=== PATIENT | female | born 1965 | race Caucasian/White ===

== ENCOUNTER 2020-02-14 15:15 | Emergency (ER) | payer MEDICARE ==
--- NOTE | 2020-02-14 16:00 | ED Physician Documentation ---
History of Present Illness - Stated complaint Stated Complaint: HIGH BP,SWEATING,COLON - Chief complaint Chief Complaint: Neuro - History obtained from History obtained from: Patient - Additonal information Additional information: 54-year-old female is brought into the emergency department for evaluation of headache, elevated blood pressure and difficulty speaking. She reports to me that she had a CVA a number of months ago and was treated at [facility] (11/24/19). She reports that normally her speech is quite fluid however when she develops high blood pressures that she begins to stutter and have difficulty with word finding. She reports that her BP's were 185/100 this am. Here in the ED she initially presented as hypertensive, but was normotensive on second evaluation. She does report to me that at baseline she has some residual right-sided weakness from her stroke. Patient is here on [facility] babysitting for her grandchildren. She reports that when she woke up at about 6 this morning she was not feeling well and began having difficulty with her blood pressure and speech. She drove herself into the hospital this afternoon. She denies that she is having chest pain or shortness of breath. 1620: Patient's daughter has arrived at the bedside. Though the patient had reported to me that she was having high blood pressure and difficulty with word finding this morning. The patient reports that she spoke to her mom on the phone at around 2 PM and she was normal. The patient's daughter is quite upset and concerned that we are not acting urgently in the care of her mother. I have initiated tele-stroke consultation Review of Systems Constitutional: reports: Reviewed and negative Eyes: reports: Reviewed and negative Ears: reports: Reviewed and negative Nose: reports: Reviewed and negative Throat: reports: Reviewed and negative Cardiac: reports: Reviewed and negative Respiratory: reports: Reviewed and negative GI: reports: Reviewed and negative : reports: Reviewed and negative Skin: reports: Reviewed and negative Musculoskeletal: reports: Reviewed and negative Neurologic: reports: Focal weakness (right sided deficits), Difficulty speaking, Headache. denies: Syncope, Seizure, Confused, Altered mental status PD PAST MEDICAL HISTORY - Present Medications Home Medications: Ambulatory Orders Medication Instructions Recorded Confirmed Levothyroxine [Synthroid] 125 mcg PO QDAC 02/14/20 02/14/20 Pramipexole [Mirapex] 0.25 mg PO DAILY 02/14/20 02/14/20 amLODIPine [Norvasc] 5 mg PO DAILY 02/14/20 02/14/20 tiZANidine [Zanaflex] 4 mg PO BID 02/14/20 02/14/20 - Allergies Allergies/Adverse Reactions: Allergies Allergy/AdvReac Type Severity Reaction Status Date / Time amoxicillin Allergy Rash Verified 02/14/20 17:42 cephalexin Allergy Rash Verified 02/14/20 17:43 diphenhydramine Allergy Rash Verified 02/14/20 17:43 [From Benadryl] metaxalone [From Skelaxin] Allergy Anaphylaxis Verified 02/14/20 17:44 NSAIDS (Non-Steroidal Allergy Rash Verified 02/14/20 17:43 Anti-Inflamma PD ED PE EXPANDED - General General: Alert, Well developed/nourished, Anxious - HEENT HEENT: PERRL, EOMI - Eyes Eyes: PERRL, Normal accommodation - Cardiac Cardiac: Regular Rate, Regular Rhythm, Radial strong equal, Pedal strong equal, Cap refill < 2 sec - Respiratory Respiratory: Clear to ausultation celeste. No: Distress, Labored - Abdomen Abdomen: Normal Bowel sounds. No: Tender to palpation - Derm Derm: Normal color, Warm and dry. No: Rash - Neuro Neuro: Normal Sensation, CN deficit, PERRL, Normal finger nose. No: Normal motor (Mild right sided arm/leg weakness; normal left arm/leg motor), Normal Speech, Dyscongugate gaze, Nystagmus, Normal speech (Stuttered speech, difficulty with word finding.) - GCS Eye Opening: Spontaneous Motor: Obeys Commands Verbal: Oriented Total: 15 Results - Vitals Vitals: Vital Signs - 24 hr 02/14/20 02/14/20 02/14/20 15:23 16:00 16:01 Temperature 36.6 C Heart Rate 94 85 84 Respiratory 18 16 17 Rate Blood Pressure 174/104 H 130/99 H O2 Saturation 99 99 99 02/14/20 02/14/20 02/14/20 16:30 16:39 17:00 Temperature Heart Rate 124 H 84 83 Respiratory 20 13 20 Rate Blood Pressure 130/99 H 174/99 H 169/126 H O2 Saturation 99 98 100 02/14/20 02/14/20 02/14/20 17:30 17:47 17:51 Temperature Heart Rate 80 80 78 Respiratory 20 11 L 14 Rate Blood Pressure 159/99 H 152/91 H 143/84 H O2 Saturation 100 97 98 02/14/20 18:14 Temperature Heart Rate 76 Respiratory 16 Rate Blood Pressure 124/89 H O2 Saturation 96 Oxygen O2 Source Room air - EKG (time done) 1547 Rate: Rate (enter#) (87) Rhythm: NSR Eastman: RAD Intervals: Normal OH, Prolonged QT Ischemia: Non specific changes Compare to prior EKG: Old EKG unavailable Computer interpretation: Agree with computer - Labs Labs: Laboratory Tests 02/14/20 02/14/20 02/14/20 15:30 15:30 15:30 WBC 9.4 RBC 5.00 Hgb 14.9 Hct 45.5 MCV 91.0 MCH 29.8 MCHC 32.7 RDW 13.7 Plt Count 270 MPV 11.8 H Neut # (Auto) 5.5 Lymph # (Auto) 2.9 [place] # (Auto) 0.7 Eos # (Auto) 0.2 Baso # (Auto) 0.1 Absolute Nucleated RBC 0.00 Nucleated RBC % 0.0 PT INR Sodium 139 Potassium 3.9 Chloride 99 L Carbon Dioxide 25 Anion Gap 15.0 H BUN 16 Creatinine 0.8 Estimated GFR (MDRD) 75 L Glucose 89 Calcium 10.1 Total Bilirubin 0.5 AST 22 ALT 36 Alkaline Phosphatase 91 Troponin I High Sens 2.5 B-Natriuretic Peptide Total Protein 8.7 H Albumin 4.8 Globulin 3.9 Albumin/Globulin Ratio 1.2 Lipase 34 02/14/20 02/14/20 15:30 15:30 WBC RBC Hgb Hct MCV MCH MCHC RDW Plt Count MPV Neut # (Auto) Lymph # (Auto) [place] # (Auto) Eos # (Auto) Baso # (Auto) Absolute Nucleated RBC Nucleated RBC % PT 11.9 INR 1.1 Sodium Potassium Chloride Carbon Dioxide Anion Gap BUN Creatinine Estimated GFR (MDRD) Glucose Calcium Total Bilirubin AST ALT Alkaline Phosphatase Troponin I High Sens B-Natriuretic Peptide 10 Total Protein Albumin Globulin Albumin/Globulin Ratio Lipase - Rads (name of study) CT angio head Radiology: Final report received (No intracranial hemorrhage is seen. No significant intracranial abnormality is seen. No significant intracranial arterial abnormalities are seen. No masses or abnormal enhancement can be seen) CT angio neck Radiology: Final report received (No hemodynamically significant stenosis can be seen within the arteries of the neck.) PD MEDICAL DECISION MAKING - ED course Complexity details: reviewed results, re-evaluated patient, considered differential, d/w patient, d/w family ED course: 54-year-old female Presents to the emergency department with aphasia right-sided weakness and elevated blood pressure. The symptoms are consistent with previous CVA that she has had in the past. Patient initially reported to this provider that her symptoms began early this morning and I felt that she was outside of the stroke window. However when the patient's daughter presented to the emergency department she reported that the symptoms started after 2 PM. Once the daughter reported sooner symptoms telestroke was initiated. However the CT angio of the head and neck that was ordered on presentation was in progress. 1627: Telestroke consultation ordered. 1650: Dr. Barber neurologist through telestroke has evaluated the patient and recommended TPA administration. 1735: Patient is reevaluated. TPA bolus and administration has begun. At this time she continues to complain of headache however her speech is improving. 25 mcgs of fentanyl as a one-time dose will be given 1823: [facility] paperwork has been filled out. Patient will be flown to [facility] once [facility] is available. Dr. Powell the telestroke neurologist has spoken with an accepting hospitalist at [facility]. At this time patient continues with some mild stuttering and difficulty with word finding though it is improved. Her vital signs are stable and she continues with the persistent headache that she presented with Departure - Departure Disposition: 02 Transfer Acute Care Hosp Clinical Impression: tPA adm status 24 hr [employer] SUR[employer]OR Stroke Qualifiers: CVA mechanism: unspecified Qualified Code(s): I63.9 - Cerebral infarction, unspecified Condition: Serious Record reviewed to determine appropriate education?: Yes
[2020-02-14 16:17] LABS: BASOPHILS # (AUTO) 0.1 10^3/uL (0.0-0.1); BASOPHILS % (AUTO) 0.9 %; EOSINOPHILS # (AUTO) 0.2 10^3/uL (0.0-0.7); EOSINOPHILS % (AUTO) 2.6 %; HGB - HEMOGLOBIN 14.9 g/dL (12.0-16.0); LYMPHOCYTES # (AUTO) 2.9 10^3/uL (1.5-3.5); LYMPHOCYTES % (AUTO) 30.4 %; MEAN CORPUSCULAR HEMOGLOBIN 29.8 pg (27.0-31.0); MEAN CORPUSCULAR HGB CONC 32.7 g/dL (32.0-36.0); MEAN PLATELET VOLUME 11.8 fL (7.9-10.8); MONOCYTES # (AUTO) 0.7 10^3/uL (0.0-1.0); NEUTROPHILS # (AUTO) 5.5 10^3/uL (1.5-6.6); NEUTROPHILS % (AUTO) 58.7 %; PLT - PLATELET COUNT 270 10^3/uL (130-450); RED CELL DISTRIBUTION WIDTH 13.7 % (12.0-15.0); WHITE BLOOD COUNT 9.4 x10^3/uL (4.8-10.8)
--- NOTE | 2020-02-14 16:18 | XRAY Report ---
PROCEDURE: Chest 1 View X-Ray INDICATIONS: Chest Pain TECHNIQUE: One view of the chest was acquired. COMPARISON: None FINDINGS: Surgical changes and devices: None. Lungs and pleura: No pleural effusions or pneumothorax. Lungs are clear. Mediastinum: Mediastinal contours appear normal. Heart size is normal. Bones and chest wall: No suspicious bony lesions. Overlying soft tissues appear unremarkable. IMPRESSION: No acute cardiopulmonary pathology. Reviewed by: Almas Segal MD on 02/14/2020 3:17 PM [facility] Approved by: Almas Segal MD on 02/14/2020 3:17 PM [facility] Station ID: [id number]
[2020-02-14 16:24] LABS: INR 1.1 (0.8-1.2); PT - PROTHROMBIN TIME 11.9 secs (9.9-12.6)
[2020-02-14] MEDS ORDERED: IOVERSOL 320 100 ML VIAL IVP ONE ×2 (16:25→17:17)
[2020-02-14 16:32] LABS: ALBUMIN 4.8 g/dL (3.2-5.5); ALBUMIN/GLOBULIN RATIO 1.2 (1.0-2.2); BILIRUBIN,TOTAL 0.5 mg/dL (0.2-1.0); CALCIUM 10.1 mg/dL (8.5-10.3); CREATININE 0.8 mg/dL (0.4-1.0); TOTAL PROTEIN 8.7 g/dL (6.7-8.2)
--- NOTE | 2020-02-14 16:53 | CT Report ---
PROCEDURE: ANGIO HEAD W/WO INDICATIONS: aphasia; right sided weakness CONTRAST: IV CONTRAST: Optiray 320 ml: 80 PO CONTRAST: *NO PO CONTRAST TECHNIQUE: Precontrast 4.5 mm thick angled axial sections acquired from the foramen magnum to the vertex. Afte r the administration of intravenous contrast, 1 mm thick sections acquired through the [place] of [place] is. Postcontrast 4.5 mm thick sections then re-acquired from the foramen magnum to the vertex. 3-di mensional bvzjmab-ljlkitdbq-omipvsjbxz (MIP) and/or volume rendering reformats were acquired of the c entral intracranial vasculature. For radiation dose reduction, the following was used: automated ex posure control, adjustment of mA and/or kV according to patient size. COMPARISON: Correlation is made with the accompanying neck CT angiogram, 02/14/2020. FINDINGS: Image quality: Diagnostic, with note made of streak artifact through the skull base. This study is li mited by bolus timing, with venous contamination. Anterior circulation: Intracranial internal carotid arteries are normal in size and flow. The flow within the paired anterior cerebral arteries is normal and symmetric. The flow within the middle cer ebral arteries is normal and symmetric. The anterior communicating artery is seen. No aneurysms are seen. Posterior circulation: Visualized portions of the vertebral arteries demonstrate normal caliber, and join to form a normal appearing basilar artery. Incidental note is made of a prominent right duplicating machine mechanic ior communicating artery, with a diminutive right P1 segment. 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 Flow within the posterior cerebral arteries is normal and symmetric. No aneurysms are seen. CSF spaces: Ventricles are normal in size and shape. Basal cisterns are patent. No extra-axial flu id collections. Brain: No midline shift. No intracranial bleeds or masses. Ward-white matter interface appears int act. Skull and face: Calvarium and facial bones appear intact, without suspicious lesions. Sinuses: Visualized sinuses and mastoids are clear. IMPRESSION: No intracranial hemorrhage is seen. No significant intracranial abnormality is seen. No significant intracranial arterial abnormalities are seen. No masses or abnormal enhancement can be seen. Reviewed by: Estiven Keita MD on 02/14/2020 3:52 PM [facility] Approved by: Estiven Keita MD on 02/14/2020 3:52 PM [facility] Station ID: [id number]
--- NOTE | 2020-02-14 16:56 | CT Report ---
PROCEDURE: ANGIO NECK W INDICATIONS: aphasia; right sided weakness CONTRAST: IV CONTRAST: Optiray 320 ml: 80 PO CONTRAST: *NO PO CONTRAST TECHNIQUE: After the administration of intravenous contrast, 1.5 mm axial sections acquired from the aortic arch to the [place]. Coronal 3-D maximum intensity projection (MIP) and/or volume rendering ref ormats were then performed. For radiation dose reduction, the following was used: automated exposur e control, adjustment of mA and/or kV according to patient size. COMPARISON: Correlation is made with the accompanying head CT angiogram, 02/14/2020 FINDINGS: Image quality: Mildly limited by bolus timing, with venous contamination. Carotid system: The great vessels demonstrate a conventional anatomy as they arise from the aortic a rch. The origins of the common carotid arteries appear patent. The common carotid arteries demonstr ate normal calibers and courses. The bifurcation regions demonstrate atherosclerotic irregularity, y et without a hemodynamically significant stenosis. The internal carotid arteries demonstrate normal c aliber and course. Posterior circulation: The origins of the vertebral arteries appear patent. The more superior porti ons of the vertebral arteries demonstrate normal course and caliber. They join to form a normal appe aring basilar artery. Soft tissues: Visualized neck soft tissues demonstrate no suspicious abnormalities. The thyroid is not definitely seen. Bones: No suspicious bony lesions. Visualized cervical spine appears normally aligned. Cervical s pine degenerative changes are seen, with moderate disc space narrowing at C5-C6, with associated endp late irregularity and sclerosis. Mild posteriorly directed endplate osteophyte formation can be seen at this level. Milder degenerative changes are seen elsewhere. IMPRESSION: No hemodynamically significant stenosis can be seen within the arteries of the neck. Focal C5-C6 degenerative change noted. The estimate of stenosis included in the report of the imaging study was calculated using the NASCET method Reviewed by: Estiven Keita MD on 02/14/2020 3:54 PM [facility] Approved by: Estiven Keita MD on 02/14/2020 3:54 PM [facility] Station ID: [id number]
[2020-02-14] MEDS ORDERED: LABETALOL 20 MG/4 ML SYRINGE IVP STA (17:08)
[2020-02-14] MEDS ORDERED: fentaNYL 100 MCG/2 ML VIAL IVP STA (17:34)
[2020-02-14] MEDS ORDERED: ALTEPLASE IV ONE (18:00)
[2020-02-14] MEDS ORDERED: WATER FOR INJECTION STERILE IV ONE (18:00)
[2020-02-14] MEDS ORDERED: ALTEPLASE 100 MG VIAL IV ONE (18:00)
[2020-02-14 18:36] VITALS: BP 140/92
== END 2020-02-14 18:57 | disposition short-term general hospital (02) ==
LOC: ED 15:15
DX: I63.9 Cerebral infarction, unspecified (principal); R47.01 Aphasia; R51.9 Headache, unspecified; G81.91 Hemiplegia, unspecified affecting right dominant side; R03.0 Elevated blood-pressure reading, without diagnosis of hypertension; M47.812 Spondylosis without myelopathy or radiculopathy, cervical region
CPT/HCPCS: 36415; 37195; 70496; 70498; 71045; 80053; 83690; 83880; 84484; 85025; 85610; 93005; 96374; 96375; 99283; 99285; J2997; Q9967

== ENCOUNTER 2020-07-01 17:09 | Emergency (ER) | payer MEDICARE ==
[2020-07-01] MEDS ORDERED: HYDROmorphone 1 MG/ML CARPUJECT IM STA (17:25)
--- NOTE | 2020-07-01 17:26 | ED Physician Documentation ---
History of Present Illness - Stated complaint Stated Complaint: RT RIB PX - Chief complaint Chief Complaint: Trauma Ch/Bk - History obtained from History obtained from: Patient (She was at home gardening and using pruning adama on some large branches and as she was squeezing down on the adama she felt 3 pops on the right side and now has severe right rib pain. Pain with breathing. Denies cough or fever.) Review of Systems Constitutional: denies: Fever, Chills Ears: reports: Reviewed and negative Nose: reports: Reviewed and negative PD PAST MEDICAL HISTORY - Past Medical History Cardiovascular: Hypertension Neuro: CVA - Present Medications Home Medications: Ambulatory Orders Medication Instructions Recorded Confirmed Levothyroxine [Synthroid] 125 mcg PO QDAC 02/14/20 02/14/20 Pramipexole [Mirapex] 0.25 mg PO DAILY 02/14/20 02/14/20 amLODIPine [Norvasc] 5 mg PO DAILY 02/14/20 02/14/20 tiZANidine [Zanaflex] 4 mg PO BID 02/14/20 02/14/20 Lidocaine Patch 5% [Lidoderm Patch] 1 patch TOP DAILY PRN #10 patch 07/01/20 Oxycodone HCl/Acetaminophen 1 - 2 each PO Q6H PRN #14 tablet 07/01/20 [Percocet 5-325 mg Tablet] - Allergies Allergies/Adverse Reactions: Allergies Allergy/AdvReac Type Severity Reaction Status Date / Time amoxicillin Allergy Rash Verified 07/01/20 17:13 cephalexin Allergy Rash Verified 07/01/20 17:13 diphenhydramine Allergy Rash Verified 07/01/20 17:13 [From Benadryl] metaxalone [From Skelaxin] Allergy Anaphylaxis Verified 07/01/20 17:13 NSAIDS (Non-Steroidal Allergy Rash Verified 07/01/20 17:13 Anti-Inflamma - Social History Does the pt smoke?: No Smoking Status: Never smoker PD ED PE NORMAL - Vitals Vital signs reviewed: Yes - General General: Alert and oriented X 3, Other (She appears uncomfortable and is cl utching at the right side of her chest. She cannot sit up unassisted on initial evaluation to look at her back.) - Neck Neck: Supple, no meningeal sign, No bony TTP - Cardiac Cardiac: RRR, No murmur - Respiratory Respiratory: No respiratory distress, Clear bilaterally - Abdomen Abdomen: Non tender - Back Back: No spinal TTP - Neuro Neuro: Alert and oriented X 3, Normal speech Results - Vitals Vitals: Vital Signs - 24 hr 07/01/20 17:13 Temperature 36.5 C Heart Rate 99 Respiratory 22 Rate Blood Pressure 148/95 H O2 Saturation 99 Oxygen O2 Source Room air - Rads (name of study) R ribs and chest Radiology: EMP read contemporaneously (NAD, no vis frx) PD MEDICAL DECISION MAKING - ED course ED course: 54-year-old woman with severe muscular layer rib pain after using pruning adama. She is in a lot of pain and she was administered IM Dilaudid here. No NSAIDs noting allergy. Still a lot of pain so some Ativan and oral Tylenol as well. This was followed by a lidocaine patch. Departure - Departure Disposition: 01 Home, Self Care Clinical Impression: Intercostal muscle tear Qualifiers: Encounter type: initial encounter Qualified Code(s): S29.019A - Strain of muscle and tendon of unspecified wall of thorax, initial encounter Condition: Good Record reviewed to determine appropriate education?: Yes Instructions: ED Contusion Chest Wall Prescriptions: Lidocaine Patch 5% [Lidoderm Patch] 1 patch TOP DAILY PRN #10 patch PRN Reason: pain Oxycodone HCl/Acetaminophen [Percocet 5-325 mg Tablet] 1 - 2 each PO Q6H PRN #14 tablet PRN Reason: pain Comments: Call your doctor to arrange a follow-up appointment, make the next available appointment. In the interim, return anytime if worse or if new symptoms develop. Do not drink or drive while taking narcotic pain medication. Note that many narcotic pain relievers also contain Tylenol/acetaminophen. Please ensure that your total dose of acetaminophen from all sources does not exceed 3 g (3000 mg) per day. You may get constipated while on this medication. Take a stool softener such as Colace twice a day while you are on it. Also add an ivjn-czg-ijxjjci laxative such as senna or MiraLAX on any day that you do not have a bowel movement. If you received a narcotic pain medication or sedative while in the emergency department, do not drive for the next 24 hours.
--- NOTE | 2020-07-01 18:07 | XRAY Report ---
PROCEDURE: Ribs w/PA Chest RT INDICATIONS: rib pain TECHNIQUE: 2 views of the right ribs were acquired, along with a single view chest. 4 images total. COMPARISON: Lung apices on CT neck and CXR 02/14/2020. FINDINGS: Surgical changes and devices: None. Bones and chest wall: No fractures or dislocations. No suspicious bony lesions. Overlying soft tis sues appear unremarkable. Lungs and pleura: No pleural effusions or pneumothorax. Lungs appear clear. Mediastinum: Mediastinal contours appear normal. Heart size is normal. IMPRESSION: No displaced right-sided rib fracture. Reviewed by: Duarte Garcia MD on 07/01/2020 6:05 PM PDT Approved by: Duarte Garcia MD on 07/01/2020 6:05 PM PDT Station ID: [id number]
[2020-07-01] MEDS ORDERED: ACETAMINOPHEN 325 MG TABLET PO STA (18:08)
[2020-07-01] MEDS ORDERED: LORazepam 2 MG/ML VIAL IM STA (18:08)
[2020-07-01] MEDS ORDERED: oxyCODONE 5 MG TABLET PO STA (19:20)
[2020-07-01] MEDS ORDERED: LIDOCAINE PATCH 5% TOP STA (19:20)
[2020-07-01 20:07] VITALS: BP 135/85
--- OUTSIDE RECORDS SUMMARY | 2020-07-08 23:06 | EXTERNAL MEDICAL SUMMARY RPT | Continuity of Care Document ---
:1965 Demographics Phone Unavailable Preferred Language Unknown Marital Status Unknown Restorationist Affiliation Unknown Race Unknown Ethnic Group Unknown Author Organization [place] Address [address] [place] [address] Phone Social History date description facility [id number]
== END 2020-07-01 20:11 | disposition home or self-care (01) ==
LOC: ED 17:09
DX: S29.019A Strain of muscle and tendon of unspecified wall of thorax, initial encounter (principal); X58.XXXA Exposure to other specified factors, initial encounter; Y93.H2 Activity, gardening and landscaping; Y92.009 Unspecified place in unspecified non-institutional (private) residence as the place of occurrence of the external cause
CPT/HCPCS: 71101; 96372; 99283; 99284; A9270; J1170; J2060

== ENCOUNTER 2020-08-11 13:24 | Emergency (ER) | payer MEDICARE ==
[2020-08-11 13:46] LABS: BILIRUBIN,URINE NEGATIVE (NEGATIVE); GLUCOSE, URINE (UA) NEGATIVE (NEGATIVE); KETONES,URINE (UA) NEGATIVE (NEGATIVE); LEUKOCYTE ESTERASE, URINE NEGATIVE (NEGATIVE); NITRITE,URINE NEGATIVE (NEGATIVE); OCCULT BLOOD,URINE NEGATIVE (NEGATIVE); PROTEIN,URINE NEGATIVE (NEGATIVE); UROBILINOGEN,URINE 0.2 (NORMAL) E.U./dL (NORMAL)
[2020-08-11 13:47] LABS: CLARITY,URINE CLEAR (CLEAR)
[2020-08-11 13:48] LABS: HCG UR QUAL NEGATIVE
[2020-08-11 14:03] LABS: BASOPHILS # (AUTO) 0.1 10^3/uL (0.0-0.1); BASOPHILS % (AUTO) 0.9 %; EOSINOPHILS # (AUTO) 0.3 10^3/uL (0.0-0.7); EOSINOPHILS % (AUTO) 3.1 %; HCT - HEMATOCRIT 44.3 % (37.0-47.0); HGB - HEMOGLOBIN 14.6 g/dL (12.0-16.0); LYMPHOCYTES # (AUTO) 2.8 10^3/uL (1.5-3.5); LYMPHOCYTES % (AUTO) 29.8 %; MEAN CORPUSCULAR HEMOGLOBIN 30.1 pg (27.0-31.0); MEAN CORPUSCULAR VOLUME 91.3 fL (81.0-99.0); MEAN PLATELET VOLUME 11.6 fL (7.9-10.8); MONOCYTES # (AUTO) 0.5 10^3/uL (0.0-1.0); MONOCYTES % (AUTO) 5.6 %; NEUTROPHILS # (AUTO) 5.6 10^3/uL (1.5-6.6); NEUTROPHILS % (AUTO) 60.2 %; PLT - PLATELET COUNT 233 10^3/uL (130-450); RED BLOOD COUNT 4.85 10^6/uL (4.20-5.40); RED CELL DISTRIBUTION WIDTH 13.3 % (12.0-15.0); WHITE BLOOD COUNT 9.3 x10^3/uL (4.8-10.8)
[2020-08-11 14:16] LABS: ALBUMIN 5.1 g/dL (3.2-5.5); ALBUMIN/GLOBULIN RATIO 1.4 (1.0-2.2); BILIRUBIN,TOTAL 0.6 mg/dL (0.2-1.0); CALCIUM 9.7 mg/dL (8.5-10.3); CREATININE 0.8 mg/dL (0.4-1.0); POTASSIUM 3.8 mmol/L (3.5-5.0); TOTAL PROTEIN 8.8 g/dL (6.7-8.2)
[2020-08-11] MEDS ORDERED: HYDROmorphone 1 MG/ML CARPUJECT IVP STA (15:57)
[2020-08-11] MEDS ORDERED: ONDANSETRON 4 MG/2 ML VIAL IVP STA (15:57)
--- NOTE | 2020-08-11 16:01 | ED Physician Documentation ---
History of Present Illness - Stated complaint Stated Complaint: RT SIDE PX - Chief complaint Chief Complaint: Abd Pain - Additonal information Additional information: 54-year-old female presents emergency department for evaluation of right flank, right upper quadrant abdominal pain for the last 3 days as well as reported white stools with lopez flecks for the better part of the week. She has discussed this concern with her accounts payable coordinator at the [facility] and they requested she come to the ER for further evaluation. Patient reports that over the last week she has had temperatures as high as 101. Some nausea and very occasional vomiting. No diarrhea but she notices that her stools are often white. She has been seen by accounts payable coordinator for bloody stools that she has had in the past and possible irritable bowel versus i nflammatory bowel syndrome. No dysuria urgency or frequency. No hematuria. Denies any pertinent past surgical history. Retains her gallbladder and appendix. Review of Systems Constitutional: reports: Fever Eyes: reports: Reviewed and negative Ears: reports: Reviewed and negative Nose: reports: Reviewed and negative Throat: reports: Reviewed and negative Cardiac: reports: Reviewed and negative Respiratory: reports: Reviewed and negative GI: reports: Abdominal Pain, Nausea, Vomiting, Other (White stools) : denies: Dysuria, Frequency, Hematuria Skin: reports: Reviewed and negative Musculoskeletal: reports: Reviewed and negative PD PAST MEDICAL HISTORY - Past Medical History Cardiovascular: Hypertension Respiratory: None Neuro: CVA Endocrine/Autoimmune: None GI: None FACING GRINDER: None : None HEENT: None Psych: None Musculoskeletal: None Derm: None - Past Surgical History Past Surgical History: Yes /FACING GRINDER: section - Present Medications Home Medications: Ambulatory Orders Medication Instructions Recorded Confirmed Levothyroxine [Synthroid] 125 mcg PO QDAC 02/14/20 02/14/20 Pramipexole [Mirapex] 0.25 mg PO DAILY 02/14/20 02/14/20 amLODIPine [Norvasc] 5 mg PO DAILY 02/14/20 02/14/20 tiZANidine [Zanaflex] 4 mg PO BID 02/14/20 02/14/20 Lidocaine Patch 5% [Lidoderm Patch] 1 patch TOP DAILY PRN #10 patch 07/01/20 Oxycodone HCl/Acetaminophen 1 - 2 each PO Q6H PRN #14 tablet 07/01/20 [Percocet 5-325 mg Tablet] Pantoprazole Sodium [Protonix] 20 mg PO DAILY #30 08/11/20 - Allergies Allergies/Adverse Reactions: Allergies Allergy/AdvReac Type Severity Reaction Status Date / Time amoxicillin Allergy Rash Verified 08/11/20 13:26 cephalexin Allergy Rash Verified 08/11/20 13:26 diphenhydramine Allergy Rash Verified 08/11/20 13:26 [From Benadryl] metaxalone [From Skelaxin] Allergy Anaphylaxis Verified 08/11/20 13:26 NSAIDS (Non-Steroidal Allergy Rash Verified 08/11/20 13:26 Anti-Inflamma - Social History Does the pt smoke?: No Smoking Status: Never smoker Does the pt drink ETOH?: No Does the pt have substance abuse?: No - Immunizations Immunizations are current?: Yes - POLST Patient has POLST: No PD ED PE EXPANDED - General General: Alert, No acute distress - Cardiac Cardiac: Regular Rate, Radial strong equal, Pedal strong equal, Cap refill < 2 sec. No: Murmur Present - Respiratory Respiratory: Clear to ausultation celeste. No: Distress, Labored - Abdomen Abdomen: Normal Bowel sounds, Tender to palpation, Other (Tenderness to the right upper quadrant and right flank without guarding or rebound.). No: Rebound, Guarding - Back Back: Normal exam. No: CVA TTP right, CVA TTP left - Derm Derm: Normal color. No: Warm and dry, Pale, Jaundiced Results - Vitals Vitals: Vital Signs - 24 hr 08/11/20 13:28 Temperature 36.5 C Heart Rate 84 Respiratory 16 Rate Blood Pressure 167/98 H O2 Saturation 100 Oxygen O2 Source Room air - Labs Labs: Laboratory Tests 08/11/20 08/11/20 08/11/20 13:38 13:55 13:55 WBC 9.3 RBC 4.85 Hgb 14.6 Hct 44.3 MCV 91.3 MCH 30.1 MCHC 33.0 RDW 13.3 Plt Count 233 MPV 11.6 H Neut # (Auto) 5.6 Lymph # (Auto) 2.8 [place] # (Auto) 0.5 Eos # (Auto) 0.3 Baso # (Auto) 0.1 Absolute Nucleated RBC 0.00 Nucleated RBC % 0.0 Sodium 136 Potassium 3.8 Chloride 100 L Carbon Dioxide 26 Anion Gap 10.0 BUN 18 Creatinine 0.8 Estimated GFR (MDRD) 75 L Glucose 79 Calcium 9.7 Total Bilirubin 0.6 AST 26 ALT 41 Alkaline Phosphatase 87 Total Protein 8.8 H Albumin 5.1 Globulin 3.7 Albumin/Globulin Ratio 1.4 Lipase 22 Urine Color YELLOW Urine Clarity CLEAR Urine pH 5.0 Ur Specific [place] 1.020 Urine Protein NEGATIVE Urine Glucose (UA) NEGATIVE Urine Ketones NEGATIVE Urine Occult Blood NEGATIVE Urine Nitrite NEGATIVE Urine Bilirubin NEGATIVE Urine Urobilinogen 0.2 (NORMAL) Ur Leukocyte Esterase NEGATIVE Ur Microscopic Review NOT INDICATED Urine Culture Comments NOT INDICATED Urine HCG, Qual NEGATIVE - Rads (name of study) abd US Radiology: Final report received (Hepatic steatosis and hepatomegaly. No hepatic lesions. Normal-appearing gallbladder. No gross biliary ductal dilation. Common bile duct size is measuring at the upper limits of normal for patient's age.) CT abd/pelvis Radiology: Final report received (Hepatomegaly with generalized prominent fatty liver.) PD MEDICAL DECISION MAKING - ED course Complexity details: reviewed results, re-evaluated patient, d/w patient ED course: 54-year-old female presents to the emergency department for evaluation of right flank pain as well as white stools have been ongoing for about a week. Screening labs show no significant abnormality. Particularly her liver function tests and bilirubin are normal. No leukocytosis. Abdominal ultrasound and CAT scan show enlarged fatty liver without any worrisome findings otherwise. After reevaluating the patient we discussed her white stools and she reports to me that she has been eating a lot of Tums because her stomach has been upset recently the calcium carbonate is most likely the cause of the white stools. When I had asked her to at the presentation in the emergency department she declined taking any medication like that. I suspect that she has some gastritis contributing to her upper abdominal pain or even her flank pain therefore I will start her on Protonix. She is advised to follow closely with her accounts payable coordinator. She may benefit from EGD and/or H. pylori testing. Emergent return precautions were discussed. Departure - Departure Disposition: 01 Home, Self Care Clinical Impression: Hepatomegaly, Fatty liver Abdominal pain Qualifiers: Abdominal location: right upper quadrant Qualified Code(s): R10.11 - Right upper quadrant pain Condition: Stable Record reviewed to determine appropriate education?: Yes Instructions: NAFLD Follow-Up: RUT INIGUEZ MD [Primary Care Provider] - Prescriptions: Pantoprazole Sodium [Protonix] 20 mg PO DAILY #30 Comments: Please see you are seen in the emergency department today for right-sided abdominal pain and reported white stools. As we discussed the Tums that you are taking has calcium carbonate in it. This is the most likely cause of your white stools even if you are taking a small amount. I suspect however that most of your abdominal pain is coming from stomach upset or even gastritis. Therefore I would like you to fill the prescription for the Protonix and begin taking daily as prescribed. You may continue to take the Tums for occasional stomach upset. Please discuss this ED visit with your accounts payable coordinator. You may benefit from an EGD where and they look in your stomach for ulcer formation. You might also benefit from H. pylori testing. The abdominal ultrasound and CAT scan today showed only that you have an enlarged and fatty liver. This does put you at risk of developing cirrhosis in the long-term. Again this is something that you should discuss closely with your accounts payable coordinator.
[2020-08-11] MEDS ORDERED: IOPAMIDOL-300 100 ML VIAL ONE (16:07)
--- NOTE | 2020-08-11 17:04 | Ultrasound Report ---
PROCEDURE: Abdomen Limited INDICATIONS: RUQ abd pain TECHNIQUE: Real-time focused scanning was performed of the abdomen, with image documentation. COMPARISON: None. FINDINGS: Liver is enlarged in size and measures 20.7 cm in length. Diffusely increased liver parenchymal echot exture is seen suggestive of hepatic steatosis. No discrete hepatic lesion is seen. There is no gallstone. No gallbladder wall thickening or pericholecystic fluid. No sonographic Rodriguez 's sign. There is no intrahepatic biliary ductal dilatation. Common bile that measures up to 6.4 mm in diamete r and it is in the upper limits of normal. Pancreas is poorly visualized due to overlying bowel gas. Right kidney measures 11.5 cm in length. No hydronephrosis. No solid-appearing renal lesion or nephro lithiasis. IVC is patent. IMPRESSION: 1. Hepatic steatosis and hepatomegaly. No discrete hepatic lesion. 2. Normal-appearing gallbladder. 3. No gross biliary ductal dilatation. Common bile duct size is measuring at the upper limits of norm al for patient's age. Reviewed by: Almas Segal MD on 08/11/2020 5:03 PM PDT Approved by: Almas Segal MD on 08/11/2020 5:03 PM PDT Station ID: [id number]
[2020-08-11] MEDS ORDERED: IOPAMIDOL-300 100 ML VIAL IVP ONE (17:17)
--- NOTE | 2020-08-11 17:31 | CT Report ---
PROCEDURE: Abdomen/Pelvis W INDICATIONS: Right flank pain; white stools CONTRAST: IV CONTRAST: Isovue 300 ml: 100 PO CONTRAST: *NO PO CONTRAST TECHNIQUE: After the administration of contrast, 5 mm thick sections acquired from the diaphragms to the sym physis. 5 mm thick coronal and sagittal reformats were acquired. For radiation dose reduction, the following was used: automated exposure control, adjustment of mA and/or kV according to patient size . COMPARISON: Limited abdominal ultrasound same day reviewed.. FINDINGS: Image quality: Excellent. ABDOMEN: Lung bases: Lung bases are clear. Heart size is normal. Solid organs: Liver and spleen are normal in enhancement but the liver is enlarged and diffusely fat ty infiltrated. Its craniocaudad length is almost 22 cm, but the spleen is not enlarged.. Gallbladde r appears normal Biliary system is non dilated. Pancreas enhances normally. No adrenal nodules. K idneys demonstrate normal size and enhancement, without hydronephrosis. Peritoneum and bowel: Bowel loops demonstrate normal wall thickness and caliber. No free fluid or a ir. Nodes and vessels: No retroperitoneal or mesenteric adenopathy by size criteria. Aorta and inferior vena cava are normal in size. Miscellaneous: No ventral hernias. PELVIS: Genitourinary: Bladder wall thickness is normal. Miscellaneous: No inguinal hernias or adenopathy. Bones: No suspicious bony lesions. No vertebral body compression fractures. IMPRESSION: Hepatomegaly with generalized prominent fatty infiltration throughout, but the spleen is not enlarged and no ascites or varices are found. No biliary distention is seen and the pancreas visualized appears normal. Throughout the abdomen and pelvis elsewhere no pathology is found. Hepatic insufficiency may be present, acutely, as cause of cu rrent symptomatology and the enlarged fatty liver. Reviewed by: Niall Sheikh MD on 08/11/2020 5:29 PM PDT Approved by: Niall Sheikh MD on 08/11/2020 5:29 PM PDT Station ID: [id number]
[2020-08-11 17:56] VITALS: BP 131/82
== END 2020-08-11 18:02 | disposition home or self-care (01) ==
LOC: ED 13:24
DX: K76.0 Fatty (change of) liver, not elsewhere classified (principal); R16.0 Hepatomegaly, not elsewhere classified; I10 Essential (primary) hypertension
CPT/HCPCS: 36415; 74177; 76705; 80053; 81003; 81025; 83690; 85025; 96374; 99283; 99284; J1170; Q9967; 81001; 87086

== ENCOUNTER 2020-09-24 19:01 | Emergency (ER) | payer MEDICARE ==
--- NOTE | 2020-09-24 20:13 | ED Physician Documentation ---
PD HPI BACK PAIN - Stated complaint Stated Complaint: POST OP COMPLICATIONS - Chief complaint Chief Complaint: Back Pain - History obtained from History obtained from: Patient - History of Present Illness Timing - onset: Enter time (03:30), Today Timing - details: Gradual onset Pain level now: 8 Location: Lower, Left Quality: Pain Associated symptoms: No: Fever, Weakness, Numbness, Incontinent of urine, Incontinent of stool Improves with: Rest Worsened by: Movement, Palpation Recently seen: Surgery - Additional information Additional information: patient underwent a lumbar ablation eight days ago. She presents at this time due to worsening low back pain that radiates to her left buttock. she says her spouse noted some redness to the left buttock since earlier today. She denies fever. She says she has had inadequate pain relief despite taking Vicodin as prescribed. Review of Systems Constitutional: reports: Reviewed and negative : denies: Unable to Void, Incontinent Skin: reports: Rash Musculoskeletal: reports: Back pain Neurologic: denies: Generalized weakness, Focal weakness, Numbness PD PAST MEDICAL HISTORY - Past Medical History Past Medical History: Yes Cardiovascular: Hypertension Respiratory: None Neuro: CVA Endocrine/Autoimmune: None GI: None CLOTHING WORKER: None : None HEENT: None Psych: None Musculoskeletal: None Derm: None - Past Surgical History Past Surgical History: Yes /CLOTHING WORKER: section - Present Medications Home Medications: Ambulatory Orders Medication Instructions Recorded Confirmed Levothyroxine [Synthroid] 125 mcg PO QDAC 02/14/20 09/24/20 Pramipexole [Mirapex] 0.25 mg PO DAILY 02/14/20 09/24/20 amLODIPine [Norvasc] 5 mg PO DAILY 02/14/20 09/24/20 tiZANidine [Zanaflex] 4 mg PO BID 02/14/20 09/24/20 Lidocaine Patch 5% [Lidoderm Patch] 1 patch TOP DAILY PRN #10 patch 07/01/20 09/24/20 Pantoprazole Sodium [Protonix] 20 mg PO DAILY #30 08/11/20 09/24/20 Doxycycline Monohydrate 100 mg PO BID #14 09/24/20 HYDROcod/ACETAM 5/325 [[place] 5/325] 1 tablet PO Q6H PRN 09/24/20 09/24/20 oxyCODONE [Roxicodone] 5 - 10 mg PO Q4-6H PRN #14 tablet 09/24/20 - Allergies Allergies/Adverse Reactions: Allergies Allergy/AdvReac Type Severity Reaction Status Date / Time amoxicillin Allergy Rash Verified 09/24/20 19:08 cephalexin Allergy Rash Verified 09/24/20 19:08 diphenhydramine Allergy Rash Verified 09/24/20 19:08 [From Benadryl] metaxalone [From Skelaxin] Allergy Anaphylaxis Verified 09/24/20 19:08 NSAIDS (Non-Steroidal Allergy Rash Verified 09/24/20 19:08 Anti-Inflamma - Social History Does the pt smoke?: No Smoking Status: Never smoker Does the pt drink ETOH?: No Does the pt have substance abuse?: No - Immunizations Immunizations are current?: Yes - POLST Patient has POLST: No PD ED PE NORMAL - Vitals Vital signs reviewed: Yes - General General: Alert and oriented X 3, Well developed/nourished, Other (appears to be uncomfortable, mild-moderate painful distress) - Neck Neck: Supple, no meningeal sign - Abdomen Abdomen: Soft, Non tender - Back Back: No spinal TTP - Extremities Extremities: No edema - Neuro Neuro: No motor deficit, No sensory deficit PD ED PE EXPANDED - Derm SKin visual: 1 - rash 2 - rash (faint erythema within boundaries of 1 and 2 as diagrammed with poor margination, no fluctuance or edema, moderate TTP) Results - Vitals Vitals: Vital Signs - 24 hr 09/24/20 09/24/20 09/24/20 19:10 21:06 21:33 Temperature 36.9 C 36.2 C L 36.4 C L Heart Rate 84 72 72 Respiratory 18 20 16 Rate Blood Pressure 182/100 H 136/82 H 117/80 O2 Saturation 100 100 98 09/24/20 23:00 Temperature 36.3 C L Heart Rate 81 Respiratory 16 Rate Blood Pressure 132/83 H O2 Saturation 97 Oxygen O2 Source Room air PD MEDICAL DECISION MAKING - ED course Complexity details: considered differential, d/w patient ED course: presents due to left low back pain since early this morning. on exam, she has moderate TTP and faint erythema to the left of the sacral region continuing to the cranial aspect of left buttock. she is afebrile and there are no findings on exam nor aspects of HPI/ROS to suggest emergent process such as cauda equina, abscess, or deep tissue infection. the faint erythema could represent an early cellulitis and thus given doxycycline. adequate pain relief was eventually achieved with IM dilaudid, total of 3 mg. I am prescribing a short course of short-acting opioid pain medication for this patient. I have reviewed the patients BASEBALL SEWER HAND and no concerning findings were noted. I have discussed that the opioids are for short term therapy only, and will not be refilled from the ED. Departure - Departure Disposition: 01 Home, Self Care Clinical Impression: Back pain Qualifiers: Back pain location: low back pain Chronicity: acute Back pain laterality: left Sciatica presence: without sciatica Qualified Code(s): M54.5 - Low back pain Cellulitis Qualifiers: Site of cellulitis: buttock Qualified Code(s): L03.317 - Cellulitis of buttock Condition: Good Instructions: ED Infec Skin Cellulitis, ED Neck Back Pain General Follow-Up: RUT INIGUEZ MD [Primary Care Provider] - Within 3 Days Prescriptions: Doxycycline Monohydrate 100 mg PO BID #14 oxyCODONE [Roxicodone] 5 - 10 mg PO Q4-6H PRN #14 tablet PRN Reason: Pain Comments: You can take the oxycodone in place of the vicodin; do not take these medications within 6 hours of each other. I am prescribing a short course of narcotic pain medication for you. These are potentially dangerous and addictive medications that should be used carefully. These medications may constipate you. Take an mdaw-tzz-jqmfskl stool softener (docusate) twice daily with plenty of water while taking these medications. If you go 24 hours without a bowel movement, take lxoy-nlg-pjjfime miralax, per package instructions. Do not drink or drive while taking these medications. If you received narcotic or sedating medications while in the emergency department, do not drive for 24 hours. Store this medication in a safe, secure place and out of reach of children. It is a violation of federal law to give or sell this medication to another person or to use in a manner other than prescribed. The ED will not refill narcotic prescriptions, including prescriptions lost or stolen. To dispose of unwanted medications: 1. [facility] at [address] in [place] has a medication drop box. They accept prescription medications (in pill form) Tuesday through Tuesday 9:00 a.m. to 5:00 p.m. 2. The [facility] accepts prescription medications (in pill form only) for disposal year round. Call for more information. 3. Contact the [facility] for the next [facility] sponsored prescription drug collection event. , [phone], or [phone]; Note that many narcotic pain relievers also contain Tylenol/acetaminophen. Please ensure that your total dose of acetaminophen from all sources does not exceed 3 g (3000 mg) per day. Discharge Date/Time: 09/24/20 23:05
[2020-09-24] MEDS ORDERED: HYDROmorphone 1 MG/ML CARPUJECT IM STA ×2 (20:38→21:53)
[2020-09-24] MEDS ORDERED: DOXYCYCLINE 100 MG TABLET PO STA (20:39)
[2020-09-24 23:17] VITALS: BP 132/83
== END 2020-09-24 23:05 | disposition home or self-care (01) ==
LOC: ED 19:01
DX: G89.18 Other acute postprocedural pain (principal); M54.5 Low back pain; L03.317 Cellulitis of buttock; I10 Essential (primary) hypertension
CPT/HCPCS: 96372; 99283; 99284; A9270; J1170

== ENCOUNTER 2020-09-26 14:42 | Emergency (ER) | payer MEDICARE ==
--- NOTE | 2020-09-26 15:20 | ED Physician Documentation ---
History of Present Illness - Stated complaint Stated Complaint: BUTTOCK/BACK PX/IRRITATION - Chief complaint Chief Complaint: General - History obtained from History obtained from: Patient - History of Present Illness Timing: How many days ago (10) Pain level max: 10 Pain level now: 10 - Additonal information Additional information: Patient is a 54-year-old female who is status post radiofrequency ablation of her left side lumbar spine. Since that time she has had shooting pain down towards her left hip and down into the left posterior thigh. Worse with movement, better with rest. She is taking oxycodone without relief. She states she was recently put on doxycycline for possible infection. No fevers. No chills. Review of Systems Constitutional: denies: Fever, Chills Respiratory: denies: Cough GI: denies: Nausea, Vomiting, Diarrhea Skin: denies: Rash Musculoskeletal: denies: Neck pain, Back pain Neurologic: denies: Headache PD PAST MEDICAL HISTORY - Past Medical History Cardiovascular: Hypertension Respiratory: None Neuro: CVA Endocrine/Autoimmune: None GI: None SPEECH THERAPY TEACHER: None : None HEENT: None Psych: None Musculoskeletal: None Derm: None - Past Surgical History Past Surgical History: Yes /SPEECH THERAPY TEACHER: section - Present Medications Home Medications: Ambulatory Orders Medication Instructions Recorded Confirmed Levothyroxine [Synthroid] 125 mcg PO QDAC 02/14/20 09/26/20 Pramipexole [Mirapex] 0.25 mg PO DAILY 02/14/20 09/26/20 amLODIPine [Norvasc] 5 mg PO DAILY 02/14/20 09/26/20 tiZANidine [Zanaflex] 4 mg PO BID 02/14/20 09/26/20 Lidocaine Patch 5% [Lidoderm Patch] 1 patch TOP DAILY PRN #10 patch 07/01/20 09/26/20 Doxycycline Monohydrate 100 mg PO BID #14 09/24/20 09/26/20 HYDROcod/ACETAM 5/325 [[place] 5/325] 1 tablet PO Q6H PRN 09/24/20 09/26/20 oxyCODONE [Roxicodone] 5 - 10 mg PO Q4-6H PRN #14 tablet 09/24/20 09/26/20 - Allergies Allergies/Adverse Reactions: Allergies Allergy/AdvReac Type Severity Reaction Status Date / Time amoxicillin Allergy Rash Verified 09/26/20 14:45 cephalexin Allergy Rash Verified 09/26/20 14:45 diphenhydramine Allergy Rash Verified 09/26/20 14:45 [From Benadryl] metaxalone [From Skelaxin] Allergy Anaphylaxis Verified 09/26/20 14:45 NSAIDS (Non-Steroidal Allergy Rash Verified 09/26/20 14:45 Anti-Inflamma - Social History Does the pt smoke?: No Smoking Status: Never smoker Does the pt drink ETOH?: No Does the pt have substance abuse?: No - Immunizations Immunizations are current?: Yes - POLST Patient has POLST: No PD ED PE NORMAL - Vitals Vital signs reviewed: Yes - General General: Alert and oriented X 3, No acute distress, Well developed/nourished - HEENT HEENT: PERRL, Moist mucous membranes - Neck Neck: Supple, no meningeal sign - Cardiac Cardiac: RRR, Strong equal pulses - Respiratory Respiratory: No respiratory distress, Clear bilaterally - Abdomen Abdomen: Soft, Non tender, Non distended - Back Back: No spinal TTP, Other (Normal skin. No redness. No swelling. No rash.) - Derm Derm: Warm and dry - Extremities Extremities: No edema, No calf tenderness / cord - Neuro Neuro: Alert and oriented X 3, No motor deficit, No sensory deficit, Other (Normal bilateral lower extremity patellar and ankle jerk reflexes. Normal great toe extension bilaterally. no saddle anesthesia) - Psych Psych: Normal mood, Normal affect Results - Vitals Vitals: Vital Signs - 24 hr 09/26/20 14:45 Temperature 36.8 C Heart Rate 83 Respiratory 16 Rate Blood Pressure 155/89 H O2 Saturation 98 Oxygen O2 Source Room air PD MEDICAL DECISION MAKING - ED course Complexity details: reviewed results, re-evaluated patient, considered differential (No cauda equina, no spinal epidural abscess, no fracture, no aortic dissection or evidence of aneursym rupture), d/w patient, d/w client development consultant ED course: 54-year-old female with what appears to be post ablation pain. She has about 10 days out from the procedure. This was performed by Dr. Adrian Schaefer at [facility]. Case with Dr. Davila, on-call for Dr. Thornton. He recommends a CT of the L-spine and labs. If these are normal, can follow-up in the clinic on Tuesday or Tuesday. Patient signed out to Dr. Gatica. This document was made in part using voice recognition software. While efforts are made to proofread this document, sound alike and grammatical errors may occur. Departure - Departure Clinical Impression: Post-operative pain Condition: Stable Instructions: Radiofrequency Denervation Follow-Up: Adrian Schaefer MD [Physician No Access] - Comments: As we discussed, this pain can last for up to 3 weeks after the procedure. Follow up with Dr. Schaefer for further care.
[2020-09-26] MEDS ORDERED: oxyCODONE 5 MG TABLET PO STA (15:24)
[2020-09-26 16:13] LABS: BASOPHILS # (AUTO) 0.1 10^3/uL (0.0-0.1); BASOPHILS % (AUTO) 0.6 %; EOSINOPHILS # (AUTO) 0.3 10^3/uL (0.0-0.7); EOSINOPHILS % (AUTO) 3.1 %; HCT - HEMATOCRIT 43.1 % (37.0-47.0); HGB - HEMOGLOBIN 14.1 g/dL (12.0-16.0); LYMPHOCYTES # (AUTO) 2.7 10^3/uL (1.5-3.5); LYMPHOCYTES % (AUTO) 31.7 %; MEAN CORPUSCULAR HGB CONC 32.7 g/dL (32.0-36.0); MEAN CORPUSCULAR VOLUME 91.7 fL (81.0-99.0); MEAN PLATELET VOLUME 11.1 fL (7.9-10.8); MONOCYTES # (AUTO) 0.5 10^3/uL (0.0-1.0); MONOCYTES % (AUTO) 5.6 %; NEUTROPHILS # (AUTO) 4.9 10^3/uL (1.5-6.6); NEUTROPHILS % (AUTO) 58.8 %; PLT - PLATELET COUNT 228 10^3/uL (130-450); RED CELL DISTRIBUTION WIDTH 13.4 % (12.0-15.0); WHITE BLOOD COUNT 8.4 x10^3/uL (4.8-10.8)
[2020-09-26] MEDS ORDERED: HYDROmorphone 1 MG/ML CARPUJECT IVP STA ×2 (16:21→16:54)
[2020-09-26 16:31] LABS: ALBUMIN 4.7 g/dL (3.2-5.5); ALBUMIN/GLOBULIN RATIO 1.3 (1.0-2.2); ALKALINE PHOSPHATASE 72 IU/L (42-121); ALT ALANINE AMINOTRANSFERASE 36 IU/L (10-60); AST ASPARTATE AMINOTRANSFERASE 21 IU/L (10-42); BILIRUBIN,TOTAL 0.4 mg/dL (0.2-1.0); BUN - BLOOD UREA NITROGEN 17 mg/dL (6-20); CALCIUM 9.3 mg/dL (8.5-10.3); CARBON DIOXIDE - CO2 26 mmol/L (21-32); CHLORIDE 99 mmol/L (101-111); CREATININE 0.8 mg/dL (0.4-1.0); GFR - MDRD 75 (>89); GLUCOSE 85 mg/dL (70-100); LIPASE 22 U/L (22-51); POTASSIUM 3.7 mmol/L (3.5-5.0); SODIUM 135 mmol/L (135-145); TOTAL PROTEIN 8.3 g/dL (6.7-8.2)
--- NOTE | 2020-09-26 16:44 | CT Report ---
PROCEDURE: LUMBAR SPINE WO INDICATIONS: low back pain after ablation TECHNIQUE: Noncontrast 3 mm thick sections acquired from the T12 level to the sacrum. Sagittal and coronal refo rmats were constructed. For radiation dose reduction, the following was used: automated exposure co ntrol, adjustment of mA and/or kV according to patient size. COMPARISON: None. FINDINGS: Image quality: Excellent. Bones: There is normal bony alignment. No acute vertebral body compression fractures. No suspiciou s lytic or blastic bony lesions. Central spinal caliber is of normal overall caliber. No pars defec ts. Mild dextrocurvature. No paraspinal hematoma is seen. T12-L1: Normal in appearance. L1-L2: Normal in appearance. L2-L3: Normal in appearance. L3-L4: Mild canal narrowing. No foraminal stenosis. L4-L5: Mild canal narrowing. No left foraminal narrowing. Minimal right foraminal narrowing. L5-S1: No canal or left foraminal stenosis. Minimal right foraminal narrowing. Soft tissues: No retroperitoneal masses or hematomas. Visualized aorta is normal in caliber. IMPRESSION: Overall, no acute abnormality. If the patient's clinical symptoms warrant, further evaluation with MR I could be performed. Reviewed by: Peng August MD on 09/26/2020 4:43 PM PDT Approved by: Peng August MD on 09/26/2020 4:43 PM PDT Station ID: [id number]
[2020-09-26 16:52] LABS: CRP - C-REACTIVE PROTEIN < 1.0 mg/dL (0-1.0)
[2020-09-26 17:32] VITALS: BP 122/78
== END 2020-09-26 18:00 | disposition home or self-care (01) ==
LOC: ED 14:42
DX: G89.18 Other acute postprocedural pain (principal); I10 Essential (primary) hypertension
CPT/HCPCS: 36415; 72131; 80053; 83690; 85025; 85651; 86140; 96374; 96376; 99284; A9270; J1170

== ENCOUNTER 2020-10-03 08:36 | Outpatient (CLI) | payer MEDICARE | END 2020-10-03 08:37 | disposition critical access hospital (66) | LOC: EMS 08:36 | DX: R11.2 Nausea with vomiting, unspecified (principal); R53.1 Weakness | CPT/HCPCS: A0425; A0427 ==

== ENCOUNTER 2020-10-03 08:48 | Emergency (ER) | payer MEDICARE ==
[2020-10-03] MEDS ORDERED: SODIUM CHLORIDE 0.9% 1,000 ML IV STA ×2 (09:47→15:24)
[2020-10-03 10:17] LABS: BASOPHILS # (AUTO) 0.1 10^3/uL (0.0-0.1); BASOPHILS % (AUTO) 0.7 %; EOSINOPHILS # (AUTO) 0.2 10^3/uL (0.0-0.7); EOSINOPHILS % (AUTO) 1.9 %; HCT - HEMATOCRIT 44.4 % (37.0-47.0); HGB - HEMOGLOBIN 14.3 g/dL (12.0-16.0); LYMPHOCYTES # (AUTO) 1.4 10^3/uL (1.5-3.5); LYMPHOCYTES % (AUTO) 16.1 %; MEAN CORPUSCULAR HEMOGLOBIN 29.8 pg (27.0-31.0); MEAN CORPUSCULAR HGB CONC 32.2 g/dL (32.0-36.0); MEAN CORPUSCULAR VOLUME 92.5 fL (81.0-99.0); MEAN PLATELET VOLUME 11.8 fL (7.9-10.8); MONOCYTES # (AUTO) 0.5 10^3/uL (0.0-1.0); MONOCYTES % (AUTO) 5.9 %; NEUTROPHILS # (AUTO) 6.5 10^3/uL (1.5-6.6); NEUTROPHILS % (AUTO) 75.1 %; PLT - PLATELET COUNT 219 10^3/uL (130-450); RED CELL DISTRIBUTION WIDTH 13.6 % (12.0-15.0); WHITE BLOOD COUNT 8.6 x10^3/uL (4.8-10.8)
[2020-10-03 10:32] LABS: ACETAMINOPHEN < 10 ug/mL (10-30); ALBUMIN 4.6 g/dL (3.2-5.5); ALBUMIN/GLOBULIN RATIO 1.2 (1.0-2.2); ALKALINE PHOSPHATASE 79 IU/L (42-121); ALT ALANINE AMINOTRANSFERASE 41 IU/L (10-60); AST ASPARTATE AMINOTRANSFERASE 25 IU/L (10-42); BILIRUBIN,TOTAL 0.5 mg/dL (0.2-1.0); BUN - BLOOD UREA NITROGEN 19 mg/dL (6-20); CALCIUM 9.5 mg/dL (8.5-10.3); CARBON DIOXIDE - CO2 27 mmol/L (21-32); CHLORIDE 100 mmol/L (101-111); CREATININE 0.8 mg/dL (0.4-1.0); ETOH - ETHANOL < 5.0 mg/dL; GFR - MDRD 75 (>89); GLUCOSE 120 mg/dL (70-100); LIPASE 22 U/L (22-51); POTASSIUM 4.5 mmol/L (3.5-5.0); SALICYLATE < 6.0 mg/dL; SODIUM 137 mmol/L (135-145); TOTAL PROTEIN 8.3 g/dL (6.7-8.2)
--- NOTE | 2020-10-03 10:49 | CT Report ---
PROCEDURE: HEAD WO INDICATIONS: Altered LOC TECHNIQUE: Noncontrast 4.5 mm thick angled axial sections acquired from the foramen magnum to the vertex. For r adiation dose reduction, the following was used: automated exposure control, adjustment of mA and/or kV according to patient size. COMPARISON: 02/14/2020 FINDINGS: Image quality: Excellent. CSF spaces: Basal cisterns are patent. No extra-axial fluid collections. Ventricles are normal in size and shape. Brain: No midline shift. No intracranial masses or hemorrhage. Ward-white matter interface is norm al. Skull and face: Calvarium and visualized facial bones are intact, without suspicious lesions. Sinuses: Visualized sinuses and mastoids are clear. IMPRESSION: No acute intracranial abnormality demonstrated. Reviewed by: Joseph Del Real MD on 10/03/2020 10:48 AM PDT Approved by: Joseph Del Real MD on 10/03/2020 10:48 AM PDT Station ID: [id number]
--- NOTE | 2020-10-03 11:57 | ED Physician Documentation ---
PD HPI ALTERED MENTAL STATUS - Stated complaint Stated Complaint: AMS - Chief complaint Chief Complaint: Neuro - History obtained from History obtained from: Patient, Family - History of Present Illness Timing - onset: Today Timing - duration: Hours Timing - details: Gradual onset, Still present Quality / character: Less responsive, Disoriented Associated symptoms: General weakness. No: Fever, Headache, Stiff neck, Dyspnea, Cough, NVD, Urinary sx, Focal weakness, Seizure activity, Syncope Contributing factors: Other (has had procedure done on the back in September.). No: Anticoagulated, Diabetic, Cancer, COPD, New medication, Recent injury, Known psych illness Basline status: Alert and oriented X 3, Ambulatory, Independent Similar symptoms before: Diagnosis (CVA) Recently seen: Clinic - Additional information Additional information: 54-year-old female presents to the emergency department this morning less responsive than usual and feeling weak. She is having some difficult time talking with some dysarthria and she is slow to respond.She does admit that she took some THC gummies last night before going to bed and she is not used to taking these. She also has taken some pain medication and she does not usually take pain medication but she is having increased pain in her back. She has had increased pain since her procedure. She goes to a clinic in at [facility] for pain control and she does not usually use much in the way of narcotic. She is allowed 45 pills/month. Review of Systems Constitutional: denies: Fever Eyes: denies: Decreased vision Ears: denies: Ear pain Nose: denies: Congestion Throat: denies: Sore throat Cardiac: denies: Chest pain / pressure, Palpitations Respiratory: denies: Dyspnea, Cough GI: reports: Nausea, Constipation. denies: Abdominal Pain, Vomiting, Diarrhea : denies: Dysuria, Frequency Skin: denies: Rash Musculoskeletal: reports: Back pain. denies: Neck pain, Extremity pain Neurologic: reports: Generalized weakness, Difficulty speaking, Altered mental status, Headache. denies: Focal weakness, Numbness, Head injury, LOC PD PAST MEDICAL HISTORY - Past Medical History Cardiovascular: Hypertension Respiratory: None Neuro: CVA Endocrine/Autoimmune: None GI: None BAGMAN/WOMAN: None : None HEENT: None Psych: None Musculoskeletal: None Derm: None - Past Surgical History Past Surgical History: Yes /BAGMAN/WOMAN: section - Present Medications Home Medications: Ambulatory Orders Medication Instructions Recorded Confirmed Levothyroxine [Synthroid] 125 mcg PO QDAC 02/14/20 09/26/20 Pramipexole [Mirapex] 0.25 mg PO DAILY 02/14/20 09/26/20 amLODIPine [Norvasc] 5 mg PO DAILY 02/14/20 09/26/20 tiZANidine [Zanaflex] 4 mg PO BID 02/14/20 09/26/20 Lidocaine Patch 5% [Lidoderm Patch] 1 patch TOP DAILY PRN #10 patch 07/01/20 09/26/20 Doxycycline Monohydrate 100 mg PO BID #14 09/24/20 09/26/20 HYDROcod/ACETAM 5/325 [[place] 5/325] 1 tablet PO Q6H PRN 09/24/20 09/26/20 oxyCODONE [Roxicodone] 5 - 10 mg PO Q4-6H PRN #14 tablet 09/24/20 09/26/20 - Allergies Allergies/Adverse Reactions: Allergies Allergy/AdvReac Type Severity Reaction Status Date / Time amoxicillin Allergy Rash Verified 10/03/20 09:00 cephalexin Allergy Rash Verified 10/03/20 09:00 diphenhydramine Allergy Rash Verified 10/03/20 09:00 [From Benadryl] metaxalone [From Skelaxin] Allergy Anaphylaxis Verified 10/03/20 09:00 NSAIDS (Non-Steroidal Allergy Rash Verified 10/03/20 09:00 Anti-Inflamma - Social History Does the pt smoke?: No Smoking Status: Never smoker Does the pt drink ETOH?: No Does the pt have substance abuse?: No - Immunizations Immunizations are current?: Yes - POLST Patient has POLST: No PD ED PE NORMAL - Vitals Vital signs reviewed: Yes (hypertensive ) - General General: No acute distress, Well developed/nourished, Other (54-year-old female slow to respond with a delay in execution of motor commands and difficulty with speaking she does respond appropriately but very slowly.) - HEENT HEENT: Atraumatic, PERRL, EOMI - Neck Neck: Supple, no meningeal sign, No bony TTP - Cardiac Cardiac: RRR, No murmur - Respiratory Respiratory: No respiratory distress, Clear bilaterally - Abdomen Abdomen: Normal bowel sounds, Soft, Non tender, Non distended, No organomegaly - Back Back: No CVA TTP, No spinal TTP - Derm Derm: Normal color, Warm and dry, No rash - Extremities Extremities: No deformity, No edema - Neuro Neuro: Alert and oriented X 3, 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, No motor deficit, No sensory deficit, Normal speech Eye Opening: Spontaneous Motor: Obeys Commands Verbal: Oriented GCS Score: 15 - Psych Psych: Other (Mood is withdrawn and the affect is flat) Results - Vitals Vitals: Vital Signs - 24 hr 10/03/20 10/03/20 10/03/20 08:54 09:14 11:00 Temperature 37.1 C Heart Rate 77 75 74 Respiratory 16 14 13 Rate Blood Pressure 145/99 H 139/90 H 102/58 L O2 Saturation 99 100 96 10/03/20 10/03/20 10/03/20 12:00 13:00 14:30 Temperature Heart Rate 75 73 78 Respiratory 11 L 11 L 16 Rate Blood Pressure 131/88 H 112/72 131/86 H O2 Saturation 99 94 98 10/03/20 10/03/20 15:00 17:00 Temperature 36.6 C Heart Rate 70 74 Respiratory 16 12 Rate Blood Pressure 131/86 H 138/82 H O2 Saturation 95 97 Oxygen O2 Source Room air - Labs Labs: Laboratory Tests 10/03/20 10/03/20 10/03/20 10:13 10:13 10:13 WBC 8.6 RBC 4.80 Hgb 14.3 Hct 44.4 MCV 92.5 MCH 29.8 MCHC 32.2 RDW 13.6 Plt Count 219 MPV 11.8 H Neut # (Auto) 6.5 Lymph # (Auto) 1.4 L [place] # (Auto) 0.5 Eos # (Auto) 0.2 Baso # (Auto) 0.1 Absolute Nucleated RBC 0.00 Nucleated RBC % 0.0 Sodium 137 Potassium 4.5 Chloride 100 L Carbon Dioxide 27 Anion Gap 10.0 BUN 19 Creatinine 0.8 Estimated GFR (MDRD) 75 L Glucose 120 H Calcium 9.5 Total Bilirubin 0.5 AST 25 ALT 41 Alkaline Phosphatase 79 Total Protein 8.3 H Albumin 4.6 Globulin 3.7 Albumin/Globulin Ratio 1.2 Lipase 22 TSH 1.58 Urine Color Urine Clarity Urine pH Ur Specific [place] Urine Protein Urine Glucose (UA) Urine Ketones Urine Occult Blood Urine Nitrite Urine Bilirubin Urine Urobilinogen Ur Leukocyte Esterase Ur Microscopic Review Urine Culture Comments Urine HCG, Qual Salicylates < 6.0 Urine Opiates Screen Ur Oxycodone Screen Urine Methadone Screen Ur Propoxyphene Screen Acetaminophen < 10 L Ur Barbiturates Screen Ur Tricyclics Screen Ur Phencyclidine Scrn Ur Amphetamine Screen U Methamphetamines Scrn U Benzodiazepines Scrn Urine Cocaine Screen U Cannabinoids Screen Ethyl Alcohol < 5.0 10/03/20 10/03/20 11:57 11:57 WBC RBC Hgb Hct MCV MCH MCHC RDW Plt Count MPV Neut # (Auto) Lymph # (Auto) [place] # (Auto) Eos # (Auto) Baso # (Auto) Absolute Nucleated RBC Nucleated RBC % Sodium Potassium Chloride Carbon Dioxide Anion Gap BUN Creatinine Estimated GFR (MDRD) Glucose Calcium Total Bilirubin AST ALT Alkaline Phosphatase Total Protein Albumin Globulin Albumin/Globulin Ratio Lipase TSH Urine Color YELLOW Urine Clarity CLEAR Urine pH 6.5 Ur Specific [place] 1.020 Urine Protein NEGATIVE Urine Glucose (UA) NEGATIVE Urine Ketones NEGATIVE Urine Occult Blood NEGATIVE Urine Nitrite NEGATIVE Urine Bilirubin NEGATIVE Urine Urobilinogen 0.2 (NORMAL) Ur Leukocyte Esterase NEGATIVE Ur Microscopic Review NOT INDICATED Urine Culture Comments NOT INDICATED Urine HCG, Qual NEGATIVE Salicylates Urine Opiates Screen POSITIVE H Ur Oxycodone Screen NEGATIVE Urine Methadone Screen NEGATIVE Ur Propoxyphene Screen NEGATIVE Acetaminophen Ur Barbiturates Screen NEGATIVE Ur Tricyclics Screen NEGATIVE Ur Phencyclidine Scrn NEGATIVE Ur Amphetamine Screen NEGATIVE U Methamphetamines Scrn NEGATIVE U Benzodiazepines Scrn POSITIVE H Urine Cocaine Screen NEGATIVE U Cannabinoids Screen POSITIVE H Ethyl Alcohol - Rads (name of study) CT head Radiology: Prelim report reviewed (Impression: No acute intracranial abnormality demonstrated.), EMP read indepedently, See rad report PD MEDICAL DECISION MAKING - ED course Complexity details: reviewed old records, reviewed results, re-evaluated patient, considered differential, d/w patient, d/w family, d/w senior management consultant ED course: 54-year-old female on pain management for chronic back pain has had a recent procedure her pain is worse after that and today she presents to the emergency department with obtundation. She is observed in the emergency department for nearly 6 hours and following that she has improvement in her ability to speak she is now with less delay in execution of motor commands but she remains generally weak and has had a 1 person assist to get to the bathroom. The patient arrived to the emergency department I assume this was a toxidrome and expected resolution with metabolism. The patient was slow to resolve and did not completely resolve. I contacted her pain medication doctor and he indicated to me that she does not typically take much in the way of pain medication she has been a patient of his for multiple years has never had the chief complaint of generalized weakness. The patient was able to give history late in the visit that she had had a stroke at [facility] in [place] and had been given alteplase and following that had no abnormality on her MRI of her brain. She believes this was last November. Departure - Departure Disposition: Home, Self Care Clinical Impression: Weakness Altered mental status Qualifiers: Altered mental status type: stupor Qualified Code(s): R40.1 - Stupor Condition: Stable Instructions: ED Weakness UKO Follow-Up: Agusto De La Torre MD [Physician No Access] - [facility] [Provider Group] Comments: Roopa, today the cause of your weakness is not readily apparent. A follow-up with your neurologist and further imaging is indicated. Follow-up with Dr. Aleman. Discharge Date/Time: 10/03/20 17:10
[2020-10-03 12:00] LABS: MUDS CUTOFF CONCENTRATIONS CUTOFF CONC BELOW:
[2020-10-03 12:10] LABS: HCG UR QUAL NEGATIVE
[2020-10-03] MEDS ORDERED: ONDANSETRON 4 MG/2 ML VIAL IVP STA ×3 (12:14→16:45)
[2020-10-03 12:18] LABS: AMPHETAMINE SCREEN,URINE NEGATIVE (NEGATIVE); BENZODIAZEPINES SCREEN, URINE POSITIVE (NEGATIVE); COCAINE SCREEN URINE NEGATIVE (NEGATIVE); METHAMPHETAMINES SCREEN, URINE NEGATIVE (NEGATIVE); OPIATE SCREEN, URINE POSITIVE (NEGATIVE); THC CANNABINOID SCREEN, URINE POSITIVE (NEGATIVE)
[2020-10-03 12:19] LABS: BARBITURATE SCREEN,UR NEGATIVE (NEGATIVE); BILIRUBIN,URINE NEGATIVE (NEGATIVE); CLARITY,URINE CLEAR (CLEAR); GLUCOSE, URINE (UA) NEGATIVE (NEGATIVE); KETONES,URINE (UA) NEGATIVE (NEGATIVE); LEUKOCYTE ESTERASE, URINE NEGATIVE (NEGATIVE); METHADONE SCREEN, URINE NEGATIVE (NEGATIVE); NITRITE,URINE NEGATIVE (NEGATIVE); OCCULT BLOOD,URINE NEGATIVE (NEGATIVE); OXYCODONE SCREEN, URINE NEGATIVE (NEGATIVE); PH,URINE 6.5 PH (5.0-7.5); PROPOXYPHENE SCREEN, URINE NEGATIVE (NEGATIVE); PROTEIN,URINE NEGATIVE (NEGATIVE); TRICYCLIC ANTIDEPRESSANT,URINE NEGATIVE (NEGATIVE); UROBILINOGEN,URINE 0.2 (NORMAL) E.U./dL (NORMAL)
[2020-10-03] MEDS ORDERED: HYDROmorphone 1 MG/ML CARPUJECT IVP STA ×3 (12:34→16:45)
[2020-10-03] MEDS ORDERED: DEXAMETHASONE 10 MG/ML VIAL IVP STA (15:23)
[2020-10-03 17:05] VITALS: BP 138/82
== END 2020-10-03 17:10 | disposition home or self-care (01) ==
LOC: EDUNIT# → ED 08:48
DX: R53.1 Weakness (principal); R40.1 Stupor; I10 Essential (primary) hypertension; M54.9 Dorsalgia, unspecified; G89.29 Other chronic pain
CPT/HCPCS: 36415; 70450; 80053; 80306; 80307; 81003; 81025; 83690; 84443; 85025; 96374; 96375; 96376; 99284; G0480; J1170; 80320; 80329; 81001; 87086

== ENCOUNTER 2020-11-11 11:11 | Emergency (ER) | payer MEDICARE ==
[2020-11-11 11:59] VITALS: BP 152/86
[2020-11-11 12:40] LABS: BASOPHILS # (AUTO) 0.1 10^3/uL (0.0-0.1); BASOPHILS % (AUTO) 0.7 %; EOSINOPHILS # (AUTO) 0.2 10^3/uL (0.0-0.7); EOSINOPHILS % (AUTO) 2.8 %; HGB - HEMOGLOBIN 13.9 g/dL (12.0-16.0); LYMPHOCYTES # (AUTO) 2.1 10^3/uL (1.5-3.5); LYMPHOCYTES % (AUTO) 26.3 %; MEAN CORPUSCULAR HGB CONC 32.3 g/dL (32.0-36.0); MEAN CORPUSCULAR VOLUME 92.7 fL (81.0-99.0); MEAN PLATELET VOLUME 11.5 fL (7.9-10.8); MONOCYTES # (AUTO) 0.5 10^3/uL (0.0-1.0); MONOCYTES % (AUTO) 6.6 %; NEUTROPHILS # (AUTO) 5.1 10^3/uL (1.5-6.6); NEUTROPHILS % (AUTO) 63.2 %; PLT - PLATELET COUNT 236 10^3/uL (130-450); RED BLOOD COUNT 4.64 10^6/uL (4.20-5.40); RED CELL DISTRIBUTION WIDTH 13.5 % (12.0-15.0); WHITE BLOOD COUNT 8.1 x10^3/uL (4.8-10.8)
[2020-11-11 12:54] LABS: ALBUMIN 4.7 g/dL (3.2-5.5); ALBUMIN/GLOBULIN RATIO 1.3 (1.0-2.2); BILIRUBIN,TOTAL 0.6 mg/dL (0.2-1.0); CALCIUM 9.8 mg/dL (8.5-10.3); CREATININE 0.7 mg/dL (0.4-1.0); POTASSIUM 3.5 mmol/L (3.5-5.0); TOTAL PROTEIN 8.2 g/dL (6.7-8.2)
== END 2020-11-11 13:49 | disposition left against medical advice (07) ==
LOC: ED 11:11
DX: Z53.21 Procedure and treatment not carried out due to patient leaving prior to being seen by health care provider (principal)
CPT/HCPCS: 36415; 80053; 83690; 85025

== ENCOUNTER 2020-11-30 10:43 | Emergency (ER) | payer MEDICARE ==
--- NOTE | 2020-11-30 11:04 | ED Physician Documentation ---
PD HPI ABD PAIN - Stated complaint Stated Complaint: ABD PX - Chief complaint Chief Complaint: Abd Pain - History obtained from History obtained from: Patient - History of Present Illness Timing - onset: How many weeks ago (2-3) Timing - duration: Weeks (2-3) Timing - details: Gradual onset, Still present, Waxing and waning Quality: Aching, Pain. No: Cramping, Sharp Location: LLQ Radiation: Left flank Improved by: Position (worse lying flat and on left). No: Eating Worsened by: Position. No: Eating, Breathing, Palpation Associated symptoms: Nausea. No: Fever, Vomiting, Diarrhea, Constipation Similar symptoms before: Has not had sx before Recently seen: Clinic, Other (has referral to , and is to call office tomorrow for appt.) Review of Systems Constitutional: denies: Fever, Chills Nose: denies: Rhinorrhea / runny nose, Congestion Throat: denies: Sore throat Cardiac: denies: Chest pain / pressure Respiratory: denies: Cough GI: reports: Abdominal Pain, Nausea. denies: Vomiting, Constipation, Diarrhea : denies: Dysuria, Frequency Skin: denies: Rash, Lesions Musculoskeletal: denies: Extremity swelling Neurologic: reports: Generalized weakness. denies: Focal weakness, Near syncope PD PAST MEDICAL HISTORY - Past Medical History Cardiovascular: Hypertension Respiratory: None Neuro: CVA Endocrine/Autoimmune: None GI: None LIFT BUILDER WHOLE: None : None HEENT: None Psych: None Musculoskeletal: None Derm: None - Past Surgical History Past Surgical History: Yes /LIFT BUILDER WHOLE: section - Present Medications Home Medications: Ambulatory Orders Medication Instructions Recorded Confirmed Levothyroxine [Synthroid] 125 mcg PO QDAC 02/14/20 11/30/20 Pramipexole [Mirapex] 0.25 mg PO DAILY 02/14/20 11/30/20 amLODIPine [Norvasc] 5 mg PO DAILY 02/14/20 11/30/20 tiZANidine [Zanaflex] 4 mg PO BID 02/14/20 11/30/20 Lidocaine Patch 5% [Lidoderm Patch] 1 patch TOP DAILY PRN #10 patch 07/01/20 11/30/20 HYDROcod/ACETAM 5/325 [[place] 5/325] 1 tablet PO Q6H PRN 09/24/20 11/30/20 Ondansetron Odt [Zofran Odt] 4 mg TL Q6H PRN 11/30/20 11/30/20 dexAMETHasone [Decadron] 4 mg PO DAILY #5 tablet 11/30/20 metroNIDAZOLE [Flagyl] 500 mg PO BID #14 tablet 11/30/20 - Allergies Allergies/Adverse Reactions: Allergies Allergy/AdvReac Type Severity Reaction Status Date / Time amoxicillin Allergy Rash Verified 11/30/20 10:50 cephalexin Allergy Rash Verified 11/30/20 10:50 diphenhydramine Allergy Rash Verified 11/30/20 10:50 [From Benadryl] metaxalone [From Skelaxin] Allergy Anaphylaxis Verified 11/30/20 10:50 NSAIDS (Non-Steroidal Allergy Rash Verified 11/30/20 10:50 Anti-Inflamma - Social History Does the pt smoke?: No Smoking Status: Never smoker Does the pt drink ETOH?: No Does the pt have substance abuse?: No - Immunizations Immunizations are current?: Yes - POLST Patient has POLST: No PD ED PE NORMAL - Vitals Vital signs reviewed: Yes - General General: Alert and oriented X 3, Well developed/nourished, Other (appears uncomfortable) - HEENT HEENT: Pharynx benign - Neck Neck: Supple, no meningeal sign, No adenopathy - Cardiac Cardiac: RRR, No murmur - Respiratory Respiratory: Clear bilaterally - Abdomen Abdomen: Normal bowel sounds, Soft, Non distended, No organomegaly, Other (tender left sided abdomen and left flank without rash, guarding nor percussion tender. ) - Female Female : Deferred - Rectal Rectal: Deferred - Back Back: No spinal TTP - Derm Derm: Normal color, Warm and dry, No rash - Extremities Extremities: No tenderness to palpate, Normal ROM s pain, No edema, No calf tenderness / cord - Neuro Neuro: Alert and oriented X 3, No motor deficit, Normal speech Results - Vitals Vitals: Vital Signs - 24 hr 11/30/20 11/30/20 11/30/20 10:50 11:01 12:53 Temperature 36.5 C Heart Rate 82 84 71 Respiratory 18 18 18 Rate Blood Pressure 156/87 H 140/91 H 118/55 L O2 Saturation 100 99 100 11/30/20 11/30/20 13:35 14:50 Temperature 37.2 C Heart Rate 70 57 L Respiratory 20 16 Rate Blood Pressure 128/86 H 155/90 H O2 Saturation 96 100 Oxygen O2 Source Room air - Labs Labs: Laboratory Tests 11/30/20 11/30/20 11/30/20 11:00 11:00 11:00 WBC 9.3 RBC 4.74 Hgb 14.3 Hct 43.0 MCV 90.7 MCH 30.2 MCHC 33.3 RDW 13.4 Plt Count 214 MPV 11.2 H Neut # (Auto) 6.1 Lymph # (Auto) 2.3 [place] # (Auto) 0.6 Eos # (Auto) 0.2 Baso # (Auto) 0.1 Absolute Nucleated RBC 0.00 Nucleated RBC % 0.0 Sodium 138 Potassium 3.9 Chloride 103 Carbon Dioxide 25 Anion Gap 10.0 BUN 14 Creatinine 0.8 Estimated GFR (MDRD) 75 L Glucose 110 H Calcium 9.7 Total Bilirubin 0.7 AST 29 ALT 53 Alkaline Phosphatase 83 C-Reactive Protein < 1.0 Total Protein 8.7 H Albumin 4.7 Globulin 4.0 Albumin/Globulin Ratio 1.2 Lipase 28 Urine Color Urine Clarity Urine pH Ur Specific [place] Urine Protein Urine Glucose (UA) Urine Ketones Urine Occult Blood Urine Nitrite Urine Bilirubin Urine Urobilinogen Ur Leukocyte Esterase Ur Microscopic Review Urine Culture Comments 11/30/20 11:30 WBC RBC Hgb Hct MCV MCH MCHC RDW Plt Count MPV Neut # (Auto) Lymph # (Auto) [place] # (Auto) Eos # (Auto) Baso # (Auto) Absolute Nucleated RBC Nucleated RBC % Sodium Potassium Chloride Carbon Dioxide Anion Gap BUN Creatinine Estimated GFR (MDRD) Glucose Calcium Total Bilirubin AST ALT Alkaline Phosphatase C-Reactive Protein Total Protein Albumin Globulin Albumin/Globulin Ratio Lipase Urine Color YELLOW Urine Clarity CLEAR Urine pH 5.5 Ur Specific [place] 1.020 Urine Protein NEGATIVE Urine Glucose (UA) NEGATIVE Urine Ketones NEGATIVE Urine Occult Blood NEGATIVE Urine Nitrite NEGATIVE Urine Bilirubin NEGATIVE Urine Urobilinogen 0.2 (NORMAL) Ur Leukocyte Esterase NEGATIVE Ur Microscopic Review NOT INDICATED Urine Culture Comments NOT INDICATED - Rads (name of study) abd CT Radiology: Prelim report reviewed (some wall thickening of colon descending c/w colitis. Some diverticula, no -itis.), See rad report PD MEDICAL DECISION MAKING - ED course Complexity details: reviewed results (CT showing mild wall edema descending colon c/w colitis. Diverticula seen but no diverticulitis. NO kidney stones. ), considered differential, d/w patient Departure - Departure Disposition: 01 Home, Self Care Clinical Impression: Left sided abdominal pain, Colitis Condition: Stable Record reviewed to determine appropriate education?: Yes Instructions: ED Abdominal Pain Unkn Cause Follow-Up: Susan Flood MD [Primary Care Provider] - Prescriptions: dexAMETHasone [Decadron] 4 mg PO DAILY #5 tablet metroNIDAZOLE [Flagyl] 500 mg PO BID #14 tablet Comments: Your CT scan showed suggestion of wall thickening in the descending colon which could correlate with colitis and cause your pain and diarrhea. We commonly will test for infections that are unusual and so bring a stool sample to the lab when you are able to obtain 1 and will tested for unusual infections. Otherwise this may be some inflammation of the wall and the normal fecal bacteria getting into there causing inflammation. As such we would treat with both anti-inflammatories and antibiotics. Use the Decadron and metronidazole as prescribed. Also use Tylenol 500 mg 4 times a day for pain. To that use your pain medicines at home as needed. Follow-up with your primary care if not improved over the next several days to a week. Continue with calling the gastroenterology referral tomorrow for a follow-up appointment as already planned. Return to the ER if worsening or new symptoms such as fever, increased pain, bloody stool, other concerns. Discharge Date/Time: 11/30/20 14:52
[2020-11-30 11:06] LABS: BASOPHILS # (AUTO) 0.1 10^3/uL (0.0-0.1); BASOPHILS % (AUTO) 0.5 %; EOSINOPHILS # (AUTO) 0.2 10^3/uL (0.0-0.7); EOSINOPHILS % (AUTO) 2.3 %; HGB - HEMOGLOBIN 14.3 g/dL (12.0-16.0); LYMPHOCYTES # (AUTO) 2.3 10^3/uL (1.5-3.5); LYMPHOCYTES % (AUTO) 25.2 %; MEAN CORPUSCULAR HEMOGLOBIN 30.2 pg (27.0-31.0); MEAN CORPUSCULAR HGB CONC 33.3 g/dL (32.0-36.0); MEAN CORPUSCULAR VOLUME 90.7 fL (81.0-99.0); MEAN PLATELET VOLUME 11.2 fL (7.9-10.8); MONOCYTES # (AUTO) 0.6 10^3/uL (0.0-1.0); MONOCYTES % (AUTO) 6.3 %; NEUTROPHILS # (AUTO) 6.1 10^3/uL (1.5-6.6); NEUTROPHILS % (AUTO) 65.5 %; PLT - PLATELET COUNT 214 10^3/uL (130-450); RED BLOOD COUNT 4.74 10^6/uL (4.20-5.40); RED CELL DISTRIBUTION WIDTH 13.4 % (12.0-15.0); WHITE BLOOD COUNT 9.3 x10^3/uL (4.8-10.8)
[2020-11-30 11:17] LABS: ALBUMIN 4.7 g/dL (3.2-5.5); ALBUMIN/GLOBULIN RATIO 1.2 (1.0-2.2); BILIRUBIN,TOTAL 0.7 mg/dL (0.2-1.0); CALCIUM 9.7 mg/dL (8.5-10.3); CREATININE 0.8 mg/dL (0.4-1.0); POTASSIUM 3.9 mmol/L (3.5-5.0); TOTAL PROTEIN 8.7 g/dL (6.7-8.2)
[2020-11-30] MEDS ORDERED: ONDANSETRON 4 MG/2 ML VIAL IVP STA (11:17)
[2020-11-30] MEDS ORDERED: HYDROmorphone 1 MG/ML CARPUJECT IVP STA ×2 (11:17→12:43)
[2020-11-30] MEDS ORDERED: SODIUM CHLORIDE 0.9% 1,000 ML IV STA (11:17)
[2020-11-30] MEDS ORDERED: IOPAMIDOL-300 50 ML VIAL ONE (11:25)
[2020-11-30 11:37] LABS: BILIRUBIN,URINE NEGATIVE (NEGATIVE); GLUCOSE, URINE (UA) NEGATIVE (NEGATIVE); KETONES,URINE (UA) NEGATIVE (NEGATIVE); LEUKOCYTE ESTERASE, URINE NEGATIVE (NEGATIVE); NITRITE,URINE NEGATIVE (NEGATIVE); OCCULT BLOOD,URINE NEGATIVE (NEGATIVE); PH,URINE 5.5 PH (5.0-7.5); PROTEIN,URINE NEGATIVE (NEGATIVE); UROBILINOGEN,URINE 0.2 (NORMAL) E.U./dL (NORMAL)
[2020-11-30 11:40] LABS: CLARITY,URINE CLEAR (CLEAR)
[2020-11-30] MEDS ORDERED: IOPAMIDOL-300 50 ML VIAL IVP ONE (11:45)
--- NOTE | 2020-11-30 12:11 | CT Report ---
PROCEDURE: Abdomen/Pelvis W INDICATIONS: left abd/flank pain for 1-2 weeks CONTRAST: IV CONTRAST: Isovue 300 ml: 100 PO CONTRAST: *NO PO CONTRAST TECHNIQUE: After the administration of 100 mL Isovue 300 intravenous contrast, 5 mm thick sections acquired from the diaphragms to the symphysis. 5 mm thick coronal and sagittal reformats were acquired. For radi ation dose reduction, the following was used: automated exposure control, adjustment of mA and/or kV according to patient size. COMPARISON: None. FINDINGS: Image quality: Excellent. ABDOMEN: Lung bases: Lung bases are clear. Heart size is normal. Solid organs: Diffuse hypoattenuation of the liver. Normal appearance of the gallbladder, pancreas, s pleen, adrenal glands, and kidneys. Peritoneum and bowel: Small bowel structure. Entire colon is underdistended with mild accentuation of wall thickness. Scattered diverticula in the sigmoid colon. No free fluid or air. Nodes and vessels: No retroperitoneal or mesenteric adenopathy by size criteria. Aorta and inferior vena cava are normal in size. Miscellaneous: No ventral hernias. PELVIS: Genitourinary: Bladder wall thickness is normal. Uterus is surgically absent. Miscellaneous: No inguinal hernias or adenopathy. Bones: No suspicious bony lesions. No vertebral body compression fractures. IMPRESSION: 1. Mildly thickened appearance of the colon which may be from underdistention or mild colitis. 2. Sigmoid colonic diverticulosis. 3. Hepatic steatosis. Reviewed by: Satish Mayes on 11/30/2020 11:09 AM CARMEN Approved by: Satish Mayes on 11/30/2020 11:09 AM CARMEN Station ID: [id number]
[2020-11-30] MEDS ORDERED: DEXAMETHASONE 10 MG/ML VIAL IVP STA (12:43)
[2020-11-30] MEDS ORDERED: metroNIDAZOLE 250 MG TABLET PO STA (12:43)
[2020-11-30] MEDS ORDERED: PROMETHAZINE INJ 12.5 MG in SODIUM CHLORIDE 0.9% 50 ML IV STA (13:51)
[2020-11-30 14:50] VITALS: BP 155/90
== END 2020-11-30 14:52 | disposition home or self-care (01) ==
LOC: ED 10:43
DX: K52.9 Noninfective gastroenteritis and colitis, unspecified (principal)
CPT/HCPCS: 36415; 74177; 80053; 81003; 83690; 85025; 86140; 96361; 96365; 96375; 96376; 99284; A9270; J1170; J7040; Q9967; 81001; 87086

== ENCOUNTER 2020-12-01 09:50 | Emergency (ER) | payer MEDICARE ==
[2020-12-01] MEDS ORDERED: HYDROmorphone 1 MG/ML CARPUJECT IVP STA ×2 (10:33→12:20)
[2020-12-01] MEDS ORDERED: ONDANSETRON 4 MG/2 ML VIAL IVP STA (10:33)
[2020-12-01] MEDS ORDERED: SODIUM CHLORIDE 0.9% 1,000 ML IV STA (10:33)
[2020-12-01 11:13] LABS: BASOPHILS # (AUTO) 0.1 10^3/uL (0.0-0.1); BASOPHILS % (AUTO) 0.3 %; EOSINOPHILS % (AUTO) 0.1 %; HCT - HEMATOCRIT 41.2 % (37.0-47.0); HGB - HEMOGLOBIN 13.3 g/dL (12.0-16.0); LYMPHOCYTES # (AUTO) 2.3 10^3/uL (1.5-3.5); LYMPHOCYTES % (AUTO) 12.4 %; MEAN CORPUSCULAR HEMOGLOBIN 29.7 pg (27.0-31.0); MEAN CORPUSCULAR HGB CONC 32.3 g/dL (32.0-36.0); MEAN PLATELET VOLUME 12.3 fL (7.9-10.8); MONOCYTES # (AUTO) 0.9 10^3/uL (0.0-1.0); NEUTROPHILS # (AUTO) 15.1 10^3/uL (1.5-6.6); NEUTROPHILS % (AUTO) 81.4 %; PLT - PLATELET COUNT 226 10^3/uL (130-450); RED BLOOD COUNT 4.48 10^6/uL (4.20-5.40); RED CELL DISTRIBUTION WIDTH 13.5 % (12.0-15.0); WHITE BLOOD COUNT 18.5 x10^3/uL (4.8-10.8)
[2020-12-01 11:26] LABS: ALBUMIN 4.3 g/dL (3.2-5.5); ALBUMIN/GLOBULIN RATIO 1.1 (1.0-2.2); BILIRUBIN,TOTAL 0.7 mg/dL (0.2-1.0); CALCIUM 9.6 mg/dL (8.5-10.3); CREATININE 0.8 mg/dL (0.4-1.0); POTASSIUM 3.7 mmol/L (3.5-5.0); TOTAL PROTEIN 8.1 g/dL (6.7-8.2)
[2020-12-01] MEDS ORDERED: metroNIDAZOLE 500 MG/100 ML 500 MG/100 ML BAG IV STA (12:25)
--- NOTE | 2020-12-01 14:29 | ED Physician Documentation ---
PD HPI ABD PAIN - Stated complaint Stated Complaint: L SIDE PX - Chief complaint Chief Complaint: Abd Pain - History obtained from History obtained from: Patient - History of Present Illness Timing - onset: How many weeks ago (2-3) Timing - duration: Weeks (2-3) Timing - details: Gradual onset, Still present Quality: Cramping, Sharp, Pain Location: LLQ Improved by: Laying still Worsened by: Position, Palpation Associated symptoms: Nausea, Vomiting, Diarrhea Similar symptoms before: Diagnosis (colitis) Recently seen: Emergency Dept - Additional information Additional information: 55-year-old female presents to the emergency department after being seen in the emergency department yesterday for colitis. She has been having symptoms for 2 to 3 weeks of diarrhea and left-sided abdominal pain. She was sent home yesterday with a prescription for Flagyl and she has developed vomiting when she left the emergency department and she has been vomiting this morning as well after taking her Flagyl. She is reporting worsening pain. 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: section - Present Medications Home Medications: Ambulatory Orders Medication Instructions Recorded Confirmed Levothyroxine [Synthroid] 125 mcg PO QDAC 02/14/20 11/30/20 Pramipexole [Mirapex] 0.25 mg PO DAILY 02/14/20 11/30/20 amLODIPine [Norvasc] 5 mg PO DAILY 02/14/20 11/30/20 tiZANidine [Zanaflex] 4 mg PO BID 02/14/20 11/30/20 Lidocaine Patch 5% [Lidoderm Patch] 1 patch TOP DAILY PRN #10 patch 07/01/20 11/30/20 HYDROcod/ACETAM 5/325 [[place] 5/325] 1 tablet PO Q6H PRN 09/24/20 11/30/20 Ondansetron Odt [Zofran Odt] 4 mg TL Q6H PRN 11/30/20 11/30/20 dexAMETHasone [Decadron] 4 mg PO DAILY #5 tablet 11/30/20 metroNIDAZOLE [Flagyl] 500 mg PO BID #14 tablet 11/30/20 Amox/Clav 875/125 [Augmentin] 1 each PO Q12H #20 tablet 12/01/20 HYDROcod/ACETAM 5/325 [[place] 5/325] 1 - 2 tablet PO Q6H PRN #14 tablet 12/01/20 Ondansetron Odt [Zofran] 4 mg TL Q6H PRN #10 tablet 12/01/20 - Allergies Allergies/Adverse Reactions: Allergies Allergy/AdvReac Type Severity Reaction Status Date / Time amoxicillin Allergy Rash Verified 12/01/20 09:57 cephalexin Allergy Rash Verified 12/01/20 09:57 diphenhydramine Allergy Rash Verified 12/01/20 09:57 [From Benadryl] metaxalone [From Skelaxin] Allergy Anaphylaxis Verified 12/01/20 09:57 NSAIDS (Non-Steroidal Allergy Rash Verified 12/01/20 09:57 Anti-Inflamma - Social History Does the pt smoke?: No Smoking Status: Never smoker Does the pt drink ETOH?: No Does the pt have substance abuse?: No - Immunizations Immunizations are current?: Yes Immunizations: Other immun not current - POLST Patient has POLST: No PD ED PE NORMAL - General General: Alert and oriented X 3, Well developed/nourished, Other (Appears to be in pain with magnetic doctor tone and flattened affect) - HEENT HEENT: Atraumatic, PERRL, EOMI - Neck Neck: Supple, no meningeal sign - Cardiac Cardiac: RRR, No murmur - Respiratory Respiratory: No respiratory distress, Clear bilaterally - Abdomen Abdomen: Normal bowel sounds, Soft, Non distended, No organomegaly, Other (Mild generalized tenderness worse to the left.) - Back Back: No CVA TTP, No spinal TTP - Derm Derm: Normal color, Warm and dry, No rash - Extremities Extremities: No deformity, No edema - Neuro Neuro: Alert and oriented X 3, indexer 2-12 intact, No motor deficit, Normal speech Eye Opening: Spontaneous Motor: Obeys Commands Verbal: Oriented GCS Score: 15 - Psych Psych: Normal mood, Normal affect Results - Vitals Vitals: Vital Signs - 24 hr 12/01/20 12/01/20 12/01/20 09:54 11:57 13:00 Temperature 36.4 C L Heart Rate 99 76 91 Respiratory 16 16 16 Rate Blood Pressure 180/96 H 122/71 121/88 H O2 Saturation 100 98 100 Oxygen O2 Source Room air - Labs Labs: Laboratory Tests 12/01/20 12/01/20 10:46 10:46 WBC 18.5 H RBC 4.48 Hgb 13.3 Hct 41.2 MCV 92.0 MCH 29.7 MCHC 32.3 RDW 13.5 Plt Count 226 MPV 12.3 H Neut # (Auto) 15.1 H Lymph # (Auto) 2.3 [place] # (Auto) 0.9 Eos # (Auto) 0.0 Baso # (Auto) 0.1 Absolute Nucleated RBC 0.00 Nucleated RBC % 0.0 Sodium 141 Potassium 3.7 Chloride 106 Carbon Dioxide 24 Anion Gap 11.0 BUN 16 Creatinine 0.8 Estimated GFR (MDRD) 75 L Glucose 132 H Calcium 9.6 Total Bilirubin 0.7 AST 26 ALT 52 Alkaline Phosphatase 85 Total Protein 8.1 Albumin 4.3 Globulin 3.8 Albumin/Globulin Ratio 1.1 Lipase 33 PD MEDICAL DECISION MAKING - ED course Complexity details: reviewed results, re-evaluated patient, considered differential, d/w patient ED course: 55-year-old female recently diagnosed with colitis has been started on some Flagyl and she is vomiting following taking this and she is having worsening pain. She comes into the emergency department today and we have provided some intravenous saline and pain medication we have repeated her blood work and she is also given a dose of Flagyl intravenously. Following this dose she feels that she has an increase in anxiety and feels like she wants to leave the department. She states that she felt more nauseous after the administration. This was bad enough that she requested sedative medication. She is given a milligram of lorazepam intravenously. I suspect she will not tolerate the Flagyl and we will switch her antibiotic to Augmentin. Her chart indicates she is allergic to amoxicillin and the patient reassures me twice that she is not allergic to amoxicillin and she has taken Augmentin successfully previously. Departure - Departure Disposition: 01 Home, Self Care Clinical Impression: Colitis Condition: Stable Instructions: ED Gastroenteritis Bacterial Follow-Up: Susan Flood MD [Primary Care Provider] - Prescriptions: Amox/Clav 875/125 [Augmentin] 1 each PO Q12H #20 tablet HYDROcod/ACETAM 5/325 [[place] 5/325] 1 - 2 tablet PO Q6H PRN #14 tablet PRN Reason: Pain Ondansetron Odt [Zofran] 4 mg TL Q6H PRN #10 tablet PRN Reason: Nausea / Vomiting
[2020-12-01] MEDS ORDERED: LORazepam 2 MG/ML VIAL IVP STA (14:34)
[2020-12-01 14:49] VITALS: BP 123/79
== END 2020-12-01 14:49 | disposition home or self-care (01) ==
LOC: ED 09:50
DX: K52.9 Noninfective gastroenteritis and colitis, unspecified (principal); I10 Essential (primary) hypertension
CPT/HCPCS: 36415; 80053; 83690; 85025; 96361; 96365; 96375; 96376; 99284; J1170; J2060

== ENCOUNTER 2020-12-05 16:54 | Emergency (ER) | payer MEDICARE ==
[2020-12-05 17:56] LABS: MUDS CUTOFF CONCENTRATIONS CUTOFF CONC BELOW:
[2020-12-05 17:57] LABS: BASOPHILS # (AUTO) 0.1 10^3/uL (0.0-0.1); BASOPHILS % (AUTO) 0.6 %; EOSINOPHILS # (AUTO) 0.3 10^3/uL (0.0-0.7); EOSINOPHILS % (AUTO) 3.4 %; HCT - HEMATOCRIT 43.5 % (37.0-47.0); HGB - HEMOGLOBIN 14.2 g/dL (12.0-16.0); LYMPHOCYTES # (AUTO) 2.7 10^3/uL (1.5-3.5); MEAN CORPUSCULAR HEMOGLOBIN 30.1 pg (27.0-31.0); MEAN CORPUSCULAR HGB CONC 32.6 g/dL (32.0-36.0); MEAN CORPUSCULAR VOLUME 92.4 fL (81.0-99.0); MEAN PLATELET VOLUME 11.7 fL (7.9-10.8); MONOCYTES # (AUTO) 0.7 10^3/uL (0.0-1.0); MONOCYTES % (AUTO) 6.8 %; NEUTROPHILS # (AUTO) 5.9 10^3/uL (1.5-6.6); NEUTROPHILS % (AUTO) 60.9 %; PLT - PLATELET COUNT 232 10^3/uL (130-450); RED BLOOD COUNT 4.71 10^6/uL (4.20-5.40); RED CELL DISTRIBUTION WIDTH 13.4 % (12.0-15.0); WHITE BLOOD COUNT 9.7 x10^3/uL (4.8-10.8)
[2020-12-05] MEDS ORDERED: HYDROmorphone 1 MG/ML CARPUJECT IVP STA (17:58)
[2020-12-05] MEDS ORDERED: METOCLOPRAMIDE 10 MG/2 ML VIAL IVP STA (17:58)
[2020-12-05] MEDS ORDERED: KETOROLAC 15 MG/ML VIAL IVP STA (17:58)
--- NOTE | 2020-12-05 17:59 | ED Physician Documentation ---
PD HPI ABD PAIN - Stated complaint Stated Complaint: FEVER,LT ABD PX - Chief complaint Chief Complaint: Abd Pain - History obtained from History obtained from: Patient - Additional information Additional information: 55-year-old woman with history of appendectomy, but no other abdominal surgeries has had 3 months of diarrhea. She was seen here initially on 30 November, had a CT showing potential colitis. Subsequently was seen by Dr. Dixon, antibiotics changed from Flagyl to which she felt like she was having some side effects to Augmentin. That was 3 days ago. Since then she continues to worsen with more left lower quadrant pain radiating to the left low back associated with nausea and vomiting. The diarrhea has actually ceased now. She has been running "fevers" but all of her temperatures have been under 100. She turned in a stool sample today for culture. Results not done yet. Review of Systems Ten Systems: 10 systems reviewed and negative Constitutional: reports: Fever. 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: section - Present Medications Home Medications: Ambulatory Orders Medication Instructions Recorded Confirmed Levothyroxine [Synthroid] 125 mcg PO QDAC 02/14/20 11/30/20 Pramipexole [Mirapex] 0.25 mg PO DAILY 02/14/20 11/30/20 amLODIPine [Norvasc] 5 mg PO DAILY 02/14/20 11/30/20 tiZANidine [Zanaflex] 4 mg PO BID 02/14/20 11/30/20 Lidocaine Patch 5% [Lidoderm Patch] 1 patch TOP DAILY PRN #10 patch 07/01/20 11/30/20 HYDROcod/ACETAM 5/325 [[place] 5/325] 1 tablet PO Q6H PRN 09/24/20 11/30/20 Ondansetron Odt [Zofran Odt] 4 mg TL Q6H PRN 11/30/20 11/30/20 dexAMETHasone [Decadron] 4 mg PO DAILY #5 tablet 11/30/20 metroNIDAZOLE [Flagyl] 500 mg PO BID #14 tablet 11/30/20 Amox/Clav 875/125 [Augmentin] 1 each PO Q12H #20 tablet 12/01/20 HYDROcod/ACETAM 5/325 [[place] 5/325] 1 - 2 tablet PO Q6H PRN #14 tablet 12/01/20 Ondansetron Odt [Zofran] 4 mg TL Q6H PRN #10 tablet 12/01/20 Ketorolac [Toradol] 10 mg PO Q6H PRN #15 tablet 12/05/20 - Allergies Allergies/Adverse Reactions: Allergies Allergy/AdvReac Type Severity Reaction Status Date / Time amoxicillin Allergy Rash Verified 12/05/20 17:18 cephalexin Allergy Rash Verified 12/05/20 17:18 diphenhydramine Allergy Rash Verified 12/05/20 17:18 [From Benadryl] metaxalone [From Skelaxin] Allergy Anaphylaxis Verified 12/05/20 17:18 NSAIDS (Non-Steroidal Allergy Rash Verified 12/05/20 17:18 Anti-Inflamma - Social History Does the pt smoke?: No Smoking Status: Never smoker Does the pt drink ETOH?: No Does the pt have substance abuse?: No - Immunizations Immunizations are current?: Yes Immunizations: Other immun not current - POLST Patient has POLST: No PD ED PE NORMAL - Vitals Vital signs reviewed: Yes - General General: Alert and oriented X 3, No acute distress - HEENT HEENT: PERRL, EOMI - Neck Neck: Supple, no meningeal sign, No bony TTP - Cardiac Cardiac: RRR, No murmur - Respiratory Respiratory: No respiratory distress, Clear bilaterally - Abdomen Abdomen: Normal bowel sounds, Soft, Other (Mild tenderness to the left lower quadrant with minimal diffuse tenderness, no guarding or rebound) - Back Back: No CVA TTP, No spinal TTP - Derm Derm: Normal color, Warm and dry - Extremities Extremities: No edema, No calf tenderness / cord - Neuro Neuro: Alert and oriented X 3, Normal speech Results - Vitals Vitals: Vital Signs - 24 hr 12/05/20 12/05/20 17:14 19:33 Temperature 37.6 C 36.4 C L Heart Rate 87 75 Respiratory 18 18 Rate Blood Pressure 142/93 H 137/95 H O2 Saturation 97 99 Oxygen O2 Source Room air - Labs Labs: Laboratory Tests 12/05/20 12/05/20 12/05/20 17:38 17:51 17:51 WBC 9.7 RBC 4.71 Hgb 14.2 Hct 43.5 MCV 92.4 MCH 30.1 MCHC 32.6 RDW 13.4 Plt Count 232 MPV 11.7 H Neut # (Auto) 5.9 Lymph # (Auto) 2.7 [place] # (Auto) 0.7 Eos # (Auto) 0.3 Baso # (Auto) 0.1 Absolute Nucleated RBC 0.00 Nucleated RBC % 0.0 Sodium 137 Potassium 3.7 Chloride 102 Carbon Dioxide 25 Anion Gap 10.0 BUN 19 Creatinine 0.8 Estimated GFR (MDRD) 75 L Glucose 121 H Calcium 9.2 Total Bilirubin 0.5 AST 24 ALT 44 Alkaline Phosphatase 86 Total Protein 8.2 Albumin 4.5 Globulin 3.7 Albumin/Globulin Ratio 1.2 Lipase 26 Urine Color YELLOW Urine Clarity CLEAR Urine pH 7.0 Ur Specific [place] 1.020 Urine Protein NEGATIVE Urine Glucose (UA) NEGATIVE Urine Ketones NEGATIVE Urine Occult Blood NEGATIVE Urine Nitrite NEGATIVE Urine Bilirubin NEGATIVE Urine Urobilinogen 0.2 (NORMAL) Ur Leukocyte Esterase NEGATIVE Ur Microscopic Review NOT INDICATED Urine Culture Comments NOT INDICATED Urine HCG, Qual NEGATIVE Urine Opiates Screen POSITIVE H Ur Oxycodone Screen NEGATIVE Urine Methadone Screen NEGATIVE Ur Propoxyphene Screen NEGATIVE Ur Barbiturates Screen NEGATIVE Ur Tricyclics Screen NEGATIVE Ur Phencyclidine Scrn NEGATIVE Ur Amphetamine Screen NEGATIVE U Methamphetamines Scrn NEGATIVE U Benzodiazepines Scrn NEGATIVE Urine Cocaine Screen NEGATIVE U Cannabinoids Screen NEGATIVE PD MEDICAL DECISION MAKING - ED course ED course: 55-year-old woman presents with left-sided abdominal pain. Previously diagnosed with colitis, placed on Flagyl and then switched over to Augmentin but still with a lot of pain. Fairly benign examination at this time. White count has normalized, it was 18,[address] without pertinent positive findings. Previous feet finding of colitis has resolved. She does have incidental findings including steatosis of the liver and diverticula without evidence of diverticulitis. There is some concern for drug-seeking behavior, this is her 13th emergency department visit in the last 12 months, she has had a total of 14 schedule II narcotics filled in that 12 months with 6 unique prescribers in 478 individual doses. No NSAID allergy, she had no ill effects with Toradol here. She has a new care recommendation on DORI E from yesterday asking that her PCP be consulted when she is in the emergency department and she was called at approximately 7:55 PM. I discussed the case with Shayy Rodriguez by phone, on-call for her primary care physician, Dr. Flood. Agrees with no more narcotics from this emergency department, will write a note to Dr. Flood. Departure - Departure Disposition: 01 Home, Self Care Clinical Impression: Abdominal pain Qualifiers: Abdominal location: left lower quadrant Qualified Code(s): R10.32 - Left lower quadrant pain Condition: Good Record reviewed to determine appropriate education?: Yes Instructions: ED Abdominal Pain Unkn Cause Prescriptions: Ketorolac [Toradol] 10 mg PO Q6H PRN #15 tablet PRN Reason: Pain Comments: Continue Augmentin. Return for new or worsening symptoms. Follow-up with your doctor and also GI as scheduled later this week. The policy of this emergency department is to not give more than 3 prescriptions for narcotics or other controlled substances in any 1 year. You have already surpassed this benchmark and we cannot prescribe narcotics for you. I encourage you to follow up with your primary care physician or to establish care with a primary care physician for ongoing pain management. You are always welcome to seek emergency care here for this or new issues but there will likely be limitations in the prescription of narcotic pain medication.
[2020-12-05 18:01] LABS: BILIRUBIN,URINE NEGATIVE (NEGATIVE); GLUCOSE, URINE (UA) NEGATIVE (NEGATIVE); KETONES,URINE (UA) NEGATIVE (NEGATIVE); LEUKOCYTE ESTERASE, URINE NEGATIVE (NEGATIVE); NITRITE,URINE NEGATIVE (NEGATIVE); OCCULT BLOOD,URINE NEGATIVE (NEGATIVE); PROTEIN,URINE NEGATIVE (NEGATIVE); UROBILINOGEN,URINE 0.2 (NORMAL) E.U./dL (NORMAL)
[2020-12-05 18:03] LABS: CLARITY,URINE CLEAR (CLEAR); HCG UR QUAL NEGATIVE
[2020-12-05] MEDS ORDERED: IOVERSOL 320 50 ML VIAL ONE (18:06)
[2020-12-05] MEDS ORDERED: IOPAMIDOL-300 100 ML VIAL ONE (18:06)
[2020-12-05 18:10] LABS: AMPHETAMINE SCREEN,URINE NEGATIVE (NEGATIVE); BARBITURATE SCREEN,UR NEGATIVE (NEGATIVE); BENZODIAZEPINES SCREEN, URINE NEGATIVE (NEGATIVE); COCAINE SCREEN URINE NEGATIVE (NEGATIVE); METHADONE SCREEN, URINE NEGATIVE (NEGATIVE); METHAMPHETAMINES SCREEN, URINE NEGATIVE (NEGATIVE); OPIATE SCREEN, URINE POSITIVE (NEGATIVE); OXYCODONE SCREEN, URINE NEGATIVE (NEGATIVE); PROPOXYPHENE SCREEN, URINE NEGATIVE (NEGATIVE); THC CANNABINOID SCREEN, URINE NEGATIVE (NEGATIVE); TRICYCLIC ANTIDEPRESSANT,URINE NEGATIVE (NEGATIVE)
[2020-12-05 18:12] LABS: ALBUMIN 4.5 g/dL (3.2-5.5); ALBUMIN/GLOBULIN RATIO 1.2 (1.0-2.2); BILIRUBIN,TOTAL 0.5 mg/dL (0.2-1.0); CALCIUM 9.2 mg/dL (8.5-10.3); CREATININE 0.8 mg/dL (0.4-1.0); POTASSIUM 3.7 mmol/L (3.5-5.0); TOTAL PROTEIN 8.2 g/dL (6.7-8.2)
[2020-12-05] MEDS ORDERED: IOPAMIDOL-300 100 ML VIAL IVP ONE (19:30)
[2020-12-05] MEDS ORDERED: IOVERSOL 320 50 ML VIAL PO ONE (19:30)
[2020-12-05 19:34] VITALS: BP 137/95
[2020-12-05] MEDS ORDERED: MORPHINE 2 MG/ML CARPUJECT IVP STA (19:34)
--- NOTE | 2020-12-05 19:42 | CT Report ---
PROCEDURE: Abdomen/Pelvis W INDICATIONS: IV and PO, LLQ pain CONTRAST: IV CONTRAST: Isovue 300 ml: 100 PO CONTRAST: Optiray 320 ml50 TECHNIQUE: After the administration of weight appropriate dose of intravenous contrast, 5 mm thick sections acqu ired from the diaphragms to the symphysis. 5 mm thick coronal and sagittal reformats were acquired. For radiation dose reduction, the following was used: automated exposure control, adjustment of mA and/or kV according to patient size. Oral contrast was also given. COMPARISON: 11/30/2020 FINDINGS: Image quality: Excellent. ABDOMEN: Lung bases: Lung bases are clear. Heart size is normal. Solid organs: Hepatic steatosis. Liver and spleen are normal in size and enhancement. Gallbladder i s unremarkable. Biliary system is non dilated. Pancreas enhances normally. No adrenal nodules. Ki dneys demonstrate normal size and enhancement, without hydronephrosis. Redemonstration tiny subcenti meter left renal cortical hypodensity which is too small to accurately characterize but likely repres ents a cyst. Peritoneum and bowel: Bowel loops demonstrate normal wall thickness and caliber. No free fluid or a ir. Scattered sigmoid colonic diverticula without evidence for acute diverticulitis. Appendix is not visualized but no secondary findings for acute inflammatory changes in the right lower quadrant. Nodes and vessels: No retroperitoneal or mesenteric adenopathy by size criteria. Aorta and inferior vena cava are normal in size. Miscellaneous: No ventral hernias. There is a tiny punctate calcification noted in the left lower a bdomen seen on axial image 72, series 3. This is immediately adjacent but outside of the left ureter and is compatible with a phlebolith. This is unchanged. PELVIS: Genitourinary: Bladder wall thickness is unremarkable for degree of distention. Miscellaneous: No inguinal hernias or adenopathy. Bones: No suspicious bony lesions. No acute vertebral body compression fractures. IMPRESSION: 1. CT abdomen and pelvis without acute abnormalities to explain patient's persistent left lower quadr ant abdominal pain. 2. Sigmoid colonic diverticulosis without evidence for acute diverticulitis. 3. Hepatic steatosis. Reviewed by: Drew Nielsen MD on 12/05/2020 7:40 PM PDT Approved by: Drew Nielsen MD on 12/05/2020 7:40 PM PDT Station ID: [id number]
== END 2020-12-05 20:32 | disposition home or self-care (01) ==
LOC: ED 16:54
DX: R10.32 Left lower quadrant pain (principal)
CPT/HCPCS: 36415; 74177; 80053; 80306; 81003; 81025; 83690; 85025; 96374; 96375; 99284; J1170; J2765; Q9967; 81001; 87086

== ENCOUNTER 2021-01-08 16:46 | Emergency (ER) | payer MEDICARE ==
[2021-01-08 17:27] LABS: BASOPHILS # (AUTO) 0.1 10^3/uL (0.0-0.1); BASOPHILS % (AUTO) 0.7 %; EOSINOPHILS # (AUTO) 0.4 10^3/uL (0.0-0.7); EOSINOPHILS % (AUTO) 3.3 %; HCT - HEMATOCRIT 45.1 % (37.0-47.0); HGB - HEMOGLOBIN 14.7 g/dL (12.0-16.0); LYMPHOCYTES # (AUTO) 2.9 10^3/uL (1.5-3.5); LYMPHOCYTES % (AUTO) 26.2 %; MEAN CORPUSCULAR HEMOGLOBIN 29.9 pg (27.0-31.0); MEAN CORPUSCULAR HGB CONC 32.6 g/dL (32.0-36.0); MEAN CORPUSCULAR VOLUME 91.9 fL (81.0-99.0); MEAN PLATELET VOLUME 11.4 fL (7.9-10.8); MONOCYTES # (AUTO) 0.7 10^3/uL (0.0-1.0); MONOCYTES % (AUTO) 6.2 %; NEUTROPHILS % (AUTO) 63.2 %; PLT - PLATELET COUNT 248 10^3/uL (130-450); RED BLOOD COUNT 4.91 10^6/uL (4.20-5.40); RED CELL DISTRIBUTION WIDTH 13.8 % (12.0-15.0); WHITE BLOOD COUNT 11.1 x10^3/uL (4.8-10.8)
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
[2021-01-08 17:37] LABS: ALBUMIN/GLOBULIN RATIO 1.4 (1.0-2.2); BILIRUBIN,TOTAL 0.4 mg/dL (0.2-1.0); CALCIUM 9.6 mg/dL (8.5-10.3); CREATININE 0.9 mg/dL (0.4-1.0); POTASSIUM 3.5 mmol/L (3.5-5.0); TOTAL PROTEIN 8.6 g/dL (6.7-8.2)
--- NOTE | 2021-01-08 17:49 | XRAY Report ---
PROCEDURE: Chest 1 View X-Ray INDICATIONS: Chest pain TECHNIQUE: One view of the chest was acquired. COMPARISON: 07/01/2020 FINDINGS: Surgical changes and devices: None. Lungs and pleura: No pleural effusions or pneumothorax. Lungs are clear. Mediastinum: Mediastinal contours appear normal. Heart size is normal. Bones and chest wall: No suspicious bony lesions. Overlying soft tissues appear unremarkable. IMPRESSION: No evidence acute pulmonary process. Reviewed by: Zan Riggins MD on 01/08/2021 5:48 PM PDT Approved by: Zan Riggins MD on 01/08/2021 5:48 PM PDT Station ID: [id number]
[2021-01-08 18:52] VITALS: BP 145/94
== END 2021-01-08 18:59 | disposition home or self-care (01) ==
LOC: ED 16:46
DX: R07.89 Other chest pain (principal); F43.9 Reaction to severe stress, unspecified; I10 Essential (primary) hypertension
CPT/HCPCS: 36415; 80053; 83690; 84484; 85025; 93005; 99284

== ENCOUNTER 2021-01-15 08:00 | Outpatient (CLI) | payer MEDICARE ==
--- NOTE | 2021-01-15 13:19 | XRAY Report ---
PROCEDURE: Chest 2 View X-Ray INDICATIONS: COUGH TECHNIQUE: 2 view(s) of the chest. COMPARISON: January 08, 2021. FINDINGS: SUPPORT DEVICES: None. LUNG/PLEURA: No focal consolidation or pulmonary edema. No pleural effusion or space-occupying pneumo thorax. MEDIASTINUM: The cardiomediastinal silhouette is within normal limits. BONES/SOFT TISSUES: No acute abnormality. IMPRESSION: 1.No acute cardiopulmonary abnormality. Reviewed by: Dmitry Torrez MD on 01/15/2021 1:17 PM PDT Approved by: Dmitry Torrez MD on 01/15/2021 1:17 PM PDT Station ID: [id number]
== END 2021-01-15 23:59 | disposition home or self-care (01) ==
LOC: DI.N 08:00
PROVIDERS: ATTEND Family Medicine
DX: R05.9 Cough, unspecified (principal); R07.0 Pain in throat; Z20.822 Contact with and (suspected) exposure to COVID-19
CPT/HCPCS: 71046; 87070; U0004

== ENCOUNTER 2021-01-15 11:21 | Outpatient (CLI) | payer MEDICARE | END 2021-01-15 23:59 | disposition home or self-care (01) | LOC: LAB.N 11:21 | PROVIDERS: ATTEND Family Medicine | DX: R07.0 Pain in throat (principal); Z20.822 Contact with and (suspected) exposure to COVID-19 | CPT/HCPCS: 87070; U0004 ==

== ENCOUNTER 2021-01-25 13:11 | Outpatient (CLI) | payer MEDICARE ==
--- NOTE | 2021-01-25 14:11 | XRAY Report ---
PROCEDURE: Knee 3 View RT INDICATIONS: RIGHT KNEE PAIN TECHNIQUE: 3 views of the right knee(s) were acquired. COMPARISON: None. FINDINGS: Bones: No fractures or dislocations. No suspicious bony lesions. On the sunrise view, there is mild lateral patellofemoral joint space narrowing, with associated rem odeling changes, including spurs along the margins of the patella. There is mild medial and lateral f emorotibial joint space narrowing, with associated degenerative change with subchondral sclerosis and osteophyte formation. Soft tissues: There is a mild joint effusion. No suspicious soft tissue calcifications. IMPRESSION: Mild joint effusion and mild, age-appropriate degenerative changes, without an acute abn ormality seen. If it would be helpful for clinical management decision making, please consider a dedicated, schedule d knee MRI for further evaluation (assuming that there is no contraindication). Reviewed by: Estiven Keita MD on 01/25/2021 1:10 PM [facility] Approved by: Estiven Keita MD on 01/25/2021 1:10 PM [facility] Station ID: [id number]
== END 2021-01-25 23:59 ==
LOC: DI.N 13:11
PROVIDERS: ATTEND Family Medicine
DX: M17.11 Unilateral primary osteoarthritis, right knee (principal); M25.461 Effusion, right knee

== ENCOUNTER 2021-03-02 17:16 | Emergency (ER) | payer MEDICARE ==
[2021-03-02 17:24] VITALS: BP 160/87
--- NOTE | 2021-03-02 19:29 | ED Physician Documentation ---
PD HPI FOCAL NEURO - Stated complaint Stated Complaint: HEADACHE,DIZZY,H BP - Chief complaint Chief Complaint: Neuro - History obtained from History obtained from: Patient - Additional information Additional information: 55-year-old woman with history of ischemic stroke with mild residual right-sided deficits presents with elevated blood pressures over the last week associated with waxing and waning posterior and right-sided headaches. It is associated light sensitivity and nausea. No primary diagnosis of migraines. She has had similar headaches in the past, and she worries that this feels like headache she had before prior CVA. She denies any possibility of as she has had a complete hysterectomy in the past. She does not take aspirin routinely. She did note blood pressures that were quite high today, up to 200/100 but seeming to respond with an extra dose of her blood pressure medication. Review of Systems Ten Systems: 10 systems reviewed and negative Constitutional: denies: Fever, Chills Nose: reports: Reviewed and negative Throat: reports: Reviewed and negative Cardiac: reports: Reviewed and negative Respiratory: reports: Reviewed and negative PD PAST MEDICAL HISTORY - Past Medical History Cardiovascular: Hypertension Respiratory: None Neuro: CVA Endocrine/Autoimmune: None GI: None CAT AND DOG BATHER: None : None HEENT: None Psych: None Musculoskeletal: None Derm: None - Past Surgical History Past Surgical History: Yes General: Appendectomy Ortho: Spine surgery /CAT AND DOG BATHER: section - Present Medications Home Medications: Ambulatory Orders Medication Instructions Recorded Confirmed Levothyroxine [Synthroid] 125 mcg PO QDAC 02/14/20 11/30/20 Pramipexole [Mirapex] 0.25 mg PO DAILY 02/14/20 11/30/20 amLODIPine [Norvasc] 5 mg PO DAILY 02/14/20 11/30/20 tiZANidine [Zanaflex] 4 mg PO BID 02/14/20 11/30/20 Lidocaine Patch 5% [Lidoderm Patch] 1 patch TOP DAILY PRN #10 patch 07/01/20 11/30/20 HYDROcod/ACETAM 5/325 [[place] 5/325] 1 tablet PO Q6H PRN 09/24/20 11/30/20 Ondansetron Odt [Zofran Odt] 4 mg TL Q6H PRN 11/30/20 11/30/20 dexAMETHasone [Decadron] 4 mg PO DAILY #5 tablet 11/30/20 metroNIDAZOLE [Flagyl] 500 mg PO BID #14 tablet 11/30/20 Amox/Clav 875/125 [Augmentin] 1 each PO Q12H #20 tablet 12/01/20 HYDROcod/ACETAM 5/325 [[place] 5/325] 1 - 2 tablet PO Q6H PRN #14 tablet 12/01/20 Ondansetron Odt [Zofran] 4 mg TL Q6H PRN #10 tablet 12/01/20 Ketorolac [Toradol] 10 mg PO Q6H PRN #15 tablet 12/05/20 - Allergies Allergies/Adverse Reactions: Allergies Allergy/AdvReac Type Severity Reaction Status Date / Time amoxicillin Allergy Rash Verified 03/02/21 17:20 cephalexin Allergy Rash Verified 03/02/21 17:20 diphenhydramine Allergy Rash Verified 03/02/21 17:20 [From Benadryl] metaxalone [From Skelaxin] Allergy Anaphylaxis Verified 03/02/21 17:20 NSAIDS (Non-Steroidal Allergy Rash Verified 03/02/21 17:20 Anti-Inflamma - Social History Does the pt smoke?: No Smoking Status: Never smoker Does the pt drink ETOH?: No Does the pt have substance abuse?: No - Immunizations Immunizations are current?: Yes Immunizations: Other immun not current - POLST Patient has POLST: No PD ED PE NORMAL - Vitals Vital signs reviewed: Yes - General General: Alert and oriented X 3, No acute distress - HEENT HEENT: PERRL, EOMI - Neck Neck: Supple, no meningeal sign, No bony TTP - Cardiac Cardiac: RRR, No murmur - Respiratory Respiratory: No respiratory distress, Clear bilaterally - Abdomen Abdomen: Soft, Non tender - Derm Derm: Normal color, Warm and dry - Extremities Extremities: Other (NIH stroke scale done at 7:25 PM scoring zero) - Neuro Neuro: Alert and oriented X 3, Normal speech Results - Vitals Vitals: Vital Signs - 24 hr 03/02/21 17:20 Temperature 36.5 C Heart Rate 90 Respiratory 16 Rate Blood Pressure 160/87 H O2 Saturation 98 Oxygen O2 Source Room air - Labs Labs: Laboratory Tests 03/02/21 03/02/21 19:42 19:42 WBC 11.5 H RBC 5.14 Hgb 15.5 Hct 47.1 H MCV 91.6 MCH 30.2 MCHC 32.9 RDW 13.9 Plt Count 257 MPV 11.7 H Neut # (Auto) 7.4 H Lymph # (Auto) 2.9 [place] # (Auto) 0.9 Eos # (Auto) 0.2 Baso # (Auto) 0.1 Absolute Nucleated RBC 0.00 Nucleated RBC % 0.0 Sodium 135 Potassium 3.8 Chloride 100 L Carbon Dioxide 24 Anion Gap 11.0 BUN 19 Creatinine 0.7 Estimated GFR (MDRD) 88 L Glucose 105 H Calcium 9.4 PD MEDICAL DECISION MAKING - ED course ED course: She presents for headache in the etc. in the setting of higher blood pressures than usual for her. She has no physical findings concerning for stroke but she was sent in by her neurologist. Recommended cranial imaging and labs and we also gave her some Reglan for the headache. I was called into the room at approximately 7:45 PM. Patient states that there was a family emergency, her mother had fallen down the stairs and she needed to leave immediately. There does not seem to be an obvious acute emergency medical condition so she was discharged but discussed that we would be happy to see her again and complete the work-up when the current emergency was over. Departure - Departure Disposition: 01 Home, Self Care Clinical Impression: Hypertension, Headache Condition: Good Record reviewed to determine appropriate education?: Yes Instructions: ED Cephalgia Unspecified Comments: Return when you can to complete the work-up or follow-up with your neurologist. Discharge Date/Time: 03/02/21 19:56
[2021-03-02] MEDS ORDERED: METOCLOPRAMIDE 10 MG/2 ML VIAL IVP STA (19:38)
[2021-03-02 19:51] LABS: BASOPHILS # (AUTO) 0.1 10^3/uL (0.0-0.1); BASOPHILS % (AUTO) 0.6 %; EOSINOPHILS # (AUTO) 0.2 10^3/uL (0.0-0.7); EOSINOPHILS % (AUTO) 1.5 %; HCT - HEMATOCRIT 47.1 % (37.0-47.0); HGB - HEMOGLOBIN 15.5 g/dL (12.0-16.0); LYMPHOCYTES # (AUTO) 2.9 10^3/uL (1.5-3.5); LYMPHOCYTES % (AUTO) 25.5 %; MEAN CORPUSCULAR HEMOGLOBIN 30.2 pg (27.0-31.0); MEAN CORPUSCULAR HGB CONC 32.9 g/dL (32.0-36.0); MEAN CORPUSCULAR VOLUME 91.6 fL (81.0-99.0); MEAN PLATELET VOLUME 11.7 fL (7.9-10.8); MONOCYTES # (AUTO) 0.9 10^3/uL (0.0-1.0); MONOCYTES % (AUTO) 7.7 %; NEUTROPHILS # (AUTO) 7.4 10^3/uL (1.5-6.6); NEUTROPHILS % (AUTO) 64.2 %; PLT - PLATELET COUNT 257 10^3/uL (130-450); RED BLOOD COUNT 5.14 10^6/uL (4.20-5.40); RED CELL DISTRIBUTION WIDTH 13.9 % (12.0-15.0); WHITE BLOOD COUNT 11.5 x10^3/uL (4.8-10.8)
[2021-03-02 19:59] LABS: CALCIUM 9.4 mg/dL (8.5-10.3); CREATININE 0.7 mg/dL (0.4-1.0); POTASSIUM 3.8 mmol/L (3.5-5.0)
== END 2021-03-02 19:56 | disposition home or self-care (01) ==
LOC: ED 17:16
DX: I10 Essential (primary) hypertension (principal); R51.9 Headache, unspecified; R11.0 Nausea
CPT/HCPCS: 36415; 80048; 85025; 96374; 99284; J2765

== ENCOUNTER 2021-03-14 15:39 | Emergency (ER) | payer MEDICARE ==
[2021-03-14] MEDS ORDERED: HYDROcod/ACETAM 5/325 MG TABLET PO STA (15:59)
[2021-03-14] MEDS ORDERED: ONDANSETRON ODT 4 MG TABLET TL STA (15:59)
--- NOTE | 2021-03-14 16:01 | ED Physician Documentation ---
PD HPI HEAD INJURY - Stated complaint Stated Complaint: HEAD INJ,NAUSEA,DIZZY - Chief complaint Chief Complaint: Trauma Hd/Nk - History obtained from History obtained from: Patient - Additional information Additional information: She just come off ladder and a large stapler was on the top of the ladder and fell off and hit her on the top of the head. She had brief loss of consciousness and now a severe headache and nausea. She had a runny nose for 2 minutes afterwards, but no epistaxis. No other injuries. Review of Systems Constitutional: reports: Reviewed and negative Eyes: reports: Reviewed and negative Nose: reports: Rhinorrhea / runny nose Throat: denies: Sore throat Cardiac: denies: Chest pain / pressure, Palpitations PD PAST MEDICAL HISTORY - Past Medical History Cardiovascular: Hypertension Respiratory: None Neuro: CVA Endocrine/Autoimmune: None GI: None COTTON SAMPLER: None : None HEENT: None Psych: None Musculoskeletal: None Derm: None - Past Surgical History Past Surgical History: Yes General: Appendectomy Ortho: Spine surgery /COTTON SAMPLER: section - Present Medications Home Medications: Ambulatory Orders Medication Instructions Recorded Confirmed Levothyroxine [Synthroid] 125 mcg PO QDAC 02/14/20 11/30/20 Pramipexole [Mirapex] 0.25 mg PO DAILY 02/14/20 11/30/20 amLODIPine [Norvasc] 5 mg PO DAILY 02/14/20 11/30/20 tiZANidine [Zanaflex] 4 mg PO BID 02/14/20 11/30/20 Lidocaine Patch 5% [Lidoderm Patch] 1 patch TOP DAILY PRN #10 patch 07/01/20 11/30/20 HYDROcod/ACETAM 5/325 [[place] 5/325] 1 tablet PO Q6H PRN 09/24/20 11/30/20 Ondansetron Odt [Zofran Odt] 4 mg TL Q6H PRN 11/30/20 11/30/20 dexAMETHasone [Decadron] 4 mg PO DAILY #5 tablet 11/30/20 metroNIDAZOLE [Flagyl] 500 mg PO BID #14 tablet 11/30/20 Amox/Clav 875/125 [Augmentin] 1 each PO Q12H #20 tablet 12/01/20 HYDROcod/ACETAM 5/325 [[place] 5/325] 1 - 2 tablet PO Q6H PRN #14 tablet 12/01/20 Ondansetron Odt [Zofran] 4 mg TL Q6H PRN #10 tablet 12/01/20 Ketorolac [Toradol] 10 mg PO Q6H PRN #15 tablet 12/05/20 - Allergies Allergies/Adverse Reactions: Allergies Allergy/AdvReac Type Severity Reaction Status Date / Time amoxicillin Allergy Rash Verified 03/14/21 15:50 cephalexin Allergy Rash Verified 03/14/21 15:50 diphenhydramine Allergy Rash Verified 03/14/21 15:50 [From Benadryl] metaxalone [From Skelaxin] Allergy Anaphylaxis Verified 03/14/21 15:50 NSAIDS (Non-Steroidal Allergy Rash Verified 03/14/21 15:50 Anti-Inflamma - Social History Does the pt smoke?: No Smoking Status: Never smoker Does the pt drink ETOH?: No Does the pt have substance abuse?: No - Immunizations Immunizations are current?: Yes Immunizations: Other immun not current - POLST Patient has POLST: No PD ED PE NORMAL - Vitals Vital signs reviewed: Yes - General General: Alert and oriented X 3, No acute distress - HEENT HEENT: PERRL, EOMI, Ears normal, Moist mucous membranes, Pharynx benign - Neck Neck: Supple, no meningeal sign, No bony TTP - Neuro Neuro: Alert and oriented X 3, 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, No motor deficit, No sensory deficit, Normal speech Eye Opening: Spontaneous Motor: Obeys Commands Verbal: Oriented GCS Score: 15 - Psych Psych: Normal mood, Normal affect Results - Vitals Vitals: Vital Signs - 24 hr 03/14/21 03/14/21 15:42 17:06 Temperature 36.5 C 36.7 C Heart Rate 94 85 Respiratory 18 16 Rate Blood Pressure 144/85 H 132/90 H O2 Saturation 100 99 Oxygen O2 Source Room air - Rads (name of study) CT of the head without contrast is unremarkable Radiology: EMP read contemporaneously Departure - Departure Disposition: 01 Home, Self Care Clinical Impression: Concussion Condition: Good Record reviewed to determine appropriate education?: Yes Instructions: ED Head Injury Closed Comments: Tylenol and ibuprofen together per package instructions as needed for pain. Return for new or worsening symptoms. Follow-up with your doctor next week if not better. Discharge Date/Time: 03/14/21 17:09
--- NOTE | 2021-03-14 16:54 | CT Report ---
PROCEDURE: HEAD WO INDICATIONS: head inj TECHNIQUE: Noncontrast 4.5 mm thick angled axial sections acquired from the foramen magnum to the vertex. For r adiation dose reduction, the following was used: automated exposure control, adjustment of mA and/or kV according to patient size. COMPARISON: 10/03/[address] FINDINGS: Image quality: Excellent. CSF spaces: Basal cisterns are patent. No extra-axial fluid collections. Ventricles are normal in size and shape. Brain: No midline shift. No intracranial masses or hemorrhage. Ward-white matter interface is norm al. Skull and face: Calvarium and visualized facial bones are intact, without suspicious lesions. Sinuses: Visualized sinuses and mastoids are clear. IMPRESSION: No acute intracranial abnormality. Reviewed by: Hood Jensen MD on 03/14/2021 3:53 PM [place] Approved by: Hood Jensen MD on 03/14/2021 3:53 PM [facility] Station ID: [id number]
[2021-03-14 17:09] VITALS: BP 132/90
== END 2021-03-14 17:09 | disposition home or self-care (01) ==
LOC: ED 15:39
DX: S06.0X0A Concussion without loss of consciousness, initial encounter (principal); W20.8XXA Other cause of strike by thrown, projected or falling object, initial encounter; Y93.89 Activity, other specified; I10 Essential (primary) hypertension
CPT/HCPCS: 70450; 99283; 99284; A9270; Q0162

== ENCOUNTER 2021-03-22 08:00 | Outpatient (CLI) | payer MEDICARE | END 2021-03-22 23:59 | LOC: LAB 08:00 | PROVIDERS: ATTEND Physician Assistant Medical | DX: R05.9 Cough, unspecified (principal); Z20.822 Contact with and (suspected) exposure to COVID-19 ==

== ENCOUNTER 2021-03-31 11:29 | Outpatient (CLI) | payer MEDICARE ==
--- NOTE | 2021-03-31 11:46 | XRAY Report ---
PROCEDURE: Chest 2 View X-Ray INDICATIONS: COUGH, UNSPECIFIED TECHNIQUE: 2 view(s) of the chest. COMPARISON: January 15, 2021. FINDINGS: SUPPORT DEVICES: None. LUNGS/PLEURA: No focal consolidation, pleural effusion or space-occupying pneumothorax. MEDIASTINUM: The cardiomediastinal silhouette is within normal limits. BONES/SOFT TISSUES: No acute abnormality. IMPRESSION: 1.No acute cardiopulmonary abnormality. Reviewed by: Dmitry Torrez MD on 03/31/2021 11:44 AM [facility] Approved by: Dmitry Torrez MD on 03/31/2021 11:44 AM [facility] Station ID: [email or web address] [id number]
== END 2021-03-31 11:30 | disposition home or self-care (01) ==
LOC: DI 11:29
PROVIDERS: ATTEND Physician Assistant
DX: R05.9 Cough, unspecified (principal); R06.02 Shortness of breath

== ENCOUNTER 2021-04-06 12:20 | Emergency (ER) | payer MEDICARE ==
[2021-04-06] MEDS ORDERED: IPRATROPIUM/ALBUTEROL 3 ML NEB INH ONE (14:19)
[2021-04-06] MEDS ORDERED: IPRATROPIUM/ALBUTEROL 3 ML NEB INH STA (14:20)
[2021-04-06] MEDS ORDERED: predniSONE 20 MG TABLET ONE (14:45)
--- NOTE | 2021-04-06 15:31 | ED Physician Documentation ---
PD HPI URI - Stated complaint Stated Complaint: COUGH - History obtained from History obtained from: Patient - History of Present Illness Timing - onset: How many weeks ago (3) Timing duration: Weeks (3) Timing details: Gradual onset, Still present, Waxing and waning Associated symptoms: Nasal congestion, Rhinorrhea, Productive cough, Dyspnea. No: Fever, Chills Contributing factors: Unimmunized Improves by: Rest, Medication, MDI/nebulizer Worsened by: Activity Similar symptoms before: Diagnosis (asthma) Recently seen: Clinic - Additional information Additional information: 55-year-old female with a history of asthma has developed a cough for the past 3 weeks and this cough has been persistent she is coughing up a tiny bit of blood and she has not had adequate relief with the course of Zithromax. She has not done a course of prednisone. Review of Systems Constitutional: denies: Fever Eyes: denies: Decreased vision Ears: denies: Ear pain Nose: reports: Rhinorrhea / runny nose, Congestion Throat: denies: Sore throat Cardiac: denies: Chest pain / pressure, Palpitations Respiratory: reports: Dyspnea, Cough, Wheezing GI: denies: Abdominal Pain, Nausea, Vomiting : denies: Dysuria PD PAST MEDICAL HISTORY - Past Medical History Cardiovascular: Hypertension Respiratory: None Neuro: CVA Endocrine/Autoimmune: None GI: None DIRECTOR EMPLOYEE SAFETY AND HEALTH: None : None HEENT: None Psych: None Musculoskeletal: None Derm: None - Past Surgical History Past Surgical History: Yes General: Appendectomy Ortho: Spine surgery /DIRECTOR EMPLOYEE SAFETY AND HEALTH: section - Present Medications Home Medications: Ambulatory Orders Medication Instructions Recorded Confirmed Levothyroxine [Synthroid] 125 mcg PO QDAC 02/14/20 11/30/20 Pramipexole [Mirapex] 0.25 mg PO DAILY 02/14/20 11/30/20 amLODIPine [Norvasc] 5 mg PO DAILY 02/14/20 11/30/20 tiZANidine [Zanaflex] 4 mg PO BID 02/14/20 11/30/20 Lidocaine Patch 5% [Lidoderm Patch] 1 patch TOP DAILY PRN #10 patch 07/01/20 11/30/20 HYDROcod/ACETAM 5/325 [[place] 5/325] 1 tablet PO Q6H PRN 09/24/20 11/30/20 Ondansetron Odt [Zofran Odt] 4 mg TL Q6H PRN 11/30/20 11/30/20 dexAMETHasone [Decadron] 4 mg PO DAILY #5 tablet 11/30/20 metroNIDAZOLE [Flagyl] 500 mg PO BID #14 tablet 11/30/20 Amox/Clav 875/125 [Augmentin] 1 each PO Q12H #20 tablet 12/01/20 HYDROcod/ACETAM 5/325 [[place] 5/325] 1 - 2 tablet PO Q6H PRN #14 tablet 12/01/20 Ondansetron Odt [Zofran] 4 mg TL Q6H PRN #10 tablet 12/01/20 Ketorolac [Toradol] 10 mg PO Q6H PRN #15 tablet 12/05/20 Amox/Clav 875/125 [Augmentin] 1 each PO Q12H #20 tablet 04/06/21 Codeine Phosphate/Guaifenesin 5 - 10 ml PO Q6HR PRN #120 ml 04/06/21 [Guaifen-Codeine 100-10 mg/5 ml] predniSONE [Deltasone] 40 mg PO DAILY #20 tablet 04/06/21 - Allergies Allergies/Adverse Reactions: Allergies Allergy/AdvReac Type Severity Reaction Status Date / Time amoxicillin Allergy Rash Verified 03/14/21 15:50 cephalexin Allergy Rash Verified 03/14/21 15:50 diphenhydramine Allergy Rash Verified 03/14/21 15:50 [From Benadryl] metaxalone [From Skelaxin] Allergy Anaphylaxis Verified 03/14/21 15:50 NSAIDS (Non-Steroidal Allergy Rash Verified 03/14/21 15:50 Anti-Inflamma - Social History Does the pt smoke?: No Smoking Status: Never smoker Does the pt drink ETOH?: No Does the pt have substance abuse?: No - Immunizations Immunizations are current?: Yes Immunizations: Other immun not current - POLST Patient has POLST: No PD ED PE NORMAL - Vitals Vital signs reviewed: Yes - General General: Alert and oriented X 3, Well developed/nourished, Other (coughing paroxysms) - HEENT HEENT: Atraumatic, PERRL, EOMI, Other (both TM's are inflamed with distortion of the land heart on the left. ) - Neck Neck: Supple, no meningeal sign, No bony TTP - Cardiac Cardiac: RRR, No murmur - Respiratory Respiratory: No respiratory distress, Other (diminished breath sounds) - Abdomen Abdomen: Soft, Non tender - Back Back: No CVA TTP, No spinal TTP - Derm Derm: Normal color, Warm and dry, No rash - Extremities Extremities: No deformity, No edema - Neuro Neuro: Alert and oriented X 3, fraud representative 2-12 intact, No motor deficit, No sensory deficit, Normal speech Eye Opening: Spontaneous Motor: Obeys Commands Verbal: Oriented GCS Score: 15 - Psych Psych: Normal mood, Normal affect Results - Vitals Vitals: Vital Signs - 24 hr 04/06/21 04/06/21 14:20 16:01 Temperature 36.7 C Heart Rate 64 81 Respiratory 20 18 Rate Blood Pressure 124/78 O2 Saturation 100 Oxygen O2 Source Room air PD MEDICAL DECISION MAKING - ED course Complexity details: reviewed old records, reviewed results, re-evaluated patient ED course: 55-year-old female with a history of asthma has coughing paroxysms she assures me that she has taken Augmentin a number of times previously she has had issue previously with infection and she has had some trouble previously with steroid as well. Today here in the emergency department we have given her 10 mg of dexamethasone and a DuoNeb treatment with marked improvement. We will start the patient on Augmentin and we will reduce the prednisone to 40 mg daily for 5 days. Provide some cough suppression. Departure - Departure Disposition: 01 Home, Self Care Clinical Impression: Exacerbation of asthma Qualifiers: Asthma severity: mild Asthma persistence: intermittent Qualified Code(s): J45.21 - Mild intermittent asthma with (acute) exacerbation Otitis media Qualifiers: Otitis media type: suppurative Chronicity: acute Laterality: bilateral Recurrence: non-recurrent Spontaneous tympanic membrane rupture: without spontaneous rupture Qualified Code(s): H66.003 - Acute suppurative otitis media without spontaneous rupture of ear drum, bilateral Condition: Stable Instructions: ED Reactive Airway Disease, ED Otitis Media Acute Adult Follow-Up: Umang Cobos MD [Provider Admit Priv/Credential] - Prescriptions: Codeine Phosphate/Guaifenesin [Guaifen-Codeine 100-10 mg/5 ml] 5 - 10 ml PO Q6HR PRN #120 ml PRN Reason: Cough Amox/Clav 875/125 [Augmentin] 1 each PO Q12H #20 tablet predniSONE [Deltasone] 40 mg PO DAILY #20 tablet Comments: Roopa, today it looks like you are having an exacerbation of your asthma that is likely related to this middle ear infection. There is also a Covid test pending. I have written prescriptions for Augmentin prednisone and codeine cough syrup. These have been E scribed to [facility] in [place]. Discharge Date/Time: 04/06/21 16:01
[2021-04-06 16:03] VITALS: BP 124/78
--- NOTE | 2021-04-07 08:49 | XRAY Report ---
PROCEDURE: CHEST 1 View INDICATIONS: COUGH AND SOA TECHNIQUE: One view of the chest was acquired. COMPARISON: 03/31/2021 FINDINGS: Surgical changes and devices: None. Lungs and pleura: No pleural effusions or pneumothorax. Lungs are clear. Mediastinum: Mediastinal contours appear normal. Heart size is normal. Bones and chest wall: No suspicious bony lesions. Overlying soft tissues appear unremarkable. IMPRESSION: No acute cardiopulmonary process. Reviewed by: Almas Segal MD on 04/06/2021 2:26 PM PST Approved by: Almas Segal MD on 04/06/2021 2:26 PM PST Station ID: [id number]
== END 2021-04-06 16:01 | disposition home or self-care (01) ==
LOC: ED 12:20
DX: J45.21 Mild intermittent asthma with (acute) exacerbation (principal); H66.003 Acute suppurative otitis media without spontaneous rupture of ear drum, bilateral; Z20.822 Contact with and (suspected) exposure to COVID-19; I10 Essential (primary) hypertension
CPT/HCPCS: 71045; 94640; 94664; 99283; 99284; J7512; U0004

== ENCOUNTER 2021-07-03 10:59 | Emergency (ER) | payer MEDICARE ==
--- NOTE | 2021-07-03 11:33 | XRAY Report ---
PROCEDURE: Chest 1 View X-Ray INDICATIONS: Chest pain TECHNIQUE: One view of the chest was acquired. COMPARISON: None FINDINGS: Surgical changes and devices: None. Lungs and pleura: No pleural effusions or pneumothorax. Lungs are clear. Mediastinum: Mediastinal contours appear normal. Heart size is normal. Bones and chest wall: No suspicious bony lesions. Overlying soft tissues appear unremarkable. IMPRESSION: No acute pulmonary process. Reviewed by: Vivienne Armstrong MD on 07/03/2021 11:32 AM PDT Approved by: Vivienne Armstrong MD on 07/03/2021 11:32 AM PDT Station ID: [id number]
[2021-07-03 11:37] LABS: BASOPHILS # (AUTO) 0.1 10^3/uL (0.0-0.1); BASOPHILS % (AUTO) 0.7 %; EOSINOPHILS # (AUTO) 0.2 10^3/uL (0.0-0.7); EOSINOPHILS % (AUTO) 2.3 %; HCT - HEMATOCRIT 44.7 % (37.0-47.0); LYMPHOCYTES # (AUTO) 2.4 10^3/uL (1.5-3.5); MEAN CORPUSCULAR HEMOGLOBIN 30.2 pg (27.0-31.0); MEAN CORPUSCULAR HGB CONC 33.6 g/dL (32.0-36.0); MEAN CORPUSCULAR VOLUME 90.1 fL (81.0-99.0); MONOCYTES # (AUTO) 0.6 10^3/uL (0.0-1.0); NEUTROPHILS # (AUTO) 5.9 10^3/uL (1.5-6.6); NEUTROPHILS % (AUTO) 63.8 %; PLT - PLATELET COUNT 230 10^3/uL (130-450); RED BLOOD COUNT 4.96 10^6/uL (4.20-5.40); RED CELL DISTRIBUTION WIDTH 13.3 % (12.0-15.0); WHITE BLOOD COUNT 9.2 x10^3/uL (4.8-10.8)
[2021-07-03] MEDS ORDERED: PROCHLORPERAZINE 10 MG/2 ML VIAL IVP STA (11:54)
[2021-07-03 11:58] LABS: ALBUMIN 4.7 g/dL (3.2-5.5); ALBUMIN/GLOBULIN RATIO 1.1 (1.0-2.2); BILIRUBIN,TOTAL 0.4 mg/dL (0.2-1.0); CALCIUM 10.1 mg/dL (8.5-10.3); CREATININE 0.7 mg/dL (0.4-1.0); POTASSIUM 3.5 mmol/L (3.5-5.0); TOTAL PROTEIN 8.8 g/dL (6.7-8.2)
[2021-07-03] MEDS ORDERED: ACETAMINOPHEN 325 MG TABLET PO STA (11:58)
--- NOTE | 2021-07-03 11:58 | ED Physician Documentation ---
History of Present Illness - Stated complaint Stated Complaint: CHEST PRESSURE/NAUSEA - Chief complaint Chief Complaint: Cardiac - Additonal information Additional information: 55-year-old female presents the emergency department for evaluation of chest pain pressure as well as headache. 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 She also reports a history of hypertension. States that she had a coronary angiogram [address] Rosales through [facility] that was negative. She did see her actuarial director 48 hours ago and he started new blood pressure medications which she started yesterday. Patient states that yesterday about 10 AM she had chest pain and pressure with some associated nausea. It lasted a few hours then went away until about 6 this morning when she again had chest pain pressure as well as a headache. States that she vomited because her blood pressure was too high. She states that most of the chest pain has gone away but she continues to have a little residual pressure. No tobacco use. Meds: Levothyroxine, chlorthalidone, metoprolol, potassium chloride, tinazidine, amlodipine Review of Systems Eyes: reports: Reviewed and negative Ears: reports: Reviewed and negative Cardiac: reports: Chest pain / pressure, Palpitations. denies: Pedal edema, Ca lf pain Respiratory: reports: Reviewed and negative GI: reports: Nausea, Vomiting : reports: Reviewed and negative Skin: reports: Reviewed and negative Neurologic: reports: Headache Psychiatric: reports: Reviewed and negative Endocrine: reports: Reviewed and negative PD PAST MEDICAL HISTORY - Past Medical History Past Medical History: Yes Cardiovascular: Hypertension Respiratory: None Neuro: CVA Endocrine/Autoimmune: None GI: None LEAD GENERATOR: None : None HEENT: None Psych: None Musculoskeletal: None Derm: None - Past Surgical History Past Surgical History: Yes General: Appendectomy Ortho: Spine surgery /LEAD GENERATOR: section - Present Medications Home Medications: Ambulatory Orders Medication Instructions Recorded Confirmed Levothyroxine [Synthroid] 125 mcg PO QDAC 02/14/20 11/30/20 Pramipexole [Mirapex] 0.25 mg PO DAILY 02/14/20 11/30/20 amLODIPine [Norvasc] 5 mg PO DAILY 02/14/20 11/30/20 tiZANidine [Zanaflex] 4 mg PO BID 02/14/20 11/30/20 Lidocaine Patch 5% [Lidoderm Patch] 1 patch TOP DAILY PRN #10 patch 07/01/20 11/30/20 HYDROcod/ACETAM 5/325 [[place] 5/325] 1 tablet PO Q6H PRN 09/24/20 11/30/20 Ondansetron Odt [Zofran Odt] 4 mg TL Q6H PRN 11/30/20 11/30/20 dexAMETHasone [Decadron] 4 mg PO DAILY #5 tablet 11/30/20 metroNIDAZOLE [Flagyl] 500 mg PO BID #14 tablet 11/30/20 Amox/Clav 875/125 [Augmentin] 1 each PO Q12H #20 tablet 12/01/20 HYDROcod/ACETAM 5/325 [[place] 5/325] 1 - 2 tablet PO Q6H PRN #14 tablet 12/01/20 Ondansetron Odt [Zofran] 4 mg TL Q6H PRN #10 tablet 12/01/20 Ketorolac [Toradol] 10 mg PO Q6H PRN #15 tablet 12/05/20 Amox/Clav 875/125 [Augmentin] 1 each PO Q12H #20 tablet 04/06/21 Codeine Phosphate/Guaifenesin 5 - 10 ml PO Q6HR PRN #120 ml 04/06/21 [Guaifen-Codeine 100-10 mg/5 ml] predniSONE [Deltasone] 40 mg PO DAILY #20 tablet 04/06/21 Ondansetron Odt [Zofran] 4 mg TL Q6H PRN #10 tablet 07/03/21 - Allergies Allergies/Adverse Reactions: Allergies Allergy/AdvReac Type Severity Reaction Status Date / Time amoxicillin Allergy Rash Verified 07/03/21 11:05 cephalexin Allergy Rash Verified 07/03/21 11:05 diphenhydramine Allergy Rash Verified 07/03/21 11:05 [From Benadryl] metaxalone [From Skelaxin] Allergy Anaphylaxis Verified 07/03/21 11:05 NSAIDS (Non-Steroidal Allergy Rash Verified 07/03/21 11:05 Anti-Inflamma - Social History Does the pt smoke?: No Smoking Status: Never smoker Does the pt drink ETOH?: No Does the pt have substance abuse?: No - Immunizations Immunizations are current?: Yes Immunizations: Other immun not current - POLST Patient has POLST: No PD ED PE NORMAL - General General: Alert and oriented X 3, No acute distress, Well developed/nourished - HEENT HEENT: Atraumatic, Moist mucous membranes - Neck Neck: Supple, no meningeal sign, No adenopathy - Cardiac Cardiac: RRR, No murmur, No gallop - Respiratory Respiratory: No respiratory distress, Clear bilaterally - Abdomen Abdomen: Normal bowel sounds, Soft - Back Back: No CVA TTP, No spinal TTP - Derm Derm: Normal color, Warm and dry - Extremities Extremities: No deformity, No tenderness to palpate, Normal ROM s pain - Neuro Neuro: Alert and oriented X 3, manager imaging 2-12 intact, No sensory deficit, Normal speech, Other (Very slight weakness of the left upper arm and left leg. Normal gait without assistance. Cranial nerves II through XII grossly intact. Normal cerebellar exam including finger nose and heel-to-toe. Weakness is unchanged from baseline). No: No motor deficit Eye Opening: Spontaneous Motor: Obeys Commands Verbal: Oriented GCS Score: 15 Results - Vitals Vitals: Vital Signs - 24 hr 07/03/21 07/03/21 11:03 11:32 Temperature 36.0 C L Heart Rate 94 89 Respiratory 16 18 Rate Blood Pressure 176/94 H 140/100 H O2 Saturation 100 96 Oxygen O2 Source Room air - EKG (time done) 1107 Rate: Rate (enter#) (91) Rhythm: NSR [place]: RAD Intervals: Normal RI. No: Prolonged QT QRS: Poor R wave progression Ischemia: Non specific changes (T wave flattening V2 through V4) Compare to prior EKG: Unchanged from prior EKG Computer interpretation: Agree with computer - Labs Labs: Laboratory Tests 07/03/21 07/03/21 07/03/21 11:30 11:30 11:30 WBC 9.2 RBC 4.96 Hgb 15.0 Hct 44.7 MCV 90.1 MCH 30.2 MCHC 33.6 RDW 13.3 Plt Count 230 MPV 11.0 H Neut # (Auto) 5.9 Lymph # (Auto) 2.4 [place] # (Auto) 0.6 Eos # (Auto) 0.2 Baso # (Auto) 0.1 Absolute Nucleated RBC 0.00 Nucleated RBC % 0.0 Sodium 135 Potassium 3.5 Chloride 101 Carbon Dioxide 23 Anion Gap 11.0 BUN 16 Creatinine 0.7 Estimated GFR (MDRD) 88 L Glucose 124 H Calcium 10.1 Total Bilirubin 0.4 AST 33 ALT 58 Alkaline Phosphatase 95 Troponin I High Sens < 2.3 L Total Protein 8.8 H Albumin 4.7 Globulin 4.1 Albumin/Globulin Ratio 1.1 Lipase 33 - Rads (name of study) cxr Radiology: Final report received (No acute cardiopulmonary process) PD MEDICAL DECISION MAKING - ED course Complexity details: reviewed results, re-evaluated patient, considered differential, d/w patient, d/w family, d/w business intelligence consultant (Dr. Iverson on-call actuarial director for Dr. Rosales with [facility]) ED course: 55-year-old female who has a history of hypertension as well as previous stroke secondary to thromboembolism with mild residual left-sided deficits presents to the emergency department for evaluation of chest pain and pressure that began about 24 hours ago. She also has had some associated headache and vomiting. Seen by her actuarial director 48 hours ago with new blood pressure medication started. Patient does present to the ER appearing exceedingly anxious. Here in the emergency department her screening EKG is unchanged from recent. Her screening labs electrolytes and troponin are also negative. Here in the emergency department she was given Compazine and Tylenol with good control of the headache. On reevaluation she is normotensive. At baseline she does have some mild left-sided weakness which is not new and her neurological exam is otherwise nonfocal. I did briefly discussed this case with Dr. Iverson the on-call actuarial director for Dr. Rosales who had recommended she come to the ER for a troponin rule out. We briefly discussed this case given that she had a clean coronary angiography about 2 years ago he does not feel that this likely represents an acute ischemic or coronary event. She is stable for discharge home continue the previously prescribed medications. Emergent return precautions otherwise discussed. Departure - Departure Disposition: Home, Self Care Clinical Impression: Headache Qualifiers: Headache type: unspecified Headache chronicity pattern: acute headache Intractability: not intractable Qualified Code(s): R51.9 - Headache, unspecified Chest pain Qualifiers: Chest pain type: unspecified Qualified Code(s): R07.9 - Chest pain, unspecified Condition: Stable Record reviewed to determine appropriate education?: Yes Prescriptions: Ondansetron Odt [Zofran] 4 mg TL Q6H PRN #10 tablet PRN Reason: Nausea / Vomiting Comments: Roopa martino are seen today in the emergency department because you had a headache and had some chest pain over the last 24 hours. Your screening EKG is unchanged from previous. Your screening labs, electrolytes and troponin are also negative. Your chest x-ray is normal for age. I suspect that some of the headache was caused by blood pressure and vomiting. I have sent a prescription for Zofran to the [facility] in [place]. It is important that you continue to take the new medications prescribed by Dr. Rosales particularly the metoprolol and the chlorthalidone to help control your blood pressure moving forward. I did discuss this case with Dr. Iverson the on-call actuarial director for Dr. Rosales and he also feels that the cause of your symptoms is not likely cardiac. If at any point you find you have sudden severe headache, slurred speech, facial droop or new weakness in your arms or legs then you should return immediately to the ER for reevaluation.
[2021-07-03 12:47] VITALS: BP 134/78
== END 2021-07-03 13:00 | disposition home or self-care (01) ==
LOC: ED 10:59
DX: R07.89 Other chest pain (principal); R51.9 Headache, unspecified; I10 Essential (primary) hypertension; Z86.73 Personal history of transient ischemic attack (TIA), and cerebral infarction without residual deficits
CPT/HCPCS: 36415; 71045; 80053; 83690; 84484; 85025; 93005; 96374; 99284; A9270

== ENCOUNTER 2021-08-10 11:38 | Emergency (ER) | payer MEDICARE ==
--- OUTSIDE RECORDS SUMMARY | 2021-08-10 12:11 | EXTERNAL MEDICAL SUMMARY RPT | Continuity of Care Document ---
:1965 Author Organization [facility] Address [address] [place] [address] Phone Care Team Providers Name Role Phone Miscellaneous Unavailable Unavailable Allergies No information. Encounters No information. Medications date description facility 20210731 Acetaminophen 325 MG / Hydrocodone Sara rtrate [address] [facility] Tablet 20210731 Ondansetron [address] [facility] Problems date description facility 20210804 Unspecified abdominal pain [facility] 20210804 Noninfective gastroenteritis and [facility] colitis, unspecified 20210804 Chest pain, unspecified [facility] 20210804 Chest Pain [facility] 20210804 Abdominal Pain [facility] Procedures date description facility [id number] [facility] [id number] [facility] Results No information. Vital Signs date measurement value source 20210731 weight_standard 82.55 lb 20210731 weight_metric 37.45 kg 20210731 respiration_rate 18 /min 20210731 height_standard 63 in 20210731 height_metric 160.02 cm 20210731 heart_rate 86 /min 20210731 BP_systolic 174 mm[Hg] 20210731 BP_diastolic 105 mm[Hg] 20210731 BMI 32.2 kg/m2 20210803 weight_standard 82.55 lb 20210803 weight_metric 37.45 kg 20210803 temperature_standard 98.6 F 20210803 temperature_metric 37 C 20210803 respiration_rate 20 /min 20210803 heart_rate 74 /min 20210803 BP_systolic 163 mm[Hg] 20210803 BP_diastolic 93 mm[Hg]
[2021-08-10] MEDS ORDERED: SODIUM CHLORIDE 0.9% 1,000 ML IV STA ×2 (12:23)
[2021-08-10] MEDS ORDERED: DEXAMETHASONE 10 MG/ML VIAL IVP STA (12:24)
[2021-08-10] MEDS ORDERED: HYOSCYAMINE SL 0.125 MG TABLET SL STA (12:24)
[2021-08-10] MEDS ORDERED: DICYCLOMINE 10 MG CAPSULE PO STA (12:24)
[2021-08-10] MEDS ORDERED: SUCRALFATE 1 GM/10 ML UDC PO STA (12:39)
[2021-08-10] MEDS ORDERED: FAMOTIDINE 20 MG TABLET PO STA (12:39)
[2021-08-10 12:40] LABS: BASOPHILS % (AUTO) 0.4 %; EOSINOPHILS # (AUTO) 0.2 10^3/uL (0.0-0.7); EOSINOPHILS % (AUTO) 1.7 %; HCT - HEMATOCRIT 42.4 % (37.0-47.0); HGB - HEMOGLOBIN 13.8 g/dL (12.0-16.0); LYMPHOCYTES # (AUTO) 2.3 10^3/uL (1.5-3.5); LYMPHOCYTES % (AUTO) 25.2 %; MEAN CORPUSCULAR HEMOGLOBIN 29.2 pg (27.0-31.0); MEAN CORPUSCULAR HGB CONC 32.5 g/dL (32.0-36.0); MEAN CORPUSCULAR VOLUME 89.6 fL (81.0-99.0); MEAN PLATELET VOLUME 11.3 fL (7.9-10.8); MONOCYTES # (AUTO) 0.6 10^3/uL (0.0-1.0); NEUTROPHILS # (AUTO) 5.8 10^3/uL (1.5-6.6); NEUTROPHILS % (AUTO) 65.3 %; PLT - PLATELET COUNT 238 10^3/uL (130-450); RED BLOOD COUNT 4.73 10^6/uL (4.20-5.40); RED CELL DISTRIBUTION WIDTH 13.3 % (12.0-15.0); WHITE BLOOD COUNT 8.9 x10^3/uL (4.8-10.8)
--- NOTE | 2021-08-10 12:51 | ED Physician Documentation ---
History of Present Illness - Stated complaint Stated Complaint: STOMACH PX - Chief complaint Chief Complaint: Abd Pain - History obtained from History obtained from: Patient - History of Present Illness Timing: How many weeks ago (several) Pain level max: 8 Pain level now: 7 - Additonal information Additional information: Patient is a 55-year-old female who presents to the emergency department stating that she has had abdominal pain, diarrhea for the past several weeks. She states that she has been to [facility] several times, 2 CT scans, 1 was -1 showed mild colitis. She has an appoint with her GI doctor later this week. She states she is still having diarrhea and the pain is not relieved by her normal Vicodin. She states that her stool was dark today but not black. She had been prescribed antibiotics but did not feel that she was tolerating them well so she stopped them. The diarrhea is several times per day. No fevers. No chills. Review of Systems Constitutional: denies: Fever, Chills Nose: denies: Rhinorrhea / runny nose, Congestion Throat: denies: Sore throat Cardiac: denies: Chest pain / pressure Respiratory: denies: Dyspnea, Cough GI: reports: Abdominal Pain (LUQ and LLQ, crampy, painful), Diarrhea. denies: Nausea, Vomiting, Hematemesis, Bloody / black stool : denies: Dysuria, Frequency, Hesitancy Skin: denies: Rash Musculoskeletal: denies: Neck pain, Back pain Neurologic: denies: Headache PD PAST MEDICAL HISTORY - Past Medical History Past Medical History: Yes Cardiovascular: Hypertension Respiratory: None Neuro: CVA Endocrine/Autoimmune: None GI: None CONSTRUCTION CONSULTANT: None : None HEENT: None Psych: None Musculoskeletal: None Derm: None - Past Surgical History Past Surgical History: Yes General: Appendectomy Ortho: Spine surgery /CONSTRUCTION CONSULTANT: section - Present Medications Home Medications: Ambulatory Orders Medication Instructions Recorded Confirmed Levothyroxine [Synthroid] 125 mcg PO QDAC 02/14/20 08/10/21 Pramipexole [Mirapex] 0.25 mg PO DAILY 02/14/20 08/10/21 amLODIPine [Norvasc] 5 mg PO DAILY 02/14/20 08/10/21 tiZANidine [Zanaflex] 4 mg PO BID 02/14/20 08/10/21 HYDROcod/ACETAM 5/325 [[place] 5/325] 1 - 2 tablet PO Q6H PRN #14 tablet 12/01/20 08/10/21 Esomeprazole Magnesium [Nexium] 40 mg PO DAILY #30 cap.sr 08/10/21 Famotidine [Pepcid] 20 mg PO BID #60 tablet 08/10/21 Metoprolol Succinate [Toprol Xl] 25 mg PO HS 08/10/21 08/10/21 Oxycodone HCl/Acetaminophen 1 - 2 each PO Q6H PRN #14 tablet 08/10/21 [Percocet 5-325 mg Tablet] Sucralfate [Carafate] 1 gm PO ACHS #60 tablet 08/10/21 hydroCHLOROthiazide [Hydrodiuril] 12.5 mg PO DAILY 08/10/21 08/10/21 - Allergies Allergies/Adverse Reactions: Allergies Allergy/AdvReac Type Severity Reaction Status Date / Time amoxicillin Allergy Rash Verified 08/10/21 12:04 cephalexin Allergy Rash Verified 08/10/21 12:04 diphenhydramine Allergy Rash Verified 08/10/21 12:04 [From Benadryl] metaxalone [From Skelaxin] Allergy Anaphylaxis Verified 08/10/21 12:04 NSAIDS (Non-Steroidal Allergy Rash Verified 08/10/21 12:04 Anti-Inflamma - Social History Does the pt smoke?: No Smoking Status: Never smoker Does the pt drink ETOH?: No Does the pt have substance abuse?: No - Immunizations Immunizations are current?: Yes Immunizations: Other immun not current - POLST Patient has POLST: No PD ED PE NORMAL - Vitals Vital signs reviewed: Yes - General General: Alert and oriented X 3, No acute distress - HEENT HEENT: Moist mucous membranes - Neck Neck: Supple, no meningeal sign - Cardiac Cardiac: RRR, Strong equal pulses - Respiratory Respiratory: No respiratory distress, Clear bilaterally - Abdomen Abdomen: Normal bowel sounds, Soft, Non distended, Other (Tender to palpation left upper quadrant and left lower quadrant. No peritoneal signs.) - Back Back: No CVA TTP - Derm Derm: Warm and dry - Extremities Extremities: No edema - Neuro Neuro: Alert and oriented X 3 - Psych Psych: Normal mood, Normal affect Results - Vitals Vitals: Vital Signs - 24 hr 08/10/21 08/10/21 12:00 14:03 Temperature 37.1 C 36.9 C Heart Rate 87 79 Respiratory 16 16 Rate Blood Pressure 168/92 H 129/91 H O2 Saturation 100 99 Oxygen O2 Source Room air - Labs Labs: Laboratory Tests 08/10/21 08/10/21 08/10/21 12:32 12:32 13:25 WBC 8.9 RBC 4.73 Hgb 13.8 Hct 42.4 MCV 89.6 MCH 29.2 MCHC 32.5 RDW 13.3 Plt Count 238 MPV 11.3 H Neut # (Auto) 5.8 Lymph # (Auto) 2.3 [place] # (Auto) 0.6 Eos # (Auto) 0.2 Baso # (Auto) 0.0 Absolute Nucleated RBC 0.00 Nucleated RBC % 0.0 Sodium 136 Potassium 3.9 Chloride 103 Carbon Dioxide 23 Anion Gap 10.0 BUN 18 Creatinine 0.7 Estimated GFR (MDRD) 88 L Glucose 128 H Calcium 9.5 Total Bilirubin 0.3 AST 31 ALT 54 Alkaline Phosphatase 95 Total Protein 8.3 H Albumin 4.3 Globulin 4.0 Albumin/Globulin Ratio 1.1 Lipase 36 Stool Leukocytes, Qual NEGATIVE PD MEDICAL DECISION MAKING - ED course Complexity details: reviewed results, re-evaluated patient, considered differential, d/w patient ED course: Patient is a 55-year-old female with ongoing abdominal pain and diarrhea for the past several weeks to months. She has been to [facility] twice in the last week and had 2 CT scans, the first was read as normal, the second was possible mild colitis. No indication for repeat CT scan today. Laboratory testing does not show any acute abnormalities. I discussed the case with her GI office for DAMIAN Pollock. Patient was unable to give any stool samples here. Therefore the laboratory tests will be sent into the lab by her provider. We will trial the patient on medicine for possible gastritis versus ulcer as well as a small amount of pain medication until her appointment on Tuesday. Fecal leukocytes are negative. Patient counseled regarding signs and symptoms for which I believe and urgent re-evaluation would be necessary. Patient with good understanding of and agreement to plan and is comfortable going home at this time This document was made in part using voice recognition software. While efforts are made to proofread this document, sound alike and grammatical errors may occur. Departure - Departure Disposition: Home, Self Care Clinical Impression: Abdominal pain Qualifiers: Abdominal location: unspecified location Qualified Code(s): R10.9 - Unspecified abdominal pain Diarrhea Qualifiers: Diarrhea type: unspecified type Qualified Code(s): R19.7 - Diarrhea, unspecified Condition: Good Instructions: ED Abdominal Pain Female Non-Specific Abdominal Pain Follow-Up: RAÚL JOHNSON, RAMON, [employer] [Physician No Access] - Within 3 Days RUT INIGUEZ MD [Primary Care Provider] - Within 1 week Aditya Tong MD [Provider Admit Priv/Credential] - Isacc Alba MD [Provider Admit Priv/Credential] - Prescriptions: Sucralfate [Carafate] 1 gm PO ACHS #60 tablet Esomeprazole Magnesium [Nexium] 40 mg PO DAILY #30 cap.sr Famotidine [Pepcid] 20 mg PO BID #60 tablet Oxycodone HCl/Acetaminophen [Percocet 5-325 mg Tablet] 1 - 2 each PO Q6H PRN #14 tablet PRN Reason: pain Comments: Please follow-up with your GI doctor for further care on Tuesday as scheduled. It is recommended that you drop off a stool sample for further testing. Your GI doctor at the [facility] will send orders here for you. Your prescriptions were sent to [facility] in [place]. I am prescribing a short course of narcotic pain medication for you. These are potentially dangerous and addictive medications that should be used carefully. These medications may constipate you. Take an [id number] stool softener (docusate) twice daily with plenty of water while taking these medications. If you go 24 hours without a bowel movement, take [id number]-[id number] miralax, per package instructions. Do not drink or drive while taking these medications. If you received narcotic or sedating medications while in the emergency department, do not drive for 24 hours. Store this medication in a safe, secure place and out of reach of children. It is a violation of federal law to give or sell this medication to another person or to use in a manner other than prescribed. The ED will not refill narcotic prescriptions, including prescriptions lost or stolen. To dispose of unwanted medications: 1. [facility] at [address] in [place] has a medication drop box. They accept prescription medications (in pill form) Tuesday through Tuesday 9:00 a.m. to 5:00 p.m. 2. The [facility] [employer] accepts prescription medications (in pill form only) for disposal year round. Call for more information. 3. Contact the [facility] for the next [facility] sponsored prescription drug collection event. , [phone], or [phone];
[2021-08-10 13:02] LABS: ALBUMIN 4.3 g/dL (3.2-5.5); ALBUMIN/GLOBULIN RATIO 1.1 (1.0-2.2); BILIRUBIN,TOTAL 0.3 mg/dL (0.2-1.0); CALCIUM 9.5 mg/dL (8.5-10.3); CREATININE 0.7 mg/dL (0.4-1.0); POTASSIUM 3.9 mmol/L (3.5-5.0); TOTAL PROTEIN 8.3 g/dL (6.7-8.2)
[2021-08-10] MEDS ORDERED: MORPHINE 2 MG/ML CARPUJECT IVP STA ×2 (13:44→15:11)
[2021-08-10 15:36] VITALS: BP 148/67
== END 2021-08-10 15:39 | disposition home or self-care (01) ==
LOC: ED 11:38
DX: R10.32 Left lower quadrant pain (principal); R10.12 Left upper quadrant pain; R19.7 Diarrhea, unspecified
CPT/HCPCS: 36415; 80053; 83630; 83690; 85025; 96374; 96375; 96376; 99283; 99284; A9270

== ENCOUNTER 2021-12-05 11:13 | Emergency (ER) | payer MEDICARE ==
--- NOTE | 2021-12-05 11:37 | XRAY Report ---
PROCEDURE: Chest 1 View X-Ray INDICATIONS: Chest pain TECHNIQUE: One view of the chest was acquired. COMPARISON: Chest x-ray 07/03/2021 FINDINGS: Surgical changes and devices: None. Lungs and pleura: No pleural effusions or pneumothorax. Lungs are clear. Mediastinum: Mediastinal contours appear normal. Heart size is at the upper limits of normal. Bones and chest wall: No suspicious bony lesions. Overlying soft tissues appear unremarkable. IMPRESSION: No acute pulmonary process. Reviewed by: Vivienne Armstrong MD on 12/05/2021 11:36 AM PDT Approved by: Vivienne Armstrong MD on 12/05/2021 11:36 AM PDT Station ID: [id number]
--- NOTE | 2021-12-05 11:48 | ED Physician Documentation ---
History of Present Illness - Stated complaint Stated Complaint: CHEST PX/HIGH BP - Chief complaint Chief Complaint: Cardiac - Additonal information Additional information: 56-year-old female presents emergency department for evaluation of subcostal and left-sided chest pain that began last night while watching TV. Nonradiating. Reports it was a pressure and burning sensation lasting a few minutes. Symptoms began again this morning. She had some nausea associated lightheadedness. No vomiting. She checked her blood pressure at home and it was greater than 190. She does have a history of concerns with her gallbladder and liver. Underwent a HIDA scan through [facility] recently and is scheduled to follow-up with a surgeon and a employee's representative. Since her chest pain began she is also begun having increased right Upper quadrant abdominal pain. Patient does have a history of a previous thrombotic stroke. Reasons for this are unclear. She is not anticoagulated. She has no focal neurodeficits Review of Systems Constitutional: denies: Fever, Chills Eyes: reports: Reviewed and negative Throat: reports: Reviewed and negative Cardiac: reports: Chest pain / pressure Respiratory: reports: Reviewed and negative GI: reports: Abdominal Pain. denies: Nausea, Vomiting : reports: Reviewed and negative Skin: reports: Reviewed and negative PD PAST MEDICAL HISTORY - Past Medical History Cardiovascular: Hypertension Respiratory: None Neuro: CVA Endocrine/Autoimmune: None GI: None SURGICAL TERRITORY MANAGER: None : None HEENT: None Psych: Post traumatic stress disorder Musculoskeletal: None Derm: None - Past Surgical History Past Surgical History: Yes General: Appendectomy Ortho: Spine surgery /SURGICAL TERRITORY MANAGER: section, Other - Present Medications Home Medications: Ambulatory Orders Medication Instructions Recorded Confirmed Levothyroxine [Synthroid] 125 mcg PO QDAC 02/14/20 08/10/21 Pramipexole [Mirapex] 0.25 mg PO DAILY 02/14/20 08/10/21 amLODIPine [Norvasc] 5 mg PO DAILY 02/14/20 08/10/21 tiZANidine [Zanaflex] 4 mg PO BID 02/14/20 08/10/21 HYDROcod/ACETAM 5/325 [[place] 5/325] 1 - 2 tablet PO Q6H PRN #14 tablet 12/01/20 08/10/21 Esomeprazole Magnesium [Nexium] 40 mg PO DAILY #30 cap.sr 08/10/21 Famotidine [Pepcid] 20 mg PO BID #60 tablet 08/10/21 Metoprolol Succinate [Toprol Xl] 25 mg PO HS 08/10/21 08/10/21 Oxycodone HCl/Acetaminophen 1 - 2 each PO Q6H PRN #14 tablet 08/10/21 [Percocet 5-325 mg Tablet] Sucralfate [Carafate] 1 gm PO ACHS #60 tablet 08/10/21 hydroCHLOROthiazide [Hydrodiuril] 12.5 mg PO DAILY 08/10/21 08/10/21 EPINEPHrine [Epinephrine] 0.3 mg IJ ONCE PRN #2 11/13/21 - Allergies Allergies/Adverse Reactions: Allergies Allergy/AdvReac Type Severity Reaction Status Date / Time amoxicillin Allergy Rash Verified 11/13/21 20:55 cephalexin Allergy Rash Verified 11/13/21 20:55 diphenhydramine Allergy Rash Verified 11/13/21 20:55 [From Benadryl] hydroxychloroquine Allergy Anaphylaxis Verified 12/05/21 11:22 metaxalone [From Skelaxin] Allergy Anaphylaxis Verified 11/13/21 20:55 NSAIDS (Non-Steroidal Allergy Rash Verified 11/13/21 20:55 Anti-Inflamma - Social History Does the pt smoke?: No Smoking Status: Never smoker Does the pt drink ETOH?: No Does the pt have substance abuse?: No - Immunizations Immunizations are current?: Yes Immunizations: Other immun not current - POLST Patient has POLST: No PD ED PE NORMAL - General General: Alert and oriented X 3, No acute distress, Well developed/nourished - HEENT HEENT: Atraumatic, Moist mucous membranes - Neck Neck: Supple, no meningeal sign, No adenopathy - Cardiac Cardiac: RRR, No murmur, No gallop - Respiratory Respiratory: No respiratory distress, Clear bilaterally - Abdomen Abdomen: Normal bowel sounds, Soft. No: Non tender (Equivocal Rodriguez's right upper quadrant. Tenderness to the epigastrium. No tenderness of the left flank right lower left lower quadrants) - Back Back: No CVA TTP - Derm Derm: Normal color, Warm and dry - Extremities Extremities: No deformity, No tenderness to palpate, Normal ROM s pain - Neuro Neuro: Alert and oriented X 3, burlap man 2-12 intact Eye Opening: Spontaneous Motor: Obeys Commands Verbal: Oriented GCS Score: 15 Results - Vitals Vitals: Vital Signs - 24 hr 12/05/21 12/05/21 12/05/21 11:14 12:11 12:30 Temperature 36.2 C L Heart Rate 82 93 82 Respiratory 24 24 15 Rate Blood Pressure 178/97 H 155/93 H 154/82 H O2 Saturation 100 100 100 Oxygen O2 Source Room air - EKG (time done) 1116 Rate: Rate (enter#) (81) Rhythm: NSR [place]: Normal Intervals: Normal [place] QRS: Normal Ischemia: Normal ST segments Compare to prior EKG: Unchanged from prior EKG Computer interpretation: Agree with computer - Labs Labs: Laboratory Tests 12/05/21 12/05/21 12/05/21 11:58 11:58 11:58 WBC 7.7 RBC 4.61 Hgb 13.2 Hct 40.7 MCV 88.3 MCH 28.6 MCHC 32.4 RDW 13.0 Plt Count 216 MPV 11.7 H Neut # (Auto) 4.5 Lymph # (Auto) 2.3 [place] # (Auto) 0.7 Eos # (Auto) 0.2 Baso # (Auto) 0.0 Absolute Nucleated RBC 0.00 Nucleated RBC % 0.0 Sodium 141 Potassium 4.1 Chloride 106 Carbon Dioxide 24 Anion Gap 11.0 BUN 20 Creatinine 0.8 Estimated GFR (MDRD) 75 L Glucose 91 Calcium 10.0 Total Bilirubin 0.5 AST 43 H ALT 82 H Alkaline Phosphatase 98 Troponin I High Sens 2.7 Total Protein 8.4 H Albumin 4.6 Globulin 3.8 Albumin/Globulin Ratio 1.2 Lipase 31 - Rads (name of study) CT abd Radiology: Final report received (Hepatomegaly with diffuse steatosis. Gallbladder is unremarkable.) abd US Radiology: Final report received (Hepatomegaly and hepatic steatosis. Gallbladder normal without gallbladder wall thickening, pericholecystic fluid. Common bile duct upper limits of normal size.) PD MEDICAL DECISION MAKING - ED course Complexity details: reviewed results, re-evaluated patient, considered differential, d/w patient ED course: 56-year-old female presents emergency department for evaluation of right upper quadrant abdominal pain as well as left-sided chest pain and pressure. Screening EKG was nonischemic. Chest x-ray was without acute findings. Her high-sensitivity troponin is normal. Though she does have a history of hypertension at this time there is nothing to indicate acute coronary syndrome. Her heart score is 2. While here in the emergency department however the patient has continued to guard her right upper quadrant and is reporting increasing pain. She has a known history of hepatic steatosis as well as biliary hypokinesia. She underwent a gallbladder scan on 02 December through the [facility]. At that time it showed a gallbladder ejection fraction of 20% and findings consistent with biliary hypokinesia. She is scheduled to see a surgeon this upcoming Tuesday the . Today her electrolytes show some very mild transaminase but no bilirubin elevation. A CT scan shows hepatic steatosis but no acute gallbladder dysfunction. Abdominal ultrasound again shows hepatic steatosis but no secondary findings s uggest acute cholecystitis. On reevaluation after a dose of fentanyl the patient's symptoms are markedly improved. At this time she is stable for discharge home. I have encouraged her to have very very close follow-up with the surgeon that she is scheduled to see on 08 December. Emergent return precautions were discussed for worsening symptoms. Departure - Departure Disposition: , Self Care Clinical Impression: Abnormal liver function tests Chest pain Qualifiers: Chest pain type: unspecified Qualified Code(s): R07.9 - Chest pain, unspecified Condition: Stable Record reviewed to determine appropriate education?: Yes Comments: Roopa martino are seen today in the emergency department for chest pain as well as epigastric and right upper quadrant abdominal pain. Your screening EKG chest x- ray and heart labs are all normal. You do have a history of biliary hypokinesia. This is the medical term for a condition where the gallbladder empties slower than normal. Here in the emergency department we did do a CT of your abdomen that showed a fatty liver but the gallbladder looked normal. The ultrasound of your gallbladder today also was unremarkable. Please continue to follow very closely with the surgeon that you are scheduled to see on 08 December. They will determine if you would benefit from having your gallbladder removed. I also recommend that you have close follow-up with your primary care doctor to discuss this episode of chest pain. Given your age as well as a history of previous strokes they may want to make a referral to a supervisor erection shop for an echocardiogram and or a stress test
[2021-12-05] MEDS ORDERED: ONDANSETRON ODT 4 MG TABLET TL STA (11:56)
[2021-12-05 12:09] LABS: BASOPHILS % (AUTO) 0.5 %; EOSINOPHILS # (AUTO) 0.2 10^3/uL (0.0-0.7); EOSINOPHILS % (AUTO) 1.9 %; HCT - HEMATOCRIT 40.7 % (37.0-47.0); HGB - HEMOGLOBIN 13.2 g/dL (12.0-16.0); LYMPHOCYTES # (AUTO) 2.3 10^3/uL (1.5-3.5); LYMPHOCYTES % (AUTO) 30.2 %; MEAN CORPUSCULAR HEMOGLOBIN 28.6 pg (27.0-31.0); MEAN CORPUSCULAR HGB CONC 32.4 g/dL (32.0-36.0); MEAN CORPUSCULAR VOLUME 88.3 fL (81.0-99.0); MEAN PLATELET VOLUME 11.7 fL (7.9-10.8); MONOCYTES # (AUTO) 0.7 10^3/uL (0.0-1.0); MONOCYTES % (AUTO) 8.7 %; NEUTROPHILS # (AUTO) 4.5 10^3/uL (1.5-6.6); NEUTROPHILS % (AUTO) 58.4 %; PLT - PLATELET COUNT 216 10^3/uL (130-450); RED BLOOD COUNT 4.61 10^6/uL (4.20-5.40); WHITE BLOOD COUNT 7.7 x10^3/uL (4.8-10.8)
[2021-12-05 12:24] LABS: ALBUMIN 4.6 g/dL (3.2-5.5); ALBUMIN/GLOBULIN RATIO 1.2 (1.0-2.2); BILIRUBIN,TOTAL 0.5 mg/dL (0.2-1.0); CREATININE 0.8 mg/dL (0.4-1.0); POTASSIUM 4.1 mmol/L (3.5-5.0); TOTAL PROTEIN 8.4 g/dL (6.7-8.2)
[2021-12-05] MEDS ORDERED: fentaNYL 100 MCG/2 ML VIAL IVP STA (13:03)
[2021-12-05] MEDS ORDERED: fentaNYL 100 MCG/2 ML VIAL IM STA (13:31)
--- NOTE | 2021-12-05 13:33 | CT Report ---
PROCEDURE: Abdomen/Pelvis WO INDICATIONS: RUQ abd pain TECHNIQUE: Noncontrast 5 mm thick sections acquired from the diaphragms to the symphysis. 5 mm coronal and sagi ttal reformats were then performed. For radiation dose reduction, the following was used: automated exposure control, adjustment of mA and/or kV according to patient size. COMPARISON: CT abdomen pelvis 12/05/2020 FINDINGS: Image quality: Excellent. ABDOMEN: Lung bases: Lung bases are clear. Heart size is normal. Solid organs: Liver is diffusely enlarged with steatosis. It measures 22.3 cm.. Gallbladder is unre markable Pancreas is normal in contours. No adrenal nodules. Kidneys are normal in size, without h ydronephrosis or nephrolithiasis. Peritoneum and bowel: Unenhanced bowel loops demonstrate normal wall thickness and caliber. Appendix is normal. No free fluid or air. Colonic diverticula are present. Nodes and vessels: No retroperitoneal or mesenteric adenopathy by size criteria. Aorta and inferior vena cava are normal in caliber. Miscellaneous: No ventral hernias. PELVIS: Genitourinary: Bladder wall thickness is normal. Miscellaneous: No inguinal hernias or adenopathy. Bones: No suspicious bony lesions. No vertebral body compression fractures. IMPRESSION: Hepatomegaly with diffuse steatosis. Bilateral unremarkable. Reviewed by: Vivienne Armstrong MD on 12/05/2021 1:32 PM PDT Approved by: Vivienne Armstrong MD on 12/05/2021 1:32 PM PDT Station ID: [id number]
--- NOTE | 2021-12-05 15:06 | Ultrasound Report ---
PROCEDURE: Abdomen Limited INDICATIONS: RUQ abd pain; elevated LFT TECHNIQUE: Real-time scanning was performed of the abdominal and retroperitoneal organs, with image documentatio n. COMPARISON: None. FINDINGS: Liver: Liver is enlarged measuring 20.1 cm with steatosis. Gallbladder: No stones. Wall thickness is normal measuring 1.30 m per Biliary ducts: Intrahepatic bile ducts are non-dilated. Extrahepatic bile duct caliber measures 6.5 mm. Normal is 6-7 mm or less in diameter, or 10 mm or less post-cholecystectomy. Pancreas: Visualized portions of the pancreas are sonographically normal. Kidneys: Right kidney measures 12.2 cm long. No hydronephrosis or nephrolithiasis. No solid masses . 4 mm simple right renal cyst. Aorta: Visualized aorta is normal in caliber at less than 3 cm. Iliacs: Proximal common iliac arteries are normal in caliber at less than 2.5 cm. IVC: Intrahepatic inferior vena cava is patent. Miscellaneous: No free abdominal fluid. IMPRESSION: Hepatomegaly with steatosis. Reviewed by: Vivienne Armstrong MD on 12/05/2021 3:05 PM PDT Approved by: Vivienne Armstrong MD on 12/05/2021 3:05 PM PDT Station ID: [id number]
[2021-12-05 15:19] VITALS: BP 111/79
== END 2021-12-05 15:20 | disposition home or self-care (01) ==
LOC: ED 11:13
DX: R94.5 Abnormal results of liver function studies (principal); R07.9 Chest pain, unspecified; R10.13 Epigastric pain; R10.11 Right upper quadrant pain
CPT/HCPCS: 36415; 71045; 74176; 76705; 80053; 83690; 84484; 85025; 93005; 96372; 99284; Q0162

== ENCOUNTER 2022-02-03 10:23 | Outpatient (CLI) | payer MEDICARE ==
--- NOTE | 2022-02-04 10:27 | Mammography Report ---
BILATERAL DIGITAL DIAGNOSTIC MAMMOGRAM 3D/2D: 02/03/2022 CLINICAL: Focal right breast pain. Due for bilateral. Comparison is made to exam dated: 09/25/2018 mammogram - [facility] [place]. Both breasts are almost entirely fatty (category a/<25% glandular tissue). No significant masses, calcifications, or other findings are seen in either breast. Specifically, no finding to explain the patient's pain. IMPRESSION: INCOMPLETE: NEEDS ADDITIONAL IMAGING EVALUATION There is no abnormality seen in the right breast to correspond with the pain at 10 o'clock. Ultrasou nd is recommended for full evaluation of this area. This was performed immediately following this exa m. Based on the Tyrer Cuzick model (a risk assessment model) the patients lifetime risk is 6.0% and her 10 year risk is 1.7%. According to the ACR, ACS, and NCCN guidelines, an annual breast MRI exam soniya g with mammogram is recommended if the patients lifetime risk is 20% or greater. This exam was interpreted at Station ID: [id number]. NOTE: For mammograms, a report in lay terms will be sent to the patient. Approximately 15% of breast malignancies will not be visualized mammographically. In the management of a palpable breast mass, a negative mammogram must not discourage biopsy of a clinically suspicious lesion. Electronically Signed By: Mariya donnelly/:02/03/2022 14:05:10 ACR BI-RADS Category 0: Incomplete 3340F PARENCHYMAL PATTERN: (F) - The breast(s) demonstrate(s) diffuse fatty replacement. BI-RADS CATEGORY: (0) - 0 Ultrasound [id number] Immediate follow-up LATERALITY: (B)
--- NOTE | 2022-02-04 10:27 | Ultrasound Report ---
LIMITED ULTRASOUND OF RIGHT BREAST AND AXILLA: 02/03/2022 CLINICAL: Focal right breast pain. Comparison is made to exams dated: 02/03/2022 mammogram - [facility] and 09/25/2018 mammogram - [facility] [place]. Ultrasound of the right breast 10 o'clock, and axilla regions was performed. Ward scale images of th e real-time examination were reviewed. No significant abnormalities were seen sonographically in the right breast. Specifically, no finding to explain the patient's pain. IMPRESSION: NEGATIVE There is no sonographic correlate to the patient's pain and no evidence of malignancy. Return to annual mammogram screening schedule is recommended. Findings and recommendations were conveyed to the patient at time of exam. This exam was interpreted at Station ID: [id number]. Electronically Signed By: Mariya donnelly/:02/03/2022 14:06:41 Ultrasound BI-RADS: 1 Negative BI-RADS CATEGORY: (1) - 1 RECOMMENDATION: (ANNUAL) - Recommend routine annual screening mammography. [id number] return to screening LATERALITY: (B)
== END 2022-02-03 10:24 | disposition home or self-care (01) ==
LOC: DI 10:23
PROVIDERS: ATTEND Family Medicine
DX: N64.4 Mastodynia (principal)

== ENCOUNTER 2022-02-27 10:09 | Emergency (ER) | payer MEDICARE ==
--- NOTE | 2022-02-27 10:46 | ED Physician Documentation ---
PD HPI LOWER EXT INJURY - Stated complaint Stated Complaint: INJURED RIGHT ANKLE - History obtained from History obtained from: Patient - History of Present Illness PD HPI LOW EXT INJURY LOCATION: Right, Ankle, Calf Type of injury: Fall (she states she slid on wet/frosty deck and slid with right ankle twisting and she noted some calf to knee pain.), Twist Where injury occurred: Home Timing - onset: Today Timing - details: Abrupt onset, Still present Worsened by: Moving, Palpating Associated symptoms: Swelling (lateral ankle). No: Weakness, Numbness Contributing factors: No: Prior ortho surgery Similar symptoms before: Has not had sx before Recently seen: Not recently seen Review of Systems Skin: denies: Abrasion (s), Laceration (s) Musculoskeletal: reports: Back pain (chronic lumbar pain and is on pain contract. 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.) Neurologic: denies: Focal weakness, Numbness, Headache, Head injury PD PAST MEDICAL HISTORY - Past Medical History Cardiovascular: Hypertension Respiratory: None Neuro: CVA Endocrine/Autoimmune: None GI: None MEMBER OF CONGRESS: None : None HEENT: None Psych: Post traumatic stress disorder Musculoskeletal: None Derm: None - Past Surgical History Past Surgical History: Yes General: Appendectomy Ortho: Spine surgery /MEMBER OF CONGRESS: section, Other - Present Medications Home Medications: Ambulatory Orders Medication Instructions Recorded Confirmed Levothyroxine [Synthroid] 125 mcg PO QDAC 02/14/20 08/10/21 Pramipexole [Mirapex] 0.25 mg PO DAILY 02/14/20 08/10/21 amLODIPine [Norvasc] 5 mg PO DAILY 02/14/20 08/10/21 tiZANidine [Zanaflex] 4 mg PO BID 02/14/20 08/10/21 HYDROcod/ACETAM 5/325 [[place] 5/325] 1 - 2 tablet PO Q6H PRN #14 tablet 12/01/20 08/10/21 Esomeprazole Magnesium [Nexium] 40 mg PO DAILY #30 cap.sr 08/10/21 Famotidine [Pepcid] 20 mg PO BID #60 tablet 08/10/21 Metoprolol Succinate [Toprol Xl] 25 mg PO HS 08/10/21 08/10/21 Oxycodone HCl/Acetaminophen 1 - 2 each PO Q6H PRN #14 tablet 08/10/21 [Percocet 5-325 mg Tablet] Sucralfate [Carafate] 1 gm PO ACHS #60 tablet 08/10/21 hydroCHLOROthiazide [Hydrodiuril] 12.5 mg PO DAILY 08/10/21 08/10/21 EPINEPHrine [Epinephrine] 0.3 mg IJ ONCE PRN #2 11/13/21 - Allergies Allergies/Adverse Reactions: Allergies Allergy/AdvReac Type Severity Reaction Status Date / Time amoxicillin Allergy Rash Verified 11/13/21 20:55 cephalexin Allergy Rash Verified 11/13/21 20:55 diphenhydramine Allergy Rash Verified 11/13/21 20:55 [From Benadryl] hydroxychloroquine Allergy Anaphylaxis Verified 12/05/21 11:22 metaxalone [From Skelaxin] Allergy Anaphylaxis Verified 11/13/21 20:55 NSAIDS (Non-Steroidal Allergy Rash Verified 11/13/21 20:55 Anti-Inflamma - Social History Does the pt smoke?: No Smoking Status: Never smoker Does the pt drink ETOH?: No Does the pt have substance abuse?: No - Immunizations Immunizations are current?: Yes Immunizations: Other immun not current - POLST Patient has POLST: No PD ED PE NORMAL - Vitals Vital signs reviewed: Yes - General General: Alert and oriented X 3, Well developed/nourished, Other (appears in pain with any ankle and foot movement. ) - Respiratory Respiratory: Clear bilaterally, Other (no chestwall tenderness. ) - Abdomen Abdomen: Soft, Non tender - Back Back: No CVA TTP, Other (some tender in lower sacral and tailbone area without obvious deformity. ) - Derm Derm: Normal color, Warm and dry - Extremities Extremities: Other (right Achilles firm and intact. There is tenderness mid to upper lateral calf without edema. Anterolateral right ankle with swelling, effusion and marked tenderness. Unable to do stress testing due to pain. ) - Neuro Neuro: Alert and oriented X 3, No motor deficit, No sensory deficit, Normal speech Results - Vitals Vitals: Vital Signs - 24 hr 02/27/22 10:52 Temperature 37.2 C Heart Rate 85 Respiratory 19 Rate Blood Pressure 190/100 H O2 Saturation 100 Oxygen O2 Source Room air - Rads (name of study) right tib/fib Radiology: Prelim report reviewed (no fractures seen on this. ), See rad report PD MEDICAL DECISION MAKING - ED course Complexity details: reviewed results (normal xray without fractures. Has lateral ankle pain and swelling, but also mid calf muscle tenderness. Achilles firm and intact. can treat ankle and calf muscle with cam walker and crutches.), silvana farris differential, d/w patient Departure - Departure Disposition: 01 Home, Self Care Clinical Impression: Strain of right calf muscle Ankle sprain Qualifiers: Encounter type: initial encounter Involved ligament of ankle: unspecified ligament Laterality: right Qualified Code(s): S93.401A - Sprain of unspecified ligament of right ankle, initial encounter Condition: Stable Record reviewed to determine appropriate education?: Yes Instructions: ED Sprain Ankle W X Ray, ED Strain Muscle Ext Follow-Up: Orthopedic Care [Provider Group] Comments: Your x-ray is good without any signs of fractures at the ankle or upper portion of the lower leg. It sounds likely that you have an ankle sprain but also a strain of the calf muscle. Your acutely feels intact. At this point I think we could treat the ankle as well as the calf muscle with immobilizing the ankle with a cast boot. Crutches initially for nonweightbearing as needed for comfort. Progress weightbearing as tolerated but continue with the walking boot for 1 to 2 weeks until feeling a lot better. Tylenol every 4-6 hours if needed for pain. Continue with your other usual medicines. Follow-up with your primary care or Ortho office if not better in the next 7 to 10 days. Discharge Date/Time: 02/27/22 13:15
[2022-02-27 10:57] VITALS: BP 190/100
[2022-02-27] MEDS ORDERED: HYDROmorphone 1 MG/ML CARPUJECT IM STA (11:07)
[2022-02-27] MEDS ORDERED: ACETAMINOPHEN 325 MG TABLET PO STA (11:09)
--- NOTE | 2022-02-27 12:00 | XRAY Report ---
PROCEDURE: Tib/Fib RT INDICATIONS: slipped and fell, pain ankle and also upper fib. TECHNIQUE: 2 views of the tibia and fibula were acquired. COMPARISON: None FINDINGS: Bones: No fractures or dislocations. No suspicious bony lesions. Soft tissues: No suspicious soft tissue calcifications or masses. IMPRESSION: Negative for displaced fracture. Reviewed by: Estiven Keita MD on 02/27/2022 10:59 AM [facility] Approved by: Estiven Keita MD on 02/27/2022 10:59 AM [facility] Station ID: [id number]
== END 2022-02-27 13:15 | disposition home or self-care (01) ==
LOC: ED 10:09
DX: S86.811A Strain of other muscle(s) and tendon(s) at lower leg level, right leg, initial encounter (principal); S93.401A Sprain of unspecified ligament of right ankle, initial encounter; W01.0XXA Fall on same level from slipping, tripping and stumbling without subsequent striking against object, initial encounter; Y92.89 Other specified places as the place of occurrence of the external cause
CPT/HCPCS: 73590; 96372; 99282; 99283; A9270; J1170

== ENCOUNTER 2022-04-01 08:00 | Outpatient (CLI) | payer MEDICARE | END 2022-04-01 23:59 | disposition home or self-care (01) | LOC: LAB.N 08:00 | PROVIDERS: ATTEND Physician Assistant | DX: R07.0 Pain in throat (principal) | CPT/HCPCS: 87070 ==

== ENCOUNTER 2022-04-04 13:18 | Emergency (ER) | payer MEDICARE ==
--- OUTSIDE RECORDS SUMMARY | 2022-04-04 13:28 | EXTERNAL MEDICAL SUMMARY RPT | Continuity of Care Document ---
:1965 Author Organization [facility] Address [address] [place] [address] Phone Care Team Providers Name Role Phone Alexis Barrios Unavailable Unavailable Allergies and Intolerances date description facility type (no date) [facility] (unknown) Encounters No information. Functional Status No information. Immunizations No information. Medications date description facility 2022-04-02 00:00 Penicillin V Potassium [facility] Problems date description facility 2022-04-02 13:47 Acute pharyngitis, unspecified [facility] 2022-04-02 13[facility]54 [facility], [facility] Procedures No information. Results/Labs test date author facility value unit interpret ation Result panel 1 (unknown) (no (unknown) (unknown) (no value) (units (unk nown) date) unknown) (unknown) (no (unknown) (unknown) [id number] (units (unkno wn) date) unknown) (unknown) (no (unknown) (unknown) 04/02/22 (units (unkno wn) date) unknown) (unknown) (no (unknown) (unknown) 344 (units (unkno wn) date) unknown) (unknown) (no (unknown) (unknown) Age/Sex: 56 / F (units (unknown) date) Date of Service: unknown) (unknown) (no (unknown) (unknown) Allergies (units (unkn own) date) unknown) (unknown) (no (unknown) (unknown) [facility] (units (unknown) date) Medicine unknown) (unknown) (no (unknown) (unknown) REID Villegas (units ( unknown) date) [id number] unknown) (unknown) (no (unknown) (unknown) Anaphylaxis (units (un known) date) unknown) (unknown) (no (unknown) (unknown) Attending Dr: (units ( unknown) date) Adelina Ruiz unknown) P.A-C (unknown) (no (unknown) (unknown) : 1965 (units (unknown) date) Acct:[id number] unknown) (unknown) (no (unknown) (unknown) Dept at (units (unkno wn) date) . unknown) (unknown) (no (unknown) (unknown) Documented By: (units (unknown) date) Adelina Ruiz unknown) Heri 04/02/22 1 (unknown) (no (unknown) (unknown) Draft (units (unkno wn) date) unknown) (unknown) (no (unknown) (unknown) Family Practice (units (unknown) date) Office Visit unknown) (unknown) (no (unknown) (unknown) Intake (units (unkno wn) date) unknown) (unknown) (no (unknown) (unknown) Loc: [facility] (units (unkno wn) date) unknown) (unknown) (no (unknown) (unknown) PFSH (units (unkno wn) date) unknown) (unknown) (no (unknown) (unknown) Patient: (units (unkno wn) date) Roopa Conley unknown) MR#: [id number] (unknown) (no (unknown) (unknown) Reason For Visit (units (unknown) date) unknown) (unknown) (no (unknown) (unknown) Signed By: (units (unk nown) date) unknown) (unknown) (no (unknown) (unknown) Smoking Status: (units (unknown) date) Never smoker unknown) (unknown) (no (unknown) (unknown) Sulfa (units (unkno wn) date) (Sulfonamide unknown) Antibiotics) Allergy (Severe, Verified 08/03/21 16:26) (unknown) (no (unknown) (unknown) This note may (units ( unknown) date) have been all or unknown) partially generated using voice recognition (unknown) (no (unknown) (unknown) Tobacco + (units (unkn own) date) Substance Use unknown) (unknown) (no (unknown) (unknown) Tobacco Status (units (unknown) date) unknown) (unknown) (no (unknown) (unknown) Visit Reasons: (units (unknown) date) S/T, white spots unknown) in the back x 5D (unknown) (no (unknown) (unknown) have occurred. (units (unknown) date) If there are any unknown) questions, please contact the Medical Records (unknown) (no (unknown) (unknown) may occur. (units (unk nown) date) Occasional unknown) wrong-word or 'sound-alike' substitutions may have (unknown) (no (unknown) (unknown) metaxalone [From (units (unknown) date) Skelaxin] Allergy unknown) (Severe, Verified 08/03/21 16:26) (unknown) (no (unknown) (unknown) occurred due to (units (unknown) date) the inherent unknown) limitations of voice recognition software. Please (unknown) (no (unknown) (unknown) read the note (units ( unknown) date) carefully and unknown) recognize, using context, where these substitutions (unknown) (no (unknown) (unknown) software. (units (unkn own) date) Although every unknown) effort is made to edit content, trailer technician errors (unknown) (no (unknown) (unknown) ssri Allergy (units (u nknown) date) (Uncoded 08/03/21 unknown) 16:26) (unknown) (no (unknown) (unknown) tramadol Allergy (units (unknown) date) (Verified unknown) 08/03/21 16:26) Result panel 2 (unknown) (no (unknown) (unknown) (no value) (units (unk nown) date) unknown) (unknown) (no (unknown) (unknown) [id number] (units (unkno wn) date) unknown) (unknown) (no (unknown) (unknown) 04/02/22 (units (unkno wn) date) unknown) (unknown) (no (unknown) (unknown) 344 (units (unkno wn) date) unknown) (unknown) (no (unknown) (unknown) Age/Sex: 56 / F (units (unknown) date) Date of Service: unknown) (unknown) (no (unknown) (unknown) Allergies (units (unkn own) date) unknown) (unknown) (no (unknown) (unknown) [facility] (units (unknown) date) Medicine unknown) (unknown) (no (unknown) (unknown) [place] (units ( unknown) date) [id number] unknown) (unknown) (no (unknown) (unknown) Anaphylaxis (units (un known) date) unknown) (unknown) (no (unknown) (unknown) Assessment + (units (u nknown) date) Plan unknown) (unknown) (no (unknown) (unknown) Attending Dr: (units ( unknown) date) Adelina Ruiz unknown) Heri (unknown) (no (unknown) (unknown) : 1965 (units (unknown) date) Acct:[id number] unknown) (unknown) (no (unknown) (unknown) Dept at (units (unkno wn) date) . unknown) (unknown) (no (unknown) (unknown) Documented By: (units (unknown) date) Adelina Ruiz unknown) Heri 04/02/22 1 (unknown) (no (unknown) (unknown) Draft (units (unkno wn) date) unknown) (unknown) (no (unknown) (unknown) Family Practice (units (unknown) date) Office Visit unknown) (unknown) (no (unknown) (unknown) Intake performed (units (unknown) date) by: Delfino Cook unknown) (unknown) (no (unknown) (unknown) Intake (units (unkno wn) date) unknown) (unknown) (no (unknown) (unknown) Intake- Clincial (units (unknown) date) Staff unknown) (unknown) (no (unknown) (unknown) Loc: [facility] (units (unkno wn) date) unknown) (unknown) (no (unknown) (unknown) Orders (units (unkno wn) date) unknown) (unknown) (no (unknown) (unknown) Orders: (units (unkno wn) date) unknown) (unknown) (no (unknown) (unknown) PFSH (units (unkno wn) date) unknown) (unknown) (no (unknown) (unknown) Patient: (units (unkno wn) date) Roopa Conley unknown) MR#: [id number] (unknown) (no (unknown) (unknown) Reason For Visit (units (unknown) date) unknown) (unknown) (no (unknown) (unknown) Signed By: (units (unk nown) date) unknown) (unknown) (no (unknown) (unknown) Smoking Status: (units (unknown) date) Never smoker unknown) (unknown) (no (unknown) (unknown) Sulfa (units (unkno wn) date) (Sulfonamide unknown) Antibiotics) Allergy (Severe, Verified 08/03/21 16:26) (unknown) (no (unknown) (unknown) This note may (units ( unknown) date) have been all or unknown) partially generated using voice recognition (unknown) (no (unknown) (unknown) Throat Culture (units (unknown) date) Today J02.9 - unknown) Acute pharyngitis, unspecified (unknown) (no (unknown) (unknown) Tobacco + (units (unkn own) date) Substance Use unknown) (unknown) (no (unknown) (unknown) Tobacco Status (units (unknown) date) unknown) (unknown) (no (unknown) (unknown) Visit Reasons: (units (unknown) date) S/T, white spots unknown) in the back x 5D (unknown) (no (unknown) (unknown) have occurred. (units (unknown) date) If there are any unknown) questions, please contact the Medical Records (unknown) (no (unknown) (unknown) may occur. (units (unk nown) date) Occasional unknown) wrong-word or 'sound-alike' substitutions may have (unknown) (no (unknown) (unknown) metaxalone [From (units (unknown) date) Skelaxin] Allergy unknown) (Severe, Verified 08/03/21 16:26) (unknown) (no (unknown) (unknown) occurred due to (units (unknown) date) the inherent unknown) limitations of voice recognition software. Please (unknown) (no (unknown) (unknown) read the note (units ( unknown) date) carefully and unknown) recognize, using context, where these substitutions (unknown) (no (unknown) (unknown) software. (units (unkn own) date) Although every unknown) effort is made to edit content, trailer technician errors (unknown) (no (unknown) (unknown) ssri Allergy (units (u nknown) date) (Uncoded 08/03/21 unknown) 16:26) (unknown) (no (unknown) (unknown) tramadol Allergy (units (unknown) date) (Verified unknown) 08/03/21 16:26) Result panel 3 (unknown) (no (unknown) (unknown) (no value) (units (unk nown) date) unknown) (unknown) (no (unknown) (unknown) [id number] (units (unkno wn) date) unknown) (unknown) (no (unknown) (unknown) 04/02/22 (units (unkno wn) date) unknown) (unknown) (no (unknown) (unknown) 344 (units (unkno wn) date) unknown) (unknown) (no (unknown) (unknown) Age/Sex: 56 / F (units (unknown) date) Date of Service: unknown) (unknown) (no (unknown) (unknown) Allergies (units (unkn own) date) unknown) (unknown) (no (unknown) (unknown) [facility] (units (unknown) date) Medicine unknown) (unknown) (no (unknown) (unknown) [place] (units ( unknown) date) [id number] unknown) (unknown) (no (unknown) (unknown) Anaphylaxis (units (un known) date) unknown) (unknown) (no (unknown) (unknown) Assessment + (units (u nknown) date) Plan unknown) (unknown) (no (unknown) (unknown) Attending Dr: (units ( unknown) date) Adelina Ruiz unknown) Heri (unknown) (no (unknown) (unknown) : 1965 (units (unknown) date) Acct:[id number] unknown) (unknown) (no (unknown) (unknown) Dept at (units (unkno wn) date) . unknown) (unknown) (no (unknown) (unknown) Documented By: (units (unknown) date) Adelina Ruiz unknown) Heri 04/02/22 1 (unknown) (no (unknown) (unknown) Draft (units (unkno wn) date) unknown) (unknown) (no (unknown) (unknown) Family Practice (units (unknown) date) Office Visit unknown) (unknown) (no (unknown) (unknown) Intake Note: (units (u nknown) date) unknown) (unknown) (no (unknown) (unknown) Intake performed (units (unknown) date) by: Joey,Delfino unknown) (unknown) (no (unknown) (unknown) Intake (units (unkno wn) date) unknown) (unknown) (no (unknown) (unknown) Intake- Clincial (units (unknown) date) Staff unknown) (unknown) (no (unknown) (unknown) Loc: [facility] (units (unkno wn) date) unknown) (unknown) (no (unknown) (unknown) Orders (units (unkno wn) date) unknown) (unknown) (no (unknown) (unknown) Orders: (units (unkno wn) date) unknown) (unknown) (no (unknown) (unknown) PFSH (units (unkno wn) date) unknown) (unknown) (no (unknown) (unknown) Patient: (units (unkno wn) date) Roopa Conley unknown) MR#: [id number] (unknown) (no (unknown) (unknown) Reason For Visit (units (unknown) date) unknown) (unknown) (no (unknown) (unknown) Signed By: (units (unk nown) date) unknown) (unknown) (no (unknown) (unknown) Smoking Status: (units (unknown) date) Never smoker unknown) (unknown) (no (unknown) (unknown) Sulfa (units (unkno wn) date) (Sulfonamide unknown) Antibiotics) Allergy (Severe, Verified 08/03/21 16:26) (unknown) (no (unknown) (unknown) This note may (units ( unknown) date) have been all or unknown) partially generated using voice recognition (unknown) (no (unknown) (unknown) Throat Culture (units (unknown) date) Today J02.9 - unknown) Acute pharyngitis, unspecified (unknown) (no (unknown) (unknown) Tobacco + (units (unkn own) date) Substance Use unknown) (unknown) (no (unknown) (unknown) Tobacco Status (units (unknown) date) unknown) (unknown) (no (unknown) (unknown) Visit Reasons: (units (unknown) date) S/T, white spots unknown) in the back x 5D (unknown) (no (unknown) (unknown) benzonatate (units (un known) date) Adverse Reaction unknown) (Mild, Verified 04/02/22 13:53) (unknown) (no (unknown) (unknown) have occurred. (units (unknown) date) If there are any unknown) questions, please contact the Medical Records (unknown) (no (unknown) (unknown) may occur. (units (unk nown) date) Occasional unknown) wrong-word or 'sound-alike' substitutions may have (unknown) (no (unknown) (unknown) metaxalone [From (units (unknown) date) Skelaxin] Allergy unknown) (Severe, Verified 08/03/21 16:26) (unknown) (no (unknown) (unknown) occurred due to (units (unknown) date) the inherent unknown) limitations of voice recognition software. Please (unknown) (no (unknown) (unknown) pt has also been (units (unknown) date) having fevers and unknown) HAs on and off (unknown) (no (unknown) (unknown) pt has been (units (un known) date) dealing with unknown) symptoms for about 5 days (unknown) (no (unknown) (unknown) pt is here for (units (unknown) date) ongoing sore unknown) throat (unknown) (no (unknown) (unknown) pt throat is (units (u nknown) date) swollen and has unknown) white spots in it (unknown) (no (unknown) (unknown) read the note (units ( unknown) date) carefully and unknown) recognize, using context, where these substitutions (unknown) (no (unknown) (unknown) software. (units (unkn own) date) Although every unknown) effort is made to edit content, trailer technician errors (unknown) (no (unknown) (unknown) ssri Allergy (units (u nknown) date) (Uncoded 08/03/21 unknown) 16:26) (unknown) (no (unknown) (unknown) tramadol Allergy (units (unknown) date) (Verified unknown) 08/03/21 16:26) Result panel 4 (unknown) (no (unknown) (unknown) (no value) (units (unk nown) date) unknown) (unknown) (no (unknown) (unknown) (1) Bacterial (units ( unknown) date) pharyngitis: unknown) (unknown) (no (unknown) (unknown) [id number] (units (unkno wn) date) unknown) (unknown) (no (unknown) (unknown) 10 mg PO oral (units ( unknown) date) [id number] 11/01/23 unknown) [id number] [facility] (unknown) (no (unknown) (unknown) 04/02/22 1439 (units ( unknown) date) unknown) (unknown) (no (unknown) (unknown) 04/02/22 (units (unkno wn) date) unknown) (unknown) (no (unknown) (unknown) 14:01 (units (unkno wn) date) unknown) (unknown) (no (unknown) (unknown) 344 (units (unkno wn) date) unknown) (unknown) (no (unknown) (unknown) 56-year-old (units (un known) date) female presents unknown) with concern for possible strep throat. Negative (unknown) (no (unknown) (unknown) 56-year-old (units (un known) date) female presents unknown) with concern for possible strep throat. She is been (unknown) (no (unknown) (unknown) Administered by: (units (unknown) date) Delfino Cook on unknown) 04/02/22 14:37 (unknown) (no (unknown) (unknown) Age/Sex: 56 / F (units (unknown) date) Date of Service: unknown) (unknown) (no (unknown) (unknown) All systems (units (un known) date) reviewed + are unknown) unremarkable except as noted in HPI and below (unknown) (no (unknown) (unknown) Allergies (units (unkn own) date) unknown) (unknown) (no (unknown) (unknown) [facility] (units (unknown) date) Medicine unknown) (unknown) (no (unknown) (unknown) [place] (units ( unknown) date) [id number] unknown) (unknown) (no (unknown) (unknown) Anaphylaxis (units (un known) date) unknown) (unknown) (no (unknown) (unknown) Assessment + (units (u nknown) date) Plan unknown) (unknown) (no (unknown) (unknown) Attending Dr: (units ( unknown) date) Adelina Ruiz unknown) P.A-C (unknown) (no (unknown) (unknown) BACK: Nontender (units (unknown) date) without deformity unknown) or crepitance. No flank tenderness. (unknown) (no (unknown) (unknown) BP 160/90 H (units (un known) date) unknown) (unknown) (no (unknown) (unknown) Blood Pressure (units (unknown) date) Location Lt unknown) brachial (unknown) (no (unknown) (unknown) CARDIOVASCULAR: (units (unknown) date) Rapid rate and unknown) rhythm (106) without murmurs, gallops, or rubs. (unknown) (no (unknown) (unknown) Chief Complaint (units (unknown) date) unknown) (unknown) (no (unknown) (unknown) Chief Complaint: (units (unknown) date) Possible strep unknown) throat (unknown) (no (unknown) (unknown) Const (units (unkno wn) date) unknown) (unknown) (no (unknown) (unknown) : 1965 (units (unknown) date) Acct:[id number] unknown) (unknown) (no (unknown) (unknown) Decadron 10mg/mL (units (unknown) date) Today J02.9 - unknown) Acute pharyngitis, unspecified (unknown) (no (unknown) (unknown) Dept at (units (unkno wn) date) . unknown) (unknown) (no (unknown) (unknown) Details: (units (unkno wn) date) unknown) (unknown) (no (unknown) (unknown) Documented By: (units (unknown) date) Adelina Ruiz unknown) PToan-Sayda 04/02/22 1 (unknown) (no (unknown) (unknown) Dose Route Admin (units (unknown) date) Location Lot unknown) Number Expiration Date NDC (unknown) (no (unknown) (unknown) ENT: Nose without (units (unknown) date) bleeding, unknown) purulent drainage. Throat with generalized erythema, (unknown) (no (unknown) (unknown) EXTREMITIES: (units (u nknown) date) Normal range of unknown) motion, normal gait (unknown) (no (unknown) (unknown) EYES: Pupils (units (u nknown) date) equal round and unknown) reactive. Extraocular motions intact. No scleral (unknown) (no (unknown) (unknown) Exam Narrative (units (unknown) date) unknown) (unknown) (no (unknown) (unknown) Exam Narrative: (units (unknown) date) unknown) (unknown) (no (unknown) (unknown) Exam (units (unkno wn) date) unknown) (unknown) (no (unknown) (unknown) Family Practice (units (unknown) date) Office Visit unknown) (unknown) (no (unknown) (unknown) GENERAL: 56 year (units (unknown) date) old patient unknown) appears stated age. Well-developed obese patient, (unknown) (no (unknown) (unknown) HEAD: (units (unkno wn) date) Atraumatic. unknown) Normocephalic. (unknown) (no (unknown) (unknown) HPI (units (unkno wn) date) unknown) (unknown) (no (unknown) (unknown) Intake Note: (units (u nknown) date) unknown) (unknown) (no (unknown) (unknown) Intake performed (units (unknown) date) by: Delfino Cook unknown) (unknown) (no (unknown) (unknown) Intake (units (unkno wn) date) unknown) (unknown) (no (unknown) (unknown) Intake- Clincial (units (unknown) date) Staff unknown) (unknown) (no (unknown) (unknown) Loc: [facility] (units (unkno wn) date) unknown) (unknown) (no (unknown) (unknown) Intermediate Teacher (units (u nknown) date) unknown) (unknown) (no (unknown) (unknown) Medications: (units (u nknown) date) unknown) (unknown) (no (unknown) (unknown) NECK: Trachea (units ( unknown) date) midline. Non unknown) tender (unknown) (no (unknown) (unknown) NEURO: AOx3. (units (u nknown) date) unknown) (unknown) (no (unknown) (unknown) New (units (unkno wn) date) unknown) (unknown) (no (unknown) (unknown) Office Meds (units (un known) date) unknown) (unknown) (no (unknown) (unknown) Orders (units (unkno wn) date) unknown) (unknown) (no (unknown) (unknown) Orders: (units (unkno wn) date) unknown) (unknown) (no (unknown) (unknown) Oxygen Delivery (units (unknown) date) Method room air unknown) (unknown) (no (unknown) (unknown) PFSH (units (unkno wn) date) unknown) (unknown) (no (unknown) (unknown) Patient's (units (unkn own) date) history and exam unknown) are consistent with bacterial pharyngitis, strongly (unknown) (no (unknown) (unknown) Patient: (units (unkno wn) date) Roopa Conley unknown) MR#: [id number] (unknown) (no (unknown) (unknown) Performing (units (unk nown) date) Provider: unknown) Adelina Ruiz PA-C (unknown) (no (unknown) (unknown) Plan (units (unkno wn) date) unknown) (unknown) (no (unknown) (unknown) Position Sitting (units (unknown) date) unknown) (unknown) (no (unknown) (unknown) Pulse 112 H (units (un known) date) unknown) (unknown) (no (unknown) (unknown) Pulse Oximetry (units (unknown) date) (%) 98 unknown) (unknown) (no (unknown) (unknown) Pulse Source (units (u nknown) date) Monitor unknown) (unknown) (no (unknown) (unknown) RESPIRATORY: (units (un known) date) Clear to unknown) auscultation. Breath sounds equal bilaterally. No wheezes, (unknown) (no (unknown) (unknown) ROS (units (unkno wn) date) unknown) (unknown) (no (unknown) (unknown) Reason For Visit (units (unknown) date) unknown) (unknown) (no (unknown) (unknown) SKIN: No rash or (units (unknown) date) erythema of unknown) visible areas (unknown) (no (unknown) (unknown) Signed By: (units (unk nown) date) <Electronically unknown) signed by Adelina Ruiz> (unknown) (no (unknown) (unknown) Signed (units (unkno wn) date) unknown) (unknown) (no (unknown) (unknown) Smoking Status: (units (unknown) date) Never smoker unknown) (unknown) (no (unknown) (unknown) Sulfa (units (unkno wn) date) (Sulfonamide unknown) Antibiotics) Allergy (Severe, Verified 08/03/21 16:26) (unknown) (no (unknown) (unknown) Temp 98.1 F (units (un known) date) unknown) (unknown) (no (unknown) (unknown) Temp Source (units (un known) date) Temporal Artery unknown) Scan (unknown) (no (unknown) (unknown) This note may (units ( unknown) date) have been all or unknown) partially generated using voice recognition (unknown) (no (unknown) (unknown) Throat Culture (units (unknown) date) Today J02.9 - unknown) Acute pharyngitis, unspecified (unknown) (no (unknown) (unknown) Tobacco + (units (unkn own) date) Substance Use unknown) (unknown) (no (unknown) (unknown) Tobacco Status (units (unknown) date) unknown) (unknown) (no (unknown) (unknown) Visit Reasons: (units (unknown) date) S/T, white spots unknown) in the back x 5D (unknown) (no (unknown) (unknown) Vitals (units (unkno wn) date) unknown) (unknown) (no (unknown) (unknown) Weight 87.09 kg (units (unknown) date) unknown) (unknown) (no (unknown) (unknown) a day, follow-up (units (unknown) date) plan discussed, unknown) all questions answered. Rapid strep is not (unknown) (no (unknown) (unknown) benzonatate (units (un known) date) Adverse Reaction unknown) (Mild, Verified 04/02/22 13:53) (unknown) (no (unknown) (unknown) consistent with (units (unknown) date) strep or unknown) bacterial pharyngitis. She is started on penicillin V (unknown) (no (unknown) (unknown) dexamethasone (units ( unknown) date) sodium phosphate unknown) (unknown) (no (unknown) (unknown) done 2 days ago (units (unknown) date) at a different unknown) urgent care that was negative. She was also (unknown) (no (unknown) (unknown) evaluation. (units (un known) date) unknown) (unknown) (no (unknown) (unknown) fluids down with (units (unknown) date) difficulty. At unknown) times she feels like the swelling in her throat (unknown) (no (unknown) (unknown) has been causing (units (unknown) date) her to cough and unknown) a couple time she has actually vomited because (unknown) (no (unknown) (unknown) have occurred. (units (unknown) date) If there are any unknown) questions, please contact the Medical Records (unknown) (no (unknown) (unknown) having throat (units ( unknown) date) pain for 4-5 unknown) days, pain with swallowing and swelling in her (unknown) (no (unknown) (unknown) icterus. No (units (un known) date) injection or unknown) drainage. (unknown) (no (unknown) (unknown) in mild (units (unkno wn) date) distress. unknown) (unknown) (no (unknown) (unknown) may occur. (units (unk nown) date) Occasional unknown) wrong-word or 'sound-alike' substitutions may have (unknown) (no (unknown) (unknown) metaxalone [From (units (unknown) date) Skelaxin] Allergy unknown) (Severe, Verified 08/03/21 16:26) (unknown) (no (unknown) (unknown) occurred due to (units (unknown) date) the inherent unknown) limitations of voice recognition software. Please (unknown) (no (unknown) (unknown) of it. Fever (units (u nknown) date) last night was unknown) 102. (unknown) (no (unknown) (unknown) penicillin V (units (u nknown) date) potassium 500 mg unknown) PO TID 10 days 30 tabs 0RF bacterial pharyngitis (unknown) (no (unknown) (unknown) pt has also been (units (unknown) date) having fevers and unknown) HAs on and off (unknown) (no (unknown) (unknown) pt has been (units (un known) date) dealing with unknown) symptoms for about 5 days (unknown) (no (unknown) (unknown) pt is here for (units (unknown) date) ongoing sore unknown) throat (unknown) (no (unknown) (unknown) pt throat is (units (u nknown) date) swollen and has unknown) white spots in it (unknown) (no (unknown) (unknown) rales, or (units (unkn own) date) rhonchi. unknown) (unknown) (no (unknown) (unknown) rapid strep at (units (unknown) date) [facility] unknown) care 2 days ago no culture was obtained. (unknown) (no (unknown) (unknown) read the note (units ( unknown) date) carefully and unknown) recognize, using context, where these substitutions (unknown) (no (unknown) (unknown) repeated today (units (unknown) date) in clinic however unknown) throat culture is obtained for further (unknown) (no (unknown) (unknown) saltwater rinses (units (unknown) date) frequently which unknown) gives her some relief. She had a rapid strep (unknown) (no (unknown) (unknown) software. (units (unkn own) date) Although every unknown) effort is made to edit content, trailer technician errors (unknown) (no (unknown) (unknown) ssri Allergy (units (u nknown) date) (Uncoded 08/03/21 unknown) 16:26) (unknown) (no (unknown) (unknown) strep throat in (units (unknown) date) the past although unknown) has been some time. She has been able to keep (unknown) (no (unknown) (unknown) suspect strep (units ( unknown) date) throat. She is unknown) nontoxic appearing however she is mildly (unknown) (no (unknown) (unknown) swelling, (units (unkno wn) date) provided return unknown) precautions, continue with warm saltwater rinses twice (unknown) (no (unknown) (unknown) swelling. (units (unkn own) date) Encouraged to unknown) take Tylenol and ibuprofen alternately for pain and (unknown) (no (unknown) (unknown) tachycardic and (units (unknown) date) has been having unknown) fevers in addition to this her exam findings are (unknown) (no (unknown) (unknown) tested for COVID (units (unknown) date) at that time unknown) which was also negative. She states she has had (unknown) (no (unknown) (unknown) throat. She is (units (unknown) date) also been having unknown) fevers, she has been treating with warm (unknown) (no (unknown) (unknown) today. She is (units ( unknown) date) also given unknown) Decadron 10 mg today in clinic to help with pain and (unknown) (no (unknown) (unknown) tramadol Allergy (units (unknown) date) (Verified unknown) 08/03/21 16:26) (unknown) (no (unknown) (unknown) very tender (units (un known) date) bilateral unknown) tonsillar lymphadenopathy. (unknown) (no (unknown) (unknown) with tonsillar (units (unknown) date) hypertrophy 2+ unknown) and bilateral exudate. Airway patent. She has Result panel 5 (unknown) (no date) (unknown) (unknown) (no value) (units (un known) unknown) (unknown) (no date) (unknown) (unknown) Heavy growth (units ( unknown) - Mixed unknown) resident ayaz Social History date description facility 2022-04-02 00:00 Never smoked tobacco ([facility] Vital Signs date measurement value units 2022-04-02 00:00 BP_diastolic 90 mmHg 2022-04-02 00:00 BP_systolic 160 mmHg 2022-04-02 00:00 heart_rate 112 /min 2022-04-02 00:00 o2_saturation 98 % 2022-04-02 00:00 temperature_metric 36.72 C 2022-04-02 00:00 temperature_standard 98.1 F 2022-04-02 00:00 weight_metric 87.08 kg 2022-04-02 00:00 weight_standard 191.98 lb
[2022-04-04] MEDS ORDERED: DEXAMETHASONE 10 MG/ML VIAL PO STA (13:48)
--- NOTE | 2022-04-04 13:51 | ED Physician Documentation ---
PD HPI URI - Stated complaint Stated Complaint: THROAT SWELLING/RASH - Chief complaint Chief Complaint: Heent - History obtained from History obtained from: Patient, Family - History of Present Illness Timing - onset: How many days ago (5) Timing duration: Days (5) Timing details: Gradual onset Pain level max: 5 Pain level now: 5 Associated symptoms: Nasal congestion, Rhinorrhea, Sore throat, Dry cough. No: Fever, Dyspnea, NVD Contributing factors: Sick contact Improves by: Rest Worsened by: Activity, Breathing Recently seen: Clinic (went to [facility] on 03/31, went to [facility] [facility] 04/02.) - Additional information Additional information: Patient with rhinorrhea, cough, congestion, sore throat for the past 4 to 5 days. Has been seen at 2 different walk-in clinics. She states negative rapid strep test. She states the second walk-in clinic started her on penicillin and she thinks she may be having allergic reaction. She states that she has many allergies but does not know what she is allergic to other than SSRIs. Review of Systems Constitutional: denies: Fever Nose: reports: Rhinorrhea / runny nose, Congestion Throat: reports: Sore throat GI: denies: Vomiting, Diarrhea Skin: reports: Rash (Patient states that she feels like there is a rash around her mouth, but she does not see a rash.) PD PAST MEDICAL HISTORY - Past Medical History Cardiovascular: Hypertension Respiratory: None Neuro: CVA Endocrine/Autoimmune: None GI: None DIRECTOR HAIR: None : None HEENT: None Psych: Post traumatic stress disorder Musculoskeletal: None Derm: None - Past Surgical History Past Surgical History: Yes General: Appendectomy Ortho: Spine surgery /DIRECTOR HAIR: section, Other - Present Medications Home Medications: Ambulatory Orders Medication Instructions Recorded Confirmed Levothyroxine [Synthroid] 125 mcg PO QDAC 02/14/20 08/10/21 Pramipexole [Mirapex] 0.25 mg PO DAILY 02/14/20 08/10/21 amLODIPine [Norvasc] 5 mg PO DAILY 02/14/20 08/10/21 tiZANidine [Zanaflex] 4 mg PO BID 02/14/20 08/10/21 HYDROcod/ACETAM 5/325 [[place] 5/325] 1 - 2 tablet PO Q6H PRN #14 tablet 12/01/20 08/10/21 Esomeprazole Magnesium [Nexium] 40 mg PO DAILY #30 cap.sr 08/10/21 Famotidine [Pepcid] 20 mg PO BID #60 tablet 08/10/21 Metoprolol Succinate [Toprol Xl] 25 mg PO HS 08/10/21 08/10/21 Oxycodone HCl/Acetaminophen 1 - 2 each PO Q6H PRN #14 tablet 08/10/21 [Percocet 5-325 mg Tablet] Sucralfate [Carafate] 1 gm PO ACHS #60 tablet 08/10/21 hydroCHLOROthiazide [Hydrodiuril] 12.5 mg PO DAILY 08/10/21 08/10/21 EPINEPHrine [Epinephrine] 0.3 mg IJ ONCE PRN #2 11/13/21 Codeine Phosphate/Guaifenesin 5 ml PO Q6H PRN #120 ml 04/04/22 [Codeine-Guaifen 10-100 mg/5 ml] - Allergies Allergies/Adverse Reactions: Allergies Allergy/AdvReac Type Severity Reaction Status Date / Time amoxicillin Allergy Rash Verified 04/04/22 13:33 benzonatate Allergy Unknown Verified 04/04/22 13:33 [From Tessalon Perles] cephalexin Allergy Rash Verified 04/04/22 13:33 diphenhydramine Allergy Rash Verified 04/04/22 13:33 [From Benadryl] hydroxychloroquine Allergy Anaphylaxis Verified 04/04/22 13:33 metaxalone [From Skelaxin] Allergy Anaphylaxis Verified 04/04/22 13:33 NSAIDS (Non-Steroidal Allergy Rash Verified 04/04/22 13:33 Anti-Inflamma - Social History Does the pt smoke?: No Smoking Status: Never smoker Does the pt drink ETOH?: No Does the pt have substance abuse?: No - Immunizations Immunizations are current?: Yes Immunizations: Other immun not current - POLST Patient has POLST: No PD ED PE NORMAL - Vitals Vital signs reviewed: Yes - General General: Alert and oriented X 3, No acute distress, Well developed/nourished - HEENT HEENT: PERRL, Ears normal, Moist mucous membranes, Other (Mild oropharyngeal erythema without tonsillar exudates. Uvula midline. Normal phonation. No trismus.) - Neck Neck: Supple, no meningeal sign, No adenopathy - Cardiac Cardiac: RRR, Strong equal pulses - Respiratory Respiratory: No respiratory distress, Clear bilaterally - Abdomen Abdomen: Soft, Non tender, Non distended - Derm Derm: Warm and dry, No rash - Extremities Extremities: No edema - Neuro Neuro: Alert and oriented X 3 - Psych Psych: Normal mood, Normal affect Results - Vitals Vitals: Vital Signs - 24 hr 04/04/22 04/04/22 13:26 15:02 Temperature 36.2 C L 36.5 C Heart Rate 77 72 Respiratory 18 18 Rate Blood Pressure 169/95 H 130/90 H O2 Saturation 99 99 Oxygen O2 Source Room air PD Medical Decision Making - ED course Complexity details: reviewed results, re-evaluated patient, considered differential, d/w patient, d/w family ED course: Patient is well-appearing, nontoxic. Reviewed her throat culture from 04/01/2022 at the walk-in clinic in [place]. This culture is negative. Attempted to obtain her medical records from the [facility], these were unavailable. Patient was given dexamethasone, throat tightness resolved. Eating and drinking without difficulty. No hives. No urticaria. No voice changes. She requests Robitussin with codeine for cough. Will prescribe this. Encourage patient to always keep a list of her medical history, medications and allergies with her as she has an extensive allergy list that she has difficulty remembering. Patient is well-appearing, nontoxic. Afebrile. Patient counseled regarding signs and symptoms for which I believe and urgent re-evaluation would be necessary. Patient with good understanding of and agreement to plan and is comfortable going home at this time This document was made in part using voice recognition software. While efforts are made to proofread this document, sound alike and grammatical errors may occur. After discharge, [facility] did send over the patient's records. It appears that she was positive for strep pharyngitis there and was given IM penicillamine. Unclear why she was prescribed oral penicillin as well. If she is indeed positive for strep, the single dose of IM penicillin should suffice. Departure - Departure Disposition: Home, Self Care Clinical Impression: Viral syndrome Condition: Good Instructions: ED Viral Syndrome Follow-Up: your,doctor in 1 week [Other] Prescriptions: Codeine Phosphate/Guaifenesin [Codeine-Guaifen 10-100 mg/5 ml] 5 ml PO Q6H PRN #120 ml PRN Reason: Cough Comments: Your prescription was sent to [facility] in [place]. Your throat culture is negative for bacterial infection. This appears to be a viral upper respiratory infection. Please follow-up with your doctor for further care. Return if you worsen. You were given dexamethasone today which should help your throat swelling. Discharge Date/Time: 04/04/22 15:02
[2022-04-04 15:03] VITALS: BP 130/90
== END 2022-04-04 15:02 | disposition home or self-care (01) ==
LOC: ED 13:18
DX: B34.9 Viral infection, unspecified (principal)
CPT/HCPCS: 99282; 99283

== ENCOUNTER 2022-04-16 13:04 | Emergency (ER) | payer MEDICARE ==
[2022-04-16 13:16] VITALS: BP 188/115
--- OUTSIDE RECORDS SUMMARY | 2022-04-16 13:26 | EXTERNAL MEDICAL SUMMARY RPT | Continuity of Care Document ---
:1965 Author Organization [facility] [address] [place] [address] Phone Care Team Providers Name Role Phone Alexis Barrios Unavailable Unavailable Allergies and Intolerances date description facility type (no date) [facility] (unknown) Encounters No information. Functional Status No information. Immunizations No information. Medications date description facility 2022-04-02 00:00 Penicillin V Potassium [facility] Problems date description facility 2022-04-02 13:47 Acute pharyngitis, unspecified [facility] 2022-04-02 13:54 Acute pharyngitis, unspecified [facility] 2022-04-03 04[facility] No information. Results/Labs test date author facility value unit interpret ation Result panel 1 (unknown) (no (unknown) (unknown) (no value) (units (unk nown) date) unknown) (unknown) (no (unknown) (unknown) [id number] (units (unkno wn) date) unknown) (unknown) (no (unknown) (unknown) 04/02/22 (units (unkno wn) date) unknown) (unknown) (no (unknown) (unknown) 344 (units (unkno wn) date) unknown) (unknown) (no (unknown) (unknown) Age/Sex: 56 / F (units (unknown) date) Date of Service: unknown) (unknown) (no (unknown) (unknown) Allergies (units (unkn own) date) unknown) (unknown) (no (unknown) (unknown) [facility] (units (unknown) date) Medicine unknown) (unknown) (no (unknown) (unknown) REID Villegas (units ( unknown) date) [id number] unknown) (unknown) (no (unknown) (unknown) Anaphylaxis (units (un known) date) unknown) (unknown) (no (unknown) (unknown) Attending Dr: (units ( unknown) date) Adelina Ruiz unknown) PLiamA-Sayda (unknown) (no (unknown) (unknown) : 1965 (units (unknown) date) Acct:[id number] unknown) (unknown) (no (unknown) (unknown) Dept at [...] unknown) effort is made to edit content, cold strip roller errors (unknown) (no (unknown) (unknown) ssri Allergy (units (u nknown) date) (Uncoded 08/03/21 unknown) 16:26) (unknown) (no (unknown) (unknown) tramadol Allergy (units (unknown) date) (Verified unknown) 08/03/21 16:26) Result panel 2 (unknown) (no (unknown) (unknown) (no value) (units (unk nown) date) unknown) (unknown) (no (unknown) (unknown) [id number] (units (unkno wn) date) unknown) (unknown) (no (unknown) (unknown) 04/02/22 (units (unkno wn) date) unknown) (unknown) (no (unknown) (unknown) 344 (units (unkno wn) date) unknown) (unknown) (no (unknown) (unknown) Age/Sex: 56 / F (units (unknown) date) Date of Service: unknown) (unknown) (no (unknown) (unknown) Allergies (units (unkn own) date) unknown) (unknown) (no (unknown) (unknown) [facility] (units (unknown) date) Medicine unknown) (unknown) (no (unknown) (unknown) [place] (units ( unknown) date) [id number] unknown) (unknown) (no (unknown) (unknown) Anaphylaxis (units (un known) date) unknown) (unknown) (no (unknown) (unknown) Assessment + (units (u nknown) date) Plan unknown) (unknown) (no (unknown) (unknown) Attending Dr: (units ( unknown) date) Adelina Ruiz unknown) Heri (unknown) (no (unknown) (unknown) : 1965 (units (unknown) date) Acct:[id number] unknown) (unknown) (no (unknown) (unknown) Dept at [...] unknown) effort is made to edit content, cold strip roller errors (unknown) (no (unknown) (unknown) ssri Allergy (units (u nknown) date) (Uncoded 08/03/21 unknown) 16:26) (unknown) (no (unknown) (unknown) tramadol Allergy (units (unknown) date) (Verified unknown) 08/03/21 16:26) Result panel 3 (unknown) (no (unknown) (unknown) (no value) (units (unk nown) date) unknown) (unknown) (no (unknown) (unknown) [id number] (units (unkno wn) date) unknown) (unknown) (no (unknown) (unknown) 04/02/22 (units (unkno wn) date) unknown) (unknown) (no (unknown) (unknown) 344 (units (unkno wn) date) unknown) (unknown) (no (unknown) (unknown) Age/Sex: 56 / F (units (unknown) date) Date of Service: unknown) (unknown) (no (unknown) (unknown) Allergies (units (unkn own) date) unknown) (unknown) (no (unknown) (unknown) [facility] (units (unknown) date) Medicine unknown) (unknown) (no (unknown) (unknown) [place], [place] (units ( unknown) date) [id number] unknown) (unknown) (no (unknown) (unknown) Anaphylaxis (units (un known) date) unknown) (unknown) (no (unknown) (unknown) Assessment + (units (u nknown) date) Plan unknown) (unknown) (no (unknown) (unknown) Attending Dr: (units ( unknown) date) Adelina Ruiz unknown) Heri (unknown) (no (unknown) (unknown) : 1965 (units (unknown) date) Acct:[id number] unknown) (unknown) (no (unknown) (unknown) Dept at [...] unknown) effort is made to edit content, cold strip roller errors (unknown) (no (unknown) (unknown) ssri Allergy (units (u nknown) date) (Uncoded 08/03/21 unknown) 16:26) (unknown) (no (unknown) (unknown) tramadol Allergy (units (unknown) date) (Verified unknown) 08/03/21 16:26) Result panel 4 (unknown) (no (unknown) (unknown) (no value) (units (unk nown) date) unknown) (unknown) (no (unknown) (unknown) (1) Bacterial (units ( unknown) date) pharyngitis: unknown) (unknown) (no (unknown) (unknown) [id number] (units (unkno wn) date) unknown) (unknown) (no (unknown) (unknown) 10 mg PO oral (units ( unknown) date) [id number] 11/01/23 unknown) [id number] [facility] (unknown) (no (unknown) (unknown) 04/02/22 1439 [...] own) date) unknown) (unknown) (no (unknown) (unknown) [facility] (units (unknown) date) Medicine unknown) (unknown) (no (unknown) (unknown) [place] (units ( unknown) date) [id number] unknown) (unknown) (no (unknown) (unknown) Anaphylaxis (units [...] (unknown) (unknown) : 1965 (units (unknown) date) Acct:[id number] unknown) (unknown) (no (unknown) (unknown) Decadron 10mg/mL (units (unknown) date) Today J02.9 - unknown) Acute pharyngitis, unspecified (unknown) (no (unknown) (unknown) Dept at (units (unkno wn) date) . unknown) (unknown) (no (unknown) (unknown) Details: (units (unkno wn) date) unknown) (unknown) (no (unknown) (unknown) Documented By: (units (unknown) date) Adelina Ruiz unknown) Lita-Sayda 04/02/22 1 (unknown) (no (unknown) (unknown) Dose [...] wn) date) unknown) (unknown) (no (unknown) (unknown) Biotech Production Specialist (units (u nknown) date) unknown) (unknown) (no [...] (unknown) rapid strep at (units (unknown) date) [facility]) care 2 days ago no [...] unknown) effort is made to edit content, cold strip roller errors (unknown) (no (unknown) (unknown) ssri Allergy [...] ( unknown) - Mixed unknown) resident ayaz Result panel 6 (unknown) (no date) (unknown) (unknown) (no value) (units (un known) unknown) (unknown) (no date) (unknown) (unknown) Heavy growth (units ( unknown) - Mixed unknown) resident ayaz Social History date description facility 2022-04-02 00:00 Never smoked tobacco ([facility] Vital Signs date measurement value units 2022-04-02 00:00 BP_diastolic 90 mmHg 2022-04-02 00:00 BP_systolic 160 mmHg 2022-04-02 00:00 heart_rate 112 /min 2022-04-02 00:00 o2_saturation 98 % 2022-04-02 00:00 temperature_metric 36.72 C 2022-04-02 00:00 temperature_standard 98.1 F 2022-04-02 00:00 weight_metric 87.08 kg 2022-04-02 00:00 weight_standard 191.98 lb
--- NOTE | 2022-04-16 13:37 | XRAY Report ---
PROCEDURE: Ankle 3 View RT INDICATIONS: Trauma TECHNIQUE: 3 views of the ankle were acquired. COMPARISON: None FINDINGS: Bones: No fractures or dislocations. Ankle mortise is normally aligned. No suspicious bony lesions . Soft tissues: No tibiotalar joint effusion. Achilles tendon appears normal. IMPRESSION: No visualized acute fracture or dislocation. However, occult injury cannot be excluded. Recommend short interval imaging follow-up in 7-10 days as clinically indicated for additional evalua tion. Reviewed by: Vivienne Armstrong MD on 04/16/2022 1:36 PM [facility] Approved by: Vivienne Armstrong MD on 04/16/2022 1:36 PM [facility] Station ID: [id number]
--- NOTE | 2022-04-16 13:56 | ED Physician Documentation ---
PD HPI LOWER EXT INJURY - Stated complaint Stated Complaint: R LEG INJ - Chief complaint Chief Complaint: Trauma Ext - History obtained from History obtained from: Patient - Additional information Additional information: The day after Thanks[place] she slipped and fell. Initial x-rays were negative but subsequently an MRI showed a posterior malleoli are fracture with some significant ligamentous damage. For the most part she is been nonweightbearing since in a boot and following up with a retail assistant manager. 2 days ago getting out of the bathtub she accidentally stepped on a dog bone and inverted her ankle with increase in pain. No other injuries. 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 : None HEENT: None Psych: Post traumatic stress disorder Musculoskeletal: None Derm: None - Past Surgical History Past Surgical History: Yes General: Appendectomy Ortho: Spine surgery /MACHINE OPERATIONS SUPERVISOR: section, Other - Present Medications Home Medications: Ambulatory Orders Medication Instructions Recorded Confirmed Levothyroxine [Synthroid] 125 mcg PO QDAC 02/14/20 08/10/21 Pramipexole [Mirapex] 0.25 mg PO DAILY 02/14/20 08/10/21 amLODIPine [Norvasc] 5 mg PO DAILY 02/14/20 08/10/21 tiZANidine [Zanaflex] 4 mg PO BID 02/14/20 08/10/21 HYDROcod/ACETAM 5/325 [[place] 5/325] 1 - 2 tablet PO Q6H PRN #14 tablet 12/01/20 08/10/21 Esomeprazole Magnesium [Nexium] 40 mg PO DAILY #30 cap.sr 08/10/21 Famotidine [Pepcid] 20 mg PO BID #60 tablet 08/10/21 Metoprolol Succinate [Toprol Xl] 25 mg PO HS 08/10/21 08/10/21 Oxycodone HCl/Acetaminophen 1 - 2 each PO Q6H PRN #14 tablet 08/10/21 [Percocet 5-325 mg Tablet] Sucralfate [Carafate] 1 gm PO ACHS #60 tablet 08/10/21 hydroCHLOROthiazide [Hydrodiuril] 12.5 mg PO DAILY 08/10/21 08/10/21 EPINEPHrine [Epinephrine] 0.3 mg IJ ONCE PRN #2 11/13/21 Codeine Phosphate/Guaifenesin 5 ml PO Q6H PRN #120 ml 04/04/22 [Codeine-Guaifen 10-100 mg/5 ml] - Allergies Allergies/Adverse Reactions: Allergies Allergy/AdvReac Type Severity Reaction Status Date / Time amoxicillin Allergy Rash Verified 04/16/22 13:18 benzonatate Allergy Unknown Verified 04/16/22 13:18 [From Tessalon Perles] cephalexin Allergy Rash Verified 04/16/22 13:18 diphenhydramine Allergy Rash Verified 04/16/22 13:18 [From Benadryl] hydroxychloroquine Allergy Anaphylaxis Verified 04/16/22 13:18 metaxalone [From Skelaxin] Allergy Anaphylaxis Verified 04/16/22 13:18 NSAIDS (Non-Steroidal Allergy Rash Verified 04/16/22 13:18 Anti-Inflamma SSRI's Allergy Unknown Uncoded 04/16/22 13:18 - Social History Does the pt smoke?: No Smoking Status: Never smoker Does the pt drink ETOH?: No Does the pt have substance abuse?: No - Immunizations Immunizations are current?: Yes Immunizations: Other immun not current - POLST Patient has POLST: No PD ED PE NORMAL - Vitals Vital signs reviewed: Yes - General General: Alert and oriented X 3, No acute distress - Extremities Extremities: Other (Tender over both malleoli of the right ankle without proximal fibular tenderness. No foot tenderness.) - Neuro Neuro: Alert and oriented X 3, Normal speech Results - Vitals Vitals: Vital Signs - 24 hr 04/16/22 13:11 Temperature 36.2 C L Heart Rate 95 Respiratory 16 Rate Blood Pressure 188/115 H O2 Saturation 98 Oxygen O2 Source Room air - Rads (name of study) Three-view x-ray of the right ankle is negative. Radiology: Final report received, EMP read indepedently PD Medical Decision Making - ED course Complexity details: reviewed old records ([facility] form reviewed, she appears to be in pain management at [facility] ED course: 56-year-old woman presents after reinjury of right ankle. She has appropriate follow-up with podiatry on this coming Tuesday. Recommended continued nonweightbearing in the boot until then. Departure - Departure Disposition: Home, Self Care Clinical Impression: Right ankle sprain Qualifiers: Encounter type: initial encounter Involved ligament of ankle: deltoid ligament Qualified Code(s): S93.421A - Sprain of deltoid ligament of right ankle, initial encounter Condition: Good Record reviewed to determine appropriate education?: Yes Instructions: ED Sprain Ankle Comments: Follow-up with the retail assistant manager on Tuesday as scheduled. Continue current pain medications. No bearing weight until cleared by the retail assistant manager. Return as needed for new or worsening symptoms.
== END 2022-04-16 14:01 | disposition home or self-care (01) ==
LOC: ED 13:04
DX: S93.421A Sprain of deltoid ligament of right ankle, initial encounter (principal); X50.1XXA Overexertion from prolonged static or awkward postures, initial encounter; Y93.E1 Activity, personal bathing and showering; Y92.002 Bathroom of unspecified non-institutional (private) residence as the place of occurrence of the external cause
CPT/HCPCS: 99283

== ENCOUNTER 2022-05-12 16:36 | Emergency (ER) | payer MEDICARE ==
--- OUTSIDE RECORDS SUMMARY | 2022-05-12 16:59 | EXTERNAL MEDICAL SUMMARY RPT | Continuity of Care Document ---
:1965 Author Organization [place] Address [address] [place] [address] Phone Care Team Providers Name Role Phone Alexis Barrios Unavailable Unavailable Allergies and Intolerances date description facility type (no date) [facility] (unknown) Encounters No information. Functional Status No information. Immunizations No information. Medications date description facility 2022-04-02 00:00 Penicillin V Potassium [facility] Problems date description facility 2022-04-02 13:47 Acute pharyngitis, unspecified [facility] 2022-04-02 13[facility]54 [facility] 04[facility]24 Acute pharyngitis, [facility] Procedures No information. Results/Labs test date author facility value unit interpret ation Result panel 1 (unknown) (no (unknown) (unknown) (no value) (units (unk nown) date) unknown) (unknown) (no (unknown) (unknown) [id number] (units (unkno wn) date) unknown) (unknown) (no (unknown) (unknown) 04/02/22 (units (unkno wn) date) unknown) (unknown) (no (unknown) (unknown) 344 (units (unkno wn) date) unknown) (unknown) (no (unknown) (unknown) Age/Sex: 56 / F (units (unknown) date) Date of Service: unknown) (unknown) (no (unknown) (unknown) Allergies (units (unkn own) date) unknown) (unknown) (no (unknown) (unknown) [facility] (units (unknown) date) Medicine unknown) (unknown) (no (unknown) (unknown) REID Villegas (units ( unknown) date) [id number] unknown) (unknown) (no (unknown) (unknown) Anaphylaxis (units (un known) date) unknown) (unknown) (no (unknown) (unknown) Attending Dr: (units ( unknown) date) Adelina Ruiz unknown) P.A-C (unknown) (no (unknown) (unknown) : 1965 (units (unknown) date) Acct:[id number] unknown) (unknown) (no (unknown) (unknown) Dept at [...] unknown) effort is made to edit content, charger errors (unknown) (no (unknown) (unknown) ssri Allergy (units (u nknown) date) (Uncoded 08/03/21 unknown) 16:26) (unknown) (no (unknown) (unknown) tramadol Allergy (units (unknown) date) (Verified unknown) 08/03/21 16:26) Result panel 2 (unknown) (no (unknown) (unknown) (no value) (units (unk nown) date) unknown) (unknown) (no (unknown) (unknown) [address] (units (unkno wn) date) unknown) (unknown) (no (unknown) (unknown) 04/02/22 (units (unkno wn) date) unknown) (unknown) (no (unknown) (unknown) 344 (units (unkno wn) date) unknown) (unknown) (no (unknown) (unknown) Age/Sex: 56 / F (units (unknown) date) Date of Service: unknown) (unknown) (no (unknown) (unknown) Allergies (units (unkn own) date) unknown) (unknown) (no (unknown) (unknown) [facility] (units (unknown) date) Medicine unknown) (unknown) (no (unknown) (unknown) [place] (units ( unknown) date) [id number] unknown) (unknown) (no (unknown) (unknown) Anaphylaxis (units (un known) date) unknown) (unknown) (no (unknown) (unknown) Assessment + (units (u nknown) date) Plan unknown) (unknown) (no (unknown) (unknown) Attending Dr: (units ( unknown) date) Adelina Ruiz unknown) Heri (unknown) (no (unknown) (unknown) : 1965 (units (unknown) date) Acct:[id number] unknown) (unknown) (no (unknown) (unknown) Dept at [...] unknown) effort is made to edit content, charger errors (unknown) (no (unknown) (unknown) ssri Allergy (units (u nknown) date) (Uncoded 08/03/21 unknown) 16:26) (unknown) (no (unknown) (unknown) tramadol Allergy (units (unknown) date) (Verified unknown) 08/03/21 16:26) Result panel 3 (unknown) (no (unknown) (unknown) (no value) (units (unk nown) date) unknown) (unknown) (no (unknown) (unknown) [address] (units (unkno wn) date) unknown) (unknown) (no (unknown) (unknown) 04/02/22 (units (unkno wn) date) unknown) (unknown) (no (unknown) (unknown) 344 (units (unkno wn) date) unknown) (unknown) (no (unknown) (unknown) Age/Sex: 56 / F (units (unknown) date) Date of Service: unknown) (unknown) (no (unknown) (unknown) Allergies (units (unkn own) date) unknown) (unknown) (no (unknown) (unknown) [facility] (units (unknown) date) Medicine unknown) (unknown) (no (unknown) (unknown) [place] (units ( unknown) date) [id number] unknown) (unknown) (no (unknown) (unknown) Anaphylaxis (units (un known) date) unknown) (unknown) (no (unknown) (unknown) Assessment + (units (u nknown) date) Plan unknown) (unknown) (no (unknown) (unknown) Attending Dr: (units ( unknown) date) Adelina Ruiz unknown) Heri (unknown) (no (unknown) (unknown) : 1965 (units (unknown) date) Acct:[id number] unknown) (unknown) (no (unknown) (unknown) Dept at [...] unknown) effort is made to edit content, charger errors (unknown) (no (unknown) (unknown) ssri Allergy (units (u nknown) date) (Uncoded 08/03/21 unknown) 16:26) (unknown) (no (unknown) (unknown) tramadol Allergy (units (unknown) date) (Verified unknown) 08/03/21 16:26) Result panel 4 (unknown) (no (unknown) (unknown) (no value) (units (unk nown) date) unknown) (unknown) (no (unknown) (unknown) (1) Bacterial (units ( unknown) date) pharyngitis: unknown) (unknown) (no (unknown) (unknown) [address] (units (unkno wn) date) unknown) (unknown) (no (unknown) (unknown) 10 mg PO oral (units ( unknown) date) [id number] 11/01/23 unknown) [id number] [facility] (unknown) (no (unknown) (unknown) 04/02/22 1439 (units [...] own) date) unknown) (unknown) (no (unknown) (unknown) [facility] (units (unknown) date) Medicine unknown) (unknown) (no (unknown) (unknown) [place], [place] (units ( unknown) date) [id number] unknown) (unknown) (no (unknown) (unknown) Anaphylaxis (units [...] (unknown) (unknown) : 1965 (units (unknown) date) Acct:[id number] unknown) (unknown) (no (unknown) (unknown) Decadron 10mg/mL [...] wn) date) unknown) (unknown) (no (unknown) (unknown) [employer] (units (u nknown) date) unknown) (unknown) (no [...] (unknown) rapid strep at (units (unknown) date) [facility] [facility] unknown) care 2 days ago no [...] unknown) effort is made to edit content, charger errors (unknown) (no (unknown) (unknown) ssri Allergy [...] description facility 2022-04-02 00:00 Never smoked tobacco ([facility] Vital Signs date measurement value units 2022-04-02 00:00 BP_diastolic 90 mmHg 2022-04-02 00:00 BP_systolic 160 mmHg 2022-04-02 00:00 heart_rate 112 /min 2022-04-02 00:00 o2_saturation 98 % 2022-04-02 00:00 temperature_metric 36.72 C 2022-04-02 00:00 temperature_standard 98.1 F 2022-04-02 00:00 weight_metric 87.08 kg 2022-04-02 00:00 weight_standard 191.98 lb
[2022-05-12] MEDS ORDERED: ONDANSETRON 4 MG/2 ML VIAL IVP STA (17:00)
[2022-05-12] MEDS ORDERED: SODIUM CHLORIDE 0.9% 1,000 ML IV STA (17:00)
[2022-05-12 17:13] LABS: BASOPHILS % (AUTO) 0.4 %; EOSINOPHILS # (AUTO) 0.1 10^3/uL (0.0-0.7); EOSINOPHILS % (AUTO) 0.5 %; HCT - HEMATOCRIT 42.6 % (37.0-47.0); HGB - HEMOGLOBIN 13.8 g/dL (12.0-16.0); LYMPHOCYTES # (AUTO) 2.7 10^3/uL (1.5-3.5); MEAN CORPUSCULAR HEMOGLOBIN 28.9 pg (27.0-31.0); MEAN CORPUSCULAR HGB CONC 32.4 g/dL (32.0-36.0); MEAN CORPUSCULAR VOLUME 89.1 fL (81.0-99.0); MEAN PLATELET VOLUME 11.5 fL (7.9-10.8); MONOCYTES # (AUTO) 0.7 10^3/uL (0.0-1.0); MONOCYTES % (AUTO) 7.1 %; NEUTROPHILS # (AUTO) 6.4 10^3/uL (1.5-6.6); NEUTROPHILS % (AUTO) 64.7 %; PLT - PLATELET COUNT 232 10^3/uL (130-450); RED BLOOD COUNT 4.78 10^6/uL (4.20-5.40); RED CELL DISTRIBUTION WIDTH 13.2 % (12.0-15.0); WHITE BLOOD COUNT 9.9 x10^3/uL (4.8-10.8)
[2022-05-12 17:27] LABS: ALBUMIN 4.4 g/dL (3.2-5.5); BILIRUBIN,TOTAL 0.4 mg/dL (0.2-1.0); CALCIUM 10.6 mg/dL (8.5-10.3); CREATININE 0.8 mg/dL (0.4-1.0); TOTAL PROTEIN 8.8 g/dL (6.7-8.2)
[2022-05-12] MEDS ORDERED: ACETAMINOPHEN 325 MG TABLET PO STA (17:48)
--- NOTE | 2022-05-12 18:26 | ED Physician Documentation ---
History of Present Illness - Stated complaint Stated Complaint: HBP,CHEST PX,HEADACHE - Chief complaint Chief Complaint: Cardiac - History obtained from History obtained from: Patient - Additonal information Additional information: Patient is a 56-year-old female with a history of a prior stroke presenting for evaluation of elevated blood pressure this evening. Patient reports that she was quilting and started feeling lightheaded. She took her blood pressure and noted that it was elevated at 205/115. She then reports developing an occipital headache, feeling lightheaded, having nausea that has been constant for the last several hours. She also reports and having left-sided chest pain a few hours ago that was brief and has resolved. The pain felt like a heaviness and did not radiate and has not reoccured. Patient also reports that she is just been generally feeling unwell for the past several weeks. Her blood pressure has been recently elevated and her PCP just added losartan to her antihypertensive regiment. She has been compliant with her medications. She denies falls or injury, use of anticoagulation, difficulty breathing, abdominal pain, vomiting or diarrhea. Review of Systems Constitutional: denies: Fever Cardiac: reports: Chest pain / pressure Respiratory: denies: Dyspnea GI: reports: Nausea. denies: Abdominal Pain, Vomiting : denies: Dysuria Musculoskeletal: denies: Back pain Neurologic: reports: Headache PD PAST MEDICAL HISTORY - Past Medical History Past Medical History: Yes Cardiovascular: Hypertension Respiratory: None Neuro: CVA Endocrine/Autoimmune: None GI: None DEPUTY COURT: None : None HEENT: None Psych: Post traumatic stress disorder Musculoskeletal: None Derm: None - Past Surgical History Past Surgical History: Yes General: Appendectomy Ortho: Spine surgery /DEPUTY COURT: section, Other - Present Medications Home Medications: Ambulatory Orders Medication Instructions Recorded Confirmed Levothyroxine [Synthroid] 125 mcg PO QDAC 02/14/20 08/10/21 Pramipexole [Mirapex] 0.25 mg PO DAILY 02/14/20 08/10/21 amLODIPine [Norvasc] 5 mg PO DAILY 02/14/20 08/10/21 tiZANidine [Zanaflex] 4 mg PO BID 02/14/20 08/10/21 HYDROcod/ACETAM 5/325 [[place] 5/325] 1 - 2 tablet PO Q6H PRN #14 tablet 12/01/20 08/10/21 Esomeprazole Magnesium [Nexium] 40 mg PO DAILY #30 cap.sr 08/10/21 Famotidine [Pepcid] 20 mg PO BID #60 tablet 08/10/21 Metoprolol Succinate [Toprol Xl] 25 mg PO HS 08/10/21 08/10/21 Oxycodone HCl/Acetaminophen 1 - 2 each PO Q6H PRN #14 tablet 08/10/21 [Percocet 5-325 mg Tablet] Sucralfate [Carafate] 1 gm PO ACHS #60 tablet 08/10/21 hydroCHLOROthiazide [Hydrodiuril] 12.5 mg PO DAILY 08/10/21 08/10/21 EPINEPHrine [Epinephrine] 0.3 mg IJ ONCE PRN #2 11/13/21 Codeine Phosphate/Guaifenesin 5 ml PO Q6H PRN #120 ml 04/04/22 [Codeine-Guaifen 10-100 mg/5 ml] - Allergies Allergies/Adverse Reactions: Allergies Allergy/AdvReac Type Severity Reaction Status Date / Time amoxicillin Allergy Rash Verified 05/12/22 16:44 benzonatate Allergy Unknown Verified 05/12/22 16:44 [From Tessalon Perles] cephalexin Allergy Rash Verified 05/12/22 16:44 diphenhydramine Allergy Rash Verified 05/12/22 16:44 [From Benadryl] hydroxychloroquine Allergy Anaphylaxis Verified 05/12/22 16:44 metaxalone [From Skelaxin] Allergy Anaphylaxis Verified 05/12/22 16:44 NSAIDS (Non-Steroidal Allergy Rash Verified 05/12/22 16:44 Anti-Inflamma SSRI's Allergy Unknown Uncoded 05/12/22 16:44 - Social History Does the pt smoke?: No Smoking Status: Never smoker Does the pt drink ETOH?: No Does the pt have substance abuse?: No - Immunizations Immunizations are current?: Yes Immunizations: Other immun not current - POLST Patient has POLST: No PD ED PE NORMAL - General General: Alert and oriented X 3, No acute distress, Well developed/nourished - HEENT HEENT: Atraumatic, PERRL, EOMI - Neck Neck: Supple, no meningeal sign, No bony TTP - Cardiac Cardiac: RRR - Respiratory Respiratory: No respiratory distress, Clear bilaterally - Abdomen Abdomen: Soft, Non tender, Non distended - Derm Derm: Warm and dry - Extremities Extremities: No edema - Neuro Neuro: Alert and oriented X 3, inspector heating and refrigeration 2-12 intact, No motor deficit, No sensory deficit, Normal speech Results - Vitals Vitals: Vital Signs - 24 hr 05/12/22 05/12/22 05/12/22 16:41 17:30 18:00 Temperature 35.8 C L Heart Rate 94 87 86 Respiratory 17 18 17 Rate Blood Pressure 210/110 H 177/99 H 164/93 H O2 Saturation 99 100 100 05/12/22 18:30 Temperature 36.3 C L Heart Rate 76 Respiratory 16 Rate Blood Pressure 155/96 H O2 Saturation 98 Oxygen O2 Source Room air - EKG (time done) 1649 Rate: Rate (enter#) (87) Rhythm: NSR Ischemia: No: ST elevation c/w ischemia - Labs Labs: Laboratory Tests 05/12/22 05/12/22 05/12/22 17:06 17:06 17:06 WBC 9.9 RBC 4.78 Hgb 13.8 Hct 42.6 MCV 89.1 MCH 28.9 MCHC 32.4 RDW 13.2 Plt Count 232 MPV 11.5 H Neut # (Auto) 6.4 Lymph # (Auto) 2.7 [place] # (Auto) 0.7 Eos # (Auto) 0.1 Baso # (Auto) 0.0 Absolute Nucleated RBC 0.00 Nucleated RBC % 0.0 Sodium 139 Potassium 4.0 Chloride 102 Carbon Dioxide 26 Anion Gap 11.0 BUN 23 H Creatinine 0.8 Estimated GFR (MDRD) 75 L Glucose 194 H Calcium 10.6 H Total Bilirubin 0.4 AST 38 ALT 71 H Alkaline Phosphatase 127 H Troponin I High Sens 3.2 Total Protein 8.8 H Albumin 4.4 Globulin 4.4 H Albumin/Globulin Ratio 1.0 Lipase 32 PD Medical Decision Making - ED course Complexity details: reviewed results, re-evaluated patient, d/w patient ED course: Patient presenting for evaluation of chest pain, occipital headache and noted to have elevated blood pressure reading on initial triage. Has a history of similar presentations in the past with Unremarkable work-ups.Her chest pain has resolved prior to coming to the emergency department. Her EKG is reviewed. Her high-sensitivity troponin is negative for In setting of having had pain several hours ago. Feel this makes ACS less likely. Patient's neuro exam is normal. I doubt intracranial hemorrhage or dissection based on her exam and resolution of symptoms. I did review the patient's chest x-ray and see no significant acute findings. She is feeling better here with IV fluids, Tylenol and Zofran.Her blood pressure also has reduced to an acceptable range without any specific intervention. I do not think she needs further lowering of her blood pressure. She is counseled on need for close follow-up with her PCP. She is advised on concerning symptoms to return for. Departure - Departure Disposition: 01 Home, Self Care Clinical Impression: Chest pain, Essential hypertension Condition: Stable Instructions: ED Chest Pain Atypical Unkn Cause, ED HTN Established Follow-Up: Jigar Mcmahon MD [Primary Care Provider] - Comments: Your blood pressure was quite elevated when he first presented to the emergency department. Fortunately history to come down on its own without any specific medication for the blood pressure. Please continue with your current medications as prescribed. You were also evaluated for chest pain. Your car diac marker is normal which is reassuring.Please continue with staying hydrated. If you have any pain consider Tylenol. If any worsening symptoms such as recurrence of your chest pain or any new symptoms please consider return to the emergency department.I would also recommend close follow-up with your primary care doctor As you may need further adjustment of your blood pressure medications or further evaluation for your episode of chest pain tonight. Discharge Date/Time: 05/12/22 18:55
[2022-05-12 18:40] VITALS: BP 155/96
--- NOTE | 2022-05-12 18:43 | XRAY Report ---
PROCEDURE: Chest 1 View X-Ray INDICATIONS: Chest pain TECHNIQUE: One view of the chest was acquired. COMPARISON: 12/05/2021 FINDINGS: Surgical changes and devices: None. Lungs and pleura: An incomplete inspiratory result is noted, with low lung volumes and crowding of t he vascular markings. No focal infiltrates are seen. No large pneumothorax or large pleural effusion can be seen. Mediastinum: Mediastinal contours appear normal. Heart size is normal. Bones and chest wall: No suspicious bony lesions. Overlying soft tissues appear unremarkable. IMPRESSION: Portable chest within normal limits for age. Reviewed by: Estiven Keita MD on 05/12/2022 5:42 PM [place] Approved by: Estiven Keita MD on 05/12/2022 5:42 PM [facility] Station ID: [id number]
== END 2022-05-12 18:55 | disposition home or self-care (01) ==
LOC: ED 16:36
DX: I10 Essential (primary) hypertension (principal); R07.9 Chest pain, unspecified; Z79.899 Other long term (current) drug therapy; Z86.73 Personal history of transient ischemic attack (TIA), and cerebral infarction without residual deficits
CPT/HCPCS: 36415; 71045; 80053; 83690; 84484; 85025; 93005; 96361; 96374; 99284; A9270

== ENCOUNTER 2022-05-17 19:25 | Emergency (ER) | payer MEDICARE ==
[2022-05-17 19:42] LABS: BASOPHILS # (AUTO) 0.1 10^3/uL (0.0-0.1); BASOPHILS % (AUTO) 0.5 %; EOSINOPHILS # (AUTO) 0.1 10^3/uL (0.0-0.7); EOSINOPHILS % (AUTO) 0.5 %; HCT - HEMATOCRIT 44.9 % (37.0-47.0); HGB - HEMOGLOBIN 14.3 g/dL (12.0-16.0); LYMPHOCYTES # (AUTO) 3.6 10^3/uL (1.5-3.5); LYMPHOCYTES % (AUTO) 29.5 %; MEAN CORPUSCULAR HEMOGLOBIN 28.3 pg (27.0-31.0); MEAN CORPUSCULAR HGB CONC 31.8 g/dL (32.0-36.0); MEAN CORPUSCULAR VOLUME 88.9 fL (81.0-99.0); MEAN PLATELET VOLUME 11.5 fL (7.9-10.8); MONOCYTES # (AUTO) 0.8 10^3/uL (0.0-1.0); MONOCYTES % (AUTO) 6.6 %; NEUTROPHILS # (AUTO) 7.7 10^3/uL (1.5-6.6); NEUTROPHILS % (AUTO) 62.5 %; PLT - PLATELET COUNT 283 10^3/uL (130-450); RED BLOOD COUNT 5.05 10^6/uL (4.20-5.40); RED CELL DISTRIBUTION WIDTH 13.5 % (12.0-15.0); WHITE BLOOD COUNT 12.3 x10^3/uL (4.8-10.8)
--- OUTSIDE RECORDS SUMMARY | 2022-05-17 19:42 | EXTERNAL MEDICAL SUMMARY RPT | Continuity of Care Document ---
:1965 Author Organization [facility] Address [address] [place] [address] Phone Care Team Providers Name Role Phone Alexis Barrios Unavailable Unavailable Allergies and Intolerances date description facility type (no date) [facility] (unknown) Encounters No information. Functional Status No information. Immunizations No information. Medications date description facility 2022-04-02 00:00 Penicillin V Potassium [facility] Problems date description facility 2022-04-02 13:47 Acute pharyngitis, unspecified [facility] 2022-04-02 13:54 Acute pharyngitis, unspecified [facility] 2022-04-03 04[facility]24 [facility] No information. Results/Labs test date author facility value unit interpret ation Result panel 1 (unknown) (no (unknown) (unknown) (no value) (units (unk nown) date) unknown) (unknown) (no (unknown) (unknown) [address] (units (unkno wn) date) unknown) (unknown) (no (unknown) (unknown) 04/02/22 (units (unkno wn) date) unknown) (unknown) (no (unknown) (unknown) 344 (units (unkno wn) date) unknown) (unknown) (no (unknown) (unknown) Age/Sex: 56 / F (units (unknown) date) Date of Service: unknown) (unknown) (no (unknown) (unknown) Allergies (units (unkn own) date) unknown) (unknown) (no (unknown) (unknown) [facility] (units (unknown) date) Medicine unknown) (unknown) (no (unknown) (unknown) REID Villegas (units ( unknown) date) [id number] unknown) (unknown) (no (unknown) (unknown) Anaphylaxis (units (un known) date) unknown) (unknown) (no (unknown) (unknown) Attending Dr: (units ( unknown) date) Adelina Ruiz unknown) PLiamA-Sayda (unknown) (no (unknown) (unknown) : 1965 (units (unknown) date) Acct:[id number] unknown) (unknown) (no (unknown) (unknown) Dept at [...] unknown) effort is made to edit content, bindery machine setter errors (unknown) (no (unknown) (unknown) ssri Allergy (units (u nknown) date) (Uncoded 08/03/21 unknown) 16:26) (unknown) (no (unknown) (unknown) tramadol Allergy (units (unknown) date) (Verified unknown) 08/03/21 16:26) Result panel 2 (unknown) (no (unknown) (unknown) (no value) (units (unk nown) date) unknown) (unknown) (no (unknown) (unknown) [address] (units (unkno wn) date) unknown) (unknown) (no (unknown) (unknown) 04/02/22 (units (unkno wn) date) unknown) (unknown) (no (unknown) (unknown) 344 (units (unkno wn) date) unknown) (unknown) (no (unknown) (unknown) Age/Sex: 56 / F (units (unknown) date) Date of Service: unknown) (unknown) (no (unknown) (unknown) Allergies (units (unkn own) date) unknown) (unknown) (no (unknown) (unknown) [facility] (units (unknown) date) Medicine unknown) (unknown) (no (unknown) (unknown) [place], [place] (units ( unknown) date) [id number] unknown) (unknown) (no (unknown) (unknown) Anaphylaxis (units (un known) date) unknown) (unknown) (no (unknown) (unknown) Assessment + (units (u nknown) date) Plan unknown) (unknown) (no (unknown) (unknown) Attending Dr: (units ( unknown) date) Adelina Ruiz unknown) Heri (unknown) (no (unknown) (unknown) : 1965 (units (unknown) date) Acct:[id number] unknown) (unknown) (no (unknown) (unknown) Dept at [...] unknown) effort is made to edit content, bindery machine setter errors (unknown) (no (unknown) (unknown) ssri Allergy (units (u nknown) date) (Uncoded 08/03/21 unknown) 16:26) (unknown) (no (unknown) (unknown) tramadol Allergy (units (unknown) date) (Verified unknown) 08/03/21 16:26) Result panel 3 (unknown) (no (unknown) (unknown) (no value) (units (unk nown) date) unknown) (unknown) (no (unknown) (unknown) [address] (units (unkno wn) date) unknown) (unknown) (no (unknown) (unknown) 04/02/22 (units (unkno wn) date) unknown) (unknown) (no (unknown) (unknown) 344 (units (unkno wn) date) unknown) (unknown) (no (unknown) (unknown) Age/Sex: 56 / F (units (unknown) date) Date of Service: unknown) (unknown) (no (unknown) (unknown) Allergies (units (unkn own) date) unknown) (unknown) (no (unknown) (unknown) [facility] (units (unknown) date) Medicine unknown) (unknown) (no (unknown) (unknown) [place], [place] (units ( unknown) date) [id number] unknown) (unknown) (no (unknown) (unknown) Anaphylaxis (units (un known) date) unknown) (unknown) (no (unknown) (unknown) Assessment + (units (u nknown) date) Plan unknown) (unknown) (no (unknown) (unknown) Attending Dr: (units ( unknown) date) Adelina Ruiz unknown) Heri (unknown) (no (unknown) (unknown) : 1965 (units (unknown) date) Acct:[id number] unknown) (unknown) (no (unknown) (unknown) Dept at [...] unknown) effort is made to edit content, bindery machine setter errors (unknown) (no (unknown) (unknown) ssri Allergy (units (u nknown) date) (Uncoded 08/03/21 unknown) 16:26) (unknown) (no (unknown) (unknown) tramadol Allergy (units (unknown) date) (Verified unknown) 08/03/21 16:26) Result panel 4 (unknown) (no (unknown) (unknown) (no value) (units (unk nown) date) unknown) (unknown) (no (unknown) (unknown) (1) Bacterial (units ( unknown) date) pharyngitis: unknown) (unknown) (no (unknown) (unknown) [address] (units (unkno wn) date) unknown) (unknown) (no (unknown) (unknown) 10 mg PO oral (units ( unknown) date) 312243 11/01/23 unknown) [id number] [facility] (unknown) (no (unknown) (unknown) 04/02/22 1439 [...] own) date) unknown) (unknown) (no (unknown) (unknown) [facility] (units (unknown) date) Medicine unknown) (unknown) (no (unknown) (unknown) [place], [place] (units ( unknown) date) [address] unknown) (unknown) (no (unknown) (unknown) Anaphylaxis (units [...] (unknown) (unknown) : 1965 (units (unknown) date) Acct:[id number] unknown) (unknown) (no (unknown) (unknown) Decadron 10mg/mL (units (unknown) date) Today J02.9 - unknown) Acute pharyngitis, unspecified (unknown) (no (unknown) (unknown) Dept at (units (unkno wn) date) . 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) date) unknown) (unknown) (no [...] (unknown) rapid strep at (units (unknown) date) [place] [facility] unknown) care 2 days ago no [...] unknown) effort is made to edit content, bindery machine setter errors (unknown) (no (unknown) (unknown) ssri Allergy [...] description facility 2022-04-02 00:00 Never smoked tobacco ([facility] Vital Signs date measurement value units 2022-04-02 00:00 BP_diastolic 90 mmHg 2022-04-02 00:00 BP_systolic 160 mmHg 2022-04-02 00:00 heart_rate 112 /min 2022-04-02 00:00 o2_saturation 98 % 2022-04-02 00:00 temperature_metric 36.72 C 2022-04-02 00:00 temperature_standard 98.1 F 2022-04-02 00:00 weight_metric 87.08 kg 2022-04-02 00:00 weight_standard 191.98 lb
[2022-05-17 19:49] LABS: INR 0.9 (0.8-1.2)
[2022-05-17] MEDS ORDERED: LABETALOL 20 MG/4 ML SYRINGE IVP STA (19:49)
[2022-05-17 19:52] LABS: ALBUMIN 4.8 g/dL (3.2-5.5); ALBUMIN/GLOBULIN RATIO 1.1 (1.0-2.2); BILIRUBIN,TOTAL 0.3 mg/dL (0.2-1.0); CALCIUM 10.1 mg/dL (8.5-10.3); CREATININE 0.9 mg/dL (0.4-1.0); POTASSIUM 3.6 mmol/L (3.5-5.0); TOTAL PROTEIN 9.3 g/dL (6.7-8.2)
--- NOTE | 2022-05-17 19:57 | ED Physician Documentation ---
History of Present Illness - Stated complaint Stated Complaint: CODE STROKE - Chief complaint Chief Complaint: Neuro - Additonal information Additional information: Patient 56-year-old female past medical significant for hypertension, diabetes presenting to the emergency department with facial droop, speech difficulties and right upper and lower extremity weakness. Symptoms began at approximately 1830 or 1 hour prior to arrival. Witnessed by who reports that they were eating dinner and he noticed a facial droop. She subsequently developed difficulties with speech and weakness. They came to the emergency department by private vehicle. 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 : None HEENT: None Psych: Post traumatic stress disorder Musculoskeletal: None Derm: None - Past Surgical History Past Surgical History: Yes General: Appendectomy Ortho: Spine surgery /BATTERBOARD SETTER: section, Other - Present Medications Home Medications: Ambulatory Orders Medication Instructions Recorded Confirmed Levothyroxine [Synthroid] 125 mcg PO QDAC 02/14/20 08/10/21 Pramipexole [Mirapex] 0.25 mg PO DAILY 02/14/20 08/10/21 amLODIPine [Norvasc] 5 mg PO DAILY 02/14/20 08/10/21 tiZANidine [Zanaflex] 4 mg PO BID 02/14/20 08/10/21 HYDROcod/ACETAM 5/325 [[place] 5/325] 1 - 2 tablet PO Q6H PRN #14 tablet 12/01/20 08/10/21 Esomeprazole Magnesium [Nexium] 40 mg PO DAILY #30 cap.sr 08/10/21 Famotidine [Pepcid] 20 mg PO BID #60 tablet 08/10/21 Metoprolol Succinate [Toprol Xl] 25 mg PO HS 08/10/21 08/10/21 Oxycodone HCl/Acetaminophen 1 - 2 each PO Q6H PRN #14 tablet 08/10/21 [Percocet 5-325 mg Tablet] Sucralfate [Carafate] 1 gm PO ACHS #60 tablet 08/10/21 hydroCHLOROthiazide [Hydrodiuril] 12.5 mg PO DAILY 08/10/21 08/10/21 EPINEPHrine [Epinephrine] 0.3 mg IJ ONCE PRN #2 11/13/21 Codeine Phosphate/Guaifenesin 5 ml PO Q6H PRN #120 ml 04/04/22 [Codeine-Guaifen 10-100 mg/5 ml] - Allergies Allergies/Adverse Reactions: Allergies Allergy/AdvReac Type Severity Reaction Status Date / Time amoxicillin Allergy Rash Verified 05/17/22 19:34 benzonatate Allergy Unknown Verified 05/17/22 19:34 [From Tessalon Perles] cephalexin Allergy Rash Verified 05/17/22 19:34 diphenhydramine Allergy Rash Verified 05/17/22 19:34 [From Benadryl] hydroxychloroquine Allergy Anaphylaxis Verified 05/17/22 19:34 metaxalone [From Skelaxin] Allergy Anaphylaxis Verified 05/17/22 19:34 NSAIDS (Non-Steroidal Allergy Rash Verified 05/17/22 19:34 Anti-Inflamma SSRI's Allergy Unknown Uncoded 05/17/22 19:34 - Social History Does the pt smoke?: No Smoking Status: Never smoker Does the pt drink ETOH?: No Does the pt have substance abuse?: No - Immunizations Immunizations are current?: Yes Immunizations: Other immun not current - POLST Patient has POLST: No PD ED PE NORMAL - Vitals Vital signs reviewed: Yes (Patient hypertensive on arrival.) - General General: Alert and oriented X 3 - HEENT HEENT: Atraumatic, PERRL, EOMI - Neck Neck: Supple, no meningeal sign, No bony TTP, No adenopathy - Cardiac Cardiac: RRR - Respiratory Respiratory: No respiratory distress - Abdomen Abdomen: Normal bowel sounds - Female Female : Deferred - Derm Derm: Normal color - Extremities Extremities: No deformity - Neuro Neuro: Alert and oriented X 3, Other (Right-sided facial droop sparing the forehead. Moderate dysarthria with no receptive or expressive dysphagia. 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 Right lower extremity 4/5 dorsiflexion, right upper extremity 4/5 dorsiflexion.) Results - Vitals Vitals: Vital Signs - 24 hr 05/17/22 05/17/22 05/17/22 19:34 19:54 20:10 Temperature 36.8 C Heart Rate 93 89 80 Respiratory 18 15 13 Rate Blood Pressure 195/110 H 188/98 H 138/83 H O2 Saturation 100 99 99 05/17/22 05/17/22 05/17/22 20:27 20:48 20:55 Temperature Heart Rate 83 77 77 Respiratory 17 13 13 Rate Blood Pressure 142/85 H 145/86 H 140/84 H O2 Saturation 99 99 97 05/17/22 05/17/22 21:24 21:52 Temperature Heart Rate 80 80 Respiratory 11 L 15 Rate Blood Pressure 138/81 H 130/84 H O2 Saturation 96 98 Oxygen O2 Source Room air - EKG (time done) 1934 Rate: Rate (enter#) (91) Rhythm: NSR [place]: Normal Intervals: Normal ID QRS: Normal Ischemia: Normal ST segments, Non specific changes Compare to prior EKG: Unchanged from prior EKG - Labs Labs: Laboratory Tests 05/17/22 05/17/22 05/17/22 19:30 19:34 19:34 WBC 12.3 H RBC 5.05 Hgb 14.3 Hct 44.9 MCV 88.9 MCH 28.3 MCHC 31.8 L RDW 13.5 Plt Count 283 MPV 11.5 H Neut # (Auto) 7.7 H Lymph # (Auto) 3.6 H [place] # (Auto) 0.8 Eos # (Auto) 0.1 Baso # (Auto) 0.1 Absolute Nucleated RBC 0.00 Nucleated RBC % 0.0 PT 10.0 INR 0.9 Sodium Potassium Chloride Carbon Dioxide Anion Gap BUN Creatinine Estimated GFR (MDRD) Glucose POC Whole Bld Glucose 189 H Calcium Total Bilirubin AST ALT Alkaline Phosphatase Total Protein Albumin Globulin Albumin/Globulin Ratio Lipase 05/17/22 19:34 WBC RBC Hgb Hct MCV MCH MCHC RDW Plt Count MPV Neut # (Auto) Lymph # (Auto) [place] # (Auto) Eos # (Auto) Baso # (Auto) Absolute Nucleated RBC Nucleated RBC % PT INR Sodium 136 Potassium 3.6 Chloride 97 L Carbon Dioxide 26 Anion Gap 13.0 BUN 22 H Creatinine 0.9 Estimated GFR (MDRD) 65 L Glucose 169 H POC Whole Bld Glucose Calcium 10.1 Total Bilirubin 0.3 AST 36 ALT 59 Alkaline Phosphatase 171 H Total Protein 9.3 H Albumin 4.8 Globulin 4.5 H Albumin/Globulin Ratio 1.1 Lipase 40 PD Medical Decision Making - ED course Complexity details: reviewed old records, reviewed results, re-evaluated patient, considered differential, d/w patient, d/w reporting process consultant Reviewed Lab Results: Critical labs reviewed including patient's platelet count and INR within normal limits. Drug Therapy Requiring Monitoring for Toxicity: Tenecteplase, IV fentanyl, IV labetalol ED course: Patient 56-year-old female presenting to the emergency department with acute strokelike symptoms. Arrived inside of the window for thrombolytics. Stroke alert initiated shortly after arrival. CTA head and neck as interpreted by radiology negative for acute intracranial abnormality. Blood glucose within normal limits on arrival. Given labetalol for blood pressure control in order to maintain parameters systolic less than 185, diastolic less than 110. Also given fentanyl for pain control. Physical exam demonstrated an anxious 56-year-old female with obvious right-sided facial droop, dysarthria, right upper and lower extremity dysmetria and weakness. Telestroke was consulted at 1950 hrs. Critical labs reviewed including platelet and INR count within normal limits. After review by telestroke discussion of risk and benefits patient received tenecteplase per protocol. Transferred from our facility to [facility] for further evaluation and treatment. - Critical Care Time(min): 31 Time Includes: Direct patient care, Review records, Reassess patient, Document care, Coordinate care, See progress note Data interpretation: Labs, See progress note Departure - Departure Disposition: 02 Transfer Acute Care Hosp Clinical Impression: CVA (cerebral vascular accident)
--- NOTE | 2022-05-17 20:01 | CT Report ---
PROCEDURE: Head W/O Stroke Protocol INDICATIONS: Neuro deficit, acute, stroke suspected TECHNIQUE: Noncontrast 4.5 mm thick angled axial sections acquired from the foramen magnum to the vertex, with c oronal reformats. For radiation dose reduction, the following was used: automated exposure control, adjustment of mA and/or kV according to patient size. COMPARISON: FINDINGS: Image quality: Excellent. CSF spaces: Basal cisterns are patent. No extra-axial fluid collections. Ventricles are normal in size and shape. Brain: No midline shift. No intracranial masses or hemorrhage. Ward-white matter interface is norm al. Skull and face: Calvarium and visualized facial bones are intact, without suspicious lesions. Sinuses: Visualized sinuses and mastoids are clear. IMPRESSION: 1. No acute intracranial process. The above findings were discussed with ED Physician on 05/17/2022 at 8:02 PM. This study fulfills neurological imaging criteria for inclusion or exclusion of acute stroke therapie s based on available published neurological imaging guidelines. Reviewed by: Vivienne Armstrong MD on 05/17/2022 8:00 PM PST Approved by: Vivienne Armstrong MD on 05/17/2022 8:00 PM PST Station ID: [id number]
[2022-05-17] MEDS ORDERED: iohexoL-300 100 ML VIAL ONE (20:04)
--- NOTE | 2022-05-17 20:05 | CT Report ---
PROCEDURE: ANGIO HEAD W/WO INDICATIONS: CVA CONTRAST: 80mL Omni 300 TECHNIQUE: Precontrast 4.5 mm thick angled axial sections acquired from the foramen magnum to the vertex. Afte r the administration of intravenous contrast, 1 mm thick sections acquired through the [place] is. Postcontrast 4.5 mm thick sections then re-acquired from the foramen magnum to the vertex. 3-di mensional kzesbbq-rrvqoczkm-bnjrxlhrph (MIP) and/or volume rendering reformats were acquired of the c entral intracranial vasculature. For radiation dose reduction, the following was used: automated ex posure control, adjustment of mA and/or kV according to patient size. COMPARISON: CT brain 05/17/2022, CTA head 02/14/2020 FINDINGS: Image quality: Excellent. Anterior circulation: Intracranial internal carotid arteries are normal in size and flow. The flow within the paired anterior cerebral arteries is normal and symmetric. The flow within the middle cer ebral arteries is normal and symmetric. The anterior communicating artery is seen. No aneurysms are seen. Posterior circulation: There is a left vertebral artery dominance. Visualized portions of the verteb ral arteries demonstrate normal caliber, and join to form a normal appearing basilar artery. Flow wi thin the posterior cerebral arteries is normal and symmetric. No aneurysms are seen. CSF spaces: Ventricles are normal in size and shape. Basal cisterns are patent. No extra-axial flu id collections. Brain: No midline shift. No intracranial bleeds or masses. Ward-white matter interface appears int act. Skull and face: Calvarium and facial bones appear intact, without suspicious lesions. Sinuses: Visualized sinuses and mastoids are clear. IMPRESSION: 1. No acute intracranial process. 2. No areas of hemodynamically significant stenosis, vascular occlusion or aneurysmal dilation within the anterior or posterior circulation. Reviewed by: Vivienne Armstrong MD on 05/17/2022 8:04 PM PST Approved by: Vivienne Armstrong MD on 05/17/2022 8:04 PM PST Station ID: [id number]
--- NOTE | 2022-05-17 20:06 | CT Report ---
PROCEDURE: ANGIO NECK W INDICATIONS: CVA CONTRAST: 80mL Omni 300 TECHNIQUE: After the administration of intravenous contrast, 1.5 mm axial sections acquired from the aortic arch to the [place]. Coronal 3-D maximum intensity projection (MIP) and/or volume rendering ref ormats were then performed. For radiation dose reduction, the following was used: automated exposur e control, adjustment of mA and/or kV according to patient size. COMPARISON: CTA brain, CTA head 05/17/2022, CTA neck 02/14/2020 FINDINGS: Image quality: Excellent. Carotid system: The great vessels demonstrate a conventional anatomy as they arise from the aortic a rch. The origins of the common carotid arteries appear patent. The common carotid arteries demonstr ate normal calibers and courses. The bifurcation regions appear normal bilaterally. The internal ca rotid arteries demonstrate normal caliber and course. Posterior circulation: The origins of the vertebral arteries appear patent. The more superior porti ons of the vertebral arteries demonstrate normal course and caliber. They join to form a normal appe aring basilar artery. Soft tissues: Visualized neck soft tissues demonstrate no suspicious abnormalities. The thyroid is normal in size and there are no incidental findings. Bones: No suspicious bony lesions. Visualized cervical spine appears normally aligned. IMPRESSION: There are no areas of hemodynamically significant stenosis, vascular occlusion or aneurysmal dilation within the neck vasculature. The estimate of stenosis included in the report of the imaging study was calculated using the NASCET method CLINICAL RECOMMENDATION STATEMENTS: In patients <35 years with an ITN detected on CT, MRI, or extrathyroidal ultrasound, the Committee re commends further evaluation with dedicated thyroid ultrasound if the nodule is "e1 cm and has no susp icious imaging features, and if the patient has normal life expectancy. In patients "e35 years with an ITN detected on CT, MRI, or extrathyroidal ultrasound, the Committee r ecommends further evaluation with dedicated thyroid ultrasound if the nodule is "e1.5 cm and has no s uspicious imaging features, and if the patient has normal life expectancy. (ACR, 2014) Reviewed by: Vivienne Armstrong MD on 05/17/2022 8:05 PM PST Approved by: Vivienne Armstrong MD on 05/17/2022 8:05 PM PST Station ID: [id number]
[2022-05-17] MEDS ORDERED: TENECTEPLASE 50 MG/10 ML VIAL IVP STA (20:37)
[2022-05-17] MEDS: fentaNYL 100 MCG/2 ML VIAL IVP PRN ×3 (20:58→23:46)
[2022-05-17] MEDS ORDERED: iohexoL-300 100 ML VIAL IVP ONE (21:15)
[2022-05-18 00:52] VITALS: BP 126/86
== END 2022-05-18 01:21 | disposition short-term general hospital (02) ==
LOC: ED 19:25
DX: I63.9 Cerebral infarction, unspecified (principal); R29.810 Facial weakness; R47.1 Dysarthria and anarthria; I10 Essential (primary) hypertension; E11.9 Type 2 diabetes mellitus without complications; Z20.822 Contact with and (suspected) exposure to COVID-19
CPT/HCPCS: 36415; 37195; 70450; 70496; 70498; 80053; 83690; 85025; 85610; 87635; 93005; 96374; 96375; 96376; 99291; J3101; Q9967

== ENCOUNTER 2022-06-14 16:15 | Outpatient (CLI) | payer MEDICARE ==
[2022-06-14 21:31] LABS: BASOPHILS # (AUTO) 0.1 10^3/uL (0.0-0.1); BASOPHILS % (AUTO) 0.6 %; EOSINOPHILS # (AUTO) 0.1 10^3/uL (0.0-0.7); EOSINOPHILS % (AUTO) 1.4 %; HCT - HEMATOCRIT 43.7 % (37.0-47.0); HGB - HEMOGLOBIN 13.9 g/dL (12.0-16.0); LYMPHOCYTES # (AUTO) 2.4 10^3/uL (1.5-3.5); LYMPHOCYTES % (AUTO) 27.6 %; MEAN CORPUSCULAR HGB CONC 31.8 g/dL (32.0-36.0); MEAN PLATELET VOLUME 11.8 fL (7.9-10.8); MONOCYTES # (AUTO) 0.6 10^3/uL (0.0-1.0); MONOCYTES % (AUTO) 7.2 %; NEUTROPHILS # (AUTO) 5.5 10^3/uL (1.5-6.6); PLT - PLATELET COUNT 244 10^3/uL (130-450); RED CELL DISTRIBUTION WIDTH 13.2 % (12.0-15.0); WHITE BLOOD COUNT 8.7 x10^3/uL (4.8-10.8)
[2022-06-14 21:40] LABS: ALBUMIN 4.3 g/dL (3.2-5.5); ALBUMIN/GLOBULIN RATIO 1.1 (1.0-2.2); BILIRUBIN,TOTAL 0.3 mg/dL (0.2-1.0); CALCIUM 9.4 mg/dL (8.5-10.3); CREATININE 0.7 mg/dL (0.4-1.0); TOTAL PROTEIN 8.3 g/dL (6.7-8.2)
== END 2022-06-14 16:30 | disposition home or self-care (01) ==
LOC: LAB.N 16:15
PROVIDERS: ATTEND Registered Nurse
DX: R19.7 Diarrhea, unspecified (principal); R11.10 Vomiting, unspecified; R25.2 Cramp and spasm
CPT/HCPCS: 36415; 80053; 85025

== ENCOUNTER 2022-06-24 09:25 | Outpatient (CLI) | payer MEDICARE ==
[2022-06-24 10:12] VITALS: BP 136/84
--- NOTE | 2022-06-24 10:12 | SLEEP CARE CONSULTATION ---
Information from patient questionnaire entered by Melani Weinstein. I have reviewed and concur with the information entered by Melani Weinstein. This document represents the service I personally performed and the decisions made by me, Chantell Knapp ARNP. History of Present Illness Service Date and Time: 06/24/2022 09 Reason for Visit: New patient Chief Complaint: reports: Unrefreshed sleep, Snoring, Excessive daytime sleepiness, Observed pauses in breathing, Fatigue Date of Onset: 5+YRS Usual bedtime: 930-10PM Time it takes to fall asleep: QUICKLY Snores at night: Yes Observed to quit breathing while asleep: No Sleeps alone due to snoring: No Number of times waking at night: 2-3 Reasons for waking at night: reports: Snoring, Gasping for air, Other (wakes up "startled" when she tries to nap). denies: Choking Toss, Turn, or Twitch while sleeping: Yes Recalls having dreams: Yes Usually gets out of bed at: 330-5AM Feels refreshed in the morning: No Morning headache: Yes (2-3 times a week, sometimes more) Sleepy or fatigued during the day: Yes Ever fallen asleep while driving: No Takes day naps: Yes (1 time a month) Dreams during day naps: Yes Additional HPI information: I had the pleasure of seeing RAMONA DENISE today regarding the possibility of her having a sleep disorder. Her current complaints are unrefreshed sleep, excessive daytime sleepiness, observed pauses in breathing and fatigue. She states she does not sleep well. She is waking up and gasp for air. Her dog will wake her up and her has noticed she "breathes funny" with a wheeze and not breathing. She has been in the hospital and they would wake her up because she was not breathing and her oxygen level was too low. She states her has told her she snores. She has woke herself up with snoring. Her has sleep apnea and is using a CPAP. She states she feel she is too tired a lot of the time and feels "brain numb". - Parasomnia Symptoms Ever been unable to move upon waking from sleep: No Walks in sleep: No Talks in sleep: Yes Ever acted out dreams in sleep: No Ever felt weak in the knees when startled or emotional: Yes Bothered by creepy, crawly, restless sensations in legs: Yes (hx of RLS) Problems with memory or concentration: Yes (both, feels it is a lack of sleep) Subjective Initial [place] Sleepiness Scale score: 15 (06/24/22) Past Medical History Past Medical History: reports: Hypertension, Diabetes, Stroke (TIA 2020, May 2022), Arthritis, Arrythmia, Anxiety, Asthma, GERD Social History The patient's occupation is a [employer]. Patient is and lives in [place]. Have you smoked in the past 12 months: No Quit date: 11/22 Alcohol use: Yes Alcohol amount and frequency: JARRELL Caffeine use: Yes Caffeine amount and frequency: 2 CUPS DAILY Family History Family history of sleep disordered breathing: Yes Family Hx Sleep Apnea: Father: Snoring, Sleep apnea - Untreated, Sibling: Snoring, Sleep apnea - Untreated Allergies and Home Medications Known drug allergies: Yes (SSRI'S, HYDROXYCHLORIQUINE, SKELAXION ) Drug allergies reviewed: Yes Home medication list reviewed: Yes Allergy and home medication list: Allergies amoxicillin Allergy (Verified 06/23/22 13:59) Rash benzonatate [From Tessalon Perles] Allergy (Verified 06/23/22 13:59) Unknown cephalexin Allergy (Verified 06/23/22 13:59) Rash diphenhydramine [From Benadryl] Allergy (Verified 06/23/22 13:59) Rash hydroxychloroquine Allergy (Verified 06/23/22 13:59) Anaphylaxis metaxalone [From Skelaxin] Allergy (Verified 06/23/22 13:59) Anaphylaxis NSAIDS (Non-Steroidal Anti-Inflamma Allergy (Verified 06/23/22 13:59) Rash SSRI's Allergy (Uncoded 06/23/22 13:59) Unknown Medications: Epinephrine Hydrocodone/acetominophen Levothyroxine 225 mcg Pramipexole Tizanidine Carvedilol Metformin 850 mg twice a day, (not taking) Review of Systems Review of systems same as previous: Yes Weight gain over past 5 years: 30 Cardiovascular: reports: high blood pressure, palpitations, chest pain, irregular heart rate or pulse, have to sleep sitting up Respiratory: reports: shortness of breath Gastrointestinal: reports: heartburn, nausea, vomitting, diarrhea, abdominal pain Urinary: reports: frequency, urgency Neurological: reports: headaches Psychiatric: reports: anxiety, claustrophobia. denies: Attention Deficit Hyperactivity Ear/Nose/Throat: reports: nasal congestion, sinus problems, dry mouth/throat, hoarseness, injury to nose, wisdom teeth removed. denies: tonsillectomy Endocrine: reports: thyroid disease, sluggishness, too hot or cold, excessive thirst, increased urination Musculoskeletal: reports: joint pain, back pain, joint swelling, muscle pain or cramping Immunologic: reports: sneezing, rash Physical Exam Vital signs obtained and entered by: MELANI Alfredo MA Blood Pressure: 136/84 (LEFT ARM) Cuff size: regular Heart Rate: 80 O2 Saturation: 98 Height: 5 ft 3 in Weight: 193 lb 6.4 oz Body Mass Index: 34.2 BMI Classification: Obese Neck circumference: 15.75 Mouth and throat: narrow oropharynx Soft palate: long Hard palate: normal Uvula: normal Uvula visualization: 0% Mallampati Class IV Tongue: enlarged in size with teeth heart on lateral edges Tonsils: small Neck: normal w/o lymphadenopathy or thyromegaly Heart: regular rate and rhythm Lungs: clear bilaterally Impression and Plan 1. Suspected Obstructive Sleep Apnea-Hypopnea Syndrome, as suggested by a history of irregular snoring, observed cessation of breath while asleep, gasping or choking in sleep, morning headache, frequent awakening during the night, unrefreshed sleep, cognitive impairment, and excessive daytime sleepiness. Narrow oropharynx and obesity are common predisposing factors for obstructive sleep apnea-hypopnea syndrome. I recommend proceeding to polysomnography to confirm the diagnosis and to assess severity. If the patient has significant sleep disordered breathing, a manual CPAP titration study will also be performed to find the optimal treatment pressure. I informed the patient of what the sleep studies involve and after some discussion, obtained agreement to proceed. The pathophysiology of obstructive sleep apnea-hypopnea syndrome was discussed with the patient and health risks of cardiovascular and cerebrovascular disease if not treated. Risks of drowsy driving discussed in detail and patient advised to avoid long distance driving and to hide puller at the first sign of drowsiness. Patient agreed to plan. * Schedule polysomnography * Avoid long distance driving or driving when feeling sleepy. * Avoid alcohol, sedative and muscle relaxant around bedtime. * Attempt to lose weight. * Review instructions provided by trained office staff on how to prepare for the sleep study. * Return for follow-up after sleep study completed. Counseling Topics: Weight loss health impact Visit Type: In Office Time Spent with Patient (minutes): 30 Provider Statement: I spent 100% of the Face to Face Visit with the patient with greater than 50% spent counseling the patient and coordination of care.
== END 2022-06-24 09:26 | disposition home or self-care (01) ==
LOC: SC 09:25
PROVIDERS: ATTEND Nurse Practitioner Family
DX: G47.10 Hypersomnia, unspecified (principal); R53.83 Other fatigue; G47.8 Other sleep disorders; R06.83 Snoring; R06.81 Apnea, not elsewhere classified; E11.9 Type 2 diabetes mellitus without complications; I10 Essential (primary) hypertension; I49.9 Cardiac arrhythmia, unspecified; E66.9 Obesity, unspecified; Z68.34 Body mass index [BMI] 34.0-34.9, adult; Z87.891 Personal history of nicotine dependence
CPT/HCPCS: 99203; G0463; 99212

== ENCOUNTER 2022-08-05 19:29 | Outpatient (CLI) | payer MEDICARE | END 2022-08-05 19:30 | disposition home or self-care (01) | LOC: SC 19:29 | PROVIDERS: ATTEND Nurse Practitioner Family | DX: G47.10 Hypersomnia, unspecified (principal); R53.83 Other fatigue; G47.8 Other sleep disorders; R06.83 Snoring; R06.81 Apnea, not elsewhere classified; I49.9 Cardiac arrhythmia, unspecified; E11.9 Type 2 diabetes mellitus without complications; I10 Essential (primary) hypertension; E66.9 Obesity, unspecified; Z68.34 Body mass index [BMI] 34.0-34.9, adult | CPT/HCPCS: 95810 ==

== ENCOUNTER 2022-09-15 07:08 | Outpatient (CLI) | payer MEDICARE ==
--- NOTE | 2022-09-15 09:33 | Ultrasound Report ---
PROCEDURE: Abdomen Limited INDICATIONS: TRANSAMINITIS TECHNIQUE: Real-time focused scanning was performed of the abdomen, with image documentation. COMPARISONS: 12/05/2021 FINDINGS: Liver: Increased liver echogenicity, with posterior attenuation, most consistent with moderate to se [place] hepatic steatosis. Gallbladder: Absent. Biliary ducts: Intrahepatic bile ducts are non-dilated. Extrahepatic bile duct caliber measures 7 m m. Normal is 6-7 mm or less in diameter, or 10 mm or less post-cholecystectomy. Pancreas: Visualized portions of the pancreas are sonographically normal. Right kidney: Normal in size and echotexture. Right kidney measures 12.1 cm long. No hydronephrosis or nephrolithiasis. 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 Aorta: Visualized aorta is normal in caliber at less than 3 cm, where visualized. IVC: Intrahepatic inferior vena cava is patent. Miscellaneous: No free abdominal fluid. IMPRESSION: Moderate to severe hepatic steatosis. In the absence of alcohol use or other confounding factors, chaim vated LFTs may indicate nonalcoholic steatohepatitis (MASON). Reviewed by: Antonio Child on 09/15/2022 9:32 AM PDT Approved by: Antonio Child on 09/15/2022 9:32 AM PDT Station ID: [id number]
== END 2022-09-15 07:09 | disposition home or self-care (01) ==
LOC: DI 07:08
PROVIDERS: ATTEND Student in an Organized Health Care Education/Training Program
DX: R74.01 Elevation of levels of liver transaminase levels (principal); K76.0 Fatty (change of) liver, not elsewhere classified

== ENCOUNTER 2022-09-20 10:36 | Emergency (ER) | payer MEDICARE ==
--- NOTE | 2022-09-20 11:31 | ED Physician Documentation ---
PD HPI ABD PAIN - Stated complaint Stated Complaint: SOA,VOMITTING,BURNING - Chief complaint Chief Complaint: Abd Pain - History obtained from History obtained from: Patient - Additional information Additional information: 56-year-old female with a history of IBS and nonalcoholic fatty liver who presents with right upper quadrant and midepigastric pain radiating into the mid chest.Symptoms have been present for about a month but she feels like they are worsening. She apparently called her surgeon in her PCP who advised her to come to the ER. Patient has also recently been monitored for elevated LFTs, had a right upper quadrant ultrasound several days ago which was reviewed and showed fatty liver but no other acute findings. Patient states that she has not been able to tolerate p.o. yesterday or today, vomits everything she tries to take in, and reports bilious vomiting. She is on Protonix and Zofran without relief in her symptoms. She did have a cholecystectomy about 9 months ago and has had some intermittent issues since then. She states she also saw GI around that time and they did an endoscopy which was reportedly normal though I do not have access to those results at this time. Patient has not had fever or chills, no chest pain or difficulty breathing, no diarrhea or constipation, no dysuria urgency or frequency. Review of neno shows the patient does routinely get narcotic pain medicine from her PCP PD PAST MEDICAL HISTORY - Past Medical History Past Medical History: Yes Cardiovascular: Hypertension Respiratory: None Neuro: CVA Endocrine/Autoimmune: None GI: None PROFESSIONAL SHOPPER: None : None HEENT: None Psych: Post traumatic stress disorder Musculoskeletal: None Derm: None - Past Surgical History Past Surgical History: Yes General: Appendectomy Ortho: Spine surgery /PROFESSIONAL SHOPPER: section, Other - Present Medications Home Medications: Ambulatory Orders Medication Instructions Recorded Confirmed Levothyroxine [Synthroid] 125 mcg PO QDAC 02/14/20 09/20/22 Pramipexole [Mirapex] 0.25 mg PO DAILY 02/14/20 06/24/22 tiZANidine [Zanaflex] 4 mg PO BID 02/14/20 09/20/22 HYDROcod/ACETAM 5/325 [[place] 5/325] 1 - 2 tablet PO Q6H PRN #14 tablet 12/01/20 06/24/22 EPINEPHrine [Epinephrine] 0.3 mg IJ ONCE PRN #2 11/13/21 06/24/22 Carvedilol [Coreg] See Rx Instructions .ROUTE .COMPLEX 06/24/22 09/20/22 metFORMIN [Glucophage] See Rx Instructions .ROUTE .COMPLEX 06/24/22 09/20/22 Famotidine [Pepcid] 20 mg PO BID #60 tablet 09/20/22 Metoclopramide [Reglan] 10 mg PO Q6H PRN #20 tablet 09/20/22 Ondansetron Odt [Zofran Odt] 4 mg TL Q6H PRN 09/20/22 09/20/22 Pantoprazole Sodium 40 mg PO 09/20/22 - Allergies Allergies/Adverse Reactions: Allergies Allergy/AdvReac Type Severity Reaction Status Date / Time amoxicillin Allergy Rash Verified 09/20/22 10:41 benzonatate Allergy Unknown Verified 09/20/22 10:41 [From Tessalon Perles] cephalexin Allergy Rash Verified 09/20/22 10:41 diphenhydramine Allergy Rash Verified 09/20/22 10:41 [From Benadryl] hydroxychloroquine Allergy Anaphylaxis Verified 09/20/22 10:41 metaxalone [From Skelaxin] Allergy Anaphylaxis Verified 09/20/22 10:41 NSAIDS (Non-Steroidal Allergy Rash Verified 09/20/22 10:41 Anti-Inflamma SSRI's Allergy Unknown Uncoded 06/24/22 09:20 - Social History Does the pt smoke?: No Smoking Status: Never smoker Does the pt drink ETOH?: No Does the pt have substance abuse?: No - Immunizations Immunizations are current?: Yes Immunizations: Other immun not current - POLST Patient has POLST: No PD ED PE NORMAL - Vitals Vital signs reviewed: Yes - General General: Alert and oriented X 3, No acute distress, Well developed/nourished - HEENT HEENT: Atraumatic, Pharynx benign - Neck Neck: Supple, no meningeal sign, No JVD - Cardiac Cardiac: RRR, No murmur - Respiratory Respiratory: No respiratory distress, Clear bilaterally - Abdomen Abdomen: Normal bowel sounds, Soft, Non distended, No organomegaly, Other (Mild ruq ttp w/o guarding or grimacing) - Derm Derm: Normal color, Warm and dry, No rash - Extremities Extremities: No deformity, No tenderness to palpate, Normal ROM s pain - Neuro Neuro: Alert and oriented X 3 Eye Opening: Spontaneous Motor: Obeys Commands Verbal: Oriented GCS Score: 15 - Psych Psych: Normal mood, Normal affect Results - Vitals Vitals: Vital Signs - 24 hr 09/20/22 09/20/22 09/20/22 10:41 13:01 14:36 Temperature 36.1 C L 36.5 C Heart Rate 93 75 Respiratory 18 20 20 Rate Blood Pressure 150/99 H 140/82 H O2 Saturation 100 100 Oxygen O2 Source Room air - Labs Labs: Laboratory Tests 09/20/22 09/20/22 09/20/22 11:15 11:15 11:15 WBC 8.0 RBC 5.28 Hgb 15.1 Hct 45.8 MCV 86.7 MCH 28.6 MCHC 33.0 RDW 12.5 Plt Count 228 MPV 11.6 H Neut # (Auto) 5.0 Lymph # (Auto) 2.2 [place] # (Auto) 0.6 Eos # (Auto) 0.2 Baso # (Auto) 0.1 Absolute Nucleated RBC 0.00 Nucleated RBC % 0.0 PT INR Sodium 139 Potassium 4.3 Chloride 100 L Carbon Dioxide 29 Anion Gap 10.0 BUN 15 Creatinine 0.8 Estimated GFR (MDRD) 75 L Glucose 125 H Calcium 9.8 Total Bilirubin 0.8 AST 133 H ALT 188 H Alkaline Phosphatase 119 Total Protein 9.1 H Albumin 4.5 Globulin 4.6 H Albumin/Globulin Ratio 1.0 Lipase 45 Urine Color YELLOW Urine Clarity CLEAR Urine pH 7.5 Ur Specific [place] 1.015 Urine Protein NEGATIVE Urine Glucose (UA) NEGATIVE Urine Ketones NEGATIVE Urine Occult Blood NEGATIVE Urine Nitrite NEGATIVE Urine Bilirubin NEGATIVE Urine Urobilinogen 0.2 (NORMAL) Ur Leukocyte Esterase NEGATIVE Ur Microscopic Review NOT INDICATED Urine Culture Comments NOT INDICATED Urine HCG, Qual NEGATIVE 09/20/22 12:38 WBC RBC Hgb Hct MCV MCH MCHC RDW Plt Count MPV Neut # (Auto) Lymph # (Auto) [place] # (Auto) Eos # (Auto) Baso # (Auto) Absolute Nucleated RBC Nucleated RBC % PT 11.3 INR 1.0 Sodium Potassium Chloride Carbon Dioxide Anion Gap BUN Creatinine Estimated GFR (MDRD) Glucose Calcium Total Bilirubin AST ALT Alkaline Phosphatase Total Protein Albumin Globulin Albumin/Globulin Ratio Lipase Urine Color Urine Clarity Urine pH Ur Specific [place] Urine Protein Urine Glucose (UA) Urine Ketones Urine Occult Blood Urine Nitrite Urine Bilirubin Urine Urobilinogen Ur Leukocyte Esterase Ur Microscopic Review Urine Culture Comments Urine HCG, Qual - Rads (name of study) No standard instances Relevant Findings:: Final report received PD Medical Decision Making - ED course Complexity details: reviewed old records, reviewed results, re-evaluated patient, considered differential, d/w patient ED course: 56-year-old female presents with epigastric and right upper quadrant abdominal pain. This has been going on for about a month or so. The patient is well- appearing on physical exam, nontoxic with stable vital signs. She has minimal pain on palpation of her abdomen and no guarding or grimacing. Obtained labs which show elevated LFTs but normal bilirubin, otherwise CBC and CMP are stable. Urinalysis negative for signs of infection. Patient was given antiemetic and 2 mg of IV morphine and had no additional vomiting here. She appears very comfortable. I did proceed with a CT scan however as she was complaining of ongoing pain in requesting additional narcotic therapy. Her CT scan shows that she is status postcholecystectomy but there is no abnormal fluid collection or other acute findings. She has known fatty liver seen previously on ultrasound. The patient was advised of these findings and I Suspect that her symptoms today related to dyspepsia as well as possible IBS history. I do not think the patient needs any additional narcotics today, she is on chronic narcotic therapy as outpatient. We will start her on famotidine in addition to the PPI that she is already on and we will give her Reglan in addition to the Zofran that she is already on. The patient was encouraged to follow-up with her PCP for this issue and it sounds as though they are already pursuing outpatient referral to GI which I think is appropriate as well. I discussed that GERD based diet as well as an extremely low-fat diet and avoidance of all alcohol or other hepatotoxic substances given her LFTs.I discussed return precautions if new or worsening symptoms. Departure - Departure Disposition: 01 Home, Self Care Clinical Impression: Elevated liver enzymes, Functional dyspepsia Irritable bowel syndrome Qualifiers: Irritable bowel syndrome type: with both diarrhea and constipation Qualified Code(s): K58.2 - Mixed irritable bowel syndrome Condition: Good Instructions: ED GERD, ED IBS Prescriptions: Famotidine [Pepcid] 20 mg PO BID #60 tablet Metoclopramide [Reglan] 10 mg PO Q6H PRN #20 tablet PRN Reason: Nausea / Vomiting Comments: Your CT scan today shows no acute findings. Your liver enzymes remain elevated and this will need to be continued to be monitored by your primary doctor. I will discharge you home with a another medication for your indigestion and nausea. You already received pain medication elsewhere and you can continue with that. Please try to get into see a GI specialist soon for these issues that have turned chronic. Meds sent to [facility]. Discharge Date/Time: 09/20/22 14:42
[2022-09-20 11:43] LABS: BASOPHILS # (AUTO) 0.1 10^3/uL (0.0-0.1); BASOPHILS % (AUTO) 0.6 %; EOSINOPHILS # (AUTO) 0.2 10^3/uL (0.0-0.7); HCT - HEMATOCRIT 45.8 % (37.0-47.0); HGB - HEMOGLOBIN 15.1 g/dL (12.0-16.0); LYMPHOCYTES # (AUTO) 2.2 10^3/uL (1.5-3.5); LYMPHOCYTES % (AUTO) 27.2 %; MEAN CORPUSCULAR HEMOGLOBIN 28.6 pg (27.0-31.0); MEAN CORPUSCULAR VOLUME 86.7 fL (81.0-99.0); MEAN PLATELET VOLUME 11.6 fL (7.9-10.8); MONOCYTES # (AUTO) 0.6 10^3/uL (0.0-1.0); MONOCYTES % (AUTO) 7.1 %; NEUTROPHILS % (AUTO) 62.7 %; PLT - PLATELET COUNT 228 10^3/uL (130-450); RED BLOOD COUNT 5.28 10^6/uL (4.20-5.40); RED CELL DISTRIBUTION WIDTH 12.5 % (12.0-15.0)
[2022-09-20 11:46] LABS: BILIRUBIN,URINE NEGATIVE (NEGATIVE); GLUCOSE, URINE (UA) NEGATIVE (NEGATIVE); KETONES,URINE (UA) NEGATIVE (NEGATIVE); LEUKOCYTE ESTERASE, URINE NEGATIVE (NEGATIVE); NITRITE,URINE NEGATIVE (NEGATIVE); OCCULT BLOOD,URINE NEGATIVE (NEGATIVE); PH,URINE 7.5 PH (5.0-7.5); PROTEIN,URINE NEGATIVE (NEGATIVE); UROBILINOGEN,URINE 0.2 (NORMAL) E.U./dL (NORMAL)
[2022-09-20 11:49] LABS: CLARITY,URINE CLEAR (CLEAR)
[2022-09-20 11:50] LABS: ALBUMIN 4.5 g/dL (3.2-5.5); BILIRUBIN,TOTAL 0.8 mg/dL (0.2-1.0); CALCIUM 9.8 mg/dL (8.5-10.3); CREATININE 0.8 mg/dL (0.4-1.0); HCG UR QUAL NEGATIVE; POTASSIUM 4.3 mmol/L (3.5-5.0); TOTAL PROTEIN 9.1 g/dL (6.7-8.2)
[2022-09-20] MEDS ORDERED: FAMOTIDINE 20 MG/2 ML VIAL IVP STA (12:30)
[2022-09-20] MEDS ORDERED: PROMETHAZINE INJ 12.5 MG in SODIUM CHLORIDE 0.9% 50 ML IV STA (12:31)
[2022-09-20] MEDS ORDERED: MORPHINE 2 MG/ML CARPUJECT IVP STA (12:32)
[2022-09-20] MEDS ORDERED: iohexoL-300 100 ML VIAL ONE (13:03)
[2022-09-20 13:04] LABS: PT - PROTHROMBIN TIME 11.3 secs (9.9-12.6)
--- NOTE | 2022-09-20 14:12 | CT Report ---
PROCEDURE: ABDOMEN/PELVIS W INDICATIONS: ruq pain, s/p daria CONTRAST: 100mL Omni 300 TECHNIQUE: After the administration of IV contrast, 5 mm thick sections acquired from the diaphragms to the symp hysis. 5 mm thick coronal and sagittal reformats were acquired. For radiation dose reduction, the f ollowing was used: automated exposure control, adjustment of mA and/or kV according to patient size. COMPARISON: Abdomen ultrasound 09/15/2022 CT abdomen pelvis 12/05/2021 FINDINGS: Image quality: Excellent. Lung bases and heart: Unremarkable. Liver: Liver is enlarged measuring 21.1 cm with diffuse steatosis. Gallbladder and biliary tree: Removed. No fluid is identified within the right upper quadrant gallbla dder fossa. Biliary system is unremarkable Spleen: No splenomegaly. Pancreas: No pancreatic ductal dilation. Adrenals: No adrenal nodule. Kidneys and ureters: No hydronephrosis. No renal cystic lesion which requires follow up. No solid mas s. Bowel and peritoneum: No bowel distension. No pathologic free fluid. Scattered colonic diverticula. M ild to moderate colonic stool. Lymph nodes: No central or retroperitoneal adenopathy. Vessels: No infrarenal aortic aneurysm. PELVIS Reproductive organs: Unremarkable. Bladder: No abnormal wall thickening, accounting for underdistension. Pelvic lymph nodes: No pelvic adenopathy by size criteria. Bones: No aggressive osseous abnormality. Other: No significant ventral or inguinal hernia. IMPRESSION: Status post cholecystectomy without abnormal fluid in the gallbladder fossa/right upper quadrant or d ilated appearance of the biliary system. Mild to moderate colonic stool. Reviewed by: Vivienne Armstrong MD on 09/20/2022 2:11 PM PDT Approved by: Vivienne Armstrong MD on 09/20/2022 2:11 PM PDT Station ID: [id number]
[2022-09-20] MEDS ORDERED: iohexoL-300 100 ML VIAL IVP ONE (14:26)
[2022-09-20 14:39] VITALS: BP 140/82
== END 2022-09-20 14:42 | disposition home or self-care (01) ==
LOC: ED 10:36
DX: K58.2 Mixed irritable bowel syndrome (principal); R10.13 Epigastric pain; R74.8 Abnormal levels of other serum enzymes; I10 Essential (primary) hypertension
CPT/HCPCS: 36415; 74177; 80053; 81003; 81025; 83690; 85025; 85610; 96365; 96375; 99284; J7040; Q9967; 81001; 87086

== ENCOUNTER 2022-09-27 11:07 | Outpatient (CLI) | payer MEDICARE ==
--- NOTE | 2022-09-27 16:32 | XRAY Report ---
PROCEDURE: Ankle 2 View RT INDICATIONS: ANKLE SPRAIN/FOOT TECHNIQUE: 2 views of the ankle were acquired. COMPARISON: None. FINDINGS: Bones: No fractures or dislocations. Ankle mortise is normally aligned. No suspicious bony lesions . Soft tissues: No tibiotalar joint effusion. Achilles tendon appears normal. IMPRESSION: No acute fracture. No osseous lesion. If symptoms and/or clinical suspicion for pathology continue, f urther assessment with repeat plain films, or advanced imaging (e.g., CT, MRI, or bone scan) is recom mended for further assessment. Reviewed by: Hood Jensen MD on 09/27/2022 4:30 PM PDT Approved by: Hood Jensen MD on 09/27/2022 4:30 PM PDT Station ID: [id number]
--- NOTE | 2022-09-27 16:32 | XRAY Report ---
PROCEDURE: Foot 2 View RT INDICATIONS: FOOT/ANKLE SPRAIN TECHNIQUE: 2 views of the foot were acquired. COMPARISON: None. FINDINGS: Bones: No fractures or dislocations. No suspicious bony lesions. Soft tissues: No suspicious soft tissue calcifications or masses. IMPRESSION: No acute fracture. No osseous lesion. If symptoms and/or clinical suspicion for pathology continue, f urther assessment with repeat plain films, or advanced imaging (e.g., CT, MRI, or bone scan) is recom mended for further assessment. Reviewed by: Hood Jensen MD on 09/27/2022 4:31 PM PDT Approved by: Hood Jensen MD on 09/27/2022 4:31 PM PDT Station ID: [id number]
== END 2022-09-27 23:59 | disposition home or self-care (01) ==
LOC: DI.N 11:07
PROVIDERS: ATTEND Nurse Practitioner
DX: S93.601A Unspecified sprain of right foot, initial encounter (principal)

== ENCOUNTER 2022-09-30 10:00 | Outpatient (CLI) | payer MEDICARE ==
--- NOTE | 2022-09-30 15:13 | XRAY Report ---
PROCEDURE: Foot 3 View RT INDICATIONS: RIGHT FOOT SPRAIN TECHNIQUE: 3 views of the foot were acquired. COMPARISON: None. FINDINGS: Bones: No fractures or dislocations. No suspicious bony lesions. Soft tissues: No suspicious soft tissue calcifications or masses. IMPRESSION: Unremarkable right foot radiographs Reviewed by: Mahesh Capps MD on 09/30/2022 2:11 PM AKDT Approved by: Mahesh Capps MD on 09/30/2022 2:11 PM AKDT Station ID: [id number]
--- NOTE | 2022-09-30 15:50 | XRAY Report ---
PROCEDURE: Ankle 3 View RT INDICATIONS: RIGHT ANKLE PAIN TECHNIQUE: 3 views of the ankle were acquired. COMPARISON: None. FINDINGS: Bones: No fractures or dislocations. Ankle mortise is normally aligned. No suspicious bony lesions . Soft tissues: No tibiotalar joint effusion. Achilles tendon appears normal. IMPRESSION: No acute bony abnormality. Reviewed by: Mahesh Capps MD on 09/30/2022 2:48 PM AKDT Approved by: Mahesh Capps MD on 09/30/2022 2:48 PM AKDT Station ID: [id number]
== END 2022-09-30 23:59 | disposition home or self-care (01) ==
LOC: DI.WOS 10:00
PROVIDERS: ATTEND Orthopaedic Surgery Sports Medicine
DX: S93.601A Unspecified sprain of right foot, initial encounter (principal)

== ENCOUNTER 2022-11-08 15:02 | Emergency (ER) | payer MEDICARE ==
[2022-11-08] MEDS ORDERED: SUCRALFATE 1 GM/10 ML UDC PO STA (15:34)
[2022-11-08] MEDS ORDERED: PROMETHAZINE INJ 12.5 MG in SODIUM CHLORIDE 0.9% 50 ML IV STA (15:35)
--- NOTE | 2022-11-08 15:35 | ED Physician Documentation ---
PD HPI ABD PAIN - Stated complaint Stated Complaint: ABD PX - Chief complaint Chief Complaint: Abd Pain - History obtained from History obtained from: Patient - Additional information Additional information: This is a 57-year-old female with history of IBS and nonalcoholic fatty liver disease, and a prior cholecystectomy about a year ago, who presents with dyspepsia. The patient has longstanding history of abdominal pain, nausea vomiting, reflux type symptoms and has been seen by me in the past here for same. She is on antiemetics, continue metoclopramide she is on pantoprazole and famotidine without improvement in her symptoms. She does have a GI specialist appointment in December but is here today given her persistent symptoms. She states that she has irregular reflux symptoms, particular in the evenings and over the last several evenings she has had actual projectile type vomiting. She does tolerate p.o. in the middle part of the day but it causes her a lot of nausea and she has to force herself to eat. Patient is on chronic narcotic therapy with hydrocodone, chronic clonazepam daily, and denies any history of regular marijuana use or diagnosis of cyclic vomiting. She has used marijuana in the past though very infrequently and has not used in the last several weeks PD PAST MEDICAL HISTORY - Past Medical History Past Medical History: Yes Cardiovascular: Hypertension Respiratory: None Neuro: TIA Endocrine/Autoimmune: None GI: GERD COLLECTIONS DIRECTOR: None : None HEENT: None Psych: Post traumatic stress disorder Musculoskeletal: None Derm: None - Past Surgical History Past Surgical History: Yes General: Cholecystectomy, Appendectomy Ortho: Spine surgery /COLLECTIONS DIRECTOR: section, Other - Present Medications Home Medications: Ambulatory Orders Medication Instructions Recorded Confirmed Levothyroxine [Synthroid] 125 mcg PO QDAC 02/14/20 09/20/22 Pramipexole [Mirapex] 0.25 mg PO DAILY 02/14/20 06/24/22 tiZANidine [Zanaflex] 4 mg PO BID 02/14/20 09/20/22 HYDROcod/ACETAM 5/325 [[place] 5/325] 1 - 2 tablet PO Q6H PRN #14 tablet 12/01/20 06/24/22 EPINEPHrine [Epinephrine] 0.3 mg IJ ONCE PRN #2 11/13/21 06/24/22 Carvedilol [Coreg] See Rx Instructions .ROUTE .COMPLEX 06/24/22 09/20/22 metFORMIN [Glucophage] See Rx Instructions .ROUTE .COMPLEX 06/24/22 09/20/22 Famotidine [Pepcid] 20 mg PO BID #60 tablet 09/20/22 Ondansetron Odt [Zofran Odt] 4 mg TL Q6H PRN 09/20/22 09/20/22 Pantoprazole Sodium 40 mg PO 09/20/22 Promethazine [Phenergan] 25 mg PO Q6H PRN #10 tablet 11/08/22 Sucralfate [Carafate] 1 gm PO ACHS #420 ml 11/08/22 - Allergies Allergies/Adverse Reactions: Allergies Allergy/AdvReac Type Severity Reaction Status Date / Time amoxicillin Allergy Rash Verified 11/08/22 15:05 benzonatate Allergy Unknown Verified 11/08/22 15:05 [From Tessalon Perles] cephalexin Allergy Rash Verified 11/08/22 15:05 diphenhydramine Allergy Rash Verified 11/08/22 15:05 [From Benadryl] hydroxychloroquine Allergy Anaphylaxis Verified 11/08/22 15:05 metaxalone [From Skelaxin] Allergy Anaphylaxis Verified 11/08/22 15:05 NSAIDS (Non-Steroidal Allergy Rash Verified 11/08/22 15:05 Anti-Inflamma SSRI's Allergy Unknown Uncoded 11/08/22 15:05 - Social History Does the pt smoke?: No Smoking Status: Never smoker Does the pt drink ETOH?: No Does the pt have substance abuse?: No - Immunizations Immunizations are current?: Yes Immunizations: Other immun not current - POLST Patient has POLST: No PD ED PE NORMAL - Vitals Vital signs reviewed: Yes - General General: Alert and oriented X 3, No acute distress, Well developed/nourished - HEENT HEENT: Atraumatic, Moist mucous membranes, Pharynx benign - Neck Neck: Supple, no meningeal sign, No JVD - Cardiac Cardiac: RRR, No murmur, No gallop, No rub - Respiratory Respiratory: No respiratory distress, Clear bilaterally - Abdomen Abdomen: Normal bowel sounds, Soft, Non tender, Non distended, No organomegaly - Derm Derm: Normal color, Warm and dry, No rash - Extremities Extremities: No deformity, No tenderness to palpate, Normal ROM s pain, No edema - Neuro Neuro: Alert and oriented X 3 Eye Opening: Spontaneous Motor: Obeys Commands Verbal: Oriented GCS Score: 15 - Psych Psych: Normal mood, Normal affect Results - Vitals Vitals: Vital Signs - 24 hr 11/08/22 11/08/22 15:05 17:16 Temperature 36.6 C Heart Rate 99 97 Respiratory 18 20 Rate Blood Pressure 160/90 H 158/82 H O2 Saturation 100 99 Oxygen O2 Source Room air - Labs Labs: Laboratory Tests 11/08/22 11/08/22 15:47 15:47 WBC 9.7 RBC 4.95 Hgb 13.8 Hct 43.6 MCV 88.1 MCH 27.9 MCHC 31.7 L RDW 12.8 Plt Count 248 MPV 11.4 H Neut # (Auto) 6.4 Lymph # (Auto) 2.6 [place] # (Auto) 0.5 Eos # (Auto) 0.1 Baso # (Auto) 0.1 Absolute Nucleated RBC 0.00 Nucleated RBC % 0.0 Sodium 138 Potassium 3.8 Chloride 103 Carbon Dioxide 29 Anion Gap 6.0 BUN 12 Creatinine 0.7 Estimated GFR (MDRD) 87 L Glucose 142 H Calcium 9.8 Total Bilirubin 0.3 AST 31 ALT 52 Alkaline Phosphatase 124 H Total Protein 8.2 Albumin 4.4 Globulin 3.8 Albumin/Globulin Ratio 1.2 Lipase 37 PD Medical Decision Making - ED course Complexity details: reviewed old records, reviewed results, re-evaluated patient, considered differential, d/w patient ED course: 57-year-old female presents with acute on chronic abdominal pain, nausea vomiting and GERD symptoms. This has been going on for months, and his she has been seen here in the past for same. Her labs today are reassuring, vital signs are stable, belly is soft and there is no focal tenderness. I do not think she requires additional imaging today but have strongly recommended that she see GI in the near future and consider repeat endoscopy for her chronic symptoms. We can start her on Carafate in addition to her other medication, she likely needs specialized diet, she was advised to not use any marijuana products as this could be contributing, and she tells me she recently started Ozempic which may or may not be helpful for her given her chronic abdominal issues this could worsen with the Ozempic but could improve her diabetes which may help with her abdominal pain. I discussed this with patient advised to continue the discussion with her PCP whether to continue this medication or not. Patient is stable for discharge home at this time, return precautions reviewed. Departure - Departure Disposition: 01 Home, Self Care Clinical Impression: Functional dyspepsia Condition: Good Instructions: GERD Lifestyle Changes, ED GERD Prescriptions: Sucralfate [Carafate] 1 gm PO ACHS #420 ml Promethazine [Phenergan] 25 mg PO Q6H PRN #10 tablet PRN Reason: Nausea / Vomiting Comments: Please continue follow-up with your primary care provider and GI specialist for this issue. I have changed your medication as we discussed. Continue to adhere to a low-fat and light diet and I recommend he keep it diet diary to see if there are any particular triggers for your symptoms. Forms: PCP List Discharge Date/Time: 11/08/22 17:17
[2022-11-08 15:53] LABS: BASOPHILS # (AUTO) 0.1 10^3/uL (0.0-0.1); BASOPHILS % (AUTO) 0.5 %; EOSINOPHILS # (AUTO) 0.1 10^3/uL (0.0-0.7); EOSINOPHILS % (AUTO) 0.8 %; HCT - HEMATOCRIT 43.6 % (37.0-47.0); HGB - HEMOGLOBIN 13.8 g/dL (12.0-16.0); LYMPHOCYTES # (AUTO) 2.6 10^3/uL (1.5-3.5); LYMPHOCYTES % (AUTO) 26.6 %; MEAN CORPUSCULAR HEMOGLOBIN 27.9 pg (27.0-31.0); MEAN CORPUSCULAR HGB CONC 31.7 g/dL (32.0-36.0); MEAN CORPUSCULAR VOLUME 88.1 fL (81.0-99.0); MEAN PLATELET VOLUME 11.4 fL (7.9-10.8); MONOCYTES # (AUTO) 0.5 10^3/uL (0.0-1.0); MONOCYTES % (AUTO) 5.6 %; NEUTROPHILS # (AUTO) 6.4 10^3/uL (1.5-6.6); NEUTROPHILS % (AUTO) 66.2 %; PLT - PLATELET COUNT 248 10^3/uL (130-450); RED BLOOD COUNT 4.95 10^6/uL (4.20-5.40); RED CELL DISTRIBUTION WIDTH 12.8 % (12.0-15.0); WHITE BLOOD COUNT 9.7 x10^3/uL (4.8-10.8)
[2022-11-08 16:07] LABS: ALBUMIN 4.4 g/dL (3.2-5.5); ALBUMIN/GLOBULIN RATIO 1.2 (1.0-2.2); BILIRUBIN,TOTAL 0.3 mg/dL (0.2-1.0); CALCIUM 9.8 mg/dL (8.5-10.3); CREATININE 0.7 mg/dL (0.6-1.3); POTASSIUM 3.8 mmol/L (3.5-4.5); TOTAL PROTEIN 8.2 g/dL (6.4-8.9)
[2022-11-08 17:19] VITALS: BP 158/82; O2SAT 99
== END 2022-11-08 17:17 | disposition home or self-care (01) ==
LOC: ED 15:02
DX: K30 Functional dyspepsia (principal); I10 Essential (primary) hypertension; Z79.899 Other long term (current) drug therapy; Z79.84 Long term (current) use of oral hypoglycemic drugs
CPT/HCPCS: 36415; 80053; 83690; 85025; 96365; 99283; 99284; A9270; J7040

== ENCOUNTER 2022-11-19 09:42 | Emergency (ER) | payer MEDICARE ==
[2022-11-19 09:58] VITALS: O2SAT 100
[2022-11-19 10:32] LABS: BASOPHILS % (AUTO) 0.4 %; EOSINOPHILS # (AUTO) 0.1 10^3/uL (0.0-0.7); EOSINOPHILS % (AUTO) 1.2 %; HCT - HEMATOCRIT 43.1 % (37.0-47.0); LYMPHOCYTES # (AUTO) 2.2 10^3/uL (1.5-3.5); LYMPHOCYTES % (AUTO) 28.8 %; MEAN CORPUSCULAR HEMOGLOBIN 28.6 pg (27.0-31.0); MEAN CORPUSCULAR HGB CONC 32.5 g/dL (32.0-36.0); MEAN CORPUSCULAR VOLUME 88.1 fL (81.0-99.0); MEAN PLATELET VOLUME 11.7 fL (7.9-10.8); MONOCYTES # (AUTO) 0.6 10^3/uL (0.0-1.0); MONOCYTES % (AUTO) 7.2 %; NEUTROPHILS # (AUTO) 4.8 10^3/uL (1.5-6.6); NEUTROPHILS % (AUTO) 62.1 %; PLT - PLATELET COUNT 231 10^3/uL (130-450); RED BLOOD COUNT 4.89 10^6/uL (4.20-5.40); RED CELL DISTRIBUTION WIDTH 12.7 % (12.0-15.0); WHITE BLOOD COUNT 7.7 x10^3/uL (4.8-10.8)
--- NOTE | 2022-11-19 10:43 | ED Physician Documentation ---
PD HPI NVD - Stated complaint Stated Complaint: DEHYDRATION - Chief complaint Chief Complaint: Abd Pain - History obtained from History obtained from: Patient - History of Present Illness Timing - onset: How many weeks ago (2) Associated symptoms: Abdominal pain (mid to left abd for 2 weeks or more.). No: Fever Similar symptoms before: Diagnosis (Ulcerative colitis and diverticulitis in the past. Has GI at [facility], with new provider appt in 2 weeks (prior one retired).) Recently seen: Emergency Dept (11 days ago, seen in ER here with similar and given IV fluids/Rx for antiemetics. Pt states not improved.) Review of Systems Constitutional: reports: Myalgias. denies: Fever, Chills Nose: denies: Rhinorrhea / runny nose, Congestion Throat: denies: Sore throat Respiratory: denies: Cough GI: reports: Abdominal Pain, Nausea, Diarrhea. denies: Vomiting, Constipation PD PAST MEDICAL HISTORY - Past Medical History Cardiovascular: Hypertension Respiratory: None Neuro: TIA Endocrine/Autoimmune: None GI: GERD V BELT SKIVER: None : None HEENT: None Psych: Post traumatic stress disorder Musculoskeletal: None Derm: None - Past Surgical History Past Surgical History: Yes General: Cholecystectomy, Appendectomy Ortho: Spine surgery /V BELT SKIVER: section, Other - Present Medications Home Medications: Ambulatory Orders Medication Instructions Recorded Confirmed Levothyroxine [Synthroid] 125 mcg PO QDAC 02/14/20 09/20/22 Pramipexole [Mirapex] 0.25 mg PO DAILY 02/14/20 06/24/22 tiZANidine [Zanaflex] 4 mg PO BID 02/14/20 09/20/22 HYDROcod/ACETAM 5/325 [[place] 5/325] 1 - 2 tablet PO Q6H PRN #14 tablet 12/01/20 06/24/22 EPINEPHrine [Epinephrine] 0.3 mg IJ ONCE PRN #2 11/13/21 06/24/22 carvediloL [Coreg] See Rx Instructions .ROUTE .COMPLEX 06/24/22 09/20/22 metFORMIN [Glucophage] See Rx Instructions .ROUTE .COMPLEX 06/24/22 09/20/22 Famotidine [Pepcid] 20 mg PO BID #60 tablet 09/20/22 Ondansetron Odt [Zofran Odt] 4 mg TL Q6H PRN 09/20/22 09/20/22 Pantoprazole Sodium 40 mg PO 09/20/22 Promethazine [Phenergan] 25 mg PO Q6H PRN #10 tablet 11/08/22 Sucralfate [Carafate] 1 gm PO ACHS #420 ml 11/08/22 Loperamide HCl [Imodium A-D] 2 mg PO QID PRN #16 tablet 11/19/22 Metoclopramide [Reglan] 10 mg PO Q6H PRN #15 tablet 11/19/22 Moxifloxacin [Avelox] 400 mg PO DAILY #5 tablet 11/19/22 Ondansetron Odt [Zofran] 4 mg TL Q6H PRN #10 tablet 11/19/22 dexAMETHasone [Decadron] 4 mg PO DAILY #5 tablet 11/19/22 - Allergies Allergies/Adverse Reactions: Allergies Allergy/AdvReac Type Severity Reaction Status Date / Time amoxicillin Allergy Rash Verified 11/08/22 15:05 benzonatate Allergy Unknown Verified 11/08/22 15:05 [From Tessalon Perles] cephalexin Allergy Rash Verified 11/08/22 15:05 diphenhydramine Allergy Rash Verified 11/08/22 15:05 [From Benadryl] hydroxychloroquine Allergy Anaphylaxis Verified 11/08/22 15:05 metaxalone [From Skelaxin] Allergy Anaphylaxis Verified 11/08/22 15:05 NSAIDS (Non-Steroidal Allergy Rash Verified 11/08/22 15:05 Anti-Inflamma SSRI's Allergy Unknown Uncoded 11/08/22 15:05 - Social History Does the pt smoke?: No Smoking Status: Never smoker Does the pt drink ETOH?: No Does the pt have substance abuse?: No - Immunizations Immunizations are current?: Yes Immunizations: Other immun not current - POLST Patient has POLST: No PD ED PE NORMAL - Vitals Vital signs reviewed: Yes - General General: Alert and oriented X 3, Well developed/nourished - Neck Neck: Supple, no meningeal sign, No adenopathy - Cardiac Cardiac: RRR, No murmur - Respiratory Respiratory: No respiratory distress, Clear bilaterally - Abdomen Abdomen: Non distended, No organomegaly, Other (Moderately tender in the left abdomen with localized guarding and some percussion tenderness. No referred tenderness nor rebound noted per se.). No: Normal bowel sounds (decreased) - Female Female : Deferred - Rectal Rectal: Deferred - Derm Derm: Normal color, Warm and dry, No rash - Neuro Neuro: Alert and oriented X 3, No motor deficit, Normal speech Results - Vitals Vitals: Vital Signs - 24 hr 11/19/22 11/19/22 09:53 12:58 Temperature 36.2 C L 36.8 C Heart Rate 98 88 Respiratory 20 16 Rate Blood Pressure 160/108 H 130/80 O2 Saturation 100 100 Oxygen O2 Source Room air - Labs Labs: Laboratory Tests 11/19/22 11/19/22 11/19/22 10:26 10:26 10:26 WBC 7.7 RBC 4.89 Hgb 14.0 Hct 43.1 MCV 88.1 MCH 28.6 MCHC 32.5 RDW 12.7 Plt Count 231 MPV 11.7 H Neut # (Auto) 4.8 Lymph # (Auto) 2.2 [place] # (Auto) 0.6 Eos # (Auto) 0.1 Baso # (Auto) 0.0 Absolute Nucleated RBC 0.00 Nucleated RBC % 0.0 ESR 25 Sodium 139 Potassium 4.3 Chloride 104 Carbon Dioxide 30 Anion Gap 5.0 L BUN 14 Creatinine 0.8 Estimated GFR (MDRD) 74 L Glucose 98 Calcium 10.1 Magnesium Total Bilirubin 0.5 AST 39 ALT 66 H Alkaline Phosphatase 114 Total Protein 8.5 Albumin 4.6 Globulin 3.9 Albumin/Globulin Ratio 1.2 Lipase 24 Urine Color Urine Clarity Urine pH Ur Specific [place] Urine Protein Urine Glucose (UA) Urine Ketones Urine Occult Blood Urine Nitrite Urine Bilirubin Urine Urobilinogen Ur Leukocyte Esterase Ur Microscopic Review Urine Culture Comments 11/19/22 11/19/22 10:26 11:40 WBC RBC Hgb Hct MCV MCH MCHC RDW Plt Count MPV Neut # (Auto) Lymph # (Auto) [place] # (Auto) Eos # (Auto) Baso # (Auto) Absolute Nucleated RBC Nucleated RBC % ESR Sodium Potassium Chloride Carbon Dioxide Anion Gap BUN Creatinine Estimated GFR (MDRD) Glucose Calcium Magnesium 2.0 Total Bilirubin AST ALT Alkaline Phosphatase Total Protein Albumin Globulin Albumin/Globulin Ratio Lipase Urine Color YELLOW Urine Clarity CLEAR Urine pH 5.5 Ur Specific [place] <=1.005 Urine Protein NEGATIVE Urine Glucose (UA) NEGATIVE Urine Ketones NEGATIVE Urine Occult Blood NEGATIVE Urine Nitrite NEGATIVE Urine Bilirubin NEGATIVE Urine Urobilinogen 0.2 (NORMAL) Ur Leukocyte Esterase NEGATIVE Ur Microscopic Review NOT INDICATED Urine Culture Comments NOT INDICATED - Rads (name of study) abd/pelvic MRI Relevant Findings:: Prelim report reviewed (limited imaging due to pt had anxiety in the MRI and stopped early. No acute process noted. ) PD Medical Decision Making - ED course Complexity details: considered differential (Patient with a history of u lcerative colitis versus irritable bowel. She states she has had colonoscopies in the past. Also history of diverticulitis. Current symptoms could be any of those.), d/w patient Reviewed Lab Results: Given the persistence of her symptoms for more than 2 weeks, I thought we would look at infectious causes for her diarrhea to include stool sample and C. difficile testing. Other considerations would be ulcerative colitis or diverticulitis. She does have some localized guarding and percussion tenderness. I would see value in imaging. Our CT scanner is down for repairs today so I opted for MRI. She has had MRIs in the past without problems. Subsequently in the MRI she did feel anxious and was unable to continue. She was offered lorazepam IV but wanted to just discontinue the test. Limited imaging was obtained which did not show any obvious acute abnormality. However given the limited nature of this, we at least saw there was not any obvious major abscess or perforation. However cannot distinguish the acute cause per se. I think we could treated as a persistent diverticulitis versus ulcerative colitis. She is allergic to amoxicillin so I would not treat with that. Alternative would be a quinolone with moxifloxacin as a single agent. I would also add a different antiemetic and antidiarrheal. She was feeling more energetic after IV fluids and less nauseous after Inapsine antiemetic. She is also given some hydromorphone for cramps. She states she is feeling improved enough to head home. She took some fluids here without problems. Departure - Departure Disposition: 01 Home, Self Care Clinical Impression: Left lateral abdominal pain, Colitis Condition: Stable Record reviewed to determine appropriate education?: Yes Prescriptions: Moxifloxacin [Avelox] 400 mg PO DAILY #5 tablet dexAMETHasone [Decadron] 4 mg PO DAILY #5 tablet Loperamide HCl [Imodium A-D] 2 mg PO QID PRN #16 tablet PRN Reason: Diarrhea Metoclopramide [Reglan] 10 mg PO Q6H PRN #15 tablet PRN Reason: Nausea / Vomiting Ondansetron Odt [Zofran] 4 mg TL Q6H PRN #10 tablet PRN Reason: Nausea / Vomiting Comments: The MRI imaging was limited but did not show any obvious significant process such as obstruction, perforation, abscess. At this point we can presume either a flareup of the inflammatory process ulcerative colitis or potentially infectious such as diverticulitis or infectious colitis. We can treat with an antibiotic presuming a localized infectious process (diverticula) and also an anti-inflammatory for potential ulcerative colitis. Moxifloxacin and dexamethasone as directed for the next 5 days. For symptoms, small frequent fluids and use ondansetron/Zofran or metoclopramide as needed for nausea. You can use loperamide for diarrhea. If you are improving over the next couple of days then finish out the medications. If your diarrhea persists, I would suggest bringing a sample of it to your primary care office or walk-in/back here in the ER Small frequent fluids and bland food. I sent your prescriptions to [facility] pharmacy. Add Tylenol every 4-6 hours as needed for pain or cramps. Forms: PCP List Discharge Date/Time: 11/19/22 12:58
[2022-11-19 10:45] LABS: ALBUMIN 4.6 g/dL (3.2-5.5); ALBUMIN/GLOBULIN RATIO 1.2 (1.0-2.2); BILIRUBIN,TOTAL 0.5 mg/dL (0.2-1.0); CALCIUM 10.1 mg/dL (8.5-10.3); CREATININE 0.8 mg/dL (0.6-1.3); POTASSIUM 4.3 mmol/L (3.5-4.5); TOTAL PROTEIN 8.5 g/dL (6.4-8.9)
[2022-11-19] MEDS ORDERED: SODIUM CHLORIDE 0.9% 1,000 ML IV STA ×2 (11:15→11:23)
[2022-11-19] MEDS ORDERED: FAMOTIDINE 20 MG/2 ML VIAL IVP STA (11:16)
[2022-11-19] MEDS ORDERED: DROPERIDOL 5 MG/2 ML VIAL IVP STA (11:16)
[2022-11-19] MEDS ORDERED: DEXAMETHASONE 10 MG/ML VIAL IVP STA (11:17)
[2022-11-19] MEDS ORDERED: HYDROmorphone 0.5 MG/0.5 ML SYRINGE IVP STA (11:17)
[2022-11-19 11:43] LABS: BILIRUBIN,URINE NEGATIVE (NEGATIVE); GLUCOSE, URINE (UA) NEGATIVE (NEGATIVE); KETONES,URINE (UA) NEGATIVE (NEGATIVE); LEUKOCYTE ESTERASE, URINE NEGATIVE (NEGATIVE); NITRITE,URINE NEGATIVE (NEGATIVE); OCCULT BLOOD,URINE NEGATIVE (NEGATIVE); PH,URINE 5.5 PH (5.0-7.5); PROTEIN,URINE NEGATIVE (NEGATIVE); UROBILINOGEN,URINE 0.2 (NORMAL) E.U./dL (NORMAL)
[2022-11-19 11:44] LABS: CLARITY,URINE CLEAR (CLEAR)
[2022-11-19] MEDS ORDERED: LORazepam 2 MG/ML VIAL IVP STA (12:07)
--- NOTE | 2022-11-19 12:36 | MRI Report ---
PROCEDURE: ABDOMEN WO INDICATIONS: left abd pain for 2 weeks TECHNIQUE: Coronal ultra fast SE, axial 2-D spoiled GE in- and [id number] with subtractions from the hepatic d ome to the iliac crests. Note: The examination was terminated early due to patient anxiety. COMPARISON: None. FINDINGS: Image quality: Suboptimal. Coronal T2 view of the abdomen demonstrates prior cholecystectomy. No intrahepatic or extra hepatic b iliary dilation. No pancreatic ductal dilation. Liver and spleen appears normal. No suspicious renal mass. Bowel is unremarkable. Aorta is normal caliber. No central adenopathy. Lung bases are clear and heart is within normal limits. IMPRESSION: Examination terminated early due to patient anxiety. No abnormality on this single view MRI. Reviewed by: Antonio Child on 11/19/2022 12:34 PM PDT Approved by: Antonio Child on 11/19/2022 12:34 PM PDT Station ID: [id number]
[2022-11-19 13:04] VITALS: BP 130/80
== END 2022-11-19 12:58 | disposition home or self-care (01) ==
LOC: ED 09:42
DX: K52.9 Noninfective gastroenteritis and colitis, unspecified (principal); F41.9 Anxiety disorder, unspecified
CPT/HCPCS: 36415; 74181; 80053; 81003; 83690; 83735; 85025; 85651; 96374; 99284; 99285; J1170; 81001; 83630; 83993; 87086

== ENCOUNTER 2022-11-23 08:06 | Emergency (ER) | payer MEDICARE ==
[2022-11-23 08:33] VITALS: O2SAT 100
[2022-11-23 09:01] LABS: BASOPHILS % (AUTO) 0.4 %; EOSINOPHILS # (AUTO) 0.1 10^3/uL (0.0-0.7); EOSINOPHILS % (AUTO) 1.3 %; HCT - HEMATOCRIT 44.6 % (37.0-47.0); HGB - HEMOGLOBIN 14.2 g/dL (12.0-16.0); LYMPHOCYTES # (AUTO) 2.4 10^3/uL (1.5-3.5); LYMPHOCYTES % (AUTO) 28.3 %; MEAN CORPUSCULAR HEMOGLOBIN 28.3 pg (27.0-31.0); MEAN CORPUSCULAR HGB CONC 31.8 g/dL (32.0-36.0); MEAN PLATELET VOLUME 11.6 fL (7.9-10.8); MONOCYTES # (AUTO) 0.7 10^3/uL (0.0-1.0); MONOCYTES % (AUTO) 7.8 %; NEUTROPHILS # (AUTO) 5.3 10^3/uL (1.5-6.6); PLT - PLATELET COUNT 234 10^3/uL (130-450); RED BLOOD COUNT 5.01 10^6/uL (4.20-5.40); RED CELL DISTRIBUTION WIDTH 12.8 % (12.0-15.0); WHITE BLOOD COUNT 8.5 x10^3/uL (4.8-10.8)
[2022-11-23 09:26] LABS: ALBUMIN 4.5 g/dL (3.2-5.5); ALBUMIN/GLOBULIN RATIO 1.3 (1.0-2.2); BILIRUBIN,TOTAL 0.4 mg/dL (0.2-1.0); CALCIUM 10.2 mg/dL (8.5-10.3); CREATININE 0.8 mg/dL (0.6-1.3); POTASSIUM 4.2 mmol/L (3.5-4.5); TOTAL PROTEIN 8.1 g/dL (6.4-8.9)
[2022-11-23] MEDS ORDERED: SODIUM CHLORIDE 0.9% 1,000 ML IV STA (10:36)
[2022-11-23] MEDS ORDERED: ONDANSETRON 4 MG/2 ML VIAL IVP STA ×2 (10:36→12:52)
[2022-11-23] MEDS ORDERED: HYDROmorphone 0.5 MG/0.5 ML SYRINGE IVP STA ×2 (10:37→12:35)
[2022-11-23] MEDS ORDERED: FAMOTIDINE 20 MG/2 ML VIAL IVP STA (10:37)
--- NOTE | 2022-11-23 12:20 | CT Report ---
PROCEDURE: ABDOMEN/PELVIS W INDICATIONS: L sided abd tenderness CONTRAST: 100ml omni 300 TECHNIQUE: After the administration of IV contrast, 5 mm thick sections acquired from the diaphragms to the symp hysis. 5 mm thick coronal and sagittal reformats were acquired. For radiation dose reduction, the f ollowing was used: automated exposure control, adjustment of mA and/or kV according to patient size. COMPARISON: MR abdomen 11/19/2022, CT abdomen pelvis 09/20/2022 FINDINGS: Image quality: Excellent. Lung bases and heart: Unremarkable. Liver: Liver is enlarged measuring 20.5 cm with diffuse steatosis. Gallbladder and biliary tree: Removed. Spleen: No splenomegaly. Pancreas: No pancreatic ductal dilation. Adrenals: No adrenal nodule. Kidneys and ureters: No hydronephrosis. No renal cystic lesion which requires follow up. No solid mas s. Bowel and peritoneum: No bowel distension. No pathologic free fluid. There is a diffuse appearance of bowel are thickening with mild scattered areas of inflammatory change. It is most severe in the stephens sverse and left colon. Lymph nodes: No central or retroperitoneal adenopathy. Vessels: No infrarenal aortic aneurysm. PELVIS Reproductive organs: Unremarkable. Bladder: No abnormal wall thickening, accounting for underdistension. Pelvic lymph nodes: No pelvic adenopathy by size criteria. Bones: No aggressive osseous abnormality. Other: No significant ventral or inguinal hernia. IMPRESSION: Diffuse appearance of colonic thickening most severe in the left and transverse colon. Appearance is suggestive of colitis which can be secondary to infection or inflammation. Inflammatory bowel disease should also be considered. Hepatomegaly with steatosis. Reviewed by: Vivienne Armstrong MD on 11/23/2022 12:19 PM PDT Approved by: Vivienne Armstrong MD on 11/23/2022 12:19 PM PDT Station ID: [id number]
--- NOTE | 2022-11-23 12:38 | ED Physician Documentation ---
PD HPI ABD PAIN - Stated complaint Stated Complaint: GI,STOMACH ACHE - Chief complaint Chief Complaint: Abd Pain - History obtained from History obtained from: Patient - Additional information Additional information: Patient is a 57-year-old female with a history of ulcerative colitis presenting for evaluation of left-sided abdominal pain that is been present for the past 1 week. She reports having ongoing nausea, vomiting and diarrhea. She reports that time she has noted some blood in her stools, most recently last night. She reports she just had a bowel movement prior to arrival and that it was pale in color. She was seen in our emergency department last week. An MRI of the abdomen was ordered as CT was not available but was not a completed study as patient was unable to tolerate it. She was given a prescription for steroids and an antibiotic. She thought the steroid was causing her blood pressure to be elevated so only took 2 doses of it. She saw her GI doctor yesterday at [facility] and that she is supposed to have an EGD done next week. She did not receive any further instructions regarding her symptoms. Review of Systems Constitutional: denies: Fever Cardiac: denies: Chest pain / pressure Respiratory: denies: Dyspnea GI: reports: Abdominal Pain, Nausea, Vomiting, Diarrhea : denies: Dysuria PD PAST MEDICAL HISTORY - Past Medical History Cardiovascular: Hypertension Respiratory: None Neuro: TIA Endocrine/Autoimmune: None GI: GERD HOGSHEAD WEIGHER: None : None HEENT: None Psych: Post traumatic stress disorder Musculoskeletal: None Derm: None - Past Surgical History Past Surgical History: Yes General: Cholecystectomy, Appendectomy Ortho: Spine surgery /HOGSHEAD WEIGHER: section, Other - Present Medications Home Medications: Ambulatory Orders Medication Instructions Recorded Confirmed Levothyroxine [Synthroid] 125 mcg PO QDAC 02/14/20 09/20/22 Pramipexole [Mirapex] 0.25 mg PO DAILY 02/14/20 06/24/22 tiZANidine [Zanaflex] 4 mg PO BID 02/14/20 09/20/22 HYDROcod/ACETAM 5/325 [[place] 5/325] 1 - 2 tablet PO Q6H PRN #14 tablet 12/01/20 06/24/22 EPINEPHrine [Epinephrine] 0.3 mg IJ ONCE PRN #2 11/13/21 06/24/22 carvediloL [Coreg] See Rx Instructions .ROUTE .COMPLEX 06/24/22 09/20/22 metFORMIN [Glucophage] See Rx Instructions .ROUTE .COMPLEX 06/24/22 09/20/22 Famotidine [Pepcid] 20 mg PO BID #60 tablet 09/20/22 Ondansetron Odt [Zofran Odt] 4 mg TL Q6H PRN 09/20/22 09/20/22 Pantoprazole Sodium 40 mg PO 09/20/22 Promethazine [Phenergan] 25 mg PO Q6H PRN #10 tablet 11/08/22 Sucralfate [Carafate] 1 gm PO ACHS #420 ml 11/08/22 Loperamide HCl [Imodium A-D] 2 mg PO QID PRN #16 tablet 11/19/22 Metoclopramide [Reglan] 10 mg PO Q6H PRN #15 tablet 11/19/22 Moxifloxacin [Avelox] 400 mg PO DAILY #5 tablet 11/19/22 Ondansetron Odt [Zofran] 4 mg TL Q6H PRN #10 tablet 11/19/22 dexAMETHasone [Decadron] 4 mg PO DAILY #5 tablet 11/19/22 HYDROcod/ACETAM 5/325 [[place] 5/325] 1 tab PO Q6H PRN #15 tablet 11/23/22 - Allergies Allergies/Adverse Reactions: Allergies Allergy/AdvReac Type Severity Reaction Status Date / Time amoxicillin Allergy Rash Verified 11/23/22 08:27 benzonatate Allergy Unknown Verified 11/23/22 08:27 [From Tessalon Perles] cephalexin Allergy Rash Verified 11/23/22 08:27 diphenhydramine Allergy Rash Verified 11/23/22 08:27 [From Benadryl] hydroxychloroquine Allergy Anaphylaxis Verified 11/23/22 08:27 metaxalone [From Skelaxin] Allergy Anaphylaxis Verified 11/23/22 08:27 NSAIDS (Non-Steroidal Allergy Rash Verified 11/23/22 08:27 Anti-Inflamma SSRI's Allergy Unknown Uncoded 11/23/22 08:27 - Social History Does the pt smoke?: No Smoking Status: Never smoker Does the pt drink ETOH?: No Does the pt have substance abuse?: No - Immunizations Immunizations are current?: Yes Immunizations: Other immun not current - POLST Patient has POLST: No PD ED PE NORMAL - General General: Alert and oriented X 3, No acute distress, Well developed/nourished - HEENT HEENT: Atraumatic - Neck Neck: Supple, no meningeal sign - Cardiac Cardiac: RRR, No murmur - Respiratory Respiratory: No respiratory distress, Clear bilaterally - Abdomen Abdomen: Normal bowel sounds, Soft, Non distended, Other (Left-sided abdominal tenderness to palpation) - Derm Derm: Warm and dry - Neuro Neuro: Normal speech Results - Vitals Vitals: Vital Signs - 24 hr 11/23/22 11/23/22 08:24 12:58 Temperature 36.8 C Heart Rate 99 80 Respiratory 20 15 Rate Blood Pressure 194/104 H 167/81 H O2 Saturation 100 100 Oxygen O2 Source Room air - Labs Labs: Laboratory Tests 11/23/22 11/23/22 08:54 08:54 WBC 8.5 RBC 5.01 Hgb 14.2 Hct 44.6 MCV 89.0 MCH 28.3 MCHC 31.8 L RDW 12.8 Plt Count 234 MPV 11.6 H Neut # (Auto) 5.3 Lymph # (Auto) 2.4 [place] # (Auto) 0.7 Eos # (Auto) 0.1 Baso # (Auto) 0.0 Absolute Nucleated RBC 0.00 Nucleated RBC % 0.0 Sodium 137 Potassium 4.2 Chloride 103 Carbon Dioxide 29 Anion Gap 5.0 L BUN 18 Creatinine 0.8 Estimated GFR (MDRD) 74 L Glucose 109 H Calcium 10.2 Total Bilirubin 0.4 AST 30 ALT 58 Alkaline Phosphatase 109 Total Protein 8.1 Albumin 4.5 Globulin 3.6 Albumin/Globulin Ratio 1.3 Lipase 34 PD Medical Decision Making - ED course Complexity details: reviewed results, re-evaluated patient, d/w patient ED course: Patient is a 57-year-old female with a history of ulcerative colitis presenting for evaluation of 1 week of left-sided abdominal symptoms with vomiting and diarrhea. She is unable to give a stool sample here. CBC and chemistries were obtained and reviewed and without significant findings. She has reported some blood in her stools but does not appear to be having ongoing blood loss.CT scan of the abdomen and pelvis was obtained showing colitis. She had been prescribed antibiotics and a steroid but has not been taking these as directed. She was given IV Dilaudid and Zofran for her symptoms with improvement. She was hydrated with IV fluids. She is feeling better here. She was counseled to complete the course of steroids as well as antibiotics and have close follow-up with her senior database administrator. Patient counseled on concerning symptoms to return for. Departure - Departure Disposition: 01 Home, Self Care Clinical Impression: Left sided abdominal pain, Colitis Instructions: ED IBS Follow-Up: [facility] [Provider Group] - Within 3 Days (Please call your GI doctor for close follow-up and to discuss your treatment plan.) Prescriptions: HYDROcod/ACETAM 5/325 [[place] 5/325] 1 tab PO Q6H PRN #15 tablet PRN Reason: Pain Comments: I would recommend resuming the course of steroids that you were previously started on as well as completing the course of the antibiotics. I sent a small prescription of pain medications to [facility] in [place]. Please have close follow-up with your senior database administrator at [facility]. I am prescribing a short course of narcotic pain medication for you. These are potentially dangerous and addictive medications that should be used carefully. These medications may constipate you. Take an [id number] stool softener (docusate) twice daily with plenty of water while taking these medications. If you go 24 hours without a bowel movement, take [id number] miralax, per package instructions. Do not drink or drive while taking these medications. If you received narcotic or sedating medications while in the emergency department, do not drive for 24 hours. Store this medication in a safe, secure place and out of reach of children. It is a violation of federal law to give or sell this medication to another person or to use in a manner other than prescribed. The ED will not refill narcotic prescriptions, including prescriptions lost or stolen. To dispose of unwanted medications: 1. [facility] [address] in [place] has a medication drop box. They accept prescription medications (in pill form) Tuesday through Tuesday 9:00 a.m. to 5:00 p.m. 2. [facility] [employer] accepts prescription medications (in pill form only) for disposal year round. Call for more information. 3. Contact the [facility] for the next [facility] sponsored prescription drug collection event. , [phone], or [phone]; Note that many narcotic pain relievers also contain Tylenol/acetaminophen. Please ensure that your total dose of acetaminophen from all sources does not exceed 3 g (3000 mg) per day. IMPRESSION: Diffuse appearance of colonic thickening most severe in the left and transverse colon. Appearance is suggestive of colitis which can be secondary to infection or inflammation. Inflammatory bowel disease should also be considered. Hepatomegaly with steatosis. Forms: PCP List Discharge Date/Time: 11/23/22 13:15
[2022-11-23 13:03] VITALS: BP 167/81
--- NOTE | 2022-11-23 18:31 | ED Physician Documentation ---
ED Addendum - Addendum Addendum: 11/23/22 18:31 Took call from pharmacy. Pharmacist wondered if Dr. Stewart was aware that patient was getting regular hydrocodone prescriptions from a pain management doctor. I reviewed the notes. There is nothing in her note noting this. I told the pharmacist that I was not comfortable changing her prescription as I had not seen her.
[2022-11-24] MEDS ORDERED: iohexoL-300 100 ML VIAL IVP ONE (08:01)
== END 2022-11-23 13:15 | disposition home or self-care (01) ==
LOC: ED 08:06
DX: K51.90 Ulcerative colitis, unspecified, without complications (principal); I10 Essential (primary) hypertension; Z79.899 Other long term (current) drug therapy; Z79.84 Long term (current) use of oral hypoglycemic drugs
CPT/HCPCS: 36415; 74177; 80053; 83690; 85025; 96374; 96375; 96376; 99284; J1170; Q9967

== ENCOUNTER 2022-11-23 19:42 | Outpatient (CLI) | payer MEDICARE | END 2022-11-23 23:59 | disposition critical access hospital (66) | LOC: EMS 19:42 | DX: F41.9 Anxiety disorder, unspecified (principal) | CPT/HCPCS: A0425; A0429 ==

== ENCOUNTER 2022-11-23 19:59 | Emergency (ER) | payer MEDICARE ==
[2022-11-23] MEDS ORDERED: LORazepam 2 MG/ML VIAL IVP STA (20:17)
--- NOTE | 2022-11-23 20:20 | ED Physician Documentation ---
History of Present Illness - Stated complaint Stated Complaint: ALLERGIC REACTION - Chief complaint Chief Complaint: Neuro - Additonal information Additional information: Patient 57-year-old female with past medical significant for ulcerative colitis presenting to the emergency department via EMS for concern for allergic reaction. She reports that at approximately 1900 hrs., shortly after taking her recently prescribed dexamethasone and Compazine she began to feel jittery with shortness of breath and itching on her back as well as chest tightness. She reports "I am allergic to lots of things, you guys have the records". Denies any history of anaphylactic reactions.Currently reports feeling itching on her back as well as jittery and feeling as though there are "bugs on my skin". Was seen here earlier today and prescribed medications to help with an ulcerative colitis flare. 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 : None HEENT: None Psych: Post traumatic stress disorder Musculoskeletal: None Derm: None - Past Surgical History Past Surgical History: Yes General: Cholecystectomy, Appendectomy Ortho: Spine surgery /LOKIE DRIVER: section, Other - Present Medications Home Medications: Ambulatory Orders Medication Instructions Recorded Confirmed Levothyroxine [Synthroid] 125 mcg PO QDAC 02/14/20 09/20/22 Pramipexole [Mirapex] 0.25 mg PO DAILY 02/14/20 06/24/22 tiZANidine [Zanaflex] 4 mg PO BID 02/14/20 09/20/22 HYDROcod/ACETAM 5/325 [[place] 5/325] 1 - 2 tablet PO Q6H PRN #14 tablet 12/01/20 06/24/22 EPINEPHrine [Epinephrine] 0.3 mg IJ ONCE PRN #2 11/13/21 06/24/22 carvediloL [Coreg] See Rx Instructions .ROUTE .COMPLEX 06/24/22 09/20/22 metFORMIN [Glucophage] See Rx Instructions .ROUTE .COMPLEX 06/24/22 09/20/22 Famotidine [Pepcid] 20 mg PO BID #60 tablet 09/20/22 Ondansetron Odt [Zofran Odt] 4 mg TL Q6H PRN 09/20/22 09/20/22 Pantoprazole Sodium 40 mg PO 09/20/22 Promethazine [Phenergan] 25 mg PO Q6H PRN #10 tablet 11/08/22 Sucralfate [Carafate] 1 gm PO ACHS #420 ml 11/08/22 Loperamide HCl [Imodium A-D] 2 mg PO QID PRN #16 tablet 11/19/22 Metoclopramide [Reglan] 10 mg PO Q6H PRN #15 tablet 11/19/22 Moxifloxacin [Avelox] 400 mg PO DAILY #5 tablet 11/19/22 Ondansetron Odt [Zofran] 4 mg TL Q6H PRN #10 tablet 11/19/22 dexAMETHasone [Decadron] 4 mg PO DAILY #5 tablet 11/19/22 HYDROcod/ACETAM 5/325 [[place] 5/325] 1 tab PO Q6H PRN #15 tablet 11/23/22 Ondansetron Odt [Zofran] 4 mg TL Q6H PRN #10 tablet 11/23/22 - Allergies Allergies/Adverse Reactions: Allergies Allergy/AdvReac Type Severity Reaction Status Date / Time amoxicillin Allergy Rash Verified 11/23/22 20:02 benzonatate Allergy Unknown Verified 11/23/22 20:02 [From Tessalon Perles] cephalexin Allergy Rash Verified 11/23/22 20:02 diphenhydramine Allergy Rash Verified 11/23/22 20:02 [From Benadryl] hydroxychloroquine Allergy Anaphylaxis Verified 11/23/22 20:02 metaxalone [From Skelaxin] Allergy Anaphylaxis Verified 11/23/22 20:02 NSAIDS (Non-Steroidal Allergy Rash Verified 11/23/22 20:02 Anti-Inflamma prochlorperazine AdvReac Anxiety Verified 11/23/22 20:26 [From Compazine] SSRI's Allergy Unknown Uncoded 11/23/22 20:02 - Social History Does the pt smoke?: No Smoking Status: Never smoker Does the pt drink ETOH?: No Does the pt have substance abuse?: No - Immunizations Immunizations are current?: Yes Immunizations: Other immun not current - POLST Patient has POLST: No PD ED PE NORMAL - Vitals Vital signs reviewed: Yes - General General: Alert and oriented X 3 - HEENT HEENT: Atraumatic, PERRL, EOMI, Ears normal, Moist mucous membranes - Neck Neck: Supple, no meningeal sign - Cardiac Cardiac: RRR, No murmur - Respiratory Respiratory: No respiratory distress - Abdomen Abdomen: Normal bowel sounds - Female Female : Deferred - Rectal Rectal: Deferred - Back Back: No CVA TTP - Derm Derm: Normal color, Warm and dry, No rash - Extremities Extremities: No deformity, No tenderness to palpate, No edema, No calf tenderness / cord Results - Vitals Vitals: Vital Signs - 24 hr 11/23/22 20:02 Temperature 36.8 C Heart Rate 90 Respiratory 24 Rate Blood Pressure 150/100 H O2 Saturation 100 Oxygen O2 Source Room air - EKG (time done) 2021 EKG releavant findings:: EKG personally interpreted by author of this note. Relevant findings are: Sinus rhythm with rate 95 bpm. Normal axis. Normal [place], QRS, QTc intervals. No ST segment elevations or T wave inversions. PD Medical Decision Making - ED course Complexity details: reviewed old records, reviewed results, re-evaluated patient, considered differential, d/w patient ED course: Patient 57-year-old female presenting to the emergency department with concern for allergic reaction after taking Compazine and dexamethasone earlier this evening. Afebrile, hematin stable on arrival to the emergency department. No indications of anaphylaxis, circulatory collapse or other severe allergic reaction. In the emergency department patient's major concern is her ongoing abdominal pain. Was evaluated here earlier today with CT imaging demonstrating diffuse colitis. This is in the setting of known inflammatory bowel disease. Patient's lab work from earlier today is reviewed and is generally within normal limits or nonactionable. Additionally she was prescribed a schedule II narcotic pain medication however this was declined at the pharmacy due to her having an open prescription for hydrocodone-acetaminophen, 90-day supply filled 10/31/2022. She reports that she has follow-up with her petrophysicist tomorrow. She was observed in the emergency department for 1 hour without any worsening symptoms. Was given a dose of lorazepam with significant symptomatic relief although she did continue to complain of mild abdominal pain. She was subsequently given a dose of hydrocodone. At this time she is medically stable for discharge and follow-up with primary care. I discussed return precautions with her as well as with her who is present at bedside. Otherwise clear return precautions and follow-up instructions were given prior to discharge. Departure - Departure Disposition: 01 Home, Self Care Clinical Impression: Allergic reaction Qualifiers: Encounter type: initial encounter Qualified Code(s): T78.40XA - Allergy, unspecified, initial encounter Prescriptions: Ondansetron Odt [Zofran] 4 mg TL Q6H PRN #10 tablet PRN Reason: Nausea / Vomiting Comments: Thank you for allowing us to care for you today would be general. I have added Compazine, to your allergy list. It is important that you communicate this adverse reaction At all future healthcare encounters.I do recommend keeping an up-to-date list of all of your allergies with you at all times. Please be aware that hospitals do not always share comprehensive list of allergies with 1 another and it is important for you to have this information to be able to provide to your many healthcare providers. I have written a prescription for ondansetron for you to take at home. Please use this as directed. Please continue take your previously prescribed narcotic pain medication as prescribed for pain control. Please continue to follow-up carefully with your GI doctor as well as with your primary care doctor. If it anytime you develop any new or worsening symptoms, particularly if you develop symptoms of worsening allergic reaction such as hives or urticarial rash, wheezing, shortness of breath please return to the emergency department immediately for reevaluation. Forms: PCP List
[2022-11-23] MEDS ORDERED: HYDROcod/ACETAM 10 MG/325 MG TABLET PO ONE (21:10)
[2022-11-23] MEDS ORDERED: HYDROmorphone 0.5 MG/0.5 ML SYRINGE IVP STA (21:41)
[2022-11-23 22:37] VITALS: BP 137/97; O2SAT 98
== END 2022-11-23 22:34 | disposition home or self-care (01) ==
LOC: EDUNIT# → ED 19:59
DX: T78.40XA Allergy, unspecified, initial encounter (principal); X58.XXXA Exposure to other specified factors, initial encounter; I10 Essential (primary) hypertension; Z79.899 Other long term (current) drug therapy; Z79.84 Long term (current) use of oral hypoglycemic drugs; K51.90 Ulcerative colitis, unspecified, without complications
CPT/HCPCS: 36415; 74177; 80053; 83690; 85025; 93005; 96374; 96375; 96376; 99283; 99284; A9270; J1170; J2060; Q9967

== ENCOUNTER 2022-11-26 17:16 | Emergency (ER) | payer MEDICARE ==
[2022-11-26 17:31] VITALS: BP 182/101; O2SAT 100
[2022-11-26] MEDS ORDERED: HYDROmorphone 1 MG/ML CARPUJECT IVP STA (18:23)
[2022-11-26] MEDS ORDERED: SODIUM CHLORIDE 0.9% 1,000 ML IV STA (18:23)
[2022-11-26] MEDS ORDERED: PROMETHAZINE INJ 25 MG in SODIUM CHLORIDE 0.9% 50 ML IV STA (18:23)
--- NOTE | 2022-11-26 18:24 | ED Physician Documentation ---
PD HPI ABD PAIN - Stated complaint Stated Complaint: GI - Chief complaint Chief Complaint: Abd Pain - History obtained from History obtained from: Patient - Additional information Additional information: 57-year-old woman who has been having worsening problems with abdominal pain on the left side since having her gallbladder out last December. The symptoms started a few months later and have been progressive. She is having a lot of diarrhea. She has not had a colonoscopy since the cholecystectomy. Had a CT here the other day suggesting colitis. Has appointment with GI but for upper endoscopy only in the next few weeks. 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 : None HEENT: None Psych: Post traumatic stress disorder Musculoskeletal: None Derm: None - Past Surgical History Past Surgical History: Yes General: Cholecystectomy, Appendectomy Ortho: Spine surgery /YARN SIZER: section, Other - Present Medications Home Medications: Ambulatory Orders Medication Instructions Recorded Confirmed Levothyroxine [Synthroid] 125 mcg PO QDAC 02/14/20 09/20/22 Pramipexole [Mirapex] 0.25 mg PO DAILY 02/14/20 06/24/22 tiZANidine [Zanaflex] 4 mg PO BID 02/14/20 09/20/22 HYDROcod/ACETAM 5/325 [[place] 5/325] 1 - 2 tablet PO Q6H PRN #14 tablet 12/01/20 06/24/22 EPINEPHrine [Epinephrine] 0.3 mg IJ ONCE PRN #2 11/13/21 06/24/22 carvediloL [Coreg] See Rx Instructions .ROUTE .COMPLEX 06/24/22 09/20/22 metFORMIN [Glucophage] See Rx Instructions .ROUTE .COMPLEX 06/24/22 09/20/22 Famotidine [Pepcid] 20 mg PO BID #60 tablet 09/20/22 Ondansetron Odt [Zofran Odt] 4 mg TL Q6H PRN 09/20/22 09/20/22 Pantoprazole Sodium 40 mg PO 09/20/22 Promethazine [Phenergan] 25 mg PO Q6H PRN #10 tablet 11/08/22 Sucralfate [Carafate] 1 gm PO ACHS #420 ml 11/08/22 Loperamide HCl [Imodium A-D] 2 mg PO QID PRN #16 tablet 11/19/22 Metoclopramide [Reglan] 10 mg PO Q6H PRN #15 tablet 11/19/22 Moxifloxacin [Avelox] 400 mg PO DAILY #5 tablet 11/19/22 Ondansetron Odt [Zofran] 4 mg TL Q6H PRN #10 tablet 11/19/22 dexAMETHasone [Decadron] 4 mg PO DAILY #5 tablet 11/19/22 HYDROcod/ACETAM 5/325 [[place] 5/325] 1 tab PO Q6H PRN #15 tablet 11/23/22 Ondansetron Odt [Zofran] 4 mg TL Q6H PRN #10 tablet 11/23/22 Budesonide [Entocort EC] 9 mg PO DAILY #30 cap 11/26/22 Dicyclomine [Bentyl] 1 - 2 tab PO QID PRN #20 cap 11/26/22 Promethazine [Phenergan] 25 mg PO Q6H PRN #10 tab 11/26/22 - Allergies Allergies/Adverse Reactions: Allergies Allergy/AdvReac Type Severity Reaction Status Date / Time amoxicillin Allergy Rash Verified 11/23/22 20:02 benzonatate Allergy Unknown Verified 11/23/22 20:02 [From Tessalon Perles] cephalexin Allergy Rash Verified 11/23/22 20:02 diphenhydramine Allergy Rash Verified 11/23/22 20:02 [From Benadryl] hydroxychloroquine Allergy Anaphylaxis Verified 11/23/22 20:02 metaxalone [From Skelaxin] Allergy Anaphylaxis Verified 11/23/22 20:02 NSAIDS (Non-Steroidal Allergy Rash Verified 11/23/22 20:02 Anti-Inflamma metoclopramide [From Reglan] AdvReac Unknown Verified 11/26/22 17:27 prochlorperazine AdvReac Anxiety Verified 11/23/22 20:26 [From Compazine] SSRI's Allergy Unknown Uncoded 11/23/22 20:02 - Social History Does the pt smoke?: No Smoking Status: Never smoker Does the pt drink ETOH?: No Does the pt have substance abuse?: No - Immunizations Immunizations are current?: Yes Immunizations: Other immun not current - POLST Patient has POLST: No PD ED PE NORMAL - Vitals Vital signs reviewed: Yes - General General: Alert and oriented X 3, No acute distress - Abdomen Abdomen: Normal bowel sounds, Soft, Non tender - Back Back: No CVA TTP, No spinal TTP - Derm Derm: Normal color, Warm and dry - Neuro Neuro: Alert and oriented X 3, Normal speech Results - Vitals Vitals: Vital Signs - 24 hr 11/26/22 17:23 Temperature 36.5 C Heart Rate 91 Respiratory 16 Rate Blood Pressure 182/101 H O2 Saturation 100 Oxygen O2 Source Room air PD Medical Decision Making - ED course ED course: 57-year-old woman with left-sided abdominal pain slowly worsening and now very subacute. Benign exam. Previous work-ups as above. IBS versus IBD?. Has been thoroughly worked up, I do not think she needs further work-up tonight, mostly symptom control. All of her pain medications are coming from her pain medication doctor and she agrees and understands there will be no prescriptions for narcotics here. Departure - Departure Disposition: 01 Home, Self Care Clinical Impression: Colitis Condition: Good Record reviewed to determine appropriate education?: Yes Instructions: ED Abdominal Pain Female Non-Specific Abdominal Pain Prescriptions: Dicyclomine [Bentyl] 1 - 2 tab PO QID PRN #20 cap PRN Reason: Abdominal Pain Budesonide [Entocort EC] 9 mg PO DAILY #30 cap Promethazine [Phenergan] 25 mg PO Q6H PRN #10 tab PRN Reason: Nausea / Vomiting Comments: Discussed, further pain medication should come from your primary. I did send the medication for nausea, cramps, and intestinal inflammation to your preferred pharmacy, [facility]. Call your GI doc, suspect they will want to add lower endoscopy given the findings of colitis on prior CT. Return for new or worsening symptoms. Forms: PCP List Discharge Date/Time: 11/26/22 19:58
[2022-11-26] MEDS ORDERED: HYDROcod/ACETAM 5/325 MG TABLET PO STA (19:44)
== END 2022-11-26 19:58 | disposition home or self-care (01) ==
LOC: ED 17:16
DX: K52.9 Noninfective gastroenteritis and colitis, unspecified (principal); I10 Essential (primary) hypertension
CPT/HCPCS: 96374; 96375; 99283; 99284; A9270; J1170; J7040

== ENCOUNTER 2022-12-04 16:29 | Emergency (ER) | payer MEDICARE ==
[2022-12-04 17:07] LABS: BILIRUBIN,URINE NEGATIVE (NEGATIVE); GLUCOSE, URINE (UA) NEGATIVE (NEGATIVE); KETONES,URINE (UA) NEGATIVE (NEGATIVE); LEUKOCYTE ESTERASE, URINE NEGATIVE (NEGATIVE); NITRITE,URINE NEGATIVE (NEGATIVE); OCCULT BLOOD,URINE NEGATIVE (NEGATIVE); PROTEIN,URINE NEGATIVE (NEGATIVE); UROBILINOGEN,URINE 0.2 (NORMAL) E.U./dL (NORMAL)
[2022-12-04 17:10] LABS: BASOPHILS # (AUTO) 0.1 10^3/uL (0.0-0.1); BASOPHILS % (AUTO) 0.5 %; CLARITY,URINE CLEAR (CLEAR); EOSINOPHILS # (AUTO) 0.1 10^3/uL (0.0-0.7); HCT - HEMATOCRIT 45.1 % (37.0-47.0); HGB - HEMOGLOBIN 14.4 g/dL (12.0-16.0); LYMPHOCYTES # (AUTO) 2.7 10^3/uL (1.5-3.5); LYMPHOCYTES % (AUTO) 28.8 %; MEAN CORPUSCULAR HGB CONC 31.9 g/dL (32.0-36.0); MEAN CORPUSCULAR VOLUME 87.6 fL (81.0-99.0); MEAN PLATELET VOLUME 11.6 fL (7.9-10.8); MONOCYTES # (AUTO) 0.7 10^3/uL (0.0-1.0); MONOCYTES % (AUTO) 7.7 %; NEUTROPHILS # (AUTO) 5.8 10^3/uL (1.5-6.6); NEUTROPHILS % (AUTO) 61.8 %; PLT - PLATELET COUNT 270 10^3/uL (130-450); RED BLOOD COUNT 5.15 10^6/uL (4.20-5.40); RED CELL DISTRIBUTION WIDTH 12.7 % (12.0-15.0); WHITE BLOOD COUNT 9.3 x10^3/uL (4.8-10.8)
[2022-12-04 17:29] LABS: ALBUMIN 4.5 g/dL (3.2-5.5); ALBUMIN/GLOBULIN RATIO 1.2 (1.0-2.2); BILIRUBIN,TOTAL 0.4 mg/dL (0.2-1.0); CALCIUM 10.3 mg/dL (8.5-10.3); CREATININE 0.8 mg/dL (0.6-1.3); POTASSIUM 4.2 mmol/L (3.5-4.5); TOTAL PROTEIN 8.3 g/dL (6.4-8.9)
[2022-12-04] MEDS ORDERED: HYDROmorphone 1 MG/ML CARPUJECT IVP STA ×3 (17:51→20:50)
[2022-12-04] MEDS ORDERED: SODIUM CHLORIDE 0.9% 1,000 ML IV STA (17:51)
[2022-12-04] MEDS ORDERED: PANTOPRAZOLE 40 MG VIAL IVP STA (17:52)
[2022-12-04] MEDS ORDERED: SUCRALFATE 1 GM/10 ML UDC PO STA (17:52)
[2022-12-04] MEDS ORDERED: LIDOCAINE VISCOUS 2% 15 ML ORAL SYRINGE MM STA (17:52)
[2022-12-04] MEDS ORDERED: MAG HYDROX/AL HYDROX/SIMETH 30 ML UDC PO STA (17:53)
--- NOTE | 2022-12-04 18:42 | ED Physician Documentation ---
PD HPI ABD PAIN - Stated complaint Stated Complaint: VOMITING/STOMACH PX - Chief complaint Chief Complaint: Abd Pain - History obtained from History obtained from: Patient - History of Present Illness Timing - onset: Today Pain level max: 9 Pain level now: 5 Quality: Cramping, Aching Location: LUQ Radiation: Left flank Associated symptoms: No: Nausea, Vomiting, Hematemesis, Diarrhea, Constipation, Melena, Hematochezia, Dysuria, Hematuria - Additional information Additional information: 57-year-old female presents to the emergency department left upper quadrant abdominal pain. This been an ongoing issue for the patient. Has an appointment with her doctor in a week. She is scheduled for an endoscopy on December 15. She states the pain is mainly in the left upper quadrant described as cramping and aching. Radiates to the left flank. No vomiting, diarrhea, constipation or melena. Worse with eating and drinking. No urinary symptoms. Patient does have a history of ulcerative colitis. This is her sixth emergency department visit in the last month for similar. 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 : None HEENT: None Psych: Post traumatic stress disorder Musculoskeletal: None Derm: None - Past Surgical History Past Surgical History: Yes General: Cholecystectomy, Appendectomy Ortho: Spine surgery /ROLLER: section, Other - Present Medications Home Medications: Ambulatory Orders Medication Instructions Recorded Confirmed Levothyroxine [Synthroid] 125 mcg PO QDAC 02/14/20 09/20/22 Pramipexole [Mirapex] 0.25 mg PO DAILY 02/14/20 06/24/22 tiZANidine [Zanaflex] 4 mg PO BID 02/14/20 09/20/22 HYDROcod/ACETAM 5/325 [[place] 5/325] 1 - 2 tablet PO Q6H PRN #14 tablet 12/01/20 06/24/22 EPINEPHrine [Epinephrine] 0.3 mg IJ ONCE PRN #2 11/13/21 06/24/22 carvediloL [Coreg] See Rx Instructions .ROUTE .COMPLEX 06/24/22 09/20/22 metFORMIN [Glucophage] See Rx Instructions .ROUTE .COMPLEX 06/24/22 09/20/22 Famotidine [Pepcid] 20 mg PO BID #60 tablet 09/20/22 Ondansetron Odt [Zofran Odt] 4 mg TL Q6H PRN 09/20/22 09/20/22 Pantoprazole Sodium 40 mg PO 09/20/22 Promethazine [Phenergan] 25 mg PO Q6H PRN #10 tablet 11/08/22 Sucralfate [Carafate] 1 gm PO ACHS #420 ml 11/08/22 Loperamide HCl [Imodium A-D] 2 mg PO QID PRN #16 tablet 11/19/22 Metoclopramide [Reglan] 10 mg PO Q6H PRN #15 tablet 11/19/22 Moxifloxacin [Avelox] 400 mg PO DAILY #5 tablet 11/19/22 Ondansetron Odt [Zofran] 4 mg TL Q6H PRN #10 tablet 11/19/22 dexAMETHasone [Decadron] 4 mg PO DAILY #5 tablet 11/19/22 HYDROcod/ACETAM 5/325 [[place] 5/325] 1 tab PO Q6H PRN #15 tablet 11/23/22 Ondansetron Odt [Zofran] 4 mg TL Q6H PRN #10 tablet 11/23/22 Budesonide [Entocort EC] 9 mg PO DAILY #30 cap 11/26/22 Dicyclomine [Bentyl] 1 - 2 tab PO QID PRN #20 cap 11/26/22 Promethazine [Phenergan] 25 mg PO Q6H PRN #10 tab 11/26/22 - Allergies Allergies/Adverse Reactions: Allergies Allergy/AdvReac Type Severity Reaction Status Date / Time amoxicillin Allergy Rash Verified 11/23/22 20:02 benzonatate Allergy Unknown Verified 11/23/22 20:02 [From Tessalon Perles] cephalexin Allergy Rash Verified 11/23/22 20:02 diphenhydramine Allergy Rash Verified 11/23/22 20:02 [From Benadryl] hydroxychloroquine Allergy Anaphylaxis Verified 11/23/22 20:02 metaxalone [From Skelaxin] Allergy Anaphylaxis Verified 11/23/22 20:02 NSAIDS (Non-Steroidal Allergy Rash Verified 11/23/22 20:02 Anti-Inflamma metoclopramide [From Reglan] AdvReac Unknown Verified 11/26/22 17:27 prochlorperazine AdvReac Anxiety Verified 11/23/22 20:26 [From Compazine] SSRI's Allergy Unknown Uncoded 11/23/22 20:02 - Social History Does the pt smoke?: No Smoking Status: Never smoker Does the pt drink ETOH?: No Does the pt have substance abuse?: No - Immunizations Immunizations are current?: Yes Immunizations: Other immun not current - POLST Patient has POLST: No PD ED PE NORMAL - Vitals Vital signs reviewed: Yes - General General: Alert and oriented X 3, No acute distress - HEENT HEENT: PERRL - Cardiac Cardiac: RRR, Strong equal pulses - Respiratory Respiratory: No respiratory distress, Clear bilaterally - Abdomen Abdomen: Soft, Non distended, Other (Mild tenderness palpation left upper quadrant. No peritoneal signs.) - Back Back: No CVA TTP, No spinal TTP - Derm Derm: Warm and dry - Extremities Extremities: No edema, No calf tenderness / cord - Neuro Neuro: Alert and oriented X 3 - Psych Psych: Normal mood, Normal affect Results - Vitals Vitals: Vital Signs - 24 hr 12/04/22 12/04/22 12/04/22 16:43 18:46 20:00 Temperature 36.7 C Heart Rate 98 91 86 Respiratory 20 18 18 Rate Blood Pressure 155/102 H 156/98 H 126/73 O2 Saturation 100 99 98 Oxygen O2 Source Room air - Labs Labs: Laboratory Tests 12/04/22 12/04/22 12/04/22 17:05 17:05 17:05 WBC 9.3 RBC 5.15 Hgb 14.4 Hct 45.1 MCV 87.6 MCH 28.0 MCHC 31.9 L RDW 12.7 Plt Count 270 MPV 11.6 H Neut # (Auto) 5.8 Lymph # (Auto) 2.7 [place] # (Auto) 0.7 Eos # (Auto) 0.1 Baso # (Auto) 0.1 Absolute Nucleated RBC 0.00 Nucleated RBC % 0.0 Sodium 137 Potassium 4.2 Chloride 102 Carbon Dioxide 27 Anion Gap 8.0 BUN 13 Creatinine 0.8 Estimated GFR (MDRD) 74 L Glucose 90 Calcium 10.3 Total Bilirubin 0.4 AST 34 ALT 58 Alkaline Phosphatase 116 Total Protein 8.3 Albumin 4.5 Globulin 3.8 Albumin/Globulin Ratio 1.2 Lipase 32 Urine Color YELLOW Urine Clarity CLEAR Urine pH 7.0 Ur Specific [place] 1.015 Urine Protein NEGATIVE Urine Glucose (UA) NEGATIVE Urine Ketones NEGATIVE Urine Occult Blood NEGATIVE Urine Nitrite NEGATIVE Urine Bilirubin NEGATIVE Urine Urobilinogen 0.2 (NORMAL) Ur Leukocyte Esterase NEGATIVE Ur Microscopic Review NOT INDICATED Urine Culture Comments NOT INDICATED - Rads (name of study) CT abdomen pelvis Relevant Findings:: Final report received, See rad report PD Medical Decision Making - ED course Complexity details: reviewed results, re-evaluated patient (sleeping, no pain. abd soft, nt nd), considered differential, d/w patient ED course: Possible mild left-sided colitis on CT scan. No indication for antibiotics. We will have her follow-up with her GI doctor for further care. She received IV fluids, IV Dilaudid and droperidol in the emergency department with good relief of her symptoms. Has pain medication for home. We did discuss steroids, but she states last time she was on steroids at spiked her blood pressure so she would like to discuss this with her GI doctor. Patient is sleeping in the emergency department and is in no apparent distress. She states her pain has resolved. Patient counseled regarding signs and symptoms for which I believe and urgent re-evaluation would be necessary. Patient with good understanding of and agreement to plan and is comfortable going home at this time This document was made in part using voice recognition software. While efforts are made to proofread this document, sound alike and grammatical errors may occur. Departure - Departure Disposition: 01 Home, Self Care Clinical Impression: Abdominal pain Qualifiers: Abdominal location: unspecified location Qualified Code(s): R10.9 - Unspecified abdominal pain Condition: Good Instructions: ED Abdominal Pain Female Non-Specific Abdominal Pain Follow-Up: TC HARPER PA [Primary Care Provider] - Within 1 week Comments: Please follow up with your doctor for further care. Your CT scan results are below. Please continue your current medications. Please return if you worsen. IMPRESSION: 1. Finding may represent very mild left-sided colitis. No bowel obstruction. No abscess collection. No free fluid of free air. Mild sigmoid diverticulosis without CT evidence of acute diverticulitis. 2. Hepatomegaly and hepatic steatosis. 3. Other findings are unchanged from prior study. Forms: PCP List
[2022-12-04] MEDS ORDERED: ONDANSETRON 4 MG/2 ML VIAL IVP STA (19:21)
[2022-12-04 20:34] VITALS: BP 126/73; O2SAT 98
[2022-12-04] MEDS ORDERED: DROPERIDOL 5 MG/2 ML VIAL IVP STA (20:51)
--- NOTE | 2022-12-04 22:17 | CT Report ---
PROCEDURE: ABDOMEN/PELVIS W INDICATIONS: L sided abd pain CONTRAST: 100 ml omni 300 TECHNIQUE: After the administration of IV contrast, 5 mm thick sections acquired from the diaphragms to the symp hysis. 5 mm thick coronal and sagittal reformats were acquired. For radiation dose reduction, the f ollowing was used: automated exposure control, adjustment of mA and/or kV according to patient size. COMPARISON: CT of abdomen and pelvis dated 11/23/2022, 09/20/2022, MRI of abdomen dated 11/19/2022. FINDINGS: Image quality: Excellent. Lung bases and heart: Unremarkable. Liver: No solid mass. Moderate hepatic steatosis is again seen unchanged from prior study. Gallbladder and biliary tree: Gallbladder is surgically absent. No biliary ductal dilatation. Spleen: No splenomegaly. Pancreas: No pancreatic ductal dilation. Adrenals: No adrenal nodule. Kidneys and ureters: No hydronephrosis. No renal cystic lesion which requires follow up. No solid mas s. Bowel and peritoneum: There is no bowel obstruction. No gross gastric or small bowel wall thickening. Mild colonic diverticulosis is seen. Questionable descending colon and sigmoid colon wall thickening without significant pericolonic fat stranding. No abscess collection. No free fluid of free air. Lym ph nodes: No central or retroperitoneal adenopathy. Vessels: No infrarenal aortic aneurysm. PELVIS Reproductive organs: Unremarkable. Bladder: No abnormal wall thickening, accounting for underdistension. Pelvic lymph nodes: No pelvic adenopathy by size criteria. Bones: No aggressive osseous abnormality. Other: No significant ventral or inguinal hernia. IMPRESSION: 1. Finding may represent very mild left-sided colitis. No bowel obstruction. No abscess collection. N o free fluid of free air. Mild sigmoid diverticulosis without CT evidence of acute diverticulitis. 2. Hepatomegaly and hepatic steatosis. 3. Other findings are unchanged from prior study. Reviewed by: Almas Segal MD on 12/04/2022 10:16 PM PDT Approved by: Almas Segal MD on 12/04/2022 10:16 PM PDT Station ID: [id number]
[2022-12-04] MEDS ORDERED: iohexoL-300 100 ML VIAL IVP ONE (22:47)
== END 2022-12-04 22:55 | disposition home or self-care (01) ==
LOC: ED 16:29
DX: R10.12 Left upper quadrant pain (principal); I10 Essential (primary) hypertension
CPT/HCPCS: 36415; 74177; 80053; 81003; 83690; 85025; 96374; 96375; 96376; 99283; 99285; A9270; J1170; Q9967; 81001; 87086

== ENCOUNTER 2022-12-22 12:34 | Emergency (ER) | payer MEDICARE ==
[2022-12-22 13:06] LABS: BASOPHILS % (AUTO) 0.5 %; EOSINOPHILS # (AUTO) 0.1 10^3/uL (0.0-0.7); EOSINOPHILS % (AUTO) 1.1 %; HCT - HEMATOCRIT 43.5 % (37.0-47.0); HGB - HEMOGLOBIN 14.1 g/dL (12.0-16.0); LYMPHOCYTES # (AUTO) 1.6 10^3/uL (1.5-3.5); LYMPHOCYTES % (AUTO) 24.8 %; MEAN CORPUSCULAR HEMOGLOBIN 28.4 pg (27.0-31.0); MEAN CORPUSCULAR HGB CONC 32.4 g/dL (32.0-36.0); MEAN CORPUSCULAR VOLUME 87.5 fL (81.0-99.0); MEAN PLATELET VOLUME 11.1 fL (7.9-10.8); MONOCYTES # (AUTO) 0.3 10^3/uL (0.0-1.0); NEUTROPHILS # (AUTO) 4.5 10^3/uL (1.5-6.6); NEUTROPHILS % (AUTO) 68.4 %; PLT - PLATELET COUNT 243 10^3/uL (130-450); RED BLOOD COUNT 4.97 10^6/uL (4.20-5.40); RED CELL DISTRIBUTION WIDTH 12.8 % (12.0-15.0); WHITE BLOOD COUNT 6.6 x10^3/uL (4.8-10.8)
--- NOTE | 2022-12-22 13:20 | XRAY Report ---
PROCEDURE: Chest 1 View X-Ray INDICATIONS: Chest pain TECHNIQUE: One view of the chest was acquired. COMPARISON: Chest x-ray, 05/12/2022, 12/05/2021. FINDINGS: Surgical changes and devices: None. Lungs and pleura: Mild chronic interstitial prominence. No pleural effusions or pneumothorax. Lungs are clear. Mediastinum: Mediastinal contours appear normal. Heart size is normal. Bones and chest wall: No suspicious bony lesions. Overlying soft tissues appear unremarkable. IMPRESSION: Mild chronic interstitial prominence. No acute cardiopulmonary process. Reviewed by: Gilda Lyman MD on 12/22/2022 1:19 PM PDT Approved by: Gilda Lyman MD on 12/22/2022 1:19 PM PDT Station ID: [id number]
[2022-12-22 13:23] LABS: ALBUMIN 4.6 g/dL (3.2-5.5); ALBUMIN/GLOBULIN RATIO 1.2 (1.0-2.2); BILIRUBIN,TOTAL 0.3 mg/dL (0.2-1.0); CALCIUM 10.1 mg/dL (8.5-10.3); CREATININE 0.7 mg/dL (0.6-1.3); POTASSIUM 3.9 mmol/L (3.5-4.5); TOTAL PROTEIN 8.3 g/dL (6.4-8.9)
[2022-12-22 13:26] LABS: TROPONIN I HIGH SENSITIVITY 2.5 ng/L (2.3-14.8)
[2022-12-22] MEDS: SODIUM CHLORIDE 0.9% 1,000 ML IV STA (14:37)
[2022-12-22] MEDS: LORazepam 0.5 MG TABLET PO STA (16:36)
--- NOTE | 2022-12-22 16:53 | ED Physician Documentation ---
PD HPI CHEST PAIN - Stated complaint Stated Complaint: CHEST PX,TINGLY FEELING - Chief complaint Chief Complaint: Cardiac - History obtained from History obtained from: Patient - Additional information Additional information: Patient is a 57-year-old female presenting for evaluation of left-sided chest pain that she reports feels sharp with some radiation to her jaw and left arm. She states that she has had several of these episodes each lasting a minute or 2 before they resolve. They have started at rest and been present since 11:00.No exacerbating or alleviating factors. Denies that symptoms are worse with exertion or taking a deep breath. No shortness of air. Denies fever, abdominal symptoms, vomiting, diarrhea. She does take medications for blood blood pressure and sees a airplane woodworker for management of her blood pressure. Her last stress test was over a year ago. Denies any known coronary artery disease or previous cardiac stents.Denies history of pulmonary embolism, recent travel or immobilization. 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 : None HEENT: None Psych: Post traumatic stress disorder Musculoskeletal: None Derm: None - Past Surgical History Past Surgical History: Yes General: Cholecystectomy, Appendectomy Ortho: Spine surgery /INCIDENT ANALYST: section, Other - Present Medications Home Medications: Ambulatory Orders Medication Instructions Recorded Confirmed Levothyroxine [Synthroid] 125 mcg PO QDAC 02/14/20 09/20/22 Pramipexole [Mirapex] 0.25 mg PO DAILY 02/14/20 06/24/22 tiZANidine [Zanaflex] 4 mg PO BID 02/14/20 09/20/22 HYDROcod/ACETAM 5/325 [[place] 5/325] 1 - 2 tablet PO Q6H PRN #14 tablet 12/01/20 06/24/22 EPINEPHrine [Epinephrine] 0.3 mg IJ ONCE PRN #2 11/13/21 06/24/22 carvediloL [Coreg] See Rx Instructions .ROUTE .COMPLEX 06/24/22 09/20/22 metFORMIN [Glucophage] See Rx Instructions .ROUTE .COMPLEX 06/24/22 09/20/22 Famotidine [Pepcid] 20 mg PO BID #60 tablet 09/20/22 Ondansetron Odt [Zofran Odt] 4 mg TL Q6H PRN 09/20/22 09/20/22 Pantoprazole Sodium 40 mg PO 09/20/22 Promethazine [Phenergan] 25 mg PO Q6H PRN #10 tablet 11/08/22 Sucralfate [Carafate] 1 gm PO ACHS #420 ml 11/08/22 Loperamide HCl [Imodium A-D] 2 mg PO QID PRN #16 tablet 11/19/22 Metoclopramide [Reglan] 10 mg PO Q6H PRN #15 tablet 11/19/22 Moxifloxacin [Avelox] 400 mg PO DAILY #5 tablet 11/19/22 Ondansetron Odt [Zofran] 4 mg TL Q6H PRN #10 tablet 11/19/22 dexAMETHasone [Decadron] 4 mg PO DAILY #5 tablet 11/19/22 HYDROcod/ACETAM 5/325 [[place] 5/325] 1 tab PO Q6H PRN #15 tablet 11/23/22 Ondansetron Odt [Zofran] 4 mg TL Q6H PRN #10 tablet 11/23/22 Budesonide [Entocort EC] 9 mg PO DAILY #30 cap 11/26/22 Dicyclomine [Bentyl] 1 - 2 tab PO QID PRN #20 cap 11/26/22 Promethazine [Phenergan] 25 mg PO Q6H PRN #10 tab 11/26/22 - Allergies Allergies/Adverse Reactions: Allergies Allergy/AdvReac Type Severity Reaction Status Date / Time amoxicillin Allergy Rash Verified 11/23/22 20:02 benzonatate Allergy Unknown Verified 11/23/22 20:02 [From Tessalon Perles] cephalexin Allergy Rash Verified 11/23/22 20:02 diphenhydramine Allergy Rash Verified 11/23/22 20:02 [From Benadryl] hydroxychloroquine Allergy Anaphylaxis Verified 11/23/22 20:02 metaxalone [From Skelaxin] Allergy Anaphylaxis Verified 11/23/22 20:02 NSAIDS (Non-Steroidal Allergy Rash Verified 11/23/22 20:02 Anti-Inflamma metoclopramide [From Reglan] AdvReac Unknown Verified 11/26/22 17:27 prochlorperazine AdvReac Anxiety Verified 11/23/22 20:26 [From Compazine] SSRI's Allergy Unknown Uncoded 11/23/22 20:02 - Social History Does the pt smoke?: No Smoking Status: Never smoker Does the pt drink ETOH?: No Does the pt have substance abuse?: No - Immunizations Immunizations are current?: Yes Immunizations: Other immun not current - POLST Patient has POLST: No PD ED PE NORMAL - General General: Alert and oriented X 3, No acute distress, Well developed/nourished - HEENT HEENT: Atraumatic, Moist mucous membranes, Pharynx benign - Neck Neck: Supple, no meningeal sign - Cardiac Cardiac: RRR, Strong equal pulses - Respiratory Respiratory: No respiratory distress, Clear bilaterally - Abdomen Abdomen: Soft, Non tender, Non distended - Derm Derm: Warm and dry - Extremities Extremities: No edema, No calf tenderness / cord - Neuro Neuro: Alert and oriented X 3, No motor deficit, Normal speech Results - Vitals Vitals: Vital Signs - 24 hr 12/22/22 12/22/22 12/22/22 12:43 14:09 14:30 Temperature 37.1 C Heart Rate 104 H 98 97 Respiratory 18 16 12 Rate Blood Pressure 171/94 H 167/104 H 161/113 H O2 Saturation 100 100 100 12/22/22 12/22/22 16:00 16:57 Temperature Heart Rate 93 95 Respiratory 16 16 Rate Blood Pressure 154/93 H 122/91 H O2 Saturation 100 96 Oxygen O2 Source Room air - EKG (time done) 1238 EKG releavant findings:: EKG personally interpreted by author of this note. Relevant findings are: Rate 104, sinus tachycardia, no STEMI 1548 EKG releavant findings:: EKG personally interpreted by author of this note. Relevant findings are: Rate 93, normal sinus rhythm, no STEMI - Labs Labs: Laboratory Tests 12/22/22 12/22/22 12/22/22 13:01 13:01 14:55 WBC 6.6 RBC 4.97 Hgb 14.1 Hct 43.5 MCV 87.5 MCH 28.4 MCHC 32.4 RDW 12.8 Plt Count 243 MPV 11.1 H Neut # (Auto) 4.5 Lymph # (Auto) 1.6 Bennett # (Auto) 0.3 Eos # (Auto) 0.1 Baso # (Auto) 0.0 Absolute Nucleated RBC 0.00 Nucleated RBC % 0.0 D-Dimer < 200.0 L Sodium 138 Potassium 3.9 Chloride 104 Carbon Dioxide 28 Anion Gap 6.0 BUN 12 Creatinine 0.7 Estimated GFR (MDRD) 87 L Glucose 144 H Calcium 10.1 Total Bilirubin 0.3 AST 30 ALT 51 Alkaline Phosphatase 121 Troponin I High Sens 2.5 Total Protein 8.3 Albumin 4.6 Globulin 3.7 Albumin/Globulin Ratio 1.2 Lipase 30 12/22/22 14:55 WBC RBC Hgb Hct MCV MCH MCHC RDW Plt Count MPV Neut # (Auto) Lymph # (Auto) Bennett # (Auto) Eos # (Auto) Baso # (Auto) Absolute Nucleated RBC Nucleated RBC % D-Dimer Sodium Potassium Chloride Carbon Dioxide Anion Gap BUN Creatinine Estimated GFR (MDRD) Glucose Calcium Total Bilirubin AST ALT Alkaline Phosphatase Troponin I High Sens 2.9 Total Protein Albumin Globulin Albumin/Globulin Ratio Lipase PD Medical Decision Making - ED course Complexity details: reviewed results, re-evaluated patient, d/w patient ED course: Pt is a 57 yo F presenting for evaluation of CP that she reports as brief episodes. Not worse with exertion or deep breath. Symptoms not worsening to suggest unstable angina. EKG reviewed x 2. high sensitivity troponin negative x 2. Ddimer negative. Chest XR reviewed. Pt reports feeling anxious and better with ativan. Discussed need for close follow up with airplane woodworker as well as concerning symptoms to return for. Departure - Departure Disposition: 01 Home, Self Care Clinical Impression: Chest pain Condition: Stable Instructions: ED Chest Pain Atypical Unkn Cause Comments: Please call your airplane woodworker at [facility] for close follow-up. I would also recommend close follow-up with your primary care provider. Return to the emergency department with any worsening symptoms. Forms: PCP List Discharge Date/Time: 12/22/22 17:03
[2022-12-22 17:06] VITALS: BP 122/91; O2SAT 96
== END 2022-12-22 17:03 | disposition home or self-care (01) ==
LOC: ED 12:34
DX: R07.9 Chest pain, unspecified (principal); I10 Essential (primary) hypertension
CPT/HCPCS: 36415; 71045; 80053; 83690; 84484; 85025; 85379; 93005; 99283; 99284; A9270

== ENCOUNTER 2023-02-16 18:07 | Emergency (ER) | payer MEDICARE ==
[2023-02-16 18:56] LABS: BASOPHILS % (AUTO) 0.3 %; EOSINOPHILS # (AUTO) 0.1 10^3/uL (0.0-0.7); EOSINOPHILS % (AUTO) 0.7 %; HCT - HEMATOCRIT 44.2 % (37.0-47.0); HGB - HEMOGLOBIN 14.2 g/dL (12.0-16.0); LYMPHOCYTES # (AUTO) 2.5 10^3/uL (1.5-3.5); LYMPHOCYTES % (AUTO) 28.8 %; MEAN CORPUSCULAR HEMOGLOBIN 27.6 pg (27.0-31.0); MEAN CORPUSCULAR HGB CONC 32.1 g/dL (32.0-36.0); MEAN CORPUSCULAR VOLUME 85.8 fL (81.0-99.0); MEAN PLATELET VOLUME 11.6 fL (7.9-10.8); MONOCYTES # (AUTO) 0.7 10^3/uL (0.0-1.0); MONOCYTES % (AUTO) 7.5 %; NEUTROPHILS # (AUTO) 5.4 10^3/uL (1.5-6.6); NEUTROPHILS % (AUTO) 62.5 %; PLT - PLATELET COUNT 238 10^3/uL (130-450); RED BLOOD COUNT 5.15 10^6/uL (4.20-5.40); RED CELL DISTRIBUTION WIDTH 12.3 % (12.0-15.0); WHITE BLOOD COUNT 8.7 x10^3/uL (4.8-10.8)
[2023-02-16 19:17] LABS: TROPONIN I HIGH SENSITIVITY 3.1 ng/L (2.3-14.8)
[2023-02-16 19:21] LABS: ALBUMIN 4.6 g/dL (3.2-5.5); ALBUMIN/GLOBULIN RATIO 1.4 (1.0-2.2); BILIRUBIN,TOTAL 0.3 mg/dL (0.2-1.0); CALCIUM 9.8 mg/dL (8.5-10.3); CREATININE 0.7 mg/dL (0.6-1.3); POTASSIUM 3.4 mmol/L (3.5-4.5); TOTAL PROTEIN 7.9 g/dL (6.4-8.9)
[2023-02-16] MEDS: MORPHINE 2 MG/ML CARPUJECT IVP STA (19:47)
[2023-02-16] MEDS: LORazepam 2 MG/ML VIAL IVP STA (19:47)
--- NOTE | 2023-02-16 19:51 | XRAY Report ---
PROCEDURE: Chest 1 View X-Ray INDICATIONS: Chest pain TECHNIQUE: One view of the chest was acquired. COMPARISON: Chest x-ray, 12/22/2022. FINDINGS: Surgical changes and devices: None. Lungs and pleura: No pleural effusions or pneumothorax. Mild chronic interstitial prominence appears unchanged. No focal consolidation. Mediastinum: Mediastinal contours appear normal. Heart size is normal. Bones and chest wall: No suspicious bony lesions. Overlying soft tissues appear unremarkable. IMPRESSION: No acute cardiopulmonary process. Reviewed by: Gilda Lyman MD on 02/16/2023 7:50 PM PST Approved by: Gilda Lyman MD on 02/16/2023 7:50 PM PST Station ID: [id number]
[2023-02-16] MEDS: ACETAMINOPHEN 325 MG TABLET PO STA (22:26)
[2023-02-16] MEDS: ONDANSETRON 4 MG/2 ML VIAL IVP STA (22:26)
--- NOTE | 2023-02-16 23:10 | ED Physician Documentation ---
History of Present Illness - Stated complaint Stated Complaint: HIGH BP,CHEST PX,BLURYY VISION - Chief complaint Chief Complaint: Cardiac - History obtained from History obtained from: Patient - Additonal information Additional information: 57yF, former smoker with pmh dm, htn, hypothyroidism, anxiety, ZULLY with concern for benzodiazepine/pain med dependence, p/w increased BP X few days with CP inte rmittent today radiating to L shoulder and neck, blurry vision, and facial numbness/tingling and headache. 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 : None HEENT: None Psych: Post traumatic stress disorder Musculoskeletal: None Derm: None - Past Surgical History Past Surgical History: Yes General: Cholecystectomy, Appendectomy Ortho: Spine surgery /PILLOWCASE CLEANER: section, Other - Present Medications Home Medications: Ambulatory Orders Medication Instructions Recorded Confirmed Levothyroxine [Synthroid] 225 mcg PO QDAC 02/14/20 09/20/22 Pramipexole [Mirapex] 1 mg PO QPM 02/14/20 06/24/22 tiZANidine [Zanaflex] 4 mg PO BID 02/14/20 09/20/22 carvediloL [Coreg] 12.5 mg ORAL BID 06/24/22 09/20/22 Famotidine [Pepcid] 20 mg PO BID #60 tablet 09/20/22 Pantoprazole Sodium 40 mg PO DAILY 09/20/22 Loperamide HCl [Imodium A-D] 2 mg PO QID PRN #16 tablet 11/19/22 Ondansetron Odt [Zofran] 4 mg TL Q6H PRN #10 tablet 11/23/22 Amlodipine Besylate [Norvasc] 10 mg PO DAILY 02/16/23 02/16/23 HYDROcod/ACETAM 5/325 [[place] 5/325] 1 tablet PO QPM PRN 02/16/23 Semaglutide [Ozempic] 1 mg SQ ONCE 02/16/23 02/16/23 - Allergies Allergies/Adverse Reactions: Allergies Allergy/AdvReac Type Severity Reaction Status Date / Time amoxicillin Allergy Rash Verified 02/16/23 18:10 benzonatate Allergy Unknown Verified 02/16/23 18:10 [From Tessalon Perles] cephalexin Allergy Rash Verified 02/16/23 18:10 diphenhydramine Allergy Rash Verified 02/16/23 18:10 [From Benadryl] hydroxychloroquine Allergy Anaphylaxis Verified 02/16/23 18:10 metaxalone [From Skelaxin] Allergy Anaphylaxis Verified 11/23/22 20:02 NSAIDS (Non-Steroidal Allergy Rash Verified 02/16/23 18:10 Anti-Inflamma metoclopramide [From Reglan] AdvReac Unknown Verified 02/16/23 18:10 prochlorperazine AdvReac Anxiety Verified 02/16/23 18:10 [From Compazine] SSRI's Allergy Unknown Uncoded 02/16/23 18:10 - Social History Does the pt smoke?: No Smoking Status: Never smoker Does the pt drink ETOH?: No Does the pt have substance abuse?: No - Immunizations Immunizations are current?: Yes Immunizations: Other immun not current - POLST Patient has POLST: No PD ED PE NORMAL - Vitals Vital signs reviewed: Yes - General General: Alert and oriented X 3, No acute distress, Well developed/nourished, Other (anxious appearing) - HEENT HEENT: Atraumatic, PERRL, EOMI, Moist mucous membranes, Pharynx benign - Neck Neck: Supple, no meningeal sign - Cardiac Cardiac: RRR - Respiratory Respiratory: No respiratory distress, Clear bilaterally - Abdomen Abdomen: Non tender, Non distended - Derm Derm: Normal color, Warm and dry - Extremities Extremities: No deformity - Neuro Neuro: Alert and oriented X 3, home restoration service supervisor 2-12 intact, No motor deficit, No sensory deficit Eye Opening: Spontaneous Motor: Obeys Commands Verbal: Oriented GCS Score: 15 Results - Vitals Vitals: Vital Signs - 24 hr 02/16/23 02/16/23 02/16/23 18:10 18:42 19:51 Temperature 36.5 C Heart Rate 123 H 120 H 108 H Respiratory 16 32 H 12 Rate Blood Pressure 176/99 H 168/110 H 142/93 H O2 Saturation 100 100 100 02/16/23 02/16/23 20:01 21:00 Temperature Heart Rate 106 H 102 H Respiratory 14 24 Rate Blood Pressure 152/88 H 132/83 H O2 Saturation 100 98 Oxygen O2 Source Room air - Labs Labs: Laboratory Tests 02/16/23 02/16/23 18:39 18:39 WBC 8.7 RBC 5.15 Hgb 14.2 Hct 44.2 MCV 85.8 MCH 27.6 MCHC 32.1 RDW 12.3 Plt Count 238 MPV 11.6 H Neut # (Auto) 5.4 Lymph # (Auto) 2.5 [place] # (Auto) 0.7 Eos # (Auto) 0.1 Baso # (Auto) 0.0 Absolute Nucleated RBC 0.00 Nucleated RBC % 0.0 Sodium 142 Potassium 3.4 L Chloride 106 Carbon Dioxide 25 Anion Gap 11.0 BUN 15 Creatinine 0.7 Estimated GFR (MDRD) 87 L Glucose 124 H Calcium 9.8 Total Bilirubin 0.3 AST 25 ALT 44 Alkaline Phosphatase 118 Troponin I High Sens 3.1 Total Protein 7.9 Albumin 4.6 Globulin 3.3 Albumin/Globulin Ratio 1.4 Lipase 36 PD Medical Decision Making - ED course ED course: 57yF presents to the ED with multiple medical complaints including high BP readings at home, COLON, cp, and vision changes as well as facial tingling/numbness. patient well appearing albeit tearful and anxious on my exam. BP came down on its own after a period of observation in the ED. Ativan provided for anxiety and morphine for pain. patient requested additional pain meds for headache but given her ZULLY with concern for substance dependence, as well as fact that her ekg, cxr and cbc/abdominal panel,trop all showed no emergent issues, tylenol was offered instead. patient refused and stated she might need to leave. discharge paperwork provided and return precautions given. Departure - Departure Disposition: 01 Home, Self Care Clinical Impression: Chest pain, Headache, Facial numbness Condition: Stable Instructions: ED Chest Pain NonCardiac Comments: You were seen in the emergency department for multiple medical symptoms. Your ekg, chest xray and labwork including a heart test called a troponin uncovered no emergent issues. Please follow-up with your primary care provider and return to the emergency department if you have any new or worsening symptoms or other concerns.
[2023-02-16 23:30] VITALS: BP 127/85; O2SAT 100
== END 2023-02-16 23:29 | disposition home or self-care (01) ==
LOC: ED 18:07
DX: R07.9 Chest pain, unspecified (principal); R51.9 Headache, unspecified; R20.0 Anesthesia of skin; I10 Essential (primary) hypertension; Z79.899 Other long term (current) drug therapy
CPT/HCPCS: 36415; 71045; 80053; 83690; 84484; 85025; 93005; 96374; 96375; 99283; 99284; J2060

== ENCOUNTER 2023-03-07 13:55 | Outpatient (CLI) | payer MEDICARE | END 2023-03-07 13:56 | disposition short-term general hospital (02) | LOC: EMS 13:55 | DX: R07.9 Chest pain, unspecified (principal); R68.84 Jaw pain; R51.9 Headache, unspecified | CPT/HCPCS: A0425; A0427 ==

== ENCOUNTER 2023-03-11 11:19 | Emergency (ER) | payer MEDICARE ==
[2023-03-11 11:46] VITALS: O2SAT 100
--- NOTE | 2023-03-11 11:57 | ED Physician Documentation ---
PD HPI FOCAL NEURO - Stated complaint Stated Complaint: CP/LT FACE DROOP - Chief complaint Chief Complaint: Neuro - History obtained from History obtained from: Patient, Family - Additional information Additional information: 57-year-old woman with history of diabetes, hypertension, and stroke. She was seen for strokelike symptoms in May and did receive thrombolytic therapy. This morning she got up at about 630 and was not feeling well. She had some head pressure and chest pressure and she took her blood pressure and it was higher than normal for her, around 180/100. Subsequently around 10 AM developed some left facial numbness and came in by private vehicle and it was noted by her that she had difficulty walking and did need help to walk which is not her baseline. She came in through the front door via triage and I saw her as soon as I was notified by the nurse of strokelike symptoms. 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 : None HEENT: None Psych: Post traumatic stress disorder Musculoskeletal: None Derm: None - Past Surgical History Past Surgical History: Yes General: Cholecystectomy, Appendectomy Ortho: Spine surgery /SOFT TILE SETTER: section, Other - Present Medications Home Medications: Ambulatory Orders Medication Instructions Recorded Confirmed Levothyroxine [Synthroid] 225 mcg PO QDAC 02/14/20 09/20/22 Pramipexole [Mirapex] 1 mg PO QPM 02/14/20 06/24/22 tiZANidine [Zanaflex] 4 mg PO BID 02/14/20 09/20/22 carvediloL [Coreg] 12.5 mg ORAL BID 06/24/22 09/20/22 Famotidine [Pepcid] 20 mg PO BID #60 tablet 09/20/22 Pantoprazole Sodium 40 mg PO DAILY 09/20/22 Loperamide HCl [Imodium A-D] 2 mg PO QID PRN #16 tablet 11/19/22 Ondansetron Odt [Zofran] 4 mg TL Q6H PRN #10 tablet 11/23/22 Amlodipine Besylate [Norvasc] 10 mg PO DAILY 02/16/23 02/16/23 HYDROcod/ACETAM 5/325 [[place] 5/325] 1 tablet PO QPM PRN 02/16/23 Semaglutide [Ozempic] 1 mg SQ ONCE 02/16/23 02/16/23 - Allergies Allergies/Adverse Reactions: Allergies Allergy/AdvReac Type Severity Reaction Status Date / Time amoxicillin Allergy Rash Verified 02/16/23 18:10 benzonatate Allergy Unknown Verified 02/16/23 18:10 [From Tessalon Perles] cephalexin Allergy Rash Verified 02/16/23 18:10 diphenhydramine Allergy Rash Verified 02/16/23 18:10 [From Benadryl] hydroxychloroquine Allergy Anaphylaxis Verified 02/16/23 18:10 metaxalone [From Skelaxin] Allergy Anaphylaxis Verified 11/23/22 20:02 NSAIDS (Non-Steroidal Allergy Rash Verified 02/16/23 18:10 Anti-Inflamma metoclopramide [From Reglan] AdvReac Anxiety Verified 03/11/23 13:55 prochlorperazine AdvReac Anxiety Verified 02/16/23 18:10 [From Compazine] SSRI's Allergy Unknown Uncoded 02/16/23 18:10 - Social History Does the pt smoke?: No Smoking Status: Never smoker Does the pt drink ETOH?: No Does the pt have substance abuse?: No - Immunizations Immunizations are current?: Yes Immunizations: Other immun not current - POLST Patient has POLST: No PD ED PE NORMAL - Vitals Vital signs reviewed: Yes - General General: Alert and oriented X 3, No acute distress - HEENT HEENT: PERRL, EOMI - Neck Neck: Supple, no meningeal sign, No bony TTP - Cardiac Cardiac: RRR, No murmur - Respiratory Respiratory: No respiratory distress, Clear bilaterally - Abdomen Abdomen: Non tender, Non distended - Derm Derm: Normal color, Warm and dry - Extremities Extremities: No edema, No calf tenderness / cord - Neuro Neuro: Alert and oriented X 3, Normal speech Eye Opening: Spontaneous Motor: Obeys Commands Verbal: Oriented GCS Score: 15 NIHSS - Time Time: 11:50 - Level of Consciousness Level of consciousness: (0) Alert, Keenly responsive LOC Questions: (0) Answers both Q's correct LOC Commands: (0) Performs both correctly - Gaze Best Gaze: (0) Normal - Visual Visual: (0) No loss - Facial Palsy Facial Palsy: (0) Normal, symmetrical movement - Motor Arms (both separate) Motor Arm (right): (0) No drift Motor Arm (left): (1) Drift (She has drift but it is not classical without pronation) - Motor Legs (both separate) Motor Leg (right): (0) No drift Motor Leg (left): (2) Some effort against gravity - Limb Ataxia Limb Ataxia: (0) Absent - Sensory Sensory: (1) [id number]-[id number] loss (Moderate loss of sensation left face, arm, and leg, worse in the leg) - Best Language Best Language: (0) No aphasia - Dysarthria Dysarthria: (0) Normal - Extinction and Inattention (formally neg Extinction and inattention: (0) No abnormality - Total Score/Results Total Score/Result: 4 Results - Vitals Vitals: Vital Signs - 24 hr 03/11/23 03/11/23 11:34 13:00 Heart Rate 101 H 88 Respiratory 18 20 Rate Blood Pressure 181/93 H 156/94 H O2 Saturation 100 100 Oxygen O2 Source Room air - EKG (time done) 1253 EKG releavant findings:: EKG personally interpreted by author of this note. Relevant findings are: Rate: Rate (enter#) (85) Rhythm: NSR [place]: Normal Intervals: Normal MA QRS: Low voltage Ischemia: Normal ST segments - Labs Labs: Laboratory Tests 03/11/23 03/11/23 03/11/23 11:50 11:50 11:50 WBC 7.8 RBC 5.03 Hgb 14.1 Hct 43.9 MCV 87.3 MCH 28.0 MCHC 32.1 RDW 12.5 Plt Count 244 MPV 11.3 H Neut # (Auto) 5.0 Lymph # (Auto) 2.2 Terry # (Auto) 0.4 Eos # (Auto) 0.1 Baso # (Auto) 0.0 Absolute Nucleated RBC 0.00 Nucleated RBC % 0.0 PT 11.7 INR 1.1 Sodium 139 Potassium 3.8 Chloride 103 Carbon Dioxide 28 Anion Gap 8.0 BUN 11 Creatinine 0.7 Estimated GFR (MDRD) 87 L Glucose 122 H Calcium 10.4 H Total Bilirubin 0.3 AST 34 ALT 128 H Alkaline Phosphatase 136 H Total Protein 8.3 Albumin 4.6 Globulin 3.7 Albumin/Globulin Ratio 1.2 Lipase 26 - Rads (name of study) Noncontrast stroke protocol head CT was negative Relevant Findings:: Final report received, Discussed with freddy, LUISITO independent interpretation of test CT angiography of the head and neck was unremarkable without vascular disease. Relevant Findings:: Final report received MRI brain - nl Relevant Findings:: Final report received PD Medical Decision Making - ED course ED course: Dr Hilario, Telestroke neuro consulted and will see pt (1212) Subsequently Dr. Hilario did see and examine her by secure link. And call me afterwards. He noted some inconsistencies in her exam that would suggest a nonstroke cause. For exampl,e while she had drift in the left arm there was no pronation and she did not have any trouble with arm strength on [id number] testing. He did not feel her symptoms or exam merited thrombolytics feeling that the risk would outweigh the benefit. He does recommend blood pressure control and an MRI without contrast of the brain. I ordered 20 mg of IV labetalol. Patient wanting something for headache and ordered Reglan and Ativan noting she also needed something for anxiety before MRI. CBC unremarkable. INR normal at 1.1. CMP notable for mild hyperglycemia, hypercalcemia, and elevation of ALT and alkaline phosphatase. She has had the elevated ALT and alkaline phosphatase on prior labs intermittently. Subsequently she went over her MRI, she did need a fair amount of anxiety medication to make it through but did, her MRI was normal and on return her neurologic symptoms have resolved and her main complaint at this point was an exacerbation of her restless leg syndrome requesting a home dose of her pramipexole. Departure - Departure Disposition: 01 Home, Self Care Clinical Impression: Stroke-like symptoms Condition: Good Record reviewed to determine appropriate education?: Yes Instructions: ED Paraesthesias Comments: Thankfully, rest assured that your CTs and MRI were negative for stroke, the MRI is definitive for the diagnosis of this. Talk with your primary care PA about a referral to neurology. Return for new or worsening symptoms. Forms: PCP List
[2023-03-11 11:59] LABS: BASOPHILS % (AUTO) 0.4 %; EOSINOPHILS # (AUTO) 0.1 10^3/uL (0.0-0.7); EOSINOPHILS % (AUTO) 1.7 %; HCT - HEMATOCRIT 43.9 % (37.0-47.0); HGB - HEMOGLOBIN 14.1 g/dL (12.0-16.0); LYMPHOCYTES # (AUTO) 2.2 10^3/uL (1.5-3.5); LYMPHOCYTES % (AUTO) 27.8 %; MEAN CORPUSCULAR HGB CONC 32.1 g/dL (32.0-36.0); MEAN CORPUSCULAR VOLUME 87.3 fL (81.0-99.0); MEAN PLATELET VOLUME 11.3 fL (7.9-10.8); MONOCYTES # (AUTO) 0.4 10^3/uL (0.0-1.0); MONOCYTES % (AUTO) 5.6 %; NEUTROPHILS % (AUTO) 64.2 %; PLT - PLATELET COUNT 244 10^3/uL (130-450); RED BLOOD COUNT 5.03 10^6/uL (4.20-5.40); RED CELL DISTRIBUTION WIDTH 12.5 % (12.0-15.0); WHITE BLOOD COUNT 7.8 x10^3/uL (4.8-10.8)
[2023-03-11 12:12] LABS: INR 1.1 (0.8-1.2); PT - PROTHROMBIN TIME 11.7 secs (9.9-12.6)
[2023-03-11 12:22] LABS: ALBUMIN 4.6 g/dL (3.2-5.5); ALBUMIN/GLOBULIN RATIO 1.2 (1.0-2.2); BILIRUBIN,TOTAL 0.3 mg/dL (0.2-1.0); CALCIUM 10.4 mg/dL (8.5-10.3); CREATININE 0.7 mg/dL (0.6-1.3); POTASSIUM 3.8 mmol/L (3.5-4.5); TOTAL PROTEIN 8.3 g/dL (6.4-8.9)
--- NOTE | 2023-03-11 12:29 | CT Report ---
PROCEDURE: Head W/O Stroke Protocol INDICATIONS: Neuro deficit, acute, stroke suspected TECHNIQUE: Noncontrast 4.5 mm thick angled axial sections acquired from the foramen magnum to the vertex, with c oronal reformats. For radiation dose reduction, the following was used: automated exposure control, adjustment of mA and/or kV according to patient size. COMPARISON: 05/17/2022. FINDINGS: Image quality: Excellent. CSF spaces: Basal cisterns are patent. No extra-axial fluid collections. Ventricles are normal in size and shape. Brain: No midline shift. No intracranial masses or hemorrhage. Ward-white matter interface is norm al. Skull and face: Calvarium and visualized facial bones are intact, without suspicious lesions. Sinuses: Visualized sinuses and mastoids are clear. IMPRESSION: No acute intracranial process. Above discussed with Gigi Gatica MD at the time of dictation on 03/11/2023 at 1223 hours This study fulfills neurological imaging criteria for inclusion or exclusion of acute stroke therapie s based on available published neurological imaging guidelines. Reviewed by: Zan Riggins MD on 03/11/2023 12:28 PM PST Approved by: Zan Riggins MD on 03/11/2023 12:28 PM PST Station ID: [id number]
[2023-03-11] MEDS ORDERED: iohexoL-300 100 ML VIAL IVP ONE (12:48)
[2023-03-11] MEDS ORDERED: LABETALOL 20 MG/4 ML SYRINGE IVP STA (12:52)
[2023-03-11] MEDS ORDERED: LORazepam 2 MG/ML VIAL IVP STA ×2 (12:57→13:26)
[2023-03-11] MEDS ORDERED: METOCLOPRAMIDE 10 MG/2 ML VIAL IVP STA (12:57)
--- NOTE | 2023-03-11 13:11 | CT Report ---
PROCEDURE: CT Angio Head/Neck INDICATIONS: Neurologic deficit TECHNIQUE: Helical axial CT of the head and neck was obtained during the arterial phase of a intrave nous contrast injection utilizing an angiographic protocol. Multiplanar traditional and MIP reformat s were also obtained. Dose reduction techniques included either automated exposure control or adjust ment of exposure parameters. COMPARISON: None. FINDINGS: Cerebral CT Angiogram: Internal carotid arteries: No acute findings. Intracranial ICA are patent with no significant steno sis. No occlusion. No aneurysm. Anterior cerebral arteries: Unremarkable. No significant stenosis. No occlusion. No aneurysm. Middle cerebral arteries: Unremarkable. No significant stenosis. No occlusion. No aneurysm. Posterior cerebral arteries: Unremarkable. No significant stenosis. No occlusion. No aneurysm. Basilar artery: Unremarkable. No significant stenosis. No occlusion. No aneurysm. Vertebral arteries: Unremarkable as visualized. Dural venous sinuses: Unremarkable given phase of enhancement. Other: Arterial phase appearance of the brain parenchyma is unremarkable. Neck CT Angiogram: Internal carotid arteries: Unremarkable. No significant stenosis. No dissection or occlusion. Common carotid arteries: Unremarkable. No significant stenosis. No dissection or occlusion. External carotid arteries: Unremarkable. No occlusion. Vertebral arteries: Unremarkable. No significant stenosis. No dissection or occlusion. Aortic Arch and Mediastinum: Partially visualized aortic arch unremarkable without evidence of aneury sm. Origins of the great vessels unremarkable. Other: Arterial phase soft tissues of the neck are unremarkable. IMPRESSION: Unremarkable CT angiogram of the head and neck. No evidence of large vessel occlusion, aneurysm or va scular malformation Reviewed by: Mahesh Capps MD on 03/11/2023 12:10 PM [facility] Approved by: Mahesh Capps MD on 03/11/2023 12:10 PM [place] Station ID: [id number]
[2023-03-11] MEDS ORDERED: DROPERIDOL 5 MG/2 ML VIAL IVP STA (13:26)
--- NOTE | 2023-03-11 14:57 | MRI Report ---
PROCEDURE: BRAIN WO INDICATIONS: CVA sx TECHNIQUE: Noncontrast axial T1 spin echo, axial T2 fast spin echo, sagittal and axial FLAIR, axial gradient ech o, axial diffusion and ADC through the brain. Patient declined further examination before T2 coronal imaging could be obtained. COMPARISON: None. FINDINGS: Image quality: Diagnostic. CSF Spaces: Basal cisterns are patent. No extra-axial fluid collections. Ventricles are normal in size and shape. Brain: No intracranial masses or hemorrhage. Ward/white matter interface is normal. Brainstem appe ars normal. Diffusion-weighted images demonstrate no acute ischemic insult. No chronic ischemic ins ults. Normal intravascular flow voids are present. Skull and face: Calvarium has normal marrow signal. Orbits appear normal. Sinuses: Sinuses and mastoids are clear. IMPRESSION: Unremarkable study. No acute intracranial process. Reviewed by: Zan Riggins MD on 03/11/2023 2:55 PM PST Approved by: Zan Riggins MD on 03/11/2023 2:55 PM PST Station ID: [id number]
[2023-03-11] MEDS ORDERED: PRAMIPEXOLE 0.25 MG TABLET PO STA (15:14)
[2023-03-11 15:48] VITALS: BP 181/110
== END 2023-03-11 15:47 | disposition home or self-care (01) ==
LOC: ED 11:19
DX: R29.810 Facial weakness (principal); R07.9 Chest pain, unspecified; R51.9 Headache, unspecified; I10 Essential (primary) hypertension
CPT/HCPCS: 36415; 70450; 70496; 70498; 70551; 80053; 83690; 85025; 85610; 93005; 96374; 96375; 99283; 99284; A9270; J2060; J2765; Q9967

== ENCOUNTER 2023-04-19 15:24 | Outpatient (CLI) | payer OTHER ==
--- NOTE | 2023-04-19 18:01 | XRAY Report ---
PROCEDURE: Chest 2V INDICATIONS: COUGH TECHNIQUE: 2 views of the chest were acquired. COMPARISON: None. FINDINGS: Surgical changes and devices: None. Lungs and pleura: No pleural effusions or pneumothorax. Lungs are clear. Mediastinum: Mediastinal contours appear normal. Heart size is normal. Bones and chest wall: No suspicious bony lesions. Overlying soft tissues appear unremarkable. IMPRESSION: No acute cardiopulmonary process. Reviewed by: Marlene Chavez MD on 04/19/2023 6:00 PM [facility] Approved by: Marlene Chavez MD on 04/19/2023 6:00 PM [facility] Station ID: [id number]
== END 2023-04-19 15:25 | disposition home or self-care (01) ==
LOC: DI 15:24
PROVIDERS: ATTEND Student in an Organized Health Care Education/Training Program
DX: R05.9 Cough, unspecified (principal)

== ENCOUNTER 2023-04-23 08:00 | Outpatient (CLI) | payer OTHER | END 2023-04-23 23:59 | disposition home or self-care (01) | LOC: LAB.WCP 08:00 | PROVIDERS: ATTEND Nurse Practitioner | DX: R07.0 Pain in throat (principal) | CPT/HCPCS: 87070 ==

== ENCOUNTER 2023-04-23 17:04 | Outpatient (CLI) | payer OTHER | END 2023-04-23 17:05 | disposition home or self-care (01) | LOC: DI 17:04 | PROVIDERS: ATTEND Nurse Practitioner | DX: Z53.9 Procedure and treatment not carried out, unspecified reason (principal) ==

== ENCOUNTER 2023-04-23 17:25 | Emergency (ER) | payer OTHER ==
[2023-04-23 17:54] VITALS: BP 158/107; O2SAT 100
--- NOTE | 2023-04-23 18:08 | ED Physician Documentation ---
History of Present Illness - Stated complaint Stated Complaint: COLON/DIZZY/SORE THROAT - Chief complaint Chief Complaint: General - History obtained from History obtained from: Patient - Additonal information Additional information: She is been sick for 25 days with sinus pressure especially on the right, sore throat, mild cough. She has had 2 rounds of azithromycin and now is on day 3 of levofloxacin without improvement. She is also taking appropriate home measures including Mucinex, Sudafed, Flonase, Nan pot, humidifier. 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: section, Other - Present Medications Home Medications: Ambulatory Orders Medication Instructions Recorded Confirmed Levothyroxine [Synthroid] 225 mcg PO QDAC 02/14/20 09/20/22 Pramipexole [Mirapex] 1 mg PO QPM 02/14/20 06/24/22 tiZANidine [Zanaflex] 4 mg PO BID 02/14/20 09/20/22 carvediloL [Coreg] 12.5 mg ORAL BID 06/24/22 09/20/22 Famotidine [Pepcid] 20 mg PO BID #60 tablet 09/20/22 Pantoprazole Sodium 40 mg PO DAILY 09/20/22 Loperamide HCl [Imodium A-D] 2 mg PO QID PRN #16 tablet 11/19/22 Ondansetron Odt [Zofran] 4 mg TL Q6H PRN #10 tablet 11/23/22 Amlodipine Besylate [Norvasc] 10 mg PO DAILY 02/16/23 02/16/23 HYDROcod/ACETAM 5/325 [[place] 5/325] 1 tablet PO QPM PRN 02/16/23 Semaglutide [Ozempic] 1 mg SQ ONCE 02/16/23 02/16/23 - Allergies Allergies/Adverse Reactions: Allergies Allergy/AdvReac Type Severity Reaction Status Date / Time amoxicillin Allergy Rash Verified 04/23/23 17:49 benzonatate Allergy Unknown Verified 04/23/23 17:49 [From Yris Montgomery] cephalexin Allergy Rash Verified 04/23/23 17:49 diphenhydramine Allergy Rash Verified 04/23/23 17:49 [From Benadryl] hydroxychloroquine Allergy Anaphylaxis Verified 04/23/23 17:49 metaxalone [From Skelaxin] Allergy Anaphylaxis Verified 04/23/23 17:49 NSAIDS (Non-Steroidal Allergy Rash Verified 04/23/23 17:49 Anti-Inflamma metoclopramide [From Reglan] AdvReac Anxiety Verified 04/23/23 17:49 prochlorperazine AdvReac Anxiety Verified 04/23/23 17:49 [From Compazine] SSRI's Allergy Unknown Uncoded 04/23/23 17:49 - Social History Does the pt smoke?: No Smoking Status: Never smoker Does the pt drink ETOH?: No Does the pt have substance abuse?: No - Immunizations Immunizations are current?: Yes Immunizations: Other immun not current - POLST Patient has POLST: No PD ED PE NORMAL - Vitals Vital signs reviewed: Yes - General General: Alert and oriented X 3, No acute distress - HEENT HEENT: PERRL, EOMI, Other (She is tender over the right maxillary sinus. The tonsillar pillars are mildly red without exudates or swelling. Supple neck, no adenopathy.) - Neck Neck: Supple, no meningeal sign, No bony TTP - Cardiac Cardiac: RRR, No murmur - Respiratory Respiratory: No respiratory distress, Clear bilaterally - Abdomen Abdomen: Non tender - Neuro Neuro: Alert and oriented X 3, Normal speech Results - Vitals Vitals: Vital Signs - 24 hr 04/23/23 17:44 Temperature 36.8 C Heart Rate 99 Respiratory 15 Rate Blood Pressure 158/107 H O2 Saturation 100 Oxygen O2 Source Room air PD Medical Decision Making - ED course ED course: She is already been on very broad-spectrum antibiotics for this respiratory illness so suspect this is viral. Continue current Conservative care advised and she declined other needs. Departure - Departure Disposition: Home, Self Care Clinical Impression: Viral syndrome Condition: Good Record reviewed to determine appropriate education?: Yes Instructions: ED Viral Syndrome Comments: As discussed, I suspect you have RSV or rhinovirus based on the length of your symptoms. You are already on pretty broad-spectrum antibiotics for respiratory infection and given the fact that they are not working would suggest to me that these are simply persistent viral symptoms continue your current home care. Return for new or worsening symptoms.
== END 2023-04-23 18:14 | disposition home or self-care (01) ==
LOC: ED 17:25
DX: B34.9 Viral infection, unspecified (principal); R07.0 Pain in throat
CPT/HCPCS: 87070; 99282

== ENCOUNTER 2023-05-10 18:16 | Emergency (ER) | payer OTHER ==
[2023-05-10] MEDS: HYDROmorphone 1 MG/ML CARPUJECT IM STA (20:15)
[2023-05-10] MEDS: DROPERIDOL 5 MG/2 ML VIAL IM STA (20:15)
--- NOTE | 2023-05-10 20:59 | ED Physician Documentation ---
History of Present Illness - Stated complaint Stated Complaint: COLON/DIZZY/NAUSEA - Chief complaint Chief Complaint: Neuro - History obtained from History obtained from: Patient - History of Present Illness Pain level max: 9 Pain level now: 9 - Additonal information Additional information: Patient has had intermittent headaches for the past month. She does have a history of headaches in the past and this feels similar. Gradual in onset, holoacranial, dull, aching, throbbing. She states that her usual hydrocodone did not provide any relief. She states she cannot take NSAIDs. No fevers. No chills. No cough. No congestion. No trauma. No neck pain. No possibility of . 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: Ovarian cancer : None HEENT: None Psych: Post traumatic stress disorder Musculoskeletal: None Derm: None - Past Surgical History Past Surgical History: Yes General: Cholecystectomy, Appendectomy Ortho: Spine surgery /DRIVABILITY TECHNICIAN: section, Hysterectomy, Oophrectomy, Breast reduction, Other - Present Medications Home Medications: Ambulatory Orders Medication Instructions Recorded Confirmed Levothyroxine [Synthroid] 225 mcg PO QDAC 02/14/20 05/10/23 Pramipexole [Mirapex] 1 mg PO QPM 02/14/20 05/10/23 tiZANidine [Zanaflex] 4 mg PO BID PRN 02/14/20 05/10/23 carvediloL [Coreg] 12.5 mg ORAL BID 06/24/22 05/10/23 Famotidine [Pepcid] 20 mg PO BID #60 tablet 09/20/22 05/10/23 Ondansetron Odt [Zofran] 4 mg TL Q6H PRN #10 tablet 11/23/22 05/10/23 Amlodipine Besylate [Norvasc] 10 mg PO DAILY 02/16/23 05/10/23 HYDROcod/ACETAM 5/325 [[place] 5/325] 1 tablet PO QPM PRN 02/16/23 05/10/23 Semaglutide [Ozempic] 1 mg SQ Q7D 02/16/23 05/10/23 Cyclosporine [Restasis Multidose] 1 drops OP BID 05/10/23 05/10/23 Latanoprost 0.005% Ophth Drops 1 drops OPTH BID 05/10/23 05/10/23 [Xalatan Ophth Drops] - Allergies Allergies/Adverse Reactions: Allergies Allergy/AdvReac Type Severity Reaction Status Date / Time amoxicillin Allergy Rash Verified 05/10/23 18:23 benzonatate Allergy Unknown Verified 05/10/23 18:23 [From Tessalon Perles] cephalexin Allergy Rash Verified 05/10/23 18:23 diphenhydramine Allergy Rash Verified 05/10/23 18:23 [From Benadryl] hydroxychloroquine Allergy Anaphylaxis Verified 05/10/23 18:23 metaxalone [From Skelaxin] Allergy Anaphylaxis Verified 05/10/23 18:23 NSAIDS (Non-Steroidal Allergy Rash Verified 05/10/23 18:23 Anti-Inflamma metoclopramide [From Reglan] AdvReac Anxiety Verified 05/10/23 18:23 prochlorperazine AdvReac Anxiety Verified 05/10/23 18:23 [From Compazine] SSRI's Allergy Unknown Uncoded 04/23/23 17:49 - Social History Does the pt smoke?: No Smoking Status: Never smoker Does the pt drink ETOH?: No Does the pt have substance abuse?: No - Immunizations Immunizations are current?: Yes Immunizations: Other immun not current - POLST Patient has POLST: No PD ED PE NORMAL - Vitals Vital signs reviewed: Yes - General General: Alert and oriented X 3, No acute distress - HEENT HEENT: Atraumatic, PERRL, EOMI, Moist mucous membranes - Neck Neck: Supple, no meningeal sign - Cardiac Cardiac: RRR, Strong equal pulses - Respiratory Respiratory: No respiratory distress, Clear bilaterally - Abdomen Abdomen: Soft, Non tender, Non distended - Derm Derm: Warm and dry - Extremities Extremities: No edema - Neuro Neuro: Alert and oriented X 3, hydrator 2-12 intact, No motor deficit, No sensory deficit, Normal speech Eye Opening: Spontaneous Motor: Obeys Commands Verbal: Oriented GCS Score: 15 - Psych Psych: Normal mood, Normal affect Results - Vitals Vitals: Vital Signs - 24 hr 05/10/23 05/10/23 18:23 21:11 Temperature 35.9 C L Heart Rate 99 93 Respiratory 18 16 Rate Blood Pressure 169/95 H 137/93 H O2 Saturation 99 96 Oxygen O2 Source Room air PD Medical Decision Making - ED course Complexity details: reviewed results, re-evaluated patient, considered differential, d/w patient ED course: Patient with her usual migraine headache. She has a long list of allergies, therefore was given a dose of Dilaudid and droperidol. Headache fully resolved. Patient is asymptomatic here. She is requesting to go home at this time. No evidence of subarachnoid hemorrhage, tumor, mass. Normal neurological exam. Normal gait. Recommend she follow-up with her doctor for further care. Patient counseled regarding signs and symptoms for which I believe and urgent re- evaluation would be necessary. Patient with good understanding of and agreement to plan and is comfortable going home at this time This document was made in part using voice recognition software. While efforts are made to proofread this document, sound alike and grammatical errors may occur. Departure - Departure Disposition: 01 Home, Self Care Clinical Impression: Headache Qualifiers: Headache type: unspecified Headache chronicity pattern: acute headache Intra ctability: not intractable Qualified Code(s): R51.9 - Headache, unspecified Condition: Good Instructions: ED Cephalgia Unspecified Follow-Up: TC HARPER PA [Primary Care Provider] - Within 1 week Comments: Please follow-up with your doctor as needed for further care. Please return if you worsen. Go home and rest tonight. Forms: PCP List Discharge Date/Time: 05/10/23 21:12
[2023-05-10 21:17] VITALS: BP 137/93; O2SAT 96
== END 2023-05-10 21:12 | disposition home or self-care (01) ==
LOC: ED 18:16
DX: R51.9 Headache, unspecified (principal); I10 Essential (primary) hypertension; E11.9 Type 2 diabetes mellitus without complications; Z79.4 Long term (current) use of insulin
CPT/HCPCS: 96372; 99283; J1170

== ENCOUNTER 2023-05-24 11:30 | Outpatient (CLI) | payer OTHER ==
[2023-05-24 18:36] LABS: THYROID STIMULATING HORMONE < 0.01 uIU/mL (0.34-5.60)
== END 2023-05-24 11:45 | disposition home or self-care (01) ==
LOC: LAB.N 11:30
PROVIDERS: ATTEND Physician Assistant
DX: E03.9 Hypothyroidism, unspecified (principal)
CPT/HCPCS: 36415; 84439; 84443

== ENCOUNTER 2023-09-05 16:45 | Emergency (ER) | payer OTHER ==
--- NOTE | 2023-09-05 17:34 | ED Physician Documentation ---
PD HPI MAJOR TRAUMA - Stated complaint Stated Complaint: FALL OFF LADDER - Chief complaint Chief Complaint: Trauma Ext - History obtained from History obtained from: Patient - Additional information Additional information: 57-year-old woman with chronic pain in pain management fell down a ladder 2 days ago. She was coming down the ladder and her knee buckled and then she slid down the ladder. Areas of maximum pain include both hips and low back. No head or neck injury. 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 : None HEENT: None Psych: Post traumatic stress disorder Musculoskeletal: None Derm: None - Past Surgical History Past Surgical History: Yes General: Cholecystectomy, Appendectomy Ortho: Spine surgery /MANAGER SUPPLY CHAIN PLANNING: section, Hysterectomy, Oophrectomy, Breast reduction, Other - Present Medications Home Medications: Ambulatory Orders Medication Instructions Recorded Confirmed Levothyroxine [Synthroid] 225 mcg PO QDAC 02/14/20 05/10/23 Pramipexole [Mirapex] 1 mg PO QPM 02/14/20 05/10/23 tiZANidine [Zanaflex] 4 mg PO BID PRN 02/14/20 05/10/23 carvediloL [Coreg] 12.5 mg ORAL BID 06/24/22 05/10/23 Famotidine [Pepcid] 20 mg PO BID #60 tablet 09/20/22 05/10/23 Ondansetron Odt [Zofran] 4 mg TL Q6H PRN #10 tablet 11/23/22 05/10/23 Amlodipine Besylate [Norvasc] 10 mg PO DAILY 02/16/23 05/10/23 HYDROcod/ACETAM 5/325 [[place] 5/325] 1 tablet PO QPM PRN 02/16/23 05/10/23 Semaglutide [Ozempic] 1 mg SQ Q7D 02/16/23 05/10/23 Cyclosporine [Restasis Multidose] 1 drops OP BID 05/10/23 05/10/23 Latanoprost 0.005% Ophth Drops 1 drops OPTH BID 05/10/23 05/10/23 [Xalatan Ophth Drops] - Allergies Allergies/Adverse Reactions: Allergies Allergy/AdvReac Type Severity Reaction Status Date / Time amoxicillin Allergy Rash Verified 09/05/23 16:48 benzonatate Allergy Unknown Verified 09/05/23 16:48 [From Tessalon Perles] cephalexin Allergy Rash Verified 09/05/23 16:48 diphenhydramine Allergy Rash Verified 09/05/23 16:48 [From Benadryl] hydroxychloroquine Allergy Anaphylaxis Verified 09/05/23 16:48 metaxalone [From Skelaxin] Allergy Anaphylaxis Verified 09/05/23 16:48 NSAIDS (Non-Steroidal Allergy Rash Verified 09/05/23 16:48 Anti-Inflamma metoclopramide [From Reglan] AdvReac Anxiety Verified 09/05/23 16:48 prochlorperazine AdvReac Anxiety Verified 09/05/23 16:48 [From Compazine] SSRI's Allergy Unknown Uncoded 09/05/23 16:48 - Social History Does the pt smoke?: No Smoking Status: Never smoker Does the pt drink ETOH?: No Does the pt have substance abuse?: No - Immunizations Immunizations are current?: Yes Immunizations: Other immun not current - POLST Patient has POLST: No PD ED PE NORMAL - Vitals Vital signs reviewed: Yes - General General: Alert and oriented X 3, Other (Appears to be in pain and laying on in the right lateral decubitus position.) - Neck Neck: Supple, no meningeal sign, No bony TTP - Back Back: Other (Diffuse tenderness of both hips, left greater than right and lumbar spine tenderness as well.) - Extremities Extremities: Other (Both knees and ankles are nontender. The patient has equal and normal Achilles and patellar reflexes bilaterally. Normal sensation in all areas of the legs. Patient denies saddle anesthesia. Normal strength in flexion-extension at the ankles, knees, and flexion of the hips.) - Neuro Neuro: Alert and oriented X 3 Results - Vitals Vitals: Vital Signs - 24 hr 09/05/23 09/05/23 16:49 18:45 Temperature 36.5 C Heart Rate 100 88 Respiratory 18 15 Rate Blood Pressure 160/100 H 137/83 H O2 Saturation 100 93 Oxygen O2 Source Room air - Rads (name of study) X-rays of the low back and both hips are negative for acute pathology. Relevant Findings:: Final report received, EMP independent interpretation of test PD Medical Decision Making - ED course ED course: 57-year-old woman with chronic pain presents after a fall from a ladder. Relevant imaging was negative for fracture. She claims no relief after injectable Dilaudid. She has an [id number] allergy to all NSAIDs. DORI E form reviewed suggesting minimization/withholding of narcotics without objective findings of injury. 19 emergency department visits in the last 12 months. No evidence of spinal cord injury. Patient requested MRI, discussed with her there is no clinical indication for emergent MRI, And MRI is not available at this time of the evening regardless. She was able to ambulate here without obvious issue after treatment. Departure - Departure Disposition: 01 Home, Self Care Clinical Impression: Contusion of right hip Qualifiers: Encounter type: initial encounter Qualified Code(s): S70.01XA - Contusion of right hip, initial encounter Contusion of left hip Qualifiers: Encounter type: initial encounter Qualified Code(s): S70.02XA - Contusion of left hip, initial encounter Lumbar strain Qualifiers: Encounter type: initial encounter Qualified Code(s): S39.012A - Strain of muscle, fascia and tendon of lower back, initial encounter Fall from ladder Qualifiers: Encounter type: initial encounter Qualified Code(s): W11.XXXA - Fall on and from ladder, initial encounter Condition: Good Record reviewed to determine appropriate education?: Yes Instructions: ED Low Back Pain Injury, ED Contusion Hip Comments: X-rays of both hips and the low back were negative for fractures or severe trauma. Since you are in pain management please contact your pain management physician if you are pain management needs have changed, we cannot accelerate your pain management regimen without findings of objective injury. Return for new or worsening symptoms. Do not drink or drive tonight Forms: PCP List Discharge Date/Time: 09/05/23 18:47
[2023-09-05] MEDS: HYDROmorphone 1 MG/ML CARPUJECT IM STA (17:58)
--- NOTE | 2023-09-05 18:14 | XRAY Report ---
PROCEDURE: Hips w/Pelvis 2-3V BL INDICATIONS: back/hip inj TECHNIQUE: 3 views of the hip were acquired. COMPARISON: None. FINDINGS: Bones: No fractures or dislocations. No suspicious bony lesions. Soft tissues: No suspicious soft tissue calcifications or masses. IMPRESSION: No acute bony abnormality. If pain persists with conservative management, consider further evaluation with cross-sectional imaging such as CT or MRI. Reviewed by: Ilene Sellers MD, PhD on 09/05/2023 6:13 PM PDT Approved by: Ilene Sellers MD, PhD on 09/05/2023 6:13 PM PDT Station ID: [id number]
--- NOTE | 2023-09-05 18:15 | XRAY Report ---
PROCEDURE: Lumbar Spine 2-3V INDICATIONS: back/hip inj TECHNIQUE: 3 views of the lumbar spine were acquired. COMPARISON: None. FINDINGS: Surgical change: Right upper quadrant cholecystectomy clips. Bones: 5 [id number] vertebrae are present. There is normal bony alignment. No vertebral body co mpression fractures. No suspicious bony lesions. Soft tissues: Overlying bowel gas pattern is normal. No suspicious soft tissue calcifications. IMPRESSION: No acute radiographic abnormality. If pain persists with conservative management, consider further evaluation with cross-sectional imagi ng such as CT or MRI. Reviewed by: Ilene Sellers MD, PhD on 09/05/2023 6:14 PM PDT Approved by: Ilene Sellers MD, PhD on 09/05/2023 6:14 PM PDT Station ID: [id number]
[2023-09-05 18:49] VITALS: BP 137/83; O2SAT 93
== END 2023-09-05 18:47 | disposition home or self-care (01) ==
LOC: ED 16:45
DX: S70.02XA Contusion of left hip, initial encounter (principal); S70.01XA Contusion of right hip, initial encounter; S39.012A Strain of muscle, fascia and tendon of lower back, initial encounter; W11.XXXA Fall on and from ladder, initial encounter; I10 Essential (primary) hypertension; I49.9 Cardiac arrhythmia, unspecified; E11.9 Type 2 diabetes mellitus without complications; E03.9 Hypothyroidism, unspecified; Z86.73 Personal history of transient ischemic attack (TIA), and cerebral infarction without residual deficits; Z87.19 Personal history of other diseases of the digestive system; Z79.85 Long-term (current) use of injectable non-insulin antidiabetic drugs; Z79.899 Other long term (current) drug therapy
CPT/HCPCS: 72100; 73521; 96372; 99284; J1170

== ENCOUNTER 2023-09-09 08:35 | Outpatient (CLI) | payer OTHER ==
--- NOTE | 2023-09-09 12:46 | CT Report ---
PROCEDURE: Lumbar Spine WO INDICATIONS: LOW BACK PAIN TECHNIQUE: Noncontrast 3 mm thick sections acquired from the T12 level to the sacrum. Sagittal and coronal refo rmats were constructed. For radiation dose reduction, the following was used: automated exposure co ntrol, adjustment of mA and/or kV according to patient size. COMPARISON: X-ray lumbar spine 09/05/2023. FINDINGS: Image quality: Excellent. Bones: There is normal bony alignment. No acute vertebral body compression fractures. No suspiciou s lytic or blastic bony lesions. Mild degenerative changes of the lumbar spine with mild osteophytosi s and mild facet arthropathy. Central spinal caliber is of normal overall caliber. No significant oss eous neuroforaminal stenosis. No pars defects. Soft tissues: No retroperitoneal masses or hematomas. Visualized aorta is normal in caliber. Mild atherosclerotic vascular opacifications. Liver is decreased attenuation, consistent with hepatic stea tosis. IMPRESSION: 1.No acute osseous abnormalities. 2.Mild degenerative changes of the lumbar spine Reviewed by: Basil Biswas MD on 09/09/2023 12:44 PM PDT Approved by: Basil Biswas MD on 09/09/2023 12:44 PM PDT Station ID: [id number]
== END 2023-09-09 08:36 | disposition home or self-care (01) ==
LOC: DI 08:35
PROVIDERS: ATTEND Student in an Organized Health Care Education/Training Program
DX: M47.816 Spondylosis without myelopathy or radiculopathy, lumbar region (principal)

== ENCOUNTER 2023-09-11 13:13 | Emergency (ER) | payer OTHER ==
[2023-09-11 13:37] VITALS: O2SAT 100
--- NOTE | 2023-09-11 13:42 | ED Physician Documentation ---
PD HPI BACK PAIN - Stated complaint Stated Complaint: ,BACK PX,UNWELL - Chief complaint Chief Complaint: Back Pain - History obtained from History obtained from: Patient - Additional information Additional information: She fell off a ladder a week ago. Had negative imaging at the time of a lot of pain. She continues to have severe back pain and feeling numb in both legs. She had a CT 2 days ago which was also negative of her lumbar spine. She has been in contact with her pain management physician who has not accelerated her pain management since then. PD PAST MEDICAL HISTORY - Past Medical History Cardiovascular: Hypertension, Arrhythmia Respiratory: None Neuro: TIA, Headaches Endocrine/Autoimmune: Type 2 diabetes, HyPOthyroidism GI: GERD, Ulcerative colitis CLINICAL DOCUMENTATION NURSE: Ovarian cancer : None HEENT: None Psych: Post traumatic stress disorder Musculoskeletal: None Derm: None - Past Surgical History Past Surgical History: Yes General: Cholecystectomy, Appendectomy Ortho: Spine surgery /CLINICAL DOCUMENTATION NURSE: section, Hysterectomy, Oophrectomy, Breast reduction, Other - Present Medications Home Medications: Ambulatory Orders Medication Instructions Recorded Confirmed Levothyroxine [Synthroid] 200 mcg PO QDAC 02/14/20 09/11/23 Pramipexole [Mirapex] 1 mg PO QPM 02/14/20 09/11/23 tiZANidine [Zanaflex] 4 mg PO BID PRN 02/14/20 09/11/23 carvediloL [Coreg] 12.5 mg ORAL BID 06/24/22 09/11/23 Famotidine [Pepcid] 20 mg PO BID #60 tablet 09/20/22 09/11/23 Ondansetron Odt [Zofran] 4 mg TL Q6H PRN #10 tablet 11/23/22 09/11/23 Amlodipine Besylate [Norvasc] 10 mg PO DAILY 02/16/23 09/11/23 HYDROcod/ACETAM 5/325 [[place] 5/325] 1 tablet PO QPM PRN 02/16/23 09/11/23 Semaglutide [Ozempic] 1 mg SQ Q7D 02/16/23 09/11/23 Cyclosporine [Restasis Multidose] 1 drops OP BID 05/10/23 09/11/23 Latanoprost 0.005% Ophth Drops 1 drops OPTH BID 05/10/23 09/11/23 [Xalatan Ophth Drops] - Allergies Allergies/Adverse Reactions: Allergies Allergy/AdvReac Type Severity Reaction Status Date / Time amoxicillin Allergy Rash Verified 09/11/23 13:32 benzonatate Allergy Unknown Verified 09/11/23 13:32 [From Tessalon Perles] cephalexin Allergy Rash Verified 09/11/23 13:32 diphenhydramine Allergy Rash Verified 09/11/23 13:32 [From Benadryl] hydroxychloroquine Allergy Anaphylaxis Verified 09/11/23 13:32 metaxalone [From Skelaxin] Allergy Anaphylaxis Verified 09/11/23 13:32 NSAIDS (Non-Steroidal Allergy Rash Verified 09/11/23 13:32 Anti-Inflamma metoclopramide [From Reglan] AdvReac Anxiety Verified 09/11/23 13:32 prochlorperazine AdvReac Anxiety Verified 09/11/23 13:32 [From Compazine] SSRI's Allergy Unknown Uncoded 09/11/23 13:32 - Social History Does the pt smoke?: No Smoking Status: Never smoker Does the pt drink ETOH?: No Does the pt have substance abuse?: No - Immunizations Immunizations are current?: Yes Immunizations: Other immun not current - POLST Patient has POLST: No PD ED PE NORMAL - Vitals Vital signs reviewed: Yes - General General: Alert and oriented X 3, No acute distress - Abdomen Abdomen: Normal bowel sounds, Soft, Non tender - Back Back: Other (Mild tenderness to the lower lumbar spine) - Extremities Extremities: Other (The patient has equal and normal Achilles and patellar reflexes bilaterally. Normal sensation in all areas of the legs. Patient denies saddle anesthesia. Week throughout the lower extremities diffusely due to pain limitation.) - Neuro Neuro: Alert and oriented X 3 Results - Vitals Vitals: Vital Signs - 24 hr 09/11/23 13:26 Temperature 36.1 C L Heart Rate 98 Respiratory 20 Rate Blood Pressure 158/86 H O2 Saturation 100 Oxygen O2 Source Room air PD Medical Decision Making - ED course ED course: She presents with persistent back pain after a fall and negative x-ray and CT imaging. She feeling like her pain was out of control and she is administered a milligram of IM Dilaudid here. I discussed the case by phone with her pain management physician Dr. Adrian Schaefer. There was some talk of getting an MRI today which we cannot as is it is Tuesday. That said he plans to order the MRI for her and authorizes her to go accelerate her pain medication regimen and we will give her an early fill but asked that I do not give her any narcotics. Departure - Departure Disposition: Home, Self Care Clinical Impression: Fall from ladder Qualifiers: Encounter type: initial encounter Qualified Code(s): W11.XXXA - Fall on and from ladder, initial encounter Lumbar strain Qualifiers: Encounter type: initial encounter Qualified Code(s): S39.012A - Strain of muscle, fascia and tendon of lower back, initial encounter Condition: Good Record reviewed to determine appropriate education?: Yes Instructions: ED Sprain Strain Lumbar Comments: As we discussed, I spoke with Dr. Schaefer today and he is okay with you going up to 6 of your hydrocodone a day. He will arrange for an early fill, but you should call his office tomorrow to help arrange that. He also plans on ordering the MRI for you which we cannot get done today as it is a Tuesday. Dr. Schaefer and I agree that there is no severe spinal cord injury that needs to be addressed today but the MRI should be done at some point.
[2023-09-11] MEDS: HYDROmorphone 1 MG/ML CARPUJECT IM STA (13:47)
[2023-09-11 14:23] VITALS: BP 146/89
== END 2023-09-11 14:16 | disposition home or self-care (01) ==
LOC: ED 13:13
DX: S39.012A Strain of muscle, fascia and tendon of lower back, initial encounter (principal); W11.XXXA Fall on and from ladder, initial encounter; I10 Essential (primary) hypertension; E11.9 Type 2 diabetes mellitus without complications; E03.9 Hypothyroidism, unspecified; Z79.899 Other long term (current) drug therapy
CPT/HCPCS: 96372; 99283; 99284; J1170

== ENCOUNTER 2023-09-15 17:57 | Emergency (ER) | payer OTHER ==
--- NOTE | 2023-09-15 21:12 | ED Physician Documentation ---
PD HPI BACK PAIN - Stated complaint Stated Complaint: BACK PX - Chief complaint Chief Complaint: Back Pain - Additional information Additional information: 57-year-old female presents back to the emergency department for back pain. Patient says that she fell fourth bladder September 02 she has had multiple visits as well as a CT scan which does not show any acute abnormalities or findings. She says at home her Vicodin is not working she says when she takes muscle relaxers it makes her feel weird and comes back to the emergency department because she is having a hard time dealing with the pain at home. She has a chronic pain doctor who has been contacted about patient's pain who manages her chronic pain medications at home. She has no new urinary incontinence or stool she is able to ambulate no new weakness. 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 ASSISTANT: Ovarian cancer : None HEENT: None Psych: Post traumatic stress disorder Musculoskeletal: None Derm: None - Past Surgical History Past Surgical History: Yes General: Cholecystectomy, Appendectomy Ortho: Spine surgery /SPEECH PATHOLOGY ASSISTANT: section, Hysterectomy, Oophrectomy, Breast reduction, Other - Present Medications Home Medications: Ambulatory Orders Medication Instructions Recorded Confirmed Levothyroxine [Synthroid] 200 mcg PO QDAC 02/14/20 09/11/23 Pramipexole [Mirapex] 1 mg PO QPM 02/14/20 09/11/23 tiZANidine [Zanaflex] 4 mg PO BID PRN 02/14/20 09/11/23 carvediloL [Coreg] 12.5 mg ORAL BID 06/24/22 09/11/23 Famotidine [Pepcid] 20 mg PO BID #60 tablet 09/20/22 09/11/23 Ondansetron Odt [Zofran] 4 mg TL Q6H PRN #10 tablet 11/23/22 09/11/23 Amlodipine Besylate [Norvasc] 10 mg PO DAILY 02/16/23 09/11/23 HYDROcod/ACETAM 5/325 [[place] 5/325] 1 tablet PO QPM PRN 02/16/23 09/11/23 Semaglutide [Ozempic] 1 mg SQ Q7D 02/16/23 09/11/23 Cyclosporine [Restasis Multidose] 1 drops OP BID 05/10/23 09/11/23 Latanoprost 0.005% Ophth Drops 1 drops OPTH BID 05/10/23 09/11/23 [Xalatan Ophth Drops] - Allergies Allergies/Adverse Reactions: Allergies Allergy/AdvReac Type Severity Reaction Status Date / Time amoxicillin Allergy Rash Verified 09/15/23 20:12 benzonatate Allergy Unknown Verified 09/15/23 20:12 [From Tessalon Perles] cephalexin Allergy Rash Verified 09/15/23 20:12 diphenhydramine Allergy Rash Verified 09/15/23 20:12 [From Benadryl] hydroxychloroquine Allergy Anaphylaxis Verified 09/15/23 20:12 metaxalone [From Skelaxin] Allergy Anaphylaxis Verified 09/15/23 20:12 NSAIDS (Non-Steroidal Allergy Rash Verified 09/15/23 20:12 Anti-Inflamma metoclopramide [From Reglan] AdvReac Anxiety Verified 09/15/23 20:12 prochlorperazine AdvReac Anxiety Verified 09/15/23 20:12 [From Compazine] SSRI's Allergy Unknown Uncoded 09/15/23 20:12 - Social History Does the pt smoke?: No Smoking Status: Never smoker Does the pt drink ETOH?: No Does the pt have substance abuse?: No - Immunizations Immunizations are current?: Yes Immunizations: Other immun not current - POLST Patient has POLST: No PD ED PE NORMAL - Vitals Vital signs reviewed: Yes - General General: Alert and oriented X 3, No acute distress, Well developed/nourished - Derm Derm: Normal color, Warm and dry, No rash - Extremities Extremities: No edema - Neuro Neuro: Alert and oriented X 3, cardiac catheterization technician 2-12 intact, No motor deficit, No sensory deficit, Normal speech Eye Opening: Spontaneous Motor: Obeys Commands Verbal: Oriented GCS Score: 15 - Psych Psych: Normal mood - Free text exam Free text exam: Neck and back are without deformity, external skin changes, or signs of trauma. Curvature of the cervical, thoracic, and lumbar spine are within normal limits. Bony features of the shoulders and hips are of equal height bilaterally. Posture is upright, gait is smooth, steady, and within normal limits. No tenderness noted on palpation of the spinous processes. Spinous processes are midline. Cervical, thoracic, and lumbar paraspinal muscles are not tender and are without spasm. No discomfort is noted with flexion, extension, and [id number] rotation of the cervical spine, full range of motion is noted. Full range of motion including flexion, extension, and qwau-an-[id number] rotation of the thoracic and lumbar spine are noted and without discomfort. Straight leg raise test is negative bilaterally. Sensation to the upper and lower extremities is normal bilaterally. No clonus is noted. Machine Assembler Supervisor strength is normal bilaterally. Dorsi/plantar flexion is normal bilaterally. Results - Vitals Vitals: Vital Signs - 24 hr 09/15/23 09/15/23 09/15/23 20:06 21:34 22:17 Temperature 36.4 C L Heart Rate 93 95 88 Respiratory 16 18 18 Rate Blood Pressure 198/112 H 178/100 H 165/99 H O2 Saturation 100 99 99 Oxygen O2 Source Room air PD Medical Decision Making - ED course ED course: 57-year-old female presents emergency department for back pain. She has had an extensive workup the only thing that she has not had yet is an MRI. Her pain doctor will be managing her chronic pain medications at home and has asked us to not make any adjustments to her chronic pain medication regimen. She is given two Dilaudid shots here in the emergency department and does report alleviation in her pain. She is told to follow-up with her primary care provider as well as her pain doctor for outpatient imaging. Given that she is able to ambulate no new weakness no fevers or chills no history of back surgery no numbness or tingling to the saddle region I do not believe there is any further workup indicated at this time in time. Return precautions given patient is safe for discharge. Departure - Departure Disposition: 01 Home, Self Care Clinical Impression: Back pain Instructions: ED Low Back Pain Injury, ANTI-INFLAMMATORY, General Comments: As we discussed I am unable to change your medication regimen per your pain contract with your pain doctor. Please follow up with him first thing in the morning call him and ask him about the MRI and ask him to make any medication adjustments outpatient. Discharge Date/Time: 09/15/23 22:17
[2023-09-15] MEDS: ONDANSETRON ODT 4 MG TABLET TL STA (21:22)
[2023-09-15] MEDS: HYDROmorphone 0.5 MG/0.5 ML SYRINGE IVP STA (21:22)
[2023-09-15] MEDS: GABAPENTIN 100 MG CAPSULE PO STA (21:22)
[2023-09-15 21:44] VITALS: O2SAT 99
[2023-09-15] MEDS: HYDROmorphone 0.5 MG/0.5 ML SYRINGE IM STA (22:05)
[2023-09-15 22:22] VITALS: BP 165/99
== END 2023-09-15 22:17 | disposition home or self-care (01) ==
LOC: ED 17:57
DX: M54.9 Dorsalgia, unspecified (principal); I10 Essential (primary) hypertension; I49.9 Cardiac arrhythmia, unspecified; E11.9 Type 2 diabetes mellitus without complications; E03.9 Hypothyroidism, unspecified; Z86.73 Personal history of transient ischemic attack (TIA), and cerebral infarction without residual deficits; Z85.43 Personal history of malignant neoplasm of ovary; Z87.19 Personal history of other diseases of the digestive system; Z79.85 Long-term (current) use of injectable non-insulin antidiabetic drugs; Z79.899 Other long term (current) drug therapy
CPT/HCPCS: 96372; 96374; 99283; A9270; J1170; Q0162

== ENCOUNTER 2023-09-23 10:06 | Emergency (ER) | payer OTHER ==
[2023-09-23] MEDS: DEXAMETHASONE 10 MG/ML VIAL IM STA (11:27)
[2023-09-23] MEDS: LORazepam 2 MG/ML VIAL IM STA (11:28)
[2023-09-23] MEDS: HYDROmorphone 1 MG/ML CARPUJECT IM STA (11:28)
[2023-09-23] MEDS: GABAPENTIN 100 MG CAPSULE PO STA (11:28)
--- NOTE | 2023-09-23 12:34 | MRI Report ---
PROCEDURE: Lumbar Spine WO INDICATIONS: fall, worsening pain on L, difficulty urinating TECHNIQUE: Noncontrast sagittal T1 spin echo and T2 fast echo, sagittal STIR, axial T1 and T2 fast spin echo thr ough the lumbar spine. In cases with scoliosis, additional coronal T2 fast spin echo may be performe d. COMPARISON: CT lumbar spine dated 09/09/2023. FINDINGS: Image quality: Excellent. Alignment and Curvature: There is normal bony alignment. Bone Marrow: Marrow is of normal overall signal. No acute vertebral body compression fractures. Spinal Cord: Conus medullaris terminates at the L1 level. Visualized cord demonstrates normal signa l and size. Paraspinous Soft Tissues: No paravertebral masses. T11-T12: Minimal disc bulge. No canal stenosis or foraminal stenosis. T12-L1: Disc bulge. No canal stenosis or foraminal stenosis. L1-L2: Normal in appearance. L2-L3: Normal in appearance. L3-L4: Disc bulge. Mild facet hypertrophy. No significant canal stenosis or foraminal stenosis. L4-L5: Disc bulge. Facet hypertrophy. No significant canal stenosis or foraminal stenosis. L5-S1: Bilateral facet hypertrophy. Disc bulge. No significant canal stenosis. Mild right foraminal stenosis. IMPRESSION: 1. Multilevel lower lumbar facet arthropathy. 2. No significant canal stenosis or foraminal stenosis Reviewed by: Zan Riggins MD on 09/23/2023 12:32 PM PDT Approved by: Zan Riggins MD on 09/23/2023 12:32 PM PDT Station ID: [id number]
--- NOTE | 2023-09-23 12:44 | ED Physician Documentation ---
History of Present Illness - Stated complaint Stated Complaint: BACK PAIN, FALL - Chief complaint Chief Complaint: Back Pain - History obtained from History obtained from: Patient - Additonal information Additional information: The pt comes to the ED with CC of low back pain since falling from a ladder a few weeks ago. She states the pain seems to have gotten worse. She states "Dr. Gatica was going to order MRI for me, but it was the weekend." The pt states she has numbness in her LLE. No trouble controlling bowels or bladder. She has seen her PCP and pain specialist, with no improvement in sx. 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 COVERING: Ovarian cancer : None HEENT: None Psych: Post traumatic stress disorder Musculoskeletal: None Derm: None - Past Surgical History Past Surgical History: Yes General: Cholecystectomy, Appendectomy Ortho: Spine surgery /ASSISTANT PRINTER FLOOR COVERING: section, Hysterectomy, Oophrectomy, Breast reduction, Other - Present Medications Home Medications: Ambulatory Orders Medication Instructions Recorded Confirmed Levothyroxine [Synthroid] 200 mcg PO QDAC 02/14/20 09/11/23 Pramipexole [Mirapex] 1 mg PO QPM 02/14/20 09/11/23 tiZANidine [Zanaflex] 4 mg PO BID PRN 02/14/20 09/11/23 carvediloL [Coreg] 12.5 mg ORAL BID 06/24/22 09/11/23 Famotidine [Pepcid] 20 mg PO BID #60 tablet 09/20/22 09/11/23 Ondansetron Odt [Zofran] 4 mg TL Q6H PRN #10 tablet 11/23/22 09/11/23 Amlodipine Besylate [Norvasc] 10 mg PO DAILY 02/16/23 09/11/23 HYDROcod/ACETAM 5/325 [[place] 5/325] 1 tablet PO QPM PRN 02/16/23 09/11/23 Semaglutide [Ozempic] 1 mg SQ Q7D 02/16/23 09/11/23 Cyclosporine [Restasis Multidose] 1 drops OP BID 05/10/23 09/11/23 Latanoprost 0.005% Ophth Drops 1 drops OPTH BID 05/10/23 09/11/23 [Xalatan Ophth Drops] - Allergies Allergies/Adverse Reactions: Allergies Allergy/AdvReac Type Severity Reaction Status Date / Time amoxicillin Allergy Rash Verified 09/23/23 10:13 benzonatate Allergy Unknown Verified 09/23/23 10:13 [From Tessalon Perles] cephalexin Allergy Rash Verified 09/23/23 10:13 diphenhydramine Allergy Rash Verified 09/23/23 10:13 [From Benadryl] hydroxychloroquine Allergy Anaphylaxis Verified 09/23/23 10:13 metaxalone [From Skelaxin] Allergy Anaphylaxis Verified 09/23/23 10:13 NSAIDS (Non-Steroidal Allergy Rash Verified 09/23/23 10:13 Anti-Inflamma oxycodone Allergy Anaphylaxis Verified 09/23/23 10:13 metoclopramide [From Reglan] AdvReac Anxiety Verified 09/23/23 10:13 prochlorperazine AdvReac Anxiety Verified 09/23/23 10:13 [From Compazine] SSRI's Allergy Unknown Uncoded 09/15/23 20:12 - Social History Does the pt smoke?: No Smoking Status: Never smoker Does the pt drink ETOH?: No Does the pt have substance abuse?: No - Immunizations Immunizations are current?: Yes Immunizations: Other immun not current - POLST Patient has POLST: No PD ED PE NORMAL - Vitals Vital signs reviewed: Yes - General General: Alert and oriented X 3, No acute distress, Well developed/nourished, Other (The pt is laying on her side, tearful, looking uncomfortable.) - HEENT HEENT: Atraumatic, PERRL, EOMI, Moist mucous membranes - Neck Neck: Supple, no meningeal sign - Cardiac Cardiac: RRR, No murmur - Respiratory Respiratory: No respiratory distress, Clear bilaterally - Abdomen Abdomen: Soft, Non tender, Non distended - Back Back: Other (TTP just adjacent to lumbar spine levels 2-4 on the left, extending to L SI joint.) - Derm Derm: Normal color, Warm and dry, No rash - Extremities Extremities: No deformity, No calf tenderness / cord, Other (mildly limited ROM L leg, secondary to pain in L low back) - Neuro Neuro: No motor deficit, No sensory deficit, Other (No gross deficits ) - Psych Psych: Normal mood, Normal affect Results - Vitals Vitals: Oxygen O2 Source Room air - Rads (name of study) MR lumbar spine no contrast Relevant Findings:: Final report received, See rad report PD Medical Decision Making - ED course Complexity details: reviewed old records, reviewed results, re-evaluated patient, considered differential, d/w patient ED course: I reviewed the pt's records and found that the pt had not been offered MR from the ED, but rather, that contact had been made with her pain specialist from the ED, and the plan was for her to get an MRI through him. I discussed this with the pt, who stated she had misunderstood the plan. She was treated symptomatically in the ED. Given the length of time of symptoms, and that there was an opening for MR immediately, I did send the pt for her MRI. This showed chronic findings, but nothing acute. Pt was improved, and I have referred her back to her pain specialist. Departure - Departure Disposition: 01 Home, Self Care Clinical Impression: Back pain Qualifiers: Back pain location: low back pain Chronicity: acute Back pain laterality: left Sciatica presence: with sciatica Sciatica laterality: sciatica of left side Qualified Code(s): M54.42 - Lumbago with sciatica, left side Condition: Stable Instructions: ED Low Back Pain Injury, ED Chronic Pain Management Comments: Your MRI shows chronic changes but no acute findings. You have already been prescribed both oxycodone and hydrocodone As an outpatient. If oxycodone is not an option due to reaction, then you will have to work with your pain specialist on pain control at home if the hydrocodone is not cutting it for you. We do not have further options out of the ED that are appropriate for your condition with essentially nonacute MRI. Please call your primary doctor and pain specialist to make the next available appointment for follow-up. Please continue your home pain medications as needed. Discharge Date/Time: 09/23/23 13:25
[2023-09-23 13:36] VITALS: BP 138/72; O2SAT 100
== END 2023-09-23 13:25 | disposition home or self-care (01) ==
LOC: ED 10:06
DX: M54.42 Lumbago with sciatica, left side (principal); W11.XXXA Fall on and from ladder, initial encounter
CPT/HCPCS: 72148; 96372; 99283; 99285; A9270; J1170; J2060

== ENCOUNTER 2023-11-04 08:01 | Emergency (ER) | payer OTHER ==
[2023-11-04 08:27] VITALS: O2SAT 100
[2023-11-04] MEDS: PANTOPRAZOLE 40 MG TABLET PO STA (08:45)
[2023-11-04] MEDS: MAG HYDROX/AL HYDROX/SIMETH 30 ML UDC PO STA (08:45)
[2023-11-04] MEDS: ONDANSETRON ODT 4 MG TABLET TL STA (08:45)
[2023-11-04] MEDS: SUCRALFATE 1 GM/10 ML UDC PO STA (08:45)
--- NOTE | 2023-11-04 08:55 | XRAY Report ---
PROCEDURE: Knee 4+V RT INDICATIONS: Trauma TECHNIQUE: 4 views of the knee(s) were acquired. COMPARISON: None. FINDINGS: Bones: No fractures or dislocations. No suspicious bony lesions. Soft tissues: No knee joint effusion. No suspicious soft tissue calcifications or masses. IMPRESSION: No acute bony abnormality. If pain persists with conservative management, consider repeat x-ray in 10 -14 days or cross-sectional imaging. Reviewed by: Basil Biswas MD on 11/04/2023 8:53 AM PDT Approved by: Basil Biswas MD on 11/04/2023 8:53 AM PDT Station ID: [id number]
[2023-11-04] MEDS: HYDROcod/ACETAM 5/325 MG TABLET PO STA (09:06)
--- NOTE | 2023-11-04 09:21 | ED Physician Documentation ---
History of Present Illness - Stated complaint Stated Complaint: GI POST MEDS/LEG PX - Chief complaint Chief Complaint: Abd Pain - History obtained from History obtained from: Patient - History of Present Illness Pain level max: 5 Pain level now: 3 - Additonal information Additional information: Patient is a 57-year-old female who presents to the emergency department stating that she injured her right knee 3 days ago. She states that her dog ran into her leg. She had swelling at that time. She started taking large amounts of ibuprofen, today developed nausea and vomiting. Had a small amount of blood in the vomit. Came in for evaluation. Now has burning epigastric pain. Has not taken anything for this. She is on Pepcid at home. Review of Systems Constitutional: denies: Fever, Chills Respiratory: denies: Cough GI: reports: Abdominal Pain (burning, epigastric), Nausea, Vomiting PD PAST MEDICAL HISTORY - Past Medical History Cardiovascular: Hypertension, Arrhythmia Respiratory: None Neuro: TIA, Headaches Endocrine/Autoimmune: Type 2 diabetes, HyPOthyroidism GI: GERD, Ulcerative colitis EMT P: Ovarian cancer : None HEENT: None Psych: Post traumatic stress disorder Musculoskeletal: None Derm: None - Past Surgical History Past Surgical History: Yes General: Cholecystectomy, Appendectomy Ortho: Spine surgery /EMT P: section, Hysterectomy, Oophrectomy, Breast reduction, Other - Present Medications Home Medications: Ambulatory Orders Medication Instructions Recorded Confirmed Levothyroxine [Synthroid] 200 mcg PO QDAC 02/14/20 09/11/23 Pramipexole [Mirapex] 1 mg PO QPM 02/14/20 09/11/23 tiZANidine [Zanaflex] 4 mg PO BID PRN 02/14/20 09/11/23 carvediloL [Coreg] 12.5 mg ORAL BID 06/24/22 09/11/23 Famotidine [Pepcid] 20 mg PO BID #60 tablet 09/20/22 09/11/23 Ondansetron Odt [Zofran] 4 mg TL Q6H PRN #10 tablet 11/23/22 09/11/23 Amlodipine Besylate [Norvasc] 10 mg PO DAILY 02/16/23 09/11/23 HYDROcod/ACETAM 5/325 [[place] 5/325] 1 tablet PO QPM PRN 02/16/23 09/11/23 Semaglutide [Ozempic] 1 mg SQ Q7D 02/16/23 09/11/23 Latanoprost 0.005% Ophth Drops 1 drops OPTH BID 05/10/23 09/11/23 [Xalatan Ophth Drops] cycloSPORINE [Restasis Multidose] 1 drops OP BID 05/10/23 09/11/23 Esomeprazole Magnesium [Nexium] 40 mg PO DAILY #30 cap 11/04/23 Sucralfate [Carafate] 1 gm PO ACHS #60 tablet 11/04/23 - Allergies Allergies/Adverse Reactions: Allergies Allergy/AdvReac Type Severity Reaction Status Date / Time amoxicillin Allergy Rash Verified 09/23/23 10:13 benzonatate Allergy Unknown Verified 09/23/23 10:13 [From Tessalon Perles] cephalexin Allergy Rash Verified 09/23/23 10:13 diphenhydramine Allergy Rash Verified 09/23/23 10:13 [From Benadryl] hydroxychloroquine Allergy Anaphylaxis Verified 09/23/23 10:13 metaxalone [From Skelaxin] Allergy Anaphylaxis Verified 09/23/23 10:13 NSAIDS (Non-Steroidal Allergy Rash Verified 09/23/23 10:13 Anti-Inflamma oxycodone Allergy Anaphylaxis Verified 09/23/23 10:13 metoclopramide [From Reglan] AdvReac Anxiety Verified 09/23/23 10:13 prochlorperazine AdvReac Anxiety Verified 09/23/23 10:13 [From Compazine] SSRI's Allergy Unknown Uncoded 09/15/23 20:12 - Social History Does the pt smoke?: No Smoking Status: Never smoker Does the pt drink ETOH?: No Does the pt have substance abuse?: No - Immunizations Immunizations are current?: Yes Immunizations: Other immun not current - POLST Patient has POLST: No PD ED PE NORMAL - Vitals Vital signs reviewed: Yes - General General: Alert and oriented X 3, No acute distress - HEENT HEENT: Moist mucous membranes - Neck Neck: Supple, no meningeal sign - Cardiac Cardiac: RRR, Strong equal pulses - Respiratory Respiratory: No respiratory distress, Clear bilaterally - Abdomen Abdomen: Normal bowel sounds, Soft, Non tender, Non distended - Derm Derm: Warm and dry - Extremities Extremities: Other (Right lower extremity - ACL, MCL, PCL, LCL are intact. No significant joint swelling. No effusion. Diffuse tenderness about the knee.) - Neuro Neuro: Alert and oriented X 3 - Psych Psych: Normal mood, Normal affect Results - Vitals Vitals: Vital Signs - 24 hr 11/04/23 11/04/23 11/04/23 08:12 09:56 10:18 Temperature 36.3 C L 35.9 C L 35.9 C L Heart Rate 90 85 86 Respiratory 18 18 15 Rate Blood Pressure 150/100 H 145/98 H 144/85 H O2 Saturation 100 100 100 Oxygen O2 Source Room air - Rads (name of study) R knee xray Relevant Findings:: Final report received, See rad report PD Medical Decision Making - ED course Complexity details: considered differential, d/w patient ED course: 57-year-old female with a right knee injury, after that she had been taking ibuprofen which appears to have caused gastritis. She had an episode with small amount of blood in the emesis at home. She did have a very small episode of emesis here that was nonbloody. Given Protonix, Carafate, Maalox. Pain improved. She usually takes hydrocodone at home for pain, has hydrocodone at home. Placed in a articulating knee brace for the knee sprain. Will have her follow-up with her doctor for further care. No indication for further testing at this time. Patient counseled regarding signs and symptoms for which I believe and urgent re-evaluation would be necessary. Patient with good understanding of and agreement to plan and is comfortable going home at this time This document was made in part using voice recognition software. While efforts are made to proofread this document, sound alike and grammatical errors may occur. Departure - Departure Disposition: Home, Self Care Clinical Impression: Gastritis Qualifiers: Gastritis type: unspecified gastritis Chronicity: acute Gastritis bleeding: without bleeding Qualified Code(s): K29.00 - Acute gastritis without bleeding Sprain of knee Qualifiers: Encounter type: initial encounter Involved ligament of knee: unspecified ligament Laterality: right Qualified Code(s): S83.91XA - Sprain of unspecified site of right knee, initial encounter Condition: Good Instructions: ED Gastritis, ED Sprain Knee Follow-Up: TC HARPER PA [Primary Care Provider] - Within 1 week Prescriptions: Sucralfate [Carafate] 1 gm PO ACHS #60 tablet Esomeprazole Magnesium [Nexium] 40 mg PO DAILY #30 cap Comments: Your prescriptions were sent to [facility] in [place]. Please avoid any further NSAID use including Aleve, Motrin, etc. You can wear the brace for comfort at home. Please follow-up with your doctor for further care and return if you worsen. Forms: PCP List Discharge Date/Time: 11/04/23 10:21
[2023-11-04 10:31] VITALS: BP 144/85
== END 2023-11-04 10:21 | disposition home or self-care (01) ==
LOC: ED 08:01
DX: K29.00 Acute gastritis without bleeding (principal); S83.91XA Sprain of unspecified site of right knee, initial encounter; W54.1XXA Struck by dog, initial encounter; I10 Essential (primary) hypertension; E11.9 Type 2 diabetes mellitus without complications; E03.9 Hypothyroidism, unspecified; Z86.73 Personal history of transient ischemic attack (TIA), and cerebral infarction without residual deficits; Z79.899 Other long term (current) drug therapy; Z79.85 Long-term (current) use of injectable non-insulin antidiabetic drugs
CPT/HCPCS: 73564; 99283; A9270; Q0162

== ENCOUNTER 2023-12-06 22:54 | Emergency (ER) | payer OTHER ==
[2023-12-07 00:09] VITALS: O2SAT 98
--- NOTE | 2023-12-07 00:50 | ED Physician Documentation ---
History of Present Illness - Stated complaint Stated Complaint: COLON/HIGH BP/DIZZY - Chief complaint Chief Complaint: Cardiac - History obtained from History obtained from: Patient - Additonal information Additional information: HPI from patient. Patient c/o 3 days of generalized headache, nausea and vomiting, left leg weakness, left facial numbness, blood pressure "has been going up and down" (per patient), chest heaviness, dyspnea that is worse on exertion, loss of balance/dizziness. Has appointment with PCP scheduled for tomorrow. She says she spoke with PCP earlier today about these symptoms and a prescription for a blood pressure medication was sent to her pharmacy which she has not yet picked up. 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 : None HEENT: None Psych: Post traumatic stress disorder Musculoskeletal: None Derm: None - Past Surgical History Past Surgical History: Yes General: Cholecystectomy, Appendectomy Ortho: Spine surgery /[employer] HELPER: section, Hysterectomy, Oophrectomy, Breast reduction, Other - Present Medications Home Medications: Ambulatory Orders Medication Instructions Recorded Confirmed Levothyroxine [Synthroid] 200 mcg PO QDAC 02/14/20 09/11/23 Pramipexole [Mirapex] 1 mg PO QPM 02/14/20 09/11/23 tiZANidine [Zanaflex] 4 mg PO BID PRN 02/14/20 09/11/23 carvediloL [Coreg] 12.5 mg ORAL BID 06/24/22 09/11/23 Famotidine [Pepcid] 20 mg PO BID #60 tablet 09/20/22 09/11/23 Ondansetron Odt [Zofran] 4 mg TL Q6H PRN #10 tablet 11/23/22 09/11/23 Amlodipine Besylate [Norvasc] 10 mg PO DAILY 02/16/23 09/11/23 HYDROcod/ACETAM 5/325 [[place] 5/325] 1 tablet PO QPM PRN 02/16/23 09/11/23 Semaglutide [Ozempic] 1 mg SQ Q7D 02/16/23 09/11/23 Latanoprost 0.005% Ophth Drops 1 drops OPTH BID 05/10/23 09/11/23 [Xalatan Ophth Drops] cycloSPORINE [Restasis Multidose] 1 drops OP BID 05/10/23 09/11/23 Esomeprazole Magnesium [Nexium] 40 mg PO DAILY #30 cap 11/04/23 Sucralfate [Carafate] 1 gm PO ACHS #60 tablet 11/04/23 - Allergies Allergies/Adverse Reactions: Allergies Allergy/AdvReac Type Severity Reaction Status Date / Time amoxicillin Allergy Rash Verified 12/06/23 22:58 benzonatate Allergy Unknown Verified 12/06/23 22:58 [From Tessalon Perles] cephalexin Allergy Rash Verified 12/06/23 22:58 diphenhydramine Allergy Rash Verified 12/06/23 22:58 [From Benadryl] hydroxychloroquine Allergy Anaphylaxis Verified 12/06/23 22:58 metaxalone [From Skelaxin] Allergy Anaphylaxis Verified 12/06/23 22:58 NSAIDS (Non-Steroidal Allergy Rash Verified 12/06/23 22:58 Anti-Inflamma oxycodone Allergy Anaphylaxis Verified 12/06/23 22:58 metoclopramide [From Reglan] AdvReac Anxiety Verified 12/06/23 22:58 prochlorperazine AdvReac Anxiety Verified 12/06/23 22:58 [From Compazine] SSRI's Allergy Unknown Uncoded 12/06/23 22:58 - Social History Does the pt smoke?: No Smoking Status: Never smoker Does the pt drink ETOH?: No Does the pt have substance abuse?: No - Immunizations Immunizations are current?: Yes Immunizations: Other immun not current - POLST Patient has POLST: No PD ED PE NORMAL - Vitals Vital signs reviewed: Yes - General General: Alert and oriented X 3, No acute distress, Well developed/nourished - HEENT HEENT: PERRL, EOMI, Moist mucous membranes - Neck Neck: Supple, no meningeal sign - Cardiac Cardiac: RRR, No murmur, No gallop, No rub - Respiratory Respiratory: No respiratory distress, Clear bilaterally - Abdomen Abdomen: Normal bowel sounds, Soft, Non tender, Non distended - Derm Derm: Normal color, Warm and dry - Neuro Neuro: Alert and oriented X 3, 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 2-12 intact, No motor deficit, No sensory deficit, Normal speech Eye Opening: Spontaneous Motor: Obeys Commands Verbal: Oriented GCS Score: 15 Results - Vitals Vitals: Vital Signs - 24 hr 12/07/23 12/07/23 12/07/23 02:18 02:33 03:13 Heart Rate 83 85 85 Respiratory 18 18 18 Rate Blood Pressure 159/113 H 149/115 H 128/72 O2 Saturation 98 98 98 Oxygen O2 Source Room air PD Medical Decision Making - ED course Complexity details: reviewed results, re-evaluated patient, considered diffe rential, d/w patient ED course: I note on ZULLY form that patient was evaluated in ED 12/03/23 for same medical complaints, admitted to and d/c 12/05/23 (yesterday). Patient did not offer this information on my HPI but confirms it when I directly ask. She says she was told to come back to the ED if her symptoms persisted but that she did not want to go back to as she feels they mistreated her and thus she came to [facility]. This is her 42nd [facility] ED visit since 2019 and her 11th [facility] ED visit over past 12 months. I requested records from regarding this recent inpatient stay, they are faxed to [facility] ED and I reviewed them. Testing on that visit included CTH, CTA head/neck, MRI brain, EKG, UA, blood tests including troponin. The notes in the chart indicate no evidence of infarct on the imaging studies (head/brain), and that "prior admission for possible stroke to [facility] Neurology service in 05/2022, she was found NOT likely to have had a stroke and differentials favored complex migraine or conversion..." These notes also indicate "patient has followed with cardiology in the past with a negative evaluation and there is documentation from [facility] cardiology records of a negative stress test in 01/2023 per a phone triage note, though patient has no showed to her last few appointments". Patient had stable h/h during stay, as well. At time of d/c, notes indicate patient was tearful and expressing feeling dissatisfaction with care "stating that she was going to file 'a report'". Given extensive workup with documented results reviewed by me and no c oncerning/diagnostic findings on this inpatient w/u that was just concluded yesterday, retesting for these same symptoms not likely to yield diagnostic results nor change (conservative) management at this time. I see an rx for hydralazine 25mg QD was filled earlier today and thus she is given a dose of hydralazine 25mg PO for her high blood pressure noted tonight in ED. She is given 4mg TL zofran for nausea. She asks me for pain medication for her headache. All of my non-narcotic suggestions are met with reasons she cannot take them; for example, she says she already took tylenol, that she was advised to never take nsaids again (due to GIB that was, per patient, caused by her taking too much ibuprofen), and that she is allergic to tramadol (which is not even in non-narcotic category but I was willing to provide given no apparent non-narcotic options at this time). I explained that I was not comfortable with other narcotic medication. I am basing this on frequency of ED visits and Z[facility]Y form indicating she receives regular prescriptions for vicodin as well as note on ZULLY form from November 2022 from [facility] advising against providing any narcotic or controlled substance in ED for subjective complaints. On reevaluation (after hydralazine), her blood pressure has significantly improved (120s/70s). By that time, she had made requests for more antinausea medication (given repeat dose of 4mg TL zofran) and again requesting pain medication (via ED RN), and she is then given 1 tablet vicodin. On reevaluation, I explained that she is ready for discharge given improvement in blood pressure. I emphasized the need for her to pickle cutter the rx waiting for her at her pharmacy for this medication. She again is requesting more pain medication; although she tells me she isn't specifically wanting a narcotic/opiate, as noted above I find that all other analgesics discussed are met with reasons she says she cannot take them (already taken, allergic, advised against by her PCP). I offered one more tablet of vicodin which she accepts and then she is discharged. Departure - Departure Disposition: 01 Home, Self Care Clinical Impression: High blood pressure Qualifiers: Hypertension type: unspecified Qualified Code(s): I10 - Essential (primary) hypertension Condition: Good Instructions: ED Hypertension New Begin Tx Follow-Up: TC HARPER PA [Primary Care Provider] - Comments: I see that a prescription for hydrazaline was filled yesterday for you; this is very likely to be the medication your doctor prescribed for your high blood pressure. You were given a dose of the hydralazine in the emergency department, and your blood pressure responded quite well to this. Obviously, you should pickle cutter on the prescription later today when the pharmacy opens and take the medication as per the prescription instructions. Discharge Date/Time: 12/07/23 03:22
[2023-12-07] MEDS: hydrALAZINE 25 MG TABLET PO STA (01:45)
[2023-12-07] MEDS: ONDANSETRON ODT 4 MG TABLET TL STA (01:45)
[2023-12-07] MEDS: HYDROcod/ACETAM 5/325 MG TABLET PO STA (02:16)
[2023-12-07 03:18] VITALS: BP 128/72
== END 2023-12-07 03:22 | disposition home or self-care (01) ==
LOC: ED 22:54
DX: I10 Essential (primary) hypertension (principal)
CPT/HCPCS: 99283; A9270; Q0162

== ENCOUNTER 2023-12-12 15:06 | Emergency (ER) | payer OTHER ==
[2023-12-12 15:26] VITALS: BP 170/100; O2SAT 100
== END 2023-12-12 16:29 | disposition left against medical advice (07) ==
LOC: ED 15:06
DX: Z53.21 Procedure and treatment not carried out due to patient leaving prior to being seen by health care provider (principal)
CPT/HCPCS: 93005